=== PATIENT | female | born 1945 | race Caucasian/White ===

== ENCOUNTER 2018-05-11 10:11 | Emergency (ER) | payer OTHER, SELFPAY ==
[2018-05-11 10:14] VITALS: BP 130/70; PULSE 82; RESP 14; TEMP 36.7; O2SAT 97; BMI 38.0
--- NOTE | 2018-05-11 10:18 | DI.RAD.S_ITS ---
PROCEDURE: XR ANKLE LT MIN 3V INDICATIONS: fall, pain, unable to bear weight TECHNIQUE: 3 views of the ankle were acquired. COMPARISON: None. FINDINGS: Bones: There is a comminuted fracture of the distal tibia, predominantly within the medial malleolus, extending to the articular surface. It is minimally displaced. Tibiotalar joint space remains in alignment. Prominent calcaneal spur. Soft tissues: Prominent effusion is noted at the ankle. Achilles tendon appears normal. IMPRESSION: Minimally displaced comminuted, distal tibial fracture predominantly within the medial malleolus. Dictated by: Jyoti Ibarra M.D. on 05/11/2018 at 10:29 Approved by: Jyoti Ibarra M.D. on 05/11/2018 at 10:34
--- NOTE | 2018-05-11 10:34 | ED_ITS ---
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 She has pain with ambulation. She denies any injury to knee hip or elsewhere. She denies numbness, tingling or weakness. She denies any history of the same. MD complaint: ankle injury Onset (ago): hour(s) Injury: Left: ankle Type of Injury: inversion Place: street/outdoors Severity: moderate Relieving factors: immobilization Exacerbating factors: weight bearing Context: fall Associated symptoms: snap/pop sensation and swelling Other symptoms: none Related Data Previous Rx's Medication Instructions Recorded hydrocodone-acetaminophen 1 tab PO Q4-6H PRN #30 tab 05/11/18 Allergies Allergy/AdvReac Type Severity Reaction Status Date / Time amoxicillin [AMOXICILLIN] Allergy Intermediate HIVES Verified 05/11/18 10:17 erythromycin base Allergy Mild NAUSEA Verified 05/11/18 10:17 [ERYTHROMYCIN BASE] iodine [IODINE] Allergy Mild RASH Verified 05/11/18 10:17 Sulfa (Sulfonamide Allergy Mild BLISTERS Verified 05/11/18 10:17 Antibiotics) [SULFA (SULFONAMIDE ANTIBIOTICS)] Review of Systems Constitutional Denies chills, Denies fever(s), Denies lethargy and Denies weakness Eyes Denies change in vision, Denies eye discharge, Denies irritation and Denies loss of vision ENT Ears, Nose, Mouth, and Throat: Denies change in voice, Denies neck pain and Denies sore throat Cardiovascular Denies chest pain, Denies irregular heart rhythm, Denies lightheadedness, Denies palpitations, Denies dyspnea, Denies dyspnea on exertion and Denies orthopnea Respiratory Denies cough, Denies dyspnea, Denies dyspnea on exertion and Denies wheezing Gastrointestinal Gastrointestinal: Denies abdominal pain, Denies change in bowel habits, Denies diarrhea, Denies nausea and Denies vomiting Genitourinary Denies hematuria, Denies flank pain, Denies urinary incontinence and Denies urinary urgency Musculoskeletal Reports joint swelling, Reports limited range of motion and Denies neck pain Integumentary/Breasts Denies pruritus, Denies erythema, Denies rash and Denies wounds Neurologic Denies confusion, Denies loss of vision and Denies weakness Psychiatric Denies anxiety, Denies confusion, Denies depression, Denies homicidal ideation and Denies suicidal ideation Endocrine Denies palpitations Hematologic/Lymphatic Denies easy bruising Allergic/Immunologic Denies wheezing PFSH Surgical History Status post hysterectomy Status post tonsillectomy and adenoidectomy Family History Father High cholesterol Mother Age: 94 Diabetes mellitus Sister Age: 69 Diabetes mellitus Social History Smoking Status: Never smoker Family History Father High cholesterol Mother Age: 94 Diabetes mellitus Sister Age: 69 Diabetes mellitus Social History Smoking Status: Never smoker Exam Narrative Exam Narrative: GEN: AOx3 and in mild distress EYES: Pupils are equal, round, and reactive to light and accommodation. Extraoccular muscles are intact bilaterally. There is no subconjunctival hemorrhage or exudate. CHEST: Lungs are clear to auscultation bilaterally and free of wheezes, rales, or rhonchi. Heart rate is regular rhythm, there are no murmurs, clicks, rubs, or gallops. There is no chest wall tenderness. ABD: Abdomen is soft and nontender. There is no guarding or rebound. Bowel sounds are normal in all 4 quadrants. There is no mass or organomegaly. EXT: Pain and swelling with decreased range of motion of left ankle. Closed, isolated and neurovascularly intact SKIN: Warm, pink, and dry. No erythema or rash Initial Vital Signs Initial Vital Signs: Vital Signs Temperature 98.1 F 05/11/18 10:14 Pulse Rate 82 05/11/18 10:14 Respiratory Rate 14 05/11/18 10:14 Blood Pressure 130/70 05/11/18 10:14 Pulse Oximetry 97 05/11/18 10:14 Procedures Orthopedic Splinting/Casting Injury #1: Lower Extremity Injury Location: lower leg Lower Extremity Immobilizer: posterior splint and stirrup splint Other Orthopedic Equipment: crutches Course Orders Ordered: ED Orders 05/11/18 10:18 XR ankle LT min 3V Stat 05/11/18 11:02 CT LE LT wo con Stat Discontinued Medications Acetaminophen (Tylenol) 975 mg PO NOW ONE Stop: 05/11/18 10:23 Last Admin: 05/11/18 10:43 Dose: 975 mg Ibuprofen (Advil) 800 mg PO NOW ONE Stop: 05/11/18 10:23 Last Admin: 05/11/18 10:43 Dose: 800 mg Consultations Consultation #1: Call to Orthopedics whom request CT, posterior mold / stirrup, crutches and follow up Time: 10:44 Vital Signs - 8 hr 05/11/18 13:30 Pulse Rate 76 Respiratory Rate 18 Blood Pressure 117/70 Pulse Oximetry 100 MDM - Extremity Injury (Lower) Medical Records Attestation: I reviewed the patient's medical records. Lab Data Attestation: I reviewed the patient's lab results. Imaging Data Ankle Xray: Radiologist's impression: [address] [address] XRay Report Signed Patient: Beena Thomas LMR#: [id number] : 7Acct:[id number] Age/Sex: 72 / FDate of Service: 05/11/18 Loc: ED Accession Number: [id number] Procedure: XR ankle LT min 3V Ordering Provider: Zac Harmon D.O. PROCEDURE: XR ANKLE LT MIN 3V INDICATIONS: fall, pain, unable to bear weight TECHNIQUE: 3 views of the ankle were acquired. COMPARISON: None. FINDINGS: Bones: There is a comminuted fracture of the distal tibia, predominantly within the medial malleolus, extending to the articular surface. It is minimally displaced. Tibiotalar joint space remains in alignment. Prominent calcaneal spur. Soft tissues: Prominent effusion is noted at the ankle. Achilles tendon appears normal. IMPRESSION: Minimally displaced comminuted, distal tibial fracture predominantly within the medial malleolus. Dictated by: Jyoti Ibarra M.D. on 05/11/2018 at 10:29 Approved by: Jyoti Ibarra M.D. on 05/11/2018 at 10:34 CT Extremity: Radiologist's impression: [address] [address] [address] Scan Report Signed Patient: Beena Thomas LMR#: [id number] : 1946Acct:[id number] Age/Sex: 72 / FDate of Service: 05/11/18 Loc: ED Accession Number: [id number] Procedure: CT LE LT wo con Ordering Provider: Zac Harmon D.O. PROCEDURE: CT LE LT W CON INDICATIONS: comminuted distal tib fracture TECHNIQUE: Noncontrast 3-mm axial sections acquired from the distal tibial shaft to the talar dome, with coronal and sagittal reformats.. COMPARISON: [facility], CR, XR ANKLE LT MIN 3V, 05/11/2018, 10:18. FINDINGS: Image quality: Excellent. Bones: There is a comminuted fracture of the distal tibia involving the tibial plafond along the tibiotalar articulation and extension to the medial malleolus. There is mild impaction along the articular surface. Fracture also extends to the distal tibiofibular syndesmosis without associated syndesmotic widening. Remaining visualized osseous structures appear intact. There is moderate mid foot degeneration. Soft tissues: There is a small tibiotalar joint effusion with a few small fracture fragments in the joint space. Periarticular subcutaneous edema is demonstrated. The flexor, extensor, peroneal, and Achilles tendons appear grossly intact. IMPRESSION: 1. Comminuted distal tibial fracture involving the tibiotalar joint with mild articular surface impaction. The findings are compatible with a type III pilon fracture. 2. Small tibiotalar joint effusion with a few small fracture fragments noted. Dictated by: Bar Benavides M.D. on 05/11/2018 at 11:16 Approved by: Bar Benavides M.D. on 05/11/2018 at 11:33 Discharge Plan Departure Patient Disposition: Home Clinical Impression: Fracture of distal end of left tibia Discharge Date/Time: 05/11/18 13:30 Interventions: ED Discharge Assessment Last Done: 05/11/18 13:30 Instructions: DI for Shinbone Fracture Activity Restrictions/Additional Instructions: *You have been diagnosed with [ distal tibia fracture ] *What to do: *Take medications as directed. No weight-bearing *Follow up with [facility], call for an appointment. Let them know you were seen in the Emergency Department and that we ask that you be seen in follow up *Return to ER if you should have any new, worsening or concerning symptoms , such as [increasing pain, numbness, tingling, weakness or other bothersome symptoms ] Prescriptions: New hydrocodone-acetaminophen 5-325 mg tablet 1 tab PO Q4-6H PRN (Reason: pain) Qty: 30 RF: 0 Referrals: Avelino Jeffers MD [Primary Care Provider] - Adrien Matthews MD [Physician] -
[2018-05-11] MEDS: IBUPROFEN 400 MG TABLET 800 MG PO (10:43)
[2018-05-11] MEDS: ACETAMINOPHEN 325 MG TABLET 975 MG PO (10:43)
--- NOTE | 2018-05-11 11:02 | DI.CT.S_ITS ---
PROCEDURE: CT LE LT W CON INDICATIONS: comminuted distal tib fracture TECHNIQUE: Noncontrast 3-mm axial sections acquired from the distal tibial shaft to the talar dome, with coronal and sagittal reformats.. COMPARISON: [facility], CR, XR ANKLE LT MIN 3V, 05/11/2018, 10:18. FINDINGS: Image quality: Excellent. Bones: There is a comminuted fracture of the distal tibia involving the tibial plafond along the tibiotalar articulation and extension to the medial malleolus. There is mild impaction along the articular surface. Fracture also extends to the distal tibiofibular syndesmosis without associated syndesmotic widening. Remaining visualized osseous structures appear intact. There is moderate mid foot degeneration. Soft tissues: There is a small tibiotalar joint effusion with a few small fracture fragments in the joint space. Periarticular subcutaneous edema is demonstrated. The flexor, extensor, peroneal, and Achilles tendons appear grossly intact. IMPRESSION: 1. Comminuted distal tibial fracture involving the tibiotalar joint with mild articular surface impaction. The findings are compatible with a type III pilon fracture. 2. Small tibiotalar joint effusion with a few small fracture fragments noted. Dictated by: Bar Benavides M.D. on 05/11/2018 at 11:16 Approved by: Bar Benavides M.D. on 05/11/2018 at 11:33
[2018-05-11 13:30] VITALS: BP 117/70; PULSE 76; RESP 18; O2SAT 100
== END 2018-05-11 13:30 | disposition home or self-care (01) ==
PROVIDERS: Emergency Provider Emergency Medicine; Family Provider Family Medicine; PCP Family Medicine
DX: S82.302A Unspecified fracture of lower end of left tibia, initial encounter for closed fracture (principal); W18.43XA Slipping, tripping and stumbling without falling due to stepping from one level to another, initial encounter
CPT/HCPCS: 29505; 73610; 73700; 99283; 99284

== ENCOUNTER → 2018-05-13 10:47 | Outpatient (CLI) | payer OTHER, SELFPAY ==
[2018-05-13 11:39] LABS: Add Manual Diff / Slide Review NO; Basophils Absolute Auto 100 /uL (0-100); Basophils Percent Auto 0.7 % (0-2); Eosinophils Absolute Auto 100 /uL (0-450); Eosinophils Percent Auto 0.7 % (2-4); Hematocrit 41.6 % (36-46); Lymphocytes Absolute Auto 1300 /uL (1100-4500); Lymphocytes Percent Auto 13.3 % (25-40); Mean Corpuscular HGB Conc 33.6 % (30-36); Mean Corpuscular Hemoglobin 29.2 PG (26-34); Mean Corpuscular Volume 87.1 fL (80-100); Monocytes Absolute Auto 700 /uL (0-900); Monocytes Percent Auto 6.7 % (3-14); Neutrophils Absolute Auto 8000 /uL (1500-7000); Neutrophils Percent Auto 78.6 % (50-75); Platelet Count 288 X10^3/uL (150-400); Red Blood Cell Count 4.78 X10^6/uL (4.0-5.2); Red Cell Distribution Width 13.1 % (11.6-14.8); White Blood Cell Count 10.2 X10^3/uL (4.5-11.0)
[2018-05-13 11:40] LABS: BUN Creatinine Ratio 17.5 (6-22); Blood Urea Nitrogen 14 mg/dL (7-17); Calcium 9.2 mg/dL (8.4-10.2); Carbon Dioxide 27 mmol/L (22-32); Chloride 103 mmol/L (98-107); Estimated Glomerular Filt Rate > 60.0 mL/min (>60); Glucose 145 mg/dL (80-110); HEMOLYSIS < 15 (0-50); Potassium 4.5 mmol/L (3.4-5.1); Sodium 139 mmol/L (137-145)
== END ==
PROVIDERS: Family Provider Family Medicine; PCP Family Medicine; Visit Provider Orthopaedic Surgery Foot and Ankle Surgery
DX: Z01.818 Encounter for other preprocedural examination (principal); Z01.812 Encounter for preprocedural laboratory examination; M87.275 Osteonecrosis due to previous trauma, left foot; R73.9 Hyperglycemia, unspecified
CPT/HCPCS: 36415; 80048; 83036; 85025; 93005

== ENCOUNTER 2018-05-19 06:09 | Day surgery (SDC) | payer OTHER, SELFPAY ==
[2018-05-17 08:06] VITALS: BMI 38.0
[2018-05-19] VITALS (15 sets, daily range): BP systolic 103–137; BP diastolic 41–76; PULSE 68–95; RESP 10–16; TEMP 36–36.9; O2SAT 91–97; BMI 38.7; BMI 38.2
--- NOTE | 2018-05-19 | DI.RAD.S_ITS ---
PROCEDURE: XR ANKLE LT 2V INDICATIONS: LEFT ANKLE ORIF TECHNIQUE: 2 views of the ankle were acquired. COMPARISON: [facility], CR, XR ANKLE LT MIN 3V, 05/11/2018, 10:18. FINDINGS: Bones: No previously identified fractures or dislocations. Normal alignment is established after ORIF of a complex comminuted intra-articular moderately displaced left ankle fracture. Ankle mortise is normally aligned. No suspicious bony lesions. Soft tissues: No tibiotalar joint effusion. Achilles tendon appears normal. IMPRESSION: Virtual anatomic alignment established after ORIF of the previously identified complex left ankle fracture. Dictated by: Grady Duong M.D. on 05/19/2018 at 10:14 Approved by: Grady Duong M.D. on 05/19/2018 at 10:15
[2018-05-19] MEDS: LACTATED RINGERS 1,000 ML 42 ML IV (07:00)
--- NOTE | 2018-05-19 07:20 | PM.PREOP ---
Pre-operative Note Interval Note History & Physical reviewed/Exam performed by Physician: Yes Changes to H&P: No H&P completed within 30 days and has changed as indicated here:: pt endorse throat swelling allergy to amoxixillin in past therefore will use clinda instead of ancef for periop abx
[2018-05-19] MEDS: CLINDAMYCIN 900 MG/50 ML PIGGYBACK 50 MG IV (08:05)
--- NOTE | 2018-05-19 08:31 | SUR.OPER ---
Supine on padded OR bed, head on pillow, arms secured on padded arm boards at <90 degrees abduction, legs uncrossed, safety belt at thigh, tape over blanket over lower legs.
[2018-05-19] MEDS: BUPIVACAINE 0.25% (PF) VIAL 30 ML INJ (08:43)
--- NOTE | 2018-05-19 11:00 | SUR.PHASEI ---
Pt's HR NSR with PVCs. MD Desir aware of the PVCs. Will continue to monitor.
--- NOTE | 2018-05-19 11:05 | PM.OP.1 ---
Operative Date/Time/Diagnoses Date of procedure: 05/19/18 Time of procedure: 08:00 Pre-op diagnosis: 1. Closed displaced pilon fracture left tibia, initial encounter S82.872A Displaced intra-articular fracture left tibial plafond 2. Diabetes mellitus type 2 Post-op diagnosis: same Procedure & Clinicians Procedure: Number open reduction internal fixation of pilon fracture left tibia CPT code 94741 Same procedure as scheduled: Yes Indications: Patient has a left tibial plafond fracture with significant intra-articular comminution and displacement of anterior fragment. The patient has been indicated for surgery to align the fragments and obtain reduction. Patient understands that we would not be able to reconstruct the joint and tired he due to the high level of comminution. And the patient has a high likelihood of posttraumatic arthritis but the symptoms may be variable. Patient was also offered the option of primary arthrodesis but the sacrifice his joint motion. The patient is desired open reduction internal fixation. She does have a new onset diabetes with a hemoglobin A1c of 7. We will arrange for medical treatment of this. The patient was consented for open reduction internal fixation of the left tibial plafond fracture. Risks benefits and alternatives of procedure were discussed with the patient detail including but not limited to infection, nonunion, malunion, delayed wound healing, posttraumatic arthritis, persistent pain, DVT, PE, inability to return to previous level of activities., cardiopulmonary complications associated with general anesthesia up to and including . Informed consent was signed in the office. Patient understands that it is important to elevate above the heart level for at least 2 weeks after surgery and she will be nonweightbearing for approximately 10 weeks. She will take DVT prophylaxis with 325 mg of aspirin daily starting on postoperative day 1. Surgeon: Pippa Zhu Detacher: Misa Beltre Anesthesia Type: General, Peripheral nerve block and Local Operative Notes Findings: Displaced intra-articular left distal tibia fracture with primarily anterior medial and anterior lateral fragments and central comminution and joint depression. The chaput fragment was pinned in place and then secured with a 4.0 cannulated screw and washer. Medial malleolar fragments were secured with 2 4.0 cannula screws. And a Arthrex low-profile distal tibia anterior plate was applied the distal locking screws. Closure Type: primary Specimen(s): none sent Prosthetic devices, grafts, tissues, transplants, or devices: Arthrex low-profile anterior distal tibia plate and screws 4.0 mmcannulated screws x 3, 2x washer Applied: other (Splint) Estimated Blood Loss (mL): 5 Blood products transfused: none Tourniquet time (min): 89 Procedure in detail: The patient was seen in the preoperative area where informed consent was confirmed and site of surgery marked. Patient was then brought back to the operating room by the anesthesia team. The patient was administered a popliteal block for postoperative pain control by the anesthesia team. General anesthesia was then administered the patient was positioned supine on the operative table. All bony prominences were well-padded. Well-padded thigh tourniquet was placed on the operative extremity. An SCD was on the contralateral leg. Patient was prepped and draped in the standard sterile fashion including a 3 step prep. Formal time-out procedure was performed confirming the patient's side and site of surgery and administration of appropriate preoperative antibiotics. All were in agreement. Implants were available. S were bandage utilized for exsanguination the tourniquet was raised to 300 mm of mercury and stayed there for approximately 89 min. Approximately 10 cm anterior incision was centered just lateral to the tibial crest and in the midline of the bimalleolar axis. This was taken down through the skin subcutaneous tissue and fascia to level of extensor retinaculum. Extensor retinaculum was opened and tagged for later repair. Interval between the EHL and the tibialis anterior was taken down to bone with the EHL neurovascular bundle and other tendons retracted laterally and the tibialis anterior retracted medially. Tendons were kept inside their sheaths. This exposed the anterior fracture fragments of the distal tibia. And distal extension to the level of the joint was obtained. The fracture fragments were irrigated and cleaned of debris and hematoma. This exposed a primary medial and lateral anterior fragments. These were then reduced and pinned with K-wires. The anterior lateral fragment was reduced and pinned with a 4.0 cannulated screw in a lag fashion with a washer. At the end of this case this was found to be slightly long was changed out for a slightly score shorter screw. Next the medial fragments were pinned with 2 percutaneous wires 1 from medial to lateral and 1 in the standard medial malleolar fashion. Next the anterior medial fragment was pinned to the shaft. Radiographs were obtained confirming appropriate reduction of the joint surface. Therefore a low-profile distal tibia plate from the Arthrex set was selected and fit to the distal tibia. X-rays were taken to confirm positioning. The plate was secured with a BB Jos proximally and K-wires distally. Once this was appropriate cortical screw was placed in the oblong hole followed by standard cortical 2 7 screws distally to compress the plate to the bone. Next the distal locking 2 7 screws were placed filling the rest of the distal plate. And another cortical 3 5 screws placed in the shaft followed by a 3.5 locking screw in the distal metaphysis. Next the 4 0 cannulated screw was placed and medial to lateral over the guidewire and the final medial malleolus cannulated screw was placed over the guidewire percutaneously. Final fluoroscopic images were obtained in AP mortise lateral planes confirming appropriate screw length and reduction. I was very satisfied with the appearance of these. Tourniquet was released the wound was irrigated and hemostasis was achieved and the wound was closed in layers with 0 Vicryl in the extensor retinaculum which we obtained a good closure of. Two 0 in the subcutaneous tissues then of 4 0 Monocryl followed by 3 0 nylon in the skin. Patient was placed in a sterile dressing with Xeroform gauze Webril bulky Doll cotton and a posterior splint. All counts were correct. The patient was woken from anesthesia and taken to the PACU in good condition. There were no known immediate complications from this procedure. Complications: none Condition: stable Disposition: PACU Plan for aftercare: Patient will be nonweightbearing for approximately 10 weeks. she will elevate strictly above the heart level. She will have a internal medicine consult for diabetes control. She will start aspirin 325 mg on postop day 1 for DVT prophylaxis. She will have 2 doses of postoperative antibiotics.
--- NOTE | 2018-05-19 11:16 | P.OP_ITS ---
Operative Date/Time/Diagnoses Date of procedure: 05/19/18 Time of procedure: 08:00 Pre-op diagnosis: 1. Closed displaced pilon fracture left tibia, initial encounter S82.872A Displaced intra-articular fracture left tibial plafond 2. Diabetes mellitus type 2 Post-op diagnosis: same Procedure & Clinicians Procedure: Number open reduction internal fixation of pilon fracture left tibia CPT code 45294 Same procedure as scheduled: Yes Indications: Patient has a left tibial plafond fracture with significant intra- articular comminution and displacement of anterior fragment. The patient has been indicated for surgery to align the fragments and obtain reduction. Patient understands that we would not be able to reconstruct the joint and tired he due to the high level of comminution. And the patient has a high likelihood of posttraumatic arthritis but the symptoms may be variable. Patient was also offered the option of primary arthrodesis but the sacrifice his joint motion. The patient is desired open reduction internal fixation. She does have a new onset diabetes with a hemoglobin A1c of 7. We will arrange for medical treatmen t of this. The patient was consented for open reduction internal fixation of the left tibial plafond fracture. Risks benefits and alternatives of procedure were discussed with the patient detail including but not limited to infection, nonunion, malunion, delayed wound healing, posttraumatic arthritis, persistent pain, DVT, PE, inability to return to previous level of activities., cardiopulmonary complications associated with general anesthesia up to and including . Informed consent was signed in the office. Patient understands that it is important to elevate above the heart level for at least 2 weeks after surgery and she will be nonweightbearing for approximately 10 weeks. She will take DVT prophylaxis with 325 mg of aspirin daily starting on postoperative day 1. Surgeon: Pippa Zhu Master Black Belt: Misa Beltre Anesthesia Type: General, Peripheral nerve block and Local Operative Notes Findings: Displaced intra-articular left distal tibia fracture with primarily anterior medial and anterior lateral fragments and central comminution and joint depression. The chaput fragment was pinned in place and then secured with a 4.0 cannulated screw and washer. Medial malleolar fragments were secured with 2 4.0 cannula screws. And a Arthrex low-profile distal tibia anterior plate was applied the distal locking screws. Closure Type: primary Specimen(s): none sent Prosthetic devices, grafts, tissues, transplants, or devices: Arthrex low- profile anterior distal tibia plate and screws 4.0 mmcannulated screws x 3, 2x washer Applied: other (Splint) Estimated Blood Loss (mL): 5 Blood products transfused: none Tourniquet time (min): 89 Procedure in detail: The patient was seen in the preoperative area where informed consent was confirmed and site of surgery marked. Patient was then brought back to the operating room by the anesthesia team. The patient was administered a popliteal block for postoperative pain control by the anesthesia team. General anesthesia was then administered the patient was positioned supine on the operative table. All bony prominences were well-padded. Well- padded thigh tourniquet was placed on the operative extremity. An SCD was on the contralateral leg. Patient was prepped and draped in the standard sterile fashion including a 3 step prep. Formal time-out procedure was performed confirming the patient's side and site of surgery and administration of appropriate preoperative antibiotics. All were in agreement. Implants were available. S were bandage utilized for exsanguination the tourniquet was raised to 300 mm of mercury and stayed there for approximately 89 min. Approximately 10 cm anterior incision was centered just lateral to the tibial crest and in the midline of the bimalleolar axis. This was taken down through the skin subcutane ous tissue and fascia to level of extensor retinaculum. Extensor retinaculum was opened and tagged for later repair. Interval between the EHL and the tibialis anterior was taken down to bone with the EHL neurovascular bundle and other tendons retracted laterally and the tibialis anterior retracted medially. Tendons were kept inside their sheaths. This exposed the anterior fracture fragments of the distal tibia. And distal extension to the level of the joint was obtained. The fracture fragments were irrigated and cleaned of debris and hematoma. This exposed a primary medial and lateral anterior fragments. These were then reduced and pinned with K-wires. The anterior lateral fragment was reduced and pinned with a 4.0 cannulated screw in a lag fashion with a washer. At the end of this case this was found to be slightly long was changed out for a slightly score shorter screw. Next the medial fragments were pinned with 2 percutaneous wires 1 from medial to lateral and 1 in the standard medial malleolar fashion. Next the anterior medial fragment was pinned to the shaft. Radiographs were obtained confirming appropriate reduction of the joint surface. Therefore a low-profile distal tibia plate from the Arthrex set was selected and fit to the distal tibia. X-rays were taken to confirm positioning. The plate was secured with a BB Jos proximally and K-wires distally. Once this was appropriate cortical screw was placed in the oblong hole followed by standard cortical 2 7 screws distally to compress the plate to the bone. Next the distal locking 2 7 screws were placed filling the rest of the distal plate. And another cortical 3 5 screws placed in the shaft followed by a 3.5 locking screw in the distal metaphysis. Next the 4 0 cannulated screw was placed and medial to later al over the guidewire and the final medial malleolus cannulated screw was placed over the guidewire percutaneously. Final fluoroscopic images were obtained in AP mortise lateral planes confirming appropriate screw length and reduction. I was very satisfied with the appearance of these. Tourniquet was released the wound was irrigated and hemostasis was achieved and the wound was closed in layers with 0 Vicryl in the extensor retinaculum which we obtained a good closure of. Two 0 in the subcutaneous tissues then of 4 0 Monocryl followed by 3 0 nylon in the skin. Patient was placed in a sterile dressing with Xeroform gauze Webril bulky Doll cotton and a posterior splint. All counts were correct. The patient was woken from anesthesia and taken to the PACU in good condition. There were no known immediate complications from this procedure. Complications: none Condition: stable Disposition: PACU Plan for aftercare: Patient will be nonweightbearing for approximately 10 weeks. she will elevate strictly above the heart level. She will have a internal medicine consult for diabetes control. She will start aspirin 325 mg on postop day 1 for DVT prophylaxis. She will have 2 doses of postoperative antibiotics.
--- NOTE | 2018-05-19 11:44 | SUR.PHASEI ---
Pt transferred to room 206 via stretcher with all belongings. Pt's last vital signs table. Pt not c/o pain or nausea. Report given to IVETH Paris prior to transferring pt.
--- NOTE | 2018-05-19 12:55 | PC.NURSE ---
Day Shift- Report rec'd from IVETH Núñez in PACU at 1117. Pt arrived to unit at 1150 via stretcher, pt able to move herself to the bed with RN holding LLE. Now elevated on pillows. Denies pain, nausea. 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 VSS, afebrile upon arrival. oriented to call light, post op precautions, on high fall risk precautions. Enc DB&C exercises and ankle pump to right ankle. SCD on to RLE. PIV to left hand S/L'd. LLE gauze and desi wrap splint in place. Call light within reach.
--- NOTE | 2018-05-19 15:34 | P.PN_ITS ---
Subjective Date Patient Seen: 05/19/18 Time Patient Seen: 15:31 Interval history: Diabetes. Asked to see patient by Dr. Zhu. Patient was found to have an elevated hemoglobin A1c preoperatively. Patient underwent ORIF ankle injury. Patient has history of dfv-ornshnc-uqqbofnew diabetes for several years. When last seen in the office approximately 2 years ago her hemoglobin A1c was 6.4. 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 Since then has been no particular issues. 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 Has some knowledge of a dietary issues. And has not been terribly consistent in her activity. Family history is positive for diabetes. Patient is on no medications for diabetes. Additionally no history of coronary artery disease, no history of hyperlipidemia, and no history of hypertension. Patient is anticipating going home tomorrow with apparent home physical therapy.. Of significance patient has right nephrectomy approximately 20 years ago for renal cell carcinoma. As far she is aware she has had normal renal function since Exam Vital Signs (past 8 hours): - 05/19/18 10:29 05/19/18 10:34 05/19/18 10:39 Temperature 98.0 F Pulse Rate 95 H 90 85 Respiratory Rate 12 11 L 12 Blood Pressure 126/68 120/58 L 114/57 L Pulse Oximetry 93 93 93 05/19/18 10:44 05/19/18 10:59 05/19/18 11:14 Temperature Pulse Rate 80 79 77 Respiratory Rate 13 12 10 L Blood Pressure 120/53 L 113/49 L 118/41 L Pulse Oximetry 94 92 91 05/19/18 11:29 05/19/18 11:39 05/19/18 11:50 Temperature 98.2 F Pulse Rate 77 71 79 Respiratory Rate 12 11 L 16 Blood Pressure 130/46 L 115/53 L 103/71 Pulse Oximetry 94 96 97 05/19/18 12:20 05/19/18 12:50 05/19/18 13:50 Temperature 97.4 F L 97.4 F L 97.3 F L Pulse Rate 74 70 79 Respiratory Rate 16 16 16 Blood Pressure 120/71 117/53 L 118/63 Pulse Oximetry 95 92 96 Oxygen Delivery Method Room Air Narrative Exam Narrative: Gen.: Skin: Warm well perfused. No prominent lesions. Nonicteric. HEENT: PERRL., normal EOM, external ears canals TMs normal, nasal mucosa normal and midline septum, oropharynx without lesions. Neck: Trachea midline. Thyroid nontender and not enlarged. Carotids without bruits. No lymphadenopathy Back: No obvious deformity or tenderness. Chest: Clear to P&A. Symmetric. CV: RRR no murmur or gallop. No JVD. Abdomen: No masses bruits tenderness or visceromegaly. Neuro: Cranial nerves II through XII grossly intact. Sensory and motor exams intact. Gait normal. Mental status: Intact for screening Extremities: No cyanosis clubbing or edema Musculoskeletal: No gross deformities Lymphatics: Negative for lymphadenopathy, supraclavicular axillary or inguinal Objective Labs Labs: Labs drawn May 13 normal renal function. Hemoglobin A1c was 7.0 as stated Assessment & Plan Assessment & Plan narrative: The patient has adult onset diabetes that has increased A1c over time. Issues at hand primarily are her renal function. They currently are normal. Patient will be speaking with the dietitian. She has already done this but will get updated. Patient also be instructed on home physical therapy and exercise which is critical to management. I will see her back in 1 month with a repeat hemoglobin A1c at that time as well as BMP and. She will have urine micro done here this morning or tomorrow morning. Depending however he A1c is in a month may mm not decide to add glimepiride to the program. Metformin will not be use cause of potential for nephrotoxicity
[2018-05-19] MEDS: CLINDAMYCIN 600 MG/50 ML PIGGYBACK 50 MG IV (17:50)
--- NOTE | 2018-05-19 17:58 | PM.PNPO.1 ---
Subjective Date Patient Seen: 05/19/18 Time Patient Seen: 17:58 Interval history: Postop day 0 pilon ORIF Exam Vital Signs (past 8 hours): - 05/19/18 10:29 05/19/18 10:34 05/19/18 10:39 Temperature 98.0 F Pulse Rate 95 H 90 85 Respiratory Rate 12 11 L 12 Blood Pressure 126/68 120/58 L 114/57 L Pulse Oximetry 93 93 93 05/19/18 10:44 05/19/18 10:59 05/19/18 11:14 Temperature Pulse Rate 80 79 77 Respiratory Rate 13 12 10 L Blood Pressure 120/53 L 113/49 L 118/41 L Pulse Oximetry 94 92 91 05/19/18 11:29 05/19/18 11:39 05/19/18 11:50 Temperature 98.2 F Pulse Rate 77 71 79 Respiratory Rate 12 11 L 16 Blood Pressure 130/46 L 115/53 L 103/71 Pulse Oximetry 94 96 97 05/19/18 12:20 05/19/18 12:50 05/19/18 13:50 Temperature 97.4 F L 97.4 F L 97.3 F L Pulse Rate 74 70 79 Respiratory Rate 16 16 16 Blood Pressure 120/71 117/53 L 118/63 Pulse Oximetry 95 92 96 05/19/18 14:50 Temperature 98.4 F Pulse Rate 81 Respiratory Rate 16 Blood Pressure 112/70 Pulse Oximetry 97 Oxygen Delivery Method Room Air Assessment & Plan Post-op Postoperative Procedures Operation Date: 05/19/18 07:45 Actual Procedures Side Surgeon p ORIF pilon fx vs applicationof spanning external fixation of ankle Left Pippa Zhu MD 1. Nonweightbearing left lower extremity 2. Elevate strictly above heart level 1st 2 weeks after surgery 3. Start aspirin 325 mg daily for DVT prophylaxis 4. Follow-up scheduled 2 weeks 5. Has discharge prescriptions for pain medication, stool softener, aspirin, Zofran all on chart 6. Discharge home postop day 1 morning--no PT needed patient has been coping with nonweightbearing well at home Quality VTE Deep Vein Thrombosis/Pulmonary Embolism Present on Admission: No
[2018-05-19] MEDS: SODIUM CHLORIDE 0.9% FLUSH 10 ML IV (20:45)
[2018-05-19] MEDS: DOCUSATE 100 MG CAPSULE PO (20:45)
[2018-05-19] MEDS: ACETAMINOPHEN 325 MG TABLET 975 MG PO (20:45)
--- NOTE | 2018-05-19 22:32 | PC.NURSE ---
Addendum entered by Mckayla Aragon R.N. 05/20/18 00:45: 0015- note is on wrong pt. Original Note: Addendum entered by Mckayla Aragon R.N. 05/20/18 00:23: 0015- Asked student RN to admin pt's 2100 medications. Student replied with yes. Unknown if pt received 2100 medications from student and instructor. Medications were not scanned. Pt unable to to verbalize if received r/t dementia/confusion. Original Note: Pt denies pain to left LLL, Leg is splinted with gauze desi wrap, toes exposed and able to wiggle all toes, able to lift leg, calf SCD to right leg. L hand SL and received ABO @ 1700. Ate reg diet dinner, denies nausea, BT+. 9+7% RA, LS clear, denies SOB. 1PA FWW to BRP to void. Bed alarm on for safety, uses call appropriately.
[2018-05-20 00:25] VITALS: BP 122/51; PULSE 87; RESP 17; TEMP 37; O2SAT 95
[2018-05-20] MEDS: CLINDAMYCIN 600 MG/50 ML PIGGYBACK 50 MG IV (01:15)
[2018-05-20 01:39] LABS: Creatinine Urine Random 68.9 mg/dL
[2018-05-20 01:45] LABS: Microalbumi Creatinin Ratio Ur 8.7 ug/mg CR (<30); Microalbumin Urine Random < 0.6 mg/dL (0-1.6)
[2018-05-20 03:38] VITALS: BP 132/82; PULSE 83; RESP 16; TEMP 36.5; O2SAT 96
[2018-05-20 08:00] VITALS: BP 123/70; PULSE 76; RESP 16; TEMP 36.9; O2SAT 96
[2018-05-20] MEDS: ACETAMINOPHEN 325 MG TABLET 975 MG PO (08:53)
[2018-05-20] MEDS: DOCUSATE 100 MG CAPSULE PO (08:53)
[2018-05-20] MEDS: ASPIRIN EC 325 MG TABLET PO (08:53)
[2018-05-20] MEDS: SODIUM CHLORIDE 0.9% FLUSH 10 ML IV (08:54)
--- NOTE | 2018-05-20 10:05 | PM.DS.1 ---
History of Present Illness Date Patient Seen: 05/20/18 Time Patient Seen: 10:06 Chief complaint: Pilon Fracture of left Tibia Narrative: Hospital day 2, postop day 1 following left tibial pilon fracture ORIF by Dr. Zhu. Patient has remained stable postoperatively. Nonweightbearing to the left leg. Patient was seen by Dr. Jeffers regarding her diabetes and has cleared patient for discharge. Patient has had minimal pain. Dr. Zhu did not think patient needed physical therapy as she has been doing well at home on her own. She has prescriptions already written for Percocet, Zofran. Ready for discharge today. Discharge Providers Primary care physician: Avelino Jeffers MD Consults: 05/19/18 11:59 Consult to Dietitian, Adult Routine Comment: Reason For Exam: diabetes new Consult to Discharge Planning Routine Comment: plan home 05/20 Consult to Physician Routine Comment: Consulting Provider: Avelino Jeffers Reason for consultation: new diabetes hgb 1 ac 7--hx one kidney Has provider been notified: Yes Consult to Respiratory Therapy Evaluate & Treat Comment: Physician Instructions: Evaluate and treat 05/19/18 15:26 Consult to Dietitian, Adult Routine Comment: Reason For Exam: diabetic diet Discharge provider: Sarbjit Hanson PA-C Discharge Date: 05/20/18 Summary Discharge Diagnosis: Status post left tibial pilon fracture ORIF Hospital Course: Patient brought to hospital on 03/18/2019 for above-noted surgery. Remained stable postoperatively. Good pain control. Patient discharged home on postop day 1. Status at Discharge Cognitive/behavioral status at discharge: Alert oriented no acute distress. Overall status at discharge: other (Nonweightbearing to left leg times 10 weeks postop.) Time Spent with Patient Less than 30 minutes Exam Vital Signs (past 8 hours): - 05/20/18 03:38 05/20/18 08:00 Temperature 97.7 F 98.4 F Pulse Rate 83 76 Respiratory Rate 16 16 Blood Pressure 132/82 123/70 Pulse Oximetry 96 96 Oxygen Delivery Method Room Air Oxygen Flow Rate 0 Narrative Exam Narrative: Left leg. Bulky lower leg postop splint in stable position. Good blanching and sensation to all toes. Objective Labs Labs: Laboratory Results - last 24 hr 05/19/18 23:35 Ur Random Microalbumin < 0.6 Urine Creatinine 68.9 Microalb/Creat Ratio 8.7 Discharge Plan Discharge Plan Patient Disposition: Home Labs: A1c, bmp 1 mo Discharge comment: sherri Jeffers 1 mo Discharge Med Rec/Prescriptions Prescriptions: New aspirin 325 mg tablet,delayed release (DR/EC) 325 mg PO DAILY Qty: 42 RF: 0 docusate sodium [Colace] 100 mg capsule 100 mg PO BID Qty: 30 RF: 1 ondansetron 4 mg tablet,disintegrating 4 mg PO BID-TID PRN (Reason: nausea and vomiting) Qty: 7 RF: 0 oxycodone-acetaminophen 5-300 mg tablet 2 tab PO Q4-6H PRN (Reason: pain) Qty: 50 RF: 0 Discontinued hydrocodone-acetaminophen 5-325 mg tablet 1 tab PO Q4-6H PRN (Reason: pain) Qty: 30 RF: 0 Follow up/Referrals: Pippa Zhu MD [Physician] - As previously scheduled (06/03/18 9:40 AM check in for 9:50AM appointment [place] [facility] located at [address] [place] [address]) Avelino Jeffers MD [Primary Care Provider] - Discharge Orders: Discharge (Order); Ordered 05/20/18 Ordered By: Sarbjit Hanson Provider Discharge Instructions Diet: Diet as Tolerated Activity: NWB LLE Other treatments: At-Home Instructions - Dr. Zhu Surgery: ankle joint open reduction internal fixation: pilon fracture Cast/Splint/Dressing Care Instructions 1) Keep cast/dressing clean and dry. 2) May bathe - but cast/dressing must remain dry. 3) Should the cast become wet, you need to come into emergency department or call your physician's clinic immediately for cast removal and replacement. Moisture can cause skin breakdown and lead to infection if left untreated. 4) Do not stick any sharp object down the cast to itch, as this can cause scrapes/cuts/punctures which can lead to infection. 6) Observe for increasing pain in the extremity with the cast, finger/toe-tips turning blue/purple, or numbness and tingling in your toes/fingers. Should any of these symptoms arise, you need to be seen immediately for evaluation of swelling and increasing compartment pressures within your affected extremity. 7) Keep your affected extremity elevated - Toes Above your Nose? - This is aburto in the first two weeks after surgery to minimize swelling. 8) You may ice your extremity, being careful to prevent melting ice from saturating into the splint/cast. Activity No heavy lifting greater than 10 pounds. [address] while on narcotic pain medication. Do not get your dressing/cast/splint wet! You must remain non-weight bearing on your operative extremity. Use crutches or a walker for ambulation. No driving until you are otherwise instructed by your physician. This will be addressed at your first follow-up appointment. Discharge Pain Medications You will be given a prescription for pain medication. You should start taking this the same day after your surgery. Wean off as tolerated. Do not wait to take the pain medication until the pain is severe, as it will be difficult to catch up once this occurs. The pain medication usually reaches its full effect ~1 hour after ingesting. If you have been sent home on Colace, this medication should be taken until you are off all narcotic (i.e. Vicodin, Percocet, Oxycodone, etc) pain medications, to prevent constipation. You may also obtain this or another stool softener over the counter to prevent or alleviate constipation. Percocet or Vicodin have Tylenol in their ingredient lists. You must be careful not to exceed 3,000mg (3 grams) of Tylenol, from all sources, within a single 24-hr period. This means that you may not take more than 10 pills within a 24-hr period. Do NOT take Regular or Extra Strength Tylenol when taking your Percocet or Vicodin medications. -Some common side effects of the narcotic pain medications (Percocet, Oxycodone, Vicodin, etc.) include nausea and itching. Benadryl is a great over the counter medication that helps calm your stomach, decreases your anxiety levels, and minimizes the itching. You can easily purchase this at your local pharmacy as an cuwq-gum-[id number] medication. Please abide by the instructions as printed on the bottle. If your nausea persists, make sure to take small amounts of crackers or other automatic wheel line operator foods. Follow-Up/Emergency Contacts Please call for an appointment in either [place] or [place], if one has not been scheduled. Follow up 1 week after surgery. [phone] Contact the office if you have any of the following: ? Painful swelling or numbness ? Unrelenting pain ? Fever (over 101?- it is normal to have a low grade fever for the first day or two following surgery) or chills ? Redness around the incisions ? Color changes ? Continuous bleeding or drainage from the incision (a small amount is expected) ? Excessive nausea or vomiting ? Difficulty breathing If you have an emergency that requires immediate attention, proceed to the nearest emergency room. Blood Clot Prophylaxis You will need to complete a total 6-week (42 days) course of Aspirin (325 mg daily) after surgery, to minimize the risk of blood clots following surgery. You may alternatively purchase or use eojv-pzy-mttacma generic equivalent Aspirin. If you already have ?baby? Aspirin (81mg) at home, you can take 4 ?baby? Aspirin to total 324mg for the equivalent dose. Pain Medications: It is the policy of [facility] that narcotic medications will only be refilled during office hours. Additionally, due to the alarming rate of narcotic pain medication abuse/dependence, it has become necessary for physician practices to closely manage patient use of prescription narcotic pain relievers, such as Vicodin ([place]), Percocet, and Oxycodone products. Narcotic pain management in the postoperative period may not exceed 6 weeks. If narcotic pain management is required beyond 90 days, then a referral to a Chronic Pain Specialist will be made. If a request for a medication prescription has been made, the physician must review your chart prior to authorizing the request. Please be patient with office staff. If you call during patient hours, your call may not be returned until the end of the day. Dr. Pippa Zhu [address] [email or web address] Skin/Wound/Dressing Care Report to your healthcare provider any signs of infection, such as:: chills, fever, night sweats, increased pain, unusual drainage and unusual redness Dressing: keep splint c/d/i Visit Report/Discharge Packet Instructions: How to Prevent Falls, DI for Open Reduction Internal Fixation Surgery, DI for Postoperative Pain Stand Alone Forms: Surgery Discharge Visit Report Forms: Stroke Signs & Symptoms Discharge Data Primary Care Provider: Avelino Jeffers Attending Provider: Pippa Zhu VTE Deep Vein Thrombosis/Pulmonary Embolism Present on Admission: No
--- NOTE | 2018-05-20 10:12 | P.DS_ITS ---
History of Present Illness Date Patient Seen: 05/20/18 Time Patient Seen: 10:06 Chief complaint: Pilon Fracture of left Tibia Narrative: Hospital day 2, postop day 1 following left tibial pilon fracture ORIF by Dr. Zhu. Patient has remained stable postoperatively. Nonweightbearing to the left leg. Patient was seen by Dr. Jeffers regarding her diabetes and has cleared patient for discharge. Patient has had minimal pain. Dr. Zhu did not think patient needed physical therapy as she has been doing well at home on her own. She has prescriptions already written for Percocet, Zofran. Ready for discharge today. Discharge Providers Primary care physician: Avelino Jeffers MD Consults: 05/19/18 11:59 Consult to Dietitian, Adult Routine Comment: Reason For Exam: diabetes new Consult to Discharge Planning Routine Comment: plan home 05/20 Consult to Physician Routine Comment: Consulting Provider: Avelino Jeffers Reason for consultation: new diabetes hgb 1 ac 7--hx one kidney Has provider been notified: Yes Consult to Respiratory Therapy Evaluate & Treat Comment: Physician Instructions: Evaluate and treat 05/19/18 15:26 Consult to Dietitian, Adult Routine Comment: Reason For Exam: diabetic diet Discharge provider: Sarbjit Hanson PA-C Discharge Date: 05/20/18 Summary Discharge Diagnosis: Status post left tibial pilon fracture ORIF Hospital Course: Patient brought to hospital on 03/18/2019 for above-noted surgery. Remained stable postoperatively. Good pain control. Patient discharged home on postop day 1. Status at Discharge Cognitive/behavioral status at discharge: Alert oriented no acute distress. Overall status at discharge: other (Nonweightbearing to left leg times 10 weeks postop.) Time Spent with Patient Less than 30 minutes Exam Vital Signs (past 8 hours): - 05/20/18 03:38 05/20/18 08:00 Temperature 97.7 F 98.4 F Pulse Rate 83 76 Respiratory Rate 16 16 Blood Pressure 132/82 123/70 Pulse Oximetry 96 96 Oxygen Delivery Method Room Air Oxygen Flow Rate 0 Narrative Exam Narrative: Left leg. Bulky lower leg postop splint in stable position. Good blanching and sensation to all toes. Objective Labs Labs: Laboratory Results - last 24 hr 05/19/18 23:35 Ur Random Microalbumin < 0.6 Urine Creatinine 68.9 Microalb/Creat Ratio 8.7 Discharge Plan Discharge Plan Patient Disposition: Home Labs: A1c, bmp 1 mo Discharge comment: sherri Jeffers 1 mo Discharge Med Rec/Prescriptions Prescriptions: New aspirin 325 mg tablet,delayed release (DR/EC) 325 mg PO DAILY Qty: 42 RF: 0 docusate sodium [Colace] 100 mg capsule 100 mg PO BID Qty: 30 RF: 1 ondansetron 4 mg tablet,disintegrating 4 mg PO BID-TID PRN (Reason: nausea and vomiting) Qty: 7 RF: 0 oxycodone-acetaminophen 5-300 mg tablet 2 tab PO Q4-6H PRN (Reason: pain) Qty: 50 RF: 0 Discontinued hydrocodone-acetaminophen 5-325 mg tablet 1 tab PO Q4-6H PRN (Reason: pain) Qty: 30 RF: 0 Follow up/Referrals: Pippa Zhu MD [Physician] - As previously scheduled (06/03/18 9:40 AM check in for 9:50AM appointment [place] [facility] located at [address] [place] [address]) Avelino Jeffers MD [Primary Care Provider] - Discharge Orders: Discharge (Order); Ordered 05/20/18 Ordered By: Sarbjit Hanson Provider Discharge Instructions Diet: Diet as Tolerated Activity: NWB LLE Other treatments: At-Home Instructions - Dr. Zhu Surgery: ankle joint open reduction internal fixation: pilon fracture Cast/Splint/Dressing Care Instructions 1) Keep cast/dressing clean and dry. 2) May bathe - but cast/dressing must remain dry. 3) Should the cast become wet, you need to come into emergency department or call your physician's clinic immediately for cast removal and replacement. Moisture can cause skin breakdown and lead to infection if left untreated. 4) Do not stick any sharp object down the cast to itch, as this can cause scrapes/cuts/punctures which can lead to infection. 6) Observe for increasing pain in the extremity with the cast, finger/toe-tips turning blue/purple, or numbness and tingling in your toes/fingers. Should any of these symptoms arise, you need to be seen immediately for evaluation of swelling and increasing compartment pressures within your affected extremity. 7) Keep your affected extremity elevated - Toes Above your Nose? - This is aburto in the first two weeks after surgery to minimize swelling. 8) You may ice your extremity, being careful to prevent melting ice from saturating into the splint/cast. Activity No heavy lifting greater than 10 pounds. No driving while on narcotic pain medication. Do not get your dressing/cast/splint wet! You must remain non-weight bearing on your operative extremity. Use crutches or a walker for ambulation. No driving until you are otherwise instructed by your physician. This will be addressed at your first follow-up appointment. Discharge Pain Medications You will be given a prescription for pain medication. You should start taking this the same day after your surgery. Wean off as tolerated. Do not wait to take the pain medication until the pain is severe, as it will be difficult to catch up once this occurs. The pain medication usually reaches its full effect ~1 hour after ingesting. If you have been sent home on Colace, this medication should be taken until you are off all narcotic (i.e. Vicodin, Percocet, Oxycodone, etc) pain medications, to prevent constipation. You may also obtain this or another stool softener over the counter to prevent or alleviate constipation. Percocet or Vicodin have Tylenol in their ingredient lists. You must be careful not to exceed 3,000mg (3 grams) of Tylenol, from all sources, within a single 24-hr period. This means that you may not take more than 10 pills within a 24- hr period. Do NOT take Regular or Extra Strength Tylenol when taking your Percocet or Vicodin medications. -Some common side effects of the narcotic pain medications (Percocet, Oxycodone, Vicodin, etc.) include nausea and itching. Benadryl is a great over the counter medication that helps calm your stomach, decreases your anxiety levels, and minimizes the itching. You can easily purchase this at your local pharmacy as an [id number] medication. Please abide by the instructions as printed on the bottle. If your nausea persists, make sure to take small amounts of crackers or other railroad dining car stewardess foods. Follow-Up/Emergency Contacts Please call for an appointment in either [place] or [place], if one has not been scheduled. Follow up 1 week after surgery. [phone] Contact the office if you have any of the following: ? Painful swelling or numbness ? Unrelenting pain ? Fever (over 101?- it is normal to have a low grade fever for the first day or two following surgery) or chills ? Redness around the incisions ? Color changes ? Continuous bleeding or drainage from the incision (a small amount is expected) ? Excessive nausea or vomiting ? Difficulty breathing If you have an emergency that requires immediate attention, proceed to the nearest emergency room. Blood Clot Prophylaxis You will need to complete a total 6-week (42 days) course of Aspirin (325 mg daily) after surgery, to minimize the risk of blood clots following surgery. You may alternatively purchase or use [id number] generic equivalent Aspirin. If you already have ?baby? Aspirin (81mg) at home, you can take 4 ?baby? Aspirin to total 324mg for the equivalent dose. Pain Medications: It is the policy of [facility] that narcotic medications will only be refilled during office hours. Additionally, due to the alarming rate of narcotic pain medication abuse/dependence, it has become necessary for physician practices to closely manage patient use of prescription narcotic pain relievers, such as Vicodin ([place]), Percocet, and Oxycodone products. Narcotic pain management in the postoperative period may not exceed 6 weeks. If narcotic pain management is required beyond 90 days, then a referral to a Chronic Pain Specialist will be made. If a request for a medication prescription has been made, the physician must review your chart prior to authorizing the request. Please be patient with office staff. If you call during patient hours, your call may not be returned until the end of the day. Dr. Pippa Zhu [address] [email or web address] PR Groupnevada regional medical centerWavesat Skin/Wound/Dressing Care Report to your healthcare provider any signs of infection, such as:: chills, fever, night sweats, increased pain, unusual drainage and unusual redness Dressing: keep splint c/d/i Visit Report/Discharge Packet Instructions: How to Prevent Falls, DI for Open Reduction Internal Fixation Surgery, DI for Postoperative Pain Stand Alone Forms: Surgery Discharge Visit Report Forms: Stroke Signs & Symptoms Discharge Data Primary Care Provider: Avelino Jeffers Attending Provider: Pippa Zhu VTE Deep Vein Thrombosis/Pulmonary Embolism Present on Admission: No
--- NOTE | 2018-05-20 13:33 | PC.NURSE ---
Day Shift- Pt A&OX4, able to make needs known using kiara light. Left foot/leg gauze desi wrap splint CDI. CMS+, pt able to wiggle toes, Warm to touch, Cap refill <2 secs. Pt denies pain states is numb. Palpated popliteal pulse to left leg. Pain management plan discussed, ice pack intermittently and plan for prn Percocet's as needed. Pt has her neighbor coming to pick her up today around 1400 for discharge. [facility] per her request. Discharge summary packet reviewed with [facility] nursing surgical services director Ria, with Rn supervision. No voiced concerns. Pt left unit via wheelchair with [employer]LECT[employer]LEV[employer]INTENANCE at 1355 in no distress.
== END 2018-05-20 13:55 | disposition home or self-care (01) ==
LOC: OR 09:01 → AC 11:48
PROVIDERS: Family Provider Family Medicine; PCP Family Medicine; Visit Provider Orthopaedic Surgery Foot and Ankle Surgery
PROC: (CPT 27827; principal; 2018-05-19 07:45)
DX: S82.872A Displaced pilon fracture of left tibia, initial encounter for closed fracture (principal); V68.4XXA Person boarding or alighting a heavy transport vehicle injured in noncollision transport accident, initial encounter; E66.9 Obesity, unspecified; G62.9 Polyneuropathy, unspecified; E11.9 Type 2 diabetes mellitus without complications
CPT/HCPCS: 27827; 64450; 73600; 76000; 82043; 82570; 82962; J0360; J1170; J2250; J2405; J2704; J3010

== ENCOUNTER → 2018-07-02 09:38 | Outpatient (CLI) | payer OTHER, SELFPAY ==
[2018-05-19 12:04] VITALS: BMI 38.2
[2018-07-02 10:47] LABS: Hemoglobin A1C% w Est Avg Glu 6.5 % (4.0-6.0)
[2018-07-02 11:01] LABS: Alanine Aminotransferase 20 IU/L (9-52); Albumin 4.1 g/dL (3.5-5.0); Albumin Globulin Ratio 1.3 (1.0-2.8); Alkaline Phosphatase 98 U/L (38-126); Aspartate Aminotransferase 21 IU/L (14-36); BUN Creatinine Ratio 21.3 (6-22); Bilirubin Total 0.6 mg/dL (0.2-1.3); Blood Urea Nitrogen 17 mg/dL (7-17); Calcium 9.9 mg/dL (8.4-10.2); Carbon Dioxide 25 mmol/L (22-32); Chloride 104 mmol/L (98-107); Cholesterol 163 mg/dL (140-199); Estimated Glomerular Filt Rate > 60.0 mL/min (>60); Globulin 3.2 g/dL (1.7-4.1); Glucose 138 mg/dL (80-110); HDL Cholesterol 66 mg/dL (40-60); HEMOLYSIS < 15 (0-50); LDL Cholesterol Calculated 69 mg/dL (<100); Potassium 5.2 mmol/L (3.4-5.1); Sodium 139 mmol/L (137-145); Total Protein 7.3 g/dL (6.3-8.2); Triglycerides 138 mg/dL (35-150)
[2018-07-02 11:31] LABS: Thyroid Stimulating Hormone 3.52 uIU/mL (0.47-4.68)
== END ==
PROVIDERS: PCP Family Medicine; Visit Provider Family Medicine
DX: E11.9 Type 2 diabetes mellitus without complications (principal); Z13.220 Encounter for screening for lipoid disorders; Z13.29 Encounter for screening for other suspected endocrine disorder; Z85.528 Personal history of other malignant neoplasm of kidney
CPT/HCPCS: 36415; 80053; 80061; 83036; 84443

== ENCOUNTER → 2018-10-19 08:58 | Outpatient (CLI) | payer OTHER, SELFPAY ==
[2018-05-19 12:04] VITALS: BMI 38.2
[2018-10-19 10:43] LABS: Hemoglobin A1C% w Est Avg Glu 6.8 % (4.0-6.0)
[2018-10-19 10:47] LABS: BUN Creatinine Ratio 18.6 (6-22); Blood Urea Nitrogen 13 mg/dL (7-17); Calcium 9.3 mg/dL (8.4-10.2); Carbon Dioxide 28 mmol/L (22-32); Chloride 103 mmol/L (98-107); Estimated Glomerular Filt Rate > 60.0 mL/min (>60); Glucose 138 mg/dL (80-110); HEMOLYSIS < 15 (0-50); Potassium 4.3 mmol/L (3.4-5.1); Sodium 140 mmol/L (137-145)
== END ==
PROVIDERS: PCP Family Medicine; Visit Provider Family Medicine
DX: E11.9 Type 2 diabetes mellitus without complications (principal)
CPT/HCPCS: 36415; 80048; 83036

== ENCOUNTER → 2018-10-29 13:14 | Outpatient (CLI) | payer OTHER, SELFPAY ==
[2018-05-19 12:04] VITALS: BMI 38.2
== END ==
PROVIDERS: PCP Family Medicine; Visit Provider Family Medicine
DX: M85.852 Other specified disorders of bone density and structure, left thigh (principal); Z78.0 Asymptomatic menopausal state; Z91.89 Other specified personal risk factors, not elsewhere classified
CPT/HCPCS: 77080

== ENCOUNTER → 2019-01-11 07:55 | Outpatient (CLI) | payer OTHER, SELFPAY ==
[2018-05-19 12:04] VITALS: BMI 38.2
[2019-01-11 09:13] LABS: Hemoglobin A1C% w Est Avg Glu 6.8 % (4.0-6.0)
[2019-01-11 09:16] LABS: BUN Creatinine Ratio 27.1 (6-22); Blood Urea Nitrogen 19 mg/dL (7-17); Calcium 9.9 mg/dL (8.4-10.2); Carbon Dioxide 31 mmol/L (22-32); Chloride 101 mmol/L (98-107); Estimated Glomerular Filt Rate > 60.0 mL/min (>60); Glucose 129 mg/dL (80-110); HEMOLYSIS < 15 (0-50); Potassium 5.2 mmol/L (3.4-5.1); Sodium 140 mmol/L (137-145)
== END ==
PROVIDERS: PCP Family Medicine; Visit Provider Family Medicine
DX: E11.9 Type 2 diabetes mellitus without complications (principal)
CPT/HCPCS: 36415; 80048; 83036

== ENCOUNTER → 2019-04-14 07:45 | Outpatient (CLI) | payer OTHER, SELFPAY ==
[2018-05-19 12:04] VITALS: BMI 38.2
[2019-04-14 09:52] LABS: Hemoglobin A1C% w Est Avg Glu 6.8 % (4.0-6.0)
[2019-04-14 10:19] LABS: Blood Urea Nitrogen 16 mg/dL (7-17); Calcium 9.4 mg/dL (8.4-10.2); Carbon Dioxide 28 mmol/L (22-32); Chloride 101 mmol/L (98-107); Estimated Glomerular Filt Rate > 60.0 mL/min (>60); Glucose 121 mg/dL (80-110); HEMOLYSIS < 15 (0-50); Potassium 4.3 mmol/L (3.4-5.1); Sodium 138 mmol/L (137-145)
== END ==
PROVIDERS: PCP Family Medicine; Visit Provider Family Medicine
DX: E11.9 Type 2 diabetes mellitus without complications (principal)
CPT/HCPCS: 36415; 80048; 83036

== ENCOUNTER → 2019-05-30 17:20 | Outpatient (CLI) | payer OTHER, SELFPAY ==
[2018-05-19 12:04] VITALS: BMI 38.2
--- NOTE | 2019-05-30 17:22 | DI.RAD.S_ITS ---
PROCEDURE: XR LUMBAR SPINE 6V W BENDING INDICATIONS: low back pain, lateral shift in spine TECHNIQUE: 6 views of the lumbar spine acquired. COMPARISON: None. FINDINGS: Bones: 5 nonrib-bearing vertebrae are present. There is levoscoliotic bony alignment centered at L2. No vertebral body compression fractures but there is moderately severe degenerative disc disease from L2 inferiorly, with facet osteoarthrosis of moderately severe through the middle and lower thirds of the lumbosacral spine. No suspicious bony lesions. Soft tissues: Overlying bowel gas pattern is normal. No suspicious soft tissue calcifications. IMPRESSION: Moderately severe degenerative disc disease and facet osteoarthritis from L2 inferiorly, with superimposed convex leftward scoliosis centered at L2. No recent or chronic trauma is found. Multiple surgical clips are seen in the expected region of the right upper quadrant medially, possibly in the area of the upper right kidney or adrenal gland. Dictated by: Grady Duong M.D. on 05/31/2019 at 13:13 Approved by: Grady Duong M.D. on 05/31/2019 at 13:16
== END ==
PROVIDERS: PCP Family Medicine; Referring Provider Family Medicine; Visit Provider Family Medicine
DX: M54.5 Low back pain (principal); M51.36 Other intervertebral disc degeneration, lumbar region; M47.816 Spondylosis without myelopathy or radiculopathy, lumbar region; M41.86 Other forms of scoliosis, lumbar region
CPT/HCPCS: 72114

== ENCOUNTER → 2019-11-19 09:23 | Outpatient (CLI) | payer OTHER, SELFPAY ==
[2018-05-19 12:04] VITALS: BMI 38.2
[2019-11-19 10:01] LABS: Hemoglobin A1C% w Est Avg Glu 7.3 % (4.0-6.0)
[2019-11-19 10:03] LABS: Add Manual Diff / Slide Review NO; Basophils Absolute Auto 100 /uL (0-100); Basophils Percent Auto 1.1 % (0-2); Eosinophils Absolute Auto 200 /uL (0-450); Eosinophils Percent Auto 2.7 % (2-4); Hematocrit 42.9 % (36-46); Hemoglobin 14.4 g/dL (12.0-16.0); Lymphocytes Absolute Auto 1500 /uL (1100-4500); Lymphocytes Percent Auto 22.5 % (25-40); Mean Corpuscular HGB Conc 33.7 % (30-36); Mean Corpuscular Hemoglobin 28.6 PG (26-34); Mean Corpuscular Volume 84.8 fL (80-100); Monocytes Absolute Auto 500 /uL (0-900); Monocytes Percent Auto 6.8 % (3-14); Neutrophils Absolute Auto 4500 /uL (1500-7000); Neutrophils Percent Auto 66.9 % (50-75); Platelet Count 305 X10^3/uL (150-400); Red Blood Cell Count 5.05 X10^6/uL (4.0-5.2); Red Cell Distribution Width 13.5 % (11.6-14.8); White Blood Cell Count 6.7 X10^3/uL (4.5-11.0)
[2019-11-19 10:09] LABS: Alanine Aminotransferase 12 IU/L (<35); Albumin 4.2 g/dL (3.5-5.0); Albumin Globulin Ratio 1.2 (1.0-2.8); Alkaline Phosphatase 127 U/L (38-126); Aspartate Aminotransferase 23 IU/L (14-36); BUN Creatinine Ratio 25.4 (6-22); Bilirubin Total 0.6 mg/dL (0.2-1.3); Blood Urea Nitrogen 18 mg/dL (7-17); Calcium 9.3 mg/dL (8.4-10.2); Carbon Dioxide 24 mmol/L (22-32); Chloride 107 mmol/L (98-107); Cholesterol 162 mg/dL (140-199); Estimated Glomerular Filt Rate > 60.0 mL/min (>60); Globulin 3.4 g/dL (1.7-4.1); Glucose 142 mg/dL (80-110); HDL Cholesterol 65 mg/dL (40-60); HEMOLYSIS < 15 (0-50); LDL Cholesterol Calculated 64 mg/dL (<100); Potassium 4.4 mmol/L (3.4-5.1); Sodium 138 mmol/L (137-145); Total Protein 7.6 g/dL (6.3-8.2); Triglycerides 166 mg/dL (35-150)
[2019-11-19 10:34] LABS: Creatinine Urine Random 100.7 mg/dL
[2019-11-19 10:40] LABS: Microalbumi Creatinin Ratio Ur 5.9 ug/mg CR (<30); Microalbumin Urine Random < 0.6 mg/dL (0-1.6)
== END ==
PROVIDERS: PCP Family Medicine; Referring Provider Family Medicine; Visit Provider Family Medicine
DX: E11.9 Type 2 diabetes mellitus without complications (principal)
CPT/HCPCS: 36415; 80053; 80061; 82043; 82570; 83036; 85025

== ENCOUNTER → 2019-11-29 15:31 | Outpatient (CLI) | payer OTHER, SELFPAY ==
[2018-05-19 12:04] VITALS: BMI 38.2
--- NOTE | 2019-11-29 15:32 | DI.MRI.S_ITS ---
PROCEDURE: MR LUMBAR SPINE WO CON INDICATIONS: Right sided low back pain TECHNIQUE: Noncontrast sagittal T1 spin echo and T2 fast echo, coronal T2, sagittal STIR, axial T1 and T2 fast spin echo through the lumbar spine. COMPARISON: [facility], CR, XR LUMBAR SPINE 6V W BENDING, 05/30/2019, 17:20. FINDINGS: Image quality: Excellent. Alignment and Curvature: 5 lumbar type vertebral bodies are present by plain film. There is loss of normal lumbar lordosis. There is moderate leftward curvature of the upper lumbar spine. Bone Marrow: Marrow is of normal overall signal. No acute vertebral body compression fractures. Moderate reactive signal within the endplates adjacent to the L2-L3, L3-L4, and L4-L5 intervertebral discs. Mild reactive signal within the endplates adjacent to the L5-S1 intervertebral disc. Spinal Cord: Conus medullaris terminates at the L1-L2 disc space level. Visualized cord demonstrates normal signal and size. Paraspinous Soft Tissues: No paravertebral masses. Right kidney is not seen. L1-L2: Mild disc desiccation. Mild facet and ligamentum flavum hypertrophy. Mild epidural lipomatosis. Mild canal stenosis. Mild bilateral foraminal stenosis. L2-L3: Severe disc height loss and desiccation. Moderate diffuse disc bulge with superimposed broad-based right posterolateral protrusion. Moderate facet and ligamentum flavum hypertrophy. Mild epidural lipomatosis. Severe canal stenosis. Mild bilateral foraminal stenosis. L3-L4: Severe disc height loss and desiccation. Mild diffuse disc bulge/osteophyte. Moderate facet and ligamentum flavum hypertrophy. Mild epidural lipomatosis. Severe canal stenosis. Moderate bilateral foraminal stenosis. L4-L5: Severe disc height loss and desiccation. Mild diffuse disc bulge. Mild facet and ligamentum flavum hypertrophy. Mild canal stenosis. Mild bilateral foraminal stenosis. L5-S1: Moderate disc height loss and desiccation. Mild diffuse disc bulge with superimposed broad-based left posterolateral protrusion. Mild bilateral facet hypertrophy. Mild canal stenosis. Severe left and mild right foraminal stenosis. Left L5 nerve root compression. IMPRESSION: 1. Multilevel degenerative disc and facet disease, as well as ligamentum flavum hypertrophy and epidural lipomatosis. 2. Multilevel canal stenosis, worst at L2-L3 and L3-L4, where there are severe canal stenosis present. 3. Multilevel foraminal stenosis, worst on the left at L5-S1 where there is associated L5 nerve root compression. Recommend correlation with clinical symptoms to ascertain relevance of this finding. Dictated by: Margarita Parsons M.D. on 11/29/2019 at 17:04 Approved by: Margarita Parsons M.D. on 11/29/2019 at 17:08
== END ==
PROVIDERS: PCP Family Medicine; Referring Provider Family Medicine; Visit Provider Family Medicine
DX: M54.5 Low back pain (principal); M51.16 Intervertebral disc disorders with radiculopathy, lumbar region; M51.17 Intervertebral disc disorders with radiculopathy, lumbosacral region; M48.061 Spinal stenosis, lumbar region without neurogenic claudication; M48.07 Spinal stenosis, lumbosacral region; E88.2 Lipomatosis, not elsewhere classified
CPT/HCPCS: 72148

== ENCOUNTER → 2019-12-01 13:02 | Outpatient (CLI) | payer OTHER, SELFPAY ==
[2018-05-19 12:04] VITALS: BMI 38.2
--- NOTE | 2019-12-01 14:55 | DIET.PN ---
Diabetes Intake: Initial Assessment Assess: Ms. Thomas is a 74 YOF referred for type 2 diabetes. She was diagnoses approx. 5 yrs ago. She has been in good control until the last few months. 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 She follows healthy dietary patterns including high fruits and vegetables, home cooking and baking, and regular meal/snack times. She has not been very active due to back pain and ankle injury. She currently does not monitor her blood glucose and would like to wait until new labs to determine if this is necessary. Labs: Per pt report: A1c: 7.3 Micralb/cr: 5.9 Chol: 162 LDL: 64 HDL: 65 Tr Meds: n/a Diet: per 24 hr recall: B: ww toast w/ nut butter, 1 cup fruit; oatmeal w/ walnuts; ww pancake Sn: chz and crackers, fruit L: leftovers, raw veggies or fruit Sn: chz and crackers, fruit D: casserole w/ veggies (seldom meat) Note: Meat only a few times/wk. Bakes her own bread Wt: 237lb Ht: 68in BMI: 36 BP: 136/64 DX: Altered nutrition related laboratory values related to impaired glucose metabolism, lack of previous exposure to nutrition information as evidenced by pt report, diagnosis of diabetes, previous diet high in refined carbohydrates. Intervention: 1. Completed intake assessment. Discussed barriers to care. 2. Discussed pathophysiology of diabetes. Reviewed A1c and its correlation to blood glucose numbers. Discussed recommended BG ranges. 3. Discussed importance of self-monitoring, how often, and when to check. Reviewed hyper/hypoglycemia and treatment. 4. Reviewed safe disposal of equipment (strip/lancets/insulin needles). 5. Created SMART goals for pt self-care and success. 6. Discussed program curriculum outline and class needs based on individual goals. SMART Goals: 1. Pt would like to reduce A1c to 6.3 within the next 6 mo by closely monitoring portions and sustaining exercise. Monitor/Evaluate: Anticipate excellent compliance. Pt will attend full DSME program. Basic Nutrition class scheduled for dec 12.
== END ==
PROVIDERS: PCP Family Medicine; Referring Provider Family Medicine; Visit Provider Family Medicine
DX: E11.9 Type 2 diabetes mellitus without complications (principal)
CPT/HCPCS: G0108

== ENCOUNTER → 2019-12-13 14:42 | Outpatient (CLI) | payer OTHER, SELFPAY ==
[2018-05-19 12:04] VITALS: BMI 38.2
--- NOTE | 2019-12-13 16:09 | DIET.PN ---
Diabetes: Healthy Eating 1 Intervention: ? Discussed pathophysiology of diabetes and impact of nutrition/diet on blood sugar control.? Discussed fed versus non-fed state.?? ? Reviewed importance of Balance, Variety, and Moderation. ? Discussed the effect of carbohydrates/protein/fat on blood sugar control.? ? Stressed importance of consistent carbohydrate intake at each meal and provided instructions for recommended servings/portions of carbohydrates/protein per meal. Provided educational material. ? Reviewed carbohydrate counting and measuring carbohydrate content via serving sizes and reading nutrition labels.? Provided handouts.?? ? Discussed the difference between simple versus complex carbohydrates and the effect of fiber on blood sugar control.? Discussed various methods to increase fiber content in diet. ? Discussed the plate method for creating more carbohydrate conscious balanced meals. ? Stressed importance of meal timing and not going >4-5 hours between meals. Encouraged adding protein to evening snack to support glucose control overnight. ? Discussed importance of making dietary habits part of lifestyle change.
== END ==
PROVIDERS: PCP Family Medicine; Referring Provider Family Medicine; Visit Provider Family Medicine
DX: E11.9 Type 2 diabetes mellitus without complications (principal); Z71.3 Dietary counseling and surveillance
CPT/HCPCS: G0109

== ENCOUNTER → 2020-01-18 07:24 | Outpatient (CLI) | payer OTHER, SELFPAY ==
[2018-05-19 12:04] VITALS: BMI 38.2
[2020-01-18 08:40] LABS: Hemoglobin A1C% w Est Avg Glu 6.4 % (4.0-6.0)
== END ==
PROVIDERS: PCP Family Medicine; Referring Provider Family Medicine; Visit Provider Family Medicine
DX: E11.9 Type 2 diabetes mellitus without complications (principal)
CPT/HCPCS: 36415; 83036

== ENCOUNTER → 2020-01-25 14:30 | Outpatient (CLI) | payer OTHER, SELFPAY ==
[2018-05-19 12:04] VITALS: BMI 38.2
--- NOTE | 2020-01-25 15:08 | DIET.PN ---
Diabetes Follow Up Assess: Met for Ms. Thomas?s follow up visit. She has made huge improvement to her diabetes care including dietary changes and increased exercise. She has always been a huge hoffmann and has found several new recipes for increasing protein and fiber while decreasing sugar and starch. She has cut down on her portions and is trying to eat smaller, frequent meals throughout the day. She has increased her walking to 10,000 steps on most days. She has lost 13lbs since diagnosis. Labs: A1c: 6.4 (from 7.3) Meds: na Dietary changes: smaller, frequent meals; new baking recipes Ht: 68in Wt: 224lb BMI: 34 Nutrition DX: Altered nutrition related laboratory values related to impaired glucose metabolism, lack of previous exposure to nutrition information as evidenced by pt report, diagnosis of diabetes, previous diet high in refined carbohydrates. Intervention: 1. Completed follow up assessment. Reviewed barriers to care. 2. Reviewed new labs and importance of continued BG monitoring. 3. Reviewed SMART goals and made modifications where appropriate including wt management, activity, and A1c goals. 4. Discussed plan for ongoing support. Provided information for continued support and success. SMART goals: 1. Pt would like to lower A1c to 6.0 by continuing to closely monitor portions and sustaining new exercise routine. Monitor/Evaluate: Pt will follow up in 3 mo to discuss new labs and barriers to care.
== END ==
PROVIDERS: PCP Family Medicine; Referring Provider Family Medicine; Visit Provider Family Medicine
DX: E11.9 Type 2 diabetes mellitus without complications (principal); E66.9 Obesity, unspecified; Z68.34 Body mass index [BMI] 34.0-34.9, adult; Z71.3 Dietary counseling and surveillance
CPT/HCPCS: G0109

== ENCOUNTER → 2020-02-04 15:26 | Outpatient (CLI) | payer OTHER, SELFPAY ==
[2018-05-19 12:04] VITALS: BMI 38.2
[2020-02-06 02:26] LABS: COVID19 Sendout Not Detected (Not Detect)
== END ==
PROVIDERS: PCP Family Medicine; Visit Provider Nurse Practitioner
DX: Z11.59 Encounter for screening for other viral diseases (principal)
CPT/HCPCS: 87635

== ENCOUNTER 2020-02-07 12:38 | Outpatient (CLI) | payer OTHER, SELFPAY ==
[2018-05-19 12:04] VITALS: BMI 38.2
[2020-02-07] VITALS (8 sets, daily range): BP systolic 108–144; BP diastolic 51–76; PULSE 63–74; RESP 10–22; TEMP 36.2; O2SAT 94–99
--- NOTE | 2020-02-07 13:05 | DI.RAD.S_ITS ---
PROCEDURE: PAIN L/S FACET INJ/BLK 1ST JAMES COMPARISON: None. INDICATIONS: SPONDYLOSIS FINDINGS: 3 levels of facet injection were performed on the right, at the L2-3, L3-4, and L4-5 levels. IMPRESSION: Successful needle tip localization for right-sided facet joint injections with steroid, as noted above. Dictated by: Grady Duong M.D. on 02/07/2020 at 15:11 Approved by: Grady Duong M.D. on 02/07/2020 at 15:12
[2020-02-07] MEDS: fentaNYL 100 MCG/2 ML INJ 50 MCG IV (14:05)
[2020-02-07] MEDS: MIDAZOLAM 5 MG/5 ML VIAL IV (14:05)
[2020-02-07] MEDS: BUPIVACAINE 0.5% (PF) VIAL 5 ML INJ (14:10)
[2020-02-07] MEDS: DEXAMETHASONE 10 MG/ML VIAL 20 MG INJ (14:10)
[2020-02-07] MEDS: BETAMETHASONE 30 MG/5 ML MDV 12 MG INJ (14:12)
--- NOTE | 2020-02-07 14:18 | P.PCN_ITS ---
Date/Time/Diagnoses Date of procedure: 02/07/20 Time of procedure: 14:18 Pre-procedure diagnosis: 1. FACET ARTHROPATHY, 2. AXIAL LBP, 3. MULTILEVEL DDD Post-procedure diagnosis: same Procedure Notes Procedure: 1. FLUOROSCOPICALLY GUIDED CONTRAST CONTROLLED FACET JOINT INJECTIONS RIGHT L2/3, L3/4, L4/5 Indications: Beena is referred by Dr. Jeffers for treatment of Axial LBP Physician: Amado العراقي Total Fluoroscopy time (seconds): 9 Total sedation minutes: 10 Complications: none Procedure in detail & Post-procedure care: FINDINGS Multilevel Facet Arthropathy with Clinically significant axial LBP DESCRIPTION OF PROCEDURE Fluoroscopically guided, contrast-controlled right L2/3, L3/4, L4/5 facet joint injections. Following review of allergy and review of potential side effects and complications, including, but not necessarily limited to, infection, allergic reaction, local tissue breakdown, stroke, temporary or permanent nerve injury, paralysis, and possible , the patient indicated that the patient understood and agreed to proceed. An informed consent document was signed by the patient, witnessed by a nurse, and placed in the patient's chart. Additionally, other treatment options including medications, modalities, and physical therapy were reviewed with the patient. After review of previous anaesthesic history and IV conscious sedation the patie nt was deemed safe to proceed with today?s procedure with IV conscious sedation as ASA class II designation. Safety time-out was performed to confirm patient ID, procedure to be performed and site of procedure. IV sedation was accomplished with a combination of 2mg of Versed and 50mcg of Fentanyl administered by the RN after DO order, titrated to patient comfort during the course of the procedure while the patient remained responsive to all verbal commands. In the prone position, following sterile prep and drape of the lumbar region, the posterior aspect of the right L2/3, L3/4, L4/5 facet joints were identified fluoroscopically. The skin was anesthetized via a 25-gauge 1.5-inch needle with 1% lidocaine solution into the corresponding facet joints. At this point, a 22- gauge 3.5-inch spinal needle was atraumatically introduced and advanced under fluoroscopic guidance into the corresponding facet joints. Following negative aspiration, injections of approximately 0.2-cc of Isovue 200 confirmed interarticular placement without vascular uptake. Radiological data, including multiple fluoroscopic views of the lumbosacral spine, reveal a spinal needle at the right L2/3, L3/4, L4/5 facet joints. Subsequent views show flow of contrast material both superiorly and inferiorly within the joint space without vascular or intrathecal uptake. At this point, a total of 0.5cc including a mixture of 0.25 cc Marcaine and 0.25cc betamethasone was injected without complication into each of the corresponding facet joints. The patient tolerated the procedure well without signs or symptoms of complications prior to transfer to the recovery area for further monitoring. The patient was then transferred to the recovery area where they were observed for an appropriate period of time after the injection. The patient reported a VAS score of 7 prior to the procedure and a post-procedure VAS of 0. POST OP INSTRUCTIONS The patient was provided a Pain Log to continue to record their response to the target-specific procedure prior to follow-up visit with their referring physician. Additionally, specific post-injection care instructions and a contact number to our office were provided if concerns arise regarding possible complications associated with the procedure are suspected.
== END 2020-02-07 14:45 | disposition home or self-care (01) ==
LOC: RAD 12:41
PROVIDERS: PCP Family Medicine; Referring Provider Physical Medicine & Rehabilitation; Visit Provider Physical Medicine & Rehabilitation
DX: M47.816 Spondylosis without myelopathy or radiculopathy, lumbar region (principal); M54.5 Low back pain; M51.36 Other intervertebral disc degeneration, lumbar region
CPT/HCPCS: 64493; 64494; 64495; 99152; J0702; J1100; J2250; J3010

== ENCOUNTER → 2020-05-22 09:59 | Outpatient (CLI) | payer MEDICARE, SELFPAY ==
[2018-05-19 12:04] VITALS: BMI 38.2
--- NOTE | 2020-05-22 11:56 | DIET.PN ---
Diabetes: Healthy Eating 2 Intervention: Fats effects on glucose, weight, heart disease, cholesterol Sat Vs Unsat Protein- animal and plant based options Low, med, high fat meats Sugar substitutes Sodium Health claims Grocery shopping guidelines Eating away from home Alcohol Sick day guidelines Ketone Testing
== END ==
PROVIDERS: Referring Provider Family Medicine; Visit Provider Family Medicine
DX: E11.9 Type 2 diabetes mellitus without complications (principal); Z71.3 Dietary counseling and surveillance
CPT/HCPCS: G0109

== ENCOUNTER → 2020-05-29 10:00 | Outpatient (CLI) | payer MEDICARE, SELFPAY ==
[2018-05-19 12:04] VITALS: BMI 38.2
--- NOTE | 2020-05-29 15:39 | DIET.PN ---
Diabetes Physiology and Medications: Intervention 1. Diabetes physiology 2. Detecting and treatment of acute and chronic complications 3. Diagnosis of and difference in types of diabetes 4. Self-monitoring and pattern management a. Demonstrate glucometer and control testing b. Explain BG results and action to take when out of range. 5. Foot , eye, dental care 6. Medications a. Oral medication classification b. Injectable c. Insulin i. Injection protocol ii. Other delivery methods
== END ==
PROVIDERS: Referring Provider Family Medicine; Visit Provider Family Medicine
DX: E11.9 Type 2 diabetes mellitus without complications (principal); Z71.3 Dietary counseling and surveillance
CPT/HCPCS: G0109

== ENCOUNTER → 2020-06-05 09:56 | Outpatient (CLI) | payer MEDICARE, SELFPAY ==
[2018-05-19 12:04] VITALS: BMI 38.2
[2020-05-31 08:32] VITALS: BMI 38.2
--- NOTE | 2020-06-05 16:13 | DIET.PN ---
Diabetes Exercise/Lifestyle change: 1. Importance of exercise 2. FITT (frequency, intensity, time, type) 3. Strength training tips and guidelines 4. Glucose monitoring/ranges before and after a. Carbohydrate needs based on glucose ranges and duration/intensity of exercise b. Rule of 15 5. Proper foot attire 6. Developing strategies for behavior change 7. SMART Goal Setting 8. Home exercise routine demonstration (as a class)
== END ==
PROVIDERS: Referring Provider Family Medicine; Visit Provider Family Medicine
DX: E11.9 Type 2 diabetes mellitus without complications (principal); Z71.3 Dietary counseling and surveillance
CPT/HCPCS: G0109

== ENCOUNTER → 2020-06-05 14:52 | Outpatient (CLI) | payer MEDICARE, SELFPAY ==
[2020-05-31 08:32] VITALS: BMI 38.2
[2020-06-05 15:59] LABS: COVID19 -Nasal RAPID Negative (Negative)
== END ==
PROVIDERS: Visit Provider Physical Medicine & Rehabilitation
DX: Z20.822 Contact with and (suspected) exposure to COVID-19 (principal)
CPT/HCPCS: 87635; C9803

== ENCOUNTER 2020-06-07 10:16 | Outpatient (CLI) | payer MEDICARE, SELFPAY ==
[2020-05-31 08:32] VITALS: BMI 38.2
[2020-06-07] VITALS (9 sets, daily range): BP systolic 100–137; BP diastolic 58–74; PULSE 64–74; RESP 12–21; TEMP 36.4; O2SAT 96–99
--- NOTE | 2020-06-07 10:17 | DI.RAD.S_ITS ---
PROCEDURE: PAIN L INTERLAMINAR/CAUDAL INJ INDICATIONS: SPONDYLOSIS COMPARISON: None. FINDINGS: Fluoroscopic spot filming was performed to verify placement of spinal needles at the L2-L3 level, as labeled on the films. Appropriate location(s) of the needle tip(s) was confirmed by injection of iodinated contrast. IMPRESSION: L2-L3 interlaminar needle tip localization for epidural steroid injection. Dictated by: Grady Duong M.D. on 06/07/2020 at 12:19 Approved by: Grady Duong M.D. on 06/07/2020 at 12:20
[2020-06-07] MEDS: MIDAZOLAM 5 MG/5 ML VIAL IV (10:56)
[2020-06-07] MEDS: fentaNYL 100 MCG/2 ML INJ 50 MCG IV (10:56)
[2020-06-07] MEDS: BUPIVACAINE 0.25% (PF) VIAL 2 ML INJ (11:02)
[2020-06-07] MEDS: IOPAMIDOL 15 ML VIAL 3 ML INJ (11:02)
[2020-06-07] MEDS: BETAMETHASONE 30 MG/5 ML MDV 6 MG INJ (11:02)
[2020-06-07] MEDS: DEXAMETHASONE 10 MG/ML VIAL 20 MG INJ (11:03)
--- NOTE | 2020-06-07 11:09 | P.PCN_ITS ---
Date/Time/Diagnoses Date of procedure: 06/07/20 Time of procedure: 11:09 Pre-procedure diagnosis: 1. HNP WITH RADICULAR FEATURES, 2. MULTILEVEL CENTRAL STENOSIS, Post-procedure diagnosis: same Procedure Notes Procedure: 1. FLUOROSCOPICALLY GUIDED CONTRAST CONTROLLED INTERLAMINAR EPIDURAL STEROID INJECTION - L2/3 Indications: Beena is referred by Dr. Jeffers for treatment of Bilateral Foraminal Stenosis L>R LE symptoms. Physician: Amado العراقي Total Fluoroscopy time (seconds): 7 Total sedation minutes: 10 Complications: none Procedure in detail & Post-procedure care: FINDINGS Multilevel Central Spinal Stenosis with Nerve Root Compression DESCRIPTION OF PROCEDURE Fluoroscopically guided, contrast-controlled L2/3 translaminar epidural steroid injection. Following review of allergy and review of potential side effects and complications, including, but not necessarily limited to, infection, allergic reaction, local tissue breakdown, temporary as well as permanent nerve injury, paralysis, stroke and possible , the patient indicated that the patient understood and agreed to proceed. An informed consent document was signed by the patient, witnessed by a nurse, and placed in the patient's chart. Additionally, other treatment options including modalities, medications, and physical therapy were reviewed with the patient. After review of previous anaesthesic history and IV conscious sedation the patient was deemed safe to proceed with today?s procedure with IV conscious sedation as ASA class II designation. Safety time-out was performed to confirm patient ID, procedure to be performed and site of procedure. IV sedation was accomplished with a combination of 2mg Versed and 50mcg of Fentanyl administered by the RN after DO order, titrated to patient comfort during the course of the procedure while the patient remained responsive to all verbal commands. In the prone position, following sterile prep and drape of the lumbar region,the L2/3 translaminar space was identified fluoroscopically. The skin was anesthetized via a 25-gauge, 1.5-inch needle with 1% lidocaine solution. At this point, a 22-gauge short bevel spinal needle was atraumatically introduced and advanced under fluoroscopic guidance into the region of the L2/3 translaminar space. Depth was confirmed on lateral view. Radiological data, including multiple fluoroscopic views of the lumbar spine, reveal a spinal needle at the L2/3 translaminar space. Lateral views then show placement of the needle in the epidural space. Subsequent views show contrast material flowing superiorly and inferiorly in the epidural space. No vascular or intrathecal uptake is observed. At this point, using loss of resistance technique with saline and air, the epidural space was entered. This was confirmed following negative aspiration with injection of approximately 1.5 cc of Isovue 200, showing excellent epidural flow without vascular or intrathecal uptake. At this point, 1 cc of 1% lidocaine solution combined with 3cc or 20mg of dexamethasone and 6mg of betamethasone was injected without incident. The patient tolerated the procedure well without signs or symptoms of compl ications prior to transfer to the recovery area continued monitoring without incident. The patient was then transferred to the recovery area where they were observed for an appropriate period of time after the injection. The patient reported a VAS score of 6 prior to the procedure and a post-procedure VAS of 0. POST OP INSTRUCTIONS The patient was provided a Pain Log to continue to record their response to the target-specific procedure prior to follow-up visit with their referring physician. Additionally, specific post-injection care instructions and a contact number to our office were provided if concerns arise regarding possible complications associated with the procedure are suspected.
== END 2020-06-07 11:50 | disposition home or self-care (01) ==
LOC: RAD 10:17
PROVIDERS: PCP Family Medicine; Referring Provider Physical Medicine & Rehabilitation; Visit Provider Physical Medicine & Rehabilitation
DX: M51.16 Intervertebral disc disorders with radiculopathy, lumbar region (principal); M48.061 Spinal stenosis, lumbar region without neurogenic claudication
CPT/HCPCS: 62323; 99152; J0702; J1100; J2250; J3010

== ENCOUNTER → 2020-08-03 16:09 | Outpatient (CLI) | payer MEDICARE, SELFPAY ==
[2020-05-31 08:32] VITALS: BMI 38.2
--- NOTE | 2020-08-03 16:11 | DI.RAD.S_ITS ---
PROCEDURE: XR LUMBAR SPINE MIN 4V INDICATIONS: back pain TECHNIQUE: 5 views of the lumbar spine were acquired, including bilateral oblique views. COMPARISON: [facility], CR, XR LUMBAR SPINE 6V W BENDING, 05/30/2019, 17:20. FINDINGS: Bones: 5 nonrib-bearing vertebrae are present. There is normal bony alignment. No vertebral body compression fractures. No suspicious bony lesions. Note is made of convex leftward scoliosis centered at the thoracolumbar junction, mild to moderate in overall severity. The lateral view shows degenerative disc disease and facet osteoarthritis moderately severe at the middle 3rd of the lumbosacral spine and then severe over the lower 3rd especially at L4-5 and L5-S1 where significant spinal and foraminal stenosis would be expected. A compression fracture is not found. Soft tissues: Overlying bowel gas pattern is normal. No suspicious soft tissue calcifications. Oblique images: No pars defects. IMPRESSION: Overall there is moderately severe to severe degenerative disc disease becoming progressively more prominent from L2 inferiorly and most pronounced at L4-5 and especially L5-S1. No trauma found. Significant facet degenerative change is present in addition to disc disease over these areas. Dictated by: Grady Duong M.D. on 08/03/2020 at 17:11 Approved by: Gardy Duong M.D. on 08/03/2020 at 17:12
== END ==
PROVIDERS: PCP Family Medicine; Referring Provider Physical Medicine & Rehabilitation; Visit Provider Physical Medicine & Rehabilitation
DX: M54.10 Radiculopathy, site unspecified (principal); M54.9 Dorsalgia, unspecified; M51.36 Other intervertebral disc degeneration, lumbar region; M51.37 Other intervertebral disc degeneration, lumbosacral region; M47.816 Spondylosis without myelopathy or radiculopathy, lumbar region; M47.817 Spondylosis without myelopathy or radiculopathy, lumbosacral region
CPT/HCPCS: 72110

== ENCOUNTER → 2020-08-21 07:03 | Outpatient (CLI) | payer MEDICARE, SELFPAY ==
[2020-05-31 08:32] VITALS: BMI 38.2
[2020-08-21 12:43] LABS: COVID19 -Nasal RAPID Negative (Negative)
== END ==
PROVIDERS: PCP Family Medicine; Visit Provider Physical Medicine & Rehabilitation
DX: Z20.822 Contact with and (suspected) exposure to COVID-19 (principal)
CPT/HCPCS: 87635; C9803

== ENCOUNTER 2020-08-23 12:31 | Outpatient (CLI) | payer MEDICARE, SELFPAY ==
[2020-05-31 08:32] VITALS: BMI 38.2
[2020-08-23] VITALS (8 sets, daily range): BP systolic 105–146; BP diastolic 50–65; PULSE 61–72; RESP 10–19; TEMP 36.2–36.4; O2SAT 95–100
--- NOTE | 2020-08-23 12:34 | DI.RAD.S_ITS ---
PROCEDURE: PAIN L/S TRANSFORAMINAL INJECT INDICATIONS: SPONDYLOSIS COMPARISON: [facility], XA, PAIN L INTERLAMINAR/CAUDAL INJ, 06/07/2020, 11:00. [facility], CR, XR LUMBAR SPINE MIN 4V, 08/03/2020, 16:12. FINDINGS: Fluoroscopic spot filming was performed to verify placement of a spinal needle at the L2-L3 level, as labeled on the films. Appropriate location of the needle tip was confirmed by injection of iodinated contrast. IMPRESSION: Intraprocedural examination within normal limits. Dictated by: Jose Martin Bundy M.D. on 08/23/2020 at 14:23 Approved by: Jose Martin Bundy M.D. on 08/23/2020 at 14:24
[2020-08-23] MEDS: fentaNYL 100 MCG/2 ML INJ 50 MCG IV (13:38)
[2020-08-23] MEDS: MIDAZOLAM 5 MG/5 ML VIAL IV (13:43)
[2020-08-23] MEDS: DEXAMETHASONE 10 MG/ML VIAL 20 MG INJ (13:44)
[2020-08-23] MEDS: BETAMETHASONE 30 MG/5 ML MDV 6 MG INJ (13:45)
[2020-08-23] MEDS: IOPAMIDOL 15 ML VIAL 3 ML INJ (13:45)
--- NOTE | 2020-08-23 13:49 | P.PCN_ITS ---
Date/Time/Diagnoses Date of procedure: 08/23/20 Time of procedure: 13:49 Pre-procedure diagnosis: 1. FORAMINAL STENOSIS WITH LE SYMPTOMS Post-procedure diagnosis: same Procedure Notes Procedure: 1. FLUOROSCOPICALLY GUIDED CONTRAST CONTROLLED TRANSFORAMINAL EPIDURAL STEROID INJECTION - RIGHT L2/3 TFESI Indications: Beena is referred by Dr. Jeffers for treatment of Foraminal Stenosis with right LE Symptoms Physician: Amado العراقي Total Fluoroscopy time (seconds): 10 Total sedation minutes: 10 Complications: none Procedure in detail & Post-procedure care: FINDINGS Foraminal Nerve Root Compression secondary to disc disease and facet hypertrophy DESCRIPTION OF PROCEDURE Following review of allergy and review of potential side effects and complications, including, but not necessarily limited to, infection, allergic reaction, local tissue breakdown, stroke, temporary or permanent nerve injury, paralysis, and possible , the patient indicated that the patient understood and agreed to proceed. An informed consent document was signed by the patient, witnessed by a nurse, and placed in the patient's chart. Additionally, other treatment options including medications, modalities, and physical therapy were reviewed with the patient. After review of previous anaesthesic history and IV conscious sedation the patient was deemed safe to proceed with today?s procedure with IV conscious sedation as ASA class II designation. Safety time-out was performed to confirm patient ID, procedure to be performed and site of procedure. IV sedation was accomplished with a combination of 4mg of Versed and 50mcg of Fentanyl was administered by the RN after DO order, titrated to patient comfort during the course of the procedure while the patient remained responsive to all verbal commands In the prone position following sterile prep and drape of the lumbar region, the right L2/3 posterior neuroforamen was identified fluoroscopically. The skin was anesthetized via a 25-gauge 1.5-inch needle with 1% lidocaine solution. At this point, a 25-gauge 3.5-inch spinal needle was atraumatically introduced and advanced under fluoroscopic guidance through the posterior right L2/3 n euroforamen to approximately the anterior aspect of the canal. Depth was confirmed on lateral view. Following negative aspiration, injection of approximately 1.5 cc of Isovue 200 under live fluoroscopy in the AP view confirmed excellent flow along the nerve root, into the epidural space without vascular or intrathecal uptake observed Radiological data, including multiple fluoroscopic views of the lumbosacral spine, reveal a spinal needle at the right L2/3 posterior neuroforamen. Subsequent views show flow of contrast material flowing superiorly and inferiorly along the nerve root confirming epidural flow. Subsequently, a test dose of 1.5 cc of 1% lidocaine solution was administered and patient was observed for two minutes for signs or symptoms of complications, including abdominal pain, shortness of breath, bilateral upper or lower extremity weakness, nausea and vomiting, prior to steroid injection. At this point, a total of 3cc or 20mg of dexamethasone and 6mg of betamethasone was injected without incident. The patient tolerated the procedure well without signs or symptoms of complications prior to transfer to the recovery area continued monitoring without incident. The patient was then transferred to the recovery area where they were observed for an appropriate time after the injection. The patient reported a VAS score of 7 prior to the procedure and a post-procedure VAS of 0. POST OP INSTRUCTIONS The patient was provided a Pain Log to continue to record their response to the target-specific procedure prior to follow-up visit with their referring physician. Additionally, specific post-injection care instructions and a contact number to our office were provided if concerns arise regarding possible complications associated with the procedure are suspected.
== END 2020-08-23 14:25 | disposition home or self-care (01) ==
LOC: RAD 12:32
PROVIDERS: PCP Family Medicine; Referring Provider Physical Medicine & Rehabilitation; Visit Provider Physical Medicine & Rehabilitation
DX: M48.061 Spinal stenosis, lumbar region without neurogenic claudication (principal); M51.16 Intervertebral disc disorders with radiculopathy, lumbar region
CPT/HCPCS: 64483; 99152; J0702; J1100; J2250; J3010

== ENCOUNTER → 2020-11-07 18:53 | Outpatient (CLI) | payer MEDICARE, SELFPAY ==
[2020-05-31 08:32] VITALS: BMI 38.2
--- NOTE | 2020-11-07 18:56 | DI.RAD.S_ITS ---
PROCEDURE: XR ANKLE LT MIN 3V INDICATIONS: acute medial ankle pain, hx ORIF TECHNIQUE: 3 views of the ankle were acquired. COMPARISON: [facility], CR, XR ANKLE LT 2V, 05/19/2018, 8:55. FINDINGS: Bones: Extensive distal tibial surgical hardware, intact. No evidence of hardware failure or loosening. No acute fracture or dislocation. Tibiotalar degenerative change. Ankle mortise is normally aligned. No suspicious bony lesions. Soft tissues: No tibiotalar joint effusion. Achilles tendon appears normal. Soft tissue swelling. IMPRESSION: Intact orthopedic surgical hardware. No acute fracture or dislocation. Tibiotalar posttraumatic degenerative change. Dictated by: Ben Escobedo M.D. on 11/07/2020 at 19:37 Approved by: Jackson Escobedo M.D. on 11/07/2020 at 19:39
== END ==
PROVIDERS: PCP Family Medicine; Referring Provider Student in an Organized Health Care Education/Training Program; Visit Provider Student in an Organized Health Care Education/Training Program
DX: M25.572 Pain in left ankle and joints of left foot (principal)
CPT/HCPCS: 73610

== ENCOUNTER 2020-11-24 13:16 | Emergency (ER) | payer MEDICARE, SELFPAY ==
[2020-05-31 08:32] VITALS: BMI 38.2
[2020-11-24] VITALS (13 sets, daily range): BP systolic 136–183; BP diastolic 62–84; PULSE 79–92; RESP 15–24; TEMP 36.8; O2SAT 97–100; BMI 33.4
[2020-11-24] MEDS: EPINEPHrine 1 MG/ML 0.5 MG IM (13:24)
[2020-11-24] MEDS: diphenhydrAMINE 50 MG/ML VIAL IV (13:25)
[2020-11-24] MEDS: methylPREDNISolone 125 MG/2 ML VIAL IV (13:25)
--- NOTE | 2020-11-24 13:29 | ED.ALLEREA ---
HPI - Allergic Reaction General Chief complaint: Allergic Reaction Stated complaint: tongue swollen and cant swallow Time Seen by Provider: 11/24/20 13:21 Source: patient Mode of arrival: Ambulatory Limitations: no limitations History of Present Illness HPI narrative: This is a 75-year-old female comes to the emergency department with complaint of swollen tongue and difficulty with swallowing. Patient states she was eating lunch she only had a couple bites and she started a immediately snow swelling and feel like her tongue was getting bigger. She felt sort of itchy over she has had sensation of diarrhea. She had some tightness in her throat. Patient does not feel like she is short of breath chest. She denies pain. No vomiting. She states she has no known food allergies but has sensitivities. She does have allergies to antibiotics but has not had any recent medications. She does not take any daily medications. She denies other medical issues. She has never had anaphylactic type reaction. She has had prior surgeries but nothing recently. Related Data Home Medications Medication Instructions Recorded Confirmed diclofenac sodium 1 % topical gel TOP 01/25/20 11/07/20 Previous Rx's Medication Instructions Recorded gabapentin 300 mg capsule 300 mg PO .COMPLEX #90 cap 10/26/20 epinephrine 0.3 mg/0.3 mL 0.3 mg IM Q5-15M PRN #2 ea 11/24/20 injection, auto-injector (EpiPen 2-Prince) famotidine 40 mg tablet (Pepcid) 40 mg PO DAILY #5 tab 11/24/20 prednisone 20 mg tablet 40 mg PO DAILY 5 Days #10 tab 11/24/20 Allergies Allergy/AdvReac Type Severity Reaction Status Date / Time amoxicillin [AMOXICILLIN] Allergy Severe Throat Verified 11/24/20 13:37 swelling erythromycin base Allergy Mild NAUSEA Verified 11/24/20 13:37 [ERYTHROMYCIN BASE] iodine [IODINE] Allergy Mild BLISTERS Verified 11/24/20 13:37 Sulfa (Sulfonamide Allergy Mild BLISTERS Verified 11/24/20 13:37 Antibiotics) [SULFA (SULFONAMIDE ANTIBIOTICS)] Review of Systems Review of Systems ROS Unobtainable: All systems reviewed & are unremarkable except as noted in HPI and below Patient History Medical History Ankle fracture, left (05/11/18) Facet arthropathy, lumbar Gait instability H/O renal cell cancer (~1988) Heart murmur Herniated nucleus pulposus, L2-3 History of seizures as a child Migraines Peripheral neuropathy Pre-diabetes Scoliosis of cervical region due to degenerative disease of spine in adult Surgical History H/O right nephrectomy (~1988) History of tonsillectomy and adenoidectomy Hx of cholecystectomy (~1987) Hx of parathyroidectomy Status post hysterectomy (~2011) Status post tonsillectomy and adenoidectomy Family History Father High cholesterol Mother Age: 97 Diabetes mellitus Sister Age: 72 Diabetes mellitus Social History household members: none Smoking Status: Never smoker alcohol intake: current Type(s) of exercise: walking Smoking Status: Never smoker alcohol intake frequency: 0-2 drinks per day Substance Use Type: does not use Exam Narrative Exam Narrative: GEN: well nourished, well appearing female, alert and oriented x 3, patient appears to be in moderate distress. HEENT: Atraumatic, pupils are equal round reactive to light, extraocular movements are intact, nares are clear, TMs are clear with no fluid, there is no conjunctival pallor. Throat is clear without any exudates, erythema, tonsillar enlargement or uvular deviation, patient does have swelling of her tongue she has some slightly dysarthric speech secondary to swelling. Some mild swelling of lips, no other swelling of the face appreciated. HEART: Regular rate and rhythm without murmur, clicks, rubs. LUNGS:Lungs clear to auscultation, no wheezes, rales, crackles, chest moves symmetrically, no tachypnea. No accessory muscle use. Speaks in full sentences. ABD:bowel sounds normal, soft, non-tender, no guarding, rebound, rigidity, no masses noted, no hepatosplenomegaly MSCL: Non-tender, full range of motion, normal gait NEURO:CN 2-12 intact, sensation normal SKIN: No rash, erythema or skin changes appreciated. No rash or hives. Initial Vital Signs Initial Vital Signs: Vital Signs Temperature 98.3 F 11/24/20 13:17 Pulse Rate 79 11/24/20 13:17 Respiratory Rate 20 11/24/20 13:17 Blood Pressure 147/67 H 11/24/20 13:17 Pulse Oximetry 99 11/24/20 13:17 Course Orders Ordered: Discontinued Medications Diphenhydramine HCl (Diphenhydramine 50 Mg/Ml Vial) 50 mg IV NOW ONE Stop: 11/24/20 13:22 Last Admin: 11/24/20 13:25 Dose: 50 mg Documented by: JOSHUA Epinephrine HCl (Epinephrine 1 Mg/Ml) 0.5 mg IM NOW ONE Stop: 11/24/20 13:22 Last Admin: 11/24/20 13:24 Dose: 0.5 mg Documented by: JOSHUA Famotidine (Famotidine 20 Mg/2 Ml Vial) 20 mg IV NOW ONE Stop: 11/24/20 13:30 Last Admin: 11/24/20 13:30 Dose: 20 mg Documented by: MESFIN Methylprednisolone (Methylprednisolone 125 Mg/2 Ml Vial) 125 mg IV NOW ONE Stop: 11/24/20 13:22 Last Admin: 11/24/20 13:25 Dose: 125 mg Documented by: JOSHUA Reevaluation(s) Reevaluation #1: recheck patient almost back to normal. feeling much better. Lives [place] in [place]. Time: 14:23 Reevaluation #2: Patient states symptoms have resolved and feeling much better. She lives very closely. We discussed she needs to go [employer] her EpiPen on her way home today. Time: 15:25 Vital Signs Vital signs: Vital Signs - 8 hr 11/24/20 13:17 11/24/20 13:20 11/24/20 13:29 Temperature 98.3 F Pulse Rate 79 88 Respiratory Rate 20 Blood Pressure 147/67 H 183/84 H Pulse Oximetry 99 98 11/24/20 13:30 11/24/20 13:31 11/24/20 14:00 Temperature Pulse Rate 85 83 79 Respiratory Rate 24 21 Blood Pressure 147/67 H Pulse Oximetry 97 99 99 11/24/20 14:01 11/24/20 14:30 11/24/20 14:31 Temperature Pulse Rate 80 92 H 91 H Respiratory Rate 17 17 16 Blood Pressure 147/65 H 161/69 H Pulse Oximetry 99 100 100 11/24/20 15:00 11/24/20 15:01 11/24/20 15:30 Temperature Pulse Rate 89 90 90 Respiratory Rate 15 16 24 Blood Pressure 136/62 Pulse Oximetry 98 98 98 11/24/20 15:31 Temperature Pulse Rate 92 H Respiratory Rate 23 Blood Pressure 140/63 Pulse Oximetry 99 MDM - Allergic Reaction MDM Narrative Medical decision making narrative: 75-year-old female with anaphylactic reaction. Patient had IM epinephrine, Benadryl, Pepcid as well as Solu-Medrol. Shortly began feeling like she was having some improvement. After continued monitoring she continues to improve. Patient was sent home with prescription for steroids, Pepcid and epi pens. Suspect she had reaction to pine nuts which were in a pesto that she had ingested when her symptoms began immediately after that and she has not had them for many years but discussed that she needs to keep a close eye on other potential causes. Return precautions discussed. Patient is comfortable with this and feels much better at this time. Critical Care Time Critical Care Time Critical Care Time: Yes Total Critical Care Time: 25 Attestation: The high probability of a clinically significant, sudden or life threatening deterioration of the [cardiac, pulm] system(s) required my full and direct attention, intervention and personal management. The aggregate critical care time was [] minutes. This time is in addition to time spent performing reported procedures but includes the following: [x] Data Review and interpretation [x] Patient assessment and monitoring of vital signs [x] Documentation [x] Medication orders and management Discharge Plan Departure Patient Disposition: Home Clinical Impression: Anaphylaxis Instructions: DI for Anaphylaxis Activity Restrictions/Additional Instructions: Follow-up with your physician for recheck this week. Continue Pepcid daily. Continue with prednisone daily until gone. Fill your prescription for EpiPen and keep it with you. It is unclear the exact source of your reaction but darlene is often known to have types of nuts such as pine nuts and this is the most likely cause your symptoms. Make sure you keep an EpiPen with you at all times. If he develops symptoms administered her EpiPen. He then need to call 911 and come to the emergency department. Prescription sent to [facility]. Please return for any new or concerning symptoms, recurrent symptoms, new swelling of your lips, mouth, tongue, airway or throat, hives or rash, recurrent diarrhea, lightheadedness or passing out, chest pain or shortness of breath or wheezing or other new or concerning symptoms. Prescriptions: New prednisone 20 mg tablet 40 mg PO DAILY 5 Days Qty: 10 RF: 0 famotidine [Pepcid] 40 mg tablet 40 mg PO DAILY Qty: 5 RF: 0 epinephrine [EpiPen 2-Prince] 0.3 mg/0.3 mL auto-injector 0.3 mg IM Q5-15M PRN (Reason: anaphylaxis) Qty: 2 RF: 0 No Action diclofenac sodium 1 % gel TOP RF: 0 gabapentin 300 mg capsule 300 mg PO .COMPLEX Qty: 90 RF: 2 Referrals: Avelino Jeffers MD [Primary Care Provider] -
[2020-11-24] MEDS: FAMOTIDINE 20 MG/2 ML VIAL IV (13:30)
--- NOTE | 2020-11-24 13:41 | PC.NURSE ---
Swelling has improved since medication. Speech is clearer now
== END 2020-11-24 15:40 | disposition home or self-care (01) ==
PROVIDERS: Emergency Provider Emergency Medicine; PCP Family Medicine
DX: T78.2XXA Anaphylactic shock, unspecified, initial encounter (principal); R22.0 Localized swelling, mass and lump, head
CPT/HCPCS: 36415; 96372; 96374; 96375; 99284; J0171; J1200; J2930

== ENCOUNTER → 2020-12-07 08:44 | Outpatient (CLI) | payer MEDICARE, SELFPAY ==
[2020-05-31 08:32] VITALS: BMI 38.2
[2020-12-07 09:46] LABS: Add Manual Diff / Slide Review NO; Basophils Absolute Auto 0 /uL (0-100); Basophils Percent Auto 0.5 % (0-2); Eosinophils Absolute Auto 200 /uL (0-450); Eosinophils Percent Auto 2.3 % (2-4); Hematocrit 42.8 % (36-46); Hemoglobin 14.1 g/dL (12.0-16.0); Lymphocytes Absolute Auto 1400 /uL (1100-4500); Lymphocytes Percent Auto 19.1 % (25-40); Mean Corpuscular Hemoglobin 28.9 PG (26-34); Mean Corpuscular Volume 87.6 fL (80-100); Monocytes Absolute Auto 500 /uL (0-900); Monocytes Percent Auto 7.1 % (3-14); Neutrophils Absolute Auto 5400 /uL (1500-7000); Platelet Count 212 X10^3/uL (150-400); Red Blood Cell Count 4.89 X10^6/uL (4.0-5.2); Red Cell Distribution Width 13.6 % (11.6-14.8); White Blood Cell Count 7.6 X10^3/uL (4.5-11.0)
[2020-12-07 09:51] LABS: Hemoglobin A1C% w Est Avg Glu 6.1 % (4.0-6.0)
[2020-12-07 09:56] LABS: Alanine Aminotransferase 14 IU/L (<35); Albumin 4.1 g/dL (3.5-5.0); Albumin Globulin Ratio 1.4 (1.0-2.8); Alkaline Phosphatase 123 U/L (38-126); Aspartate Aminotransferase 25 IU/L (14-36); Bilirubin Total 0.5 mg/dL (0.2-1.3); Blood Urea Nitrogen 19 mg/dL (7-17); Calcium 9.1 mg/dL (8.4-10.2); Carbon Dioxide 27 mmol/L (22-32); Chloride 105 mmol/L (98-107); Cholesterol 178 mg/dL (140-199); Estimated Glomerular Filt Rate > 60.0 mL/min (>60); Glucose 118 mg/dL (80-110); HDL Cholesterol 70 mg/dL (40-60); HEMOLYSIS < 15 (0-50); LDL Cholesterol Calculated 82 mg/dL (<100); Potassium 4.3 mmol/L (3.4-5.1); Sodium 137 mmol/L (137-145); Total Protein 7.1 g/dL (6.3-8.2); Triglycerides 129 mg/dL (35-150)
[2020-12-07 10:33] LABS: Appearance Urine UA CLEAR; Bilirubin Urine UA NEGATIVE (NEGATIVE); Color Urine UA YELLOW; Glucose Urine UA NEGATIVE (Negative); Ketones Urine UA NEGATIVE (NEGATIVE); Leukocyte Esterase Urine UA NEGATIVE (NEGATIVE); Nitrite Urine UA NEGATIVE (Negative); Occult Blood Urine UA NEGATIVE (Negative); Protein Urine UA NEGATIVE (Negative); Specific Gravity Urine UA 1.015 (1.000-1.035); Urobilinogen Urine UA 0.2 E.U./dL (0.2)
[2020-12-07 10:34] LABS: pH Urine UA 5.5 (4.5-8.0)
[2020-12-07 10:39] LABS: Creatinine Urine Random 61.8 mg/dL
[2020-12-07 10:41] LABS: Microalbumin Urine Random < 0.6 mg/dL (0-1.6)
== END ==
PROVIDERS: PCP Registered Nurse; Referring Provider Registered Nurse; Visit Provider Registered Nurse
DX: Z85.528 Personal history of other malignant neoplasm of kidney (principal); E11.9 Type 2 diabetes mellitus without complications; E78.1 Pure hyperglyceridemia
CPT/HCPCS: 36415; 80053; 80061; 81003; 82043; 82570; 83036; 85025

== ENCOUNTER → 2020-12-14 11:20 | Outpatient (CLI) | payer MEDICARE, SELFPAY ==
[2020-05-31 08:32] VITALS: BMI 38.2
--- NOTE | 2020-12-14 11:21 | DI.RAD.S_ITS ---
PROCEDURE: XR DEXA AXIAL SKELETON INDICATIONS: post menopausal COMPARISON: [facility], CR, XR DEXA AXIAL SKELETON, 10/29/2018, 13:41. FINDINGS: This blank DEXA report has been sent in error by the PACS system. The correct and complete report will be forthcoming in 1-2 days. Thank you for your patience and understanding. Dictated by: Margarita Parsons M.D. on 12/14/2020 at 16:38 Approved by: Margarita Parsons M.D. on 12/24/2020 at 10:37
== END ==
PROVIDERS: PCP Registered Nurse; Referring Provider Registered Nurse; Visit Provider Registered Nurse
DX: M85.852 Other specified disorders of bone density and structure, left thigh (principal); Z78.0 Asymptomatic menopausal state; E11.9 Type 2 diabetes mellitus without complications; Z90.722 Acquired absence of ovaries, bilateral
CPT/HCPCS: 77080; 77081

== ENCOUNTER → 2020-12-26 09:26 | Outpatient (CLI) | payer MEDICARE, SELFPAY ==
[2020-05-31 08:32] VITALS: BMI 38.2
--- NOTE | 2020-12-26 09:27 | DI.ECHO.S_ITS ---
[place] [facility]---------+ [facility] +---------+ : : [address] : : : : [place] : : : : [id number] : : : : Phone: [phone]---------+ Echocardiogram Report + + :Name: STORM REZA Study Date: 12/26/2020 Height: 68 in : :[facility] ReadingLocation: Weight: 218 lb : : Gender: Female BSA: 2.1 m2 : :: 1945 Age: 75 yrs BP: 139/77 mmHg: :Reason For Study: MURMUR : :Ordering Physician: FLAVIA CERON, : :PURNIMA Performed By: Anila Holder : :Referring: PURNIMA PONCE : + + Interpretation Summary 1) Normal left ventricular thickness, size, wall motion, and systolic function (EF 65-70%). 2) Normal right ventricular size and function. 3) Moderate aortic stenosis present (valve area 1.4cm2, mean gradient 37mmHg, severity ratio 0.36). 4) There is mild aortic regurgitation. 5) Compared to the Echo done 01/12/2012, moderate aortic stenosis is present. Recommend repeat Echo in one year (or earlier if clinically indicated). Procedure: A two-dimensional transthoracic echocardiogram with color flow and Doppler was performed. The study quality was technically adequate. Comparison is made with the echocardiogram of 01/12/2012. The patient was in sinus rhythm with heart rates between 65-75 bpm during the exam. Left Ventricle: The left ventricle is normal in size. Left ventricular wall thickness is borderline increased. The ejection fraction is estimated to be 65-70%. Right Ventricle: The right ventricle is normal in size and function. Atria: The left atrium is mildly dilated. Right atrial size is normal. There is no Doppler evidence for an interatrial shunt. Mitral Valve: There is mild mitral annular calcification. The mitral valve leaflets are slightly calcified. Aortic Valve: The aortic valve is severely calcified. There is moderately reduced leaflet mobility. The peak aortic velocity on the previous exam was 3.9 m/sec. The aortic valve mean gradient is 37 mmHg. There is moderate aortic stenosis. There is mild aortic regurgitation. Tricuspid Valve: The tricuspid valve is normal in structure and function. There is trace tricuspid regurgitation. Pulmonary artery pressures cannot be estimated because of the lack of a measurable TR jet velocity but the IVC suggests a CVP of around 3 mmHg. Pulmonic Valve: The pulmonic valve is not well seen, but is grossly normal. There is no pulmonic valvular regurgitation. Great Vessels: The aortic root is normal size. The ascending aorta is mildly enlarged. The IVC is of normal diameter and collapses greater than 50% with a sniff. This suggests a low right atrial pressure of 3 mm Hg. Pericardium/ Pleura There is no pericardial effusion. There is no pleural effusion. MMode/2D Measurements & Calculations LVIDd: 4.7 cm LVOT diam: 2.2 cm LVIDs: 2.9 cm Ao root diam: 2.9 cm FS: 37.0 % asc Aorta Diam: 3.7 cm IVSd: 1.0 cm Ao Arch Diam (Prox Trans): 3.3 cm LVPWd: 1.1 cm LV franklin. diameter/BSA (cm/m^2): 2.2 LV sys. diameter/BSA (cm/m^2): 1.4 LA A2 area: 23.7 cm2 RA long axis: 5.8 cm LA A4 area: 22.1 cm2 RA area: 19.0 cm2 LA length (vol): 5.9 cm RA vol: 52.3 ml LA vol: 75.3 ml RA : 24.7 ml/m2 LA vol index: 35.5 ml/m2 IVC diam: 2.0 cm RVD1 (basal): 3.3 cm TAPSE: 2.6 cm Doppler Measurements & Calculations Ao V2 max: 394.5 cm/sec LVOT Max Gonzalez: 135.2 cm/sec Ao V2 mean: 265.2 cm/sec LV V1 max P.3 mmHg Ao max P.3 mmHg LV V1 VTI: 32.0 cm Ao mean P.2 mmHg JASEN(I,D): 1.4 cm2 Ao V2 VTI: 90.2 cm JASEN(V,D): 1.4 cm2 sev ratio: 0.36 JASEN indexed to BSA (cm^2/m^2): 0.66 MV E max gonzalez: 91.3 cm/sec PA V2 max: 108.6 cm/sec MV A max gonzalez: 101.1 cm/sec PA V2 mean: 69.6 cm/sec MV E/A: 0.90 PA mean P.3 mmHg Med Peak E' Gonzalez: 6.4 cm/sec PA pr(Accel): 10.5 mmHg E/E' med: 14.3 Lat Peak E' Gonzalez: 4.9 cm/sec E/E' lat: 18.7 E/e' average: 16.5 MV dec time: 0.23 sec SV(LVOT): 127.1 ml Reading Physician:12:16 PM
== END ==
PROVIDERS: PCP Registered Nurse; Referring Provider Registered Nurse; Visit Provider Registered Nurse
DX: R01.1 Cardiac murmur, unspecified (principal); I35.0 Nonrheumatic aortic (valve) stenosis; I35.1 Nonrheumatic aortic (valve) insufficiency
CPT/HCPCS: 93306

== ENCOUNTER → 2021-01-28 14:41 | Outpatient (CLI) | payer MEDICARE, SELFPAY ==
[2020-05-31 08:32] VITALS: BMI 38.2
--- NOTE | 2021-01-28 14:43 | DI.RAD.S_ITS ---
PROCEDURE: XR LUMBAR SPINE MIN 4V INDICATIONS: Chronic progressive low back pain TECHNIQUE: 5 views of the lumbar spine were acquired, including bilateral oblique views. COMPARISON: [facility], , XR LUMBAR SPINE MIN 4V, 08/03/2020, 16:12. FINDINGS: Bones: No acute fracture identified although advanced discogenic changes limits study sensitivity. There is levoscoliosis. Multilevel degenerative endplate sclerosis and spurring. Diffuse facet arthropathy. Severe narrowing of the lumbar spaces diffusely from L2-S1. Soft tissues: Overlying bowel gas pattern is normal. No suspicious soft tissue calcifications. Oblique images: No pars defects. IMPRESSION: Levoscoliosis and diffuse spondylosis and facet arthropathy, with no interval change since 08/03/20. Dictated by: Rajeev Romo M.D. on 01/28/2021 at 15:52 Approved by: Rajeev Romo M.D. on 01/28/2021 at 15:54
== END ==
PROVIDERS: PCP Registered Nurse; Referring Provider Physical Medicine & Rehabilitation; Visit Provider Physical Medicine & Rehabilitation
DX: M47.816 Spondylosis without myelopathy or radiculopathy, lumbar region (principal); M51.26 Other intervertebral disc displacement, lumbar region
CPT/HCPCS: 72110

== ENCOUNTER → 2021-02-08 16:50 | Outpatient (CLI) | payer MEDICARE, SELFPAY ==
[2021-01-30 09:40] VITALS: BMI 38.2
--- NOTE | 2021-02-08 16:51 | DI.MG.S_ITS ---
BILATERAL DIGITAL SCREENING MAMMOGRAM 3D/2D WITH CAD: 02/08/2021 CLINICAL: Routine screening. Family history of breast cancer. Comparison is made to exams dated: 05/19/2016 mammogram, 05/14/2015 mammogram, and 02/13/2014 mammogram - [facility]. The tissue of both breasts is heterogeneously dense. This may lower the sensitivity of mammography. Current study was also evaluated with a Computer Aided Detection (CAD) system. There are benign calcifications in the left breast. No significant masses, calcifications, or other findings are seen in either breast. There has been no significant interval change. IMPRESSION: BENIGN There is no mammographic evidence of malignancy. A 1 year screening mammogram is recommended. This exam was interpreted at Station ID: [id number]. NOTE: For mammograms, a report in lay terms will be sent to the patient. Approximately 15% of breast malignancies will not be visualized mammographically. In the management of a palpable breast mass, a negative mammogram must not discourage biopsy of a clinically suspicious lesion. Electronically Signed By: Bar hanna/abi:02/11/2021 08:03:00 letter sent: Normal Exam ACR BI-RADS Category 2: Benign Finding(s) 3342F
== END ==
PROVIDERS: PCP Registered Nurse; Referring Provider Registered Nurse; Visit Provider Registered Nurse
DX: Z12.31 Encounter for screening mammogram for malignant neoplasm of breast (principal); Z80.3 Family history of malignant neoplasm of breast
CPT/HCPCS: 77063; 77067

== ENCOUNTER → 2021-05-20 10:33 | Outpatient (CLI) | payer MEDICARE, SELFPAY ==
[2021-01-30 09:40] VITALS: BMI 38.2
[2021-05-20 13:49] LABS: COVID19 -Nasal RAPID Negative (Negative)
== END ==
PROVIDERS: PCP Registered Nurse; Visit Provider Physical Medicine & Rehabilitation
DX: Z20.822 Contact with and (suspected) exposure to COVID-19 (principal)
CPT/HCPCS: 87635; C9803

== ENCOUNTER 2021-05-21 09:50 | Outpatient (CLI) | payer MEDICARE, SELFPAY ==
[2021-01-30 09:40] VITALS: BMI 38.2
[2021-05-21] VITALS (10 sets, daily range): BP systolic 112–155; BP diastolic 59–83; PULSE 74–87; RESP 10–22; TEMP 36.1; O2SAT 95–99
--- NOTE | 2021-05-21 09:52 | DI.RAD.S_ITS ---
PROCEDURE: PAIN L/SI FACET INJ/BLK 1STL INDICATIONS: SPONDYLOSIS COMPARISON: [facility], , PAIN L/S TRANSFORAMINAL INJECT, 08/23/2020, 13:41. FINDINGS: Fluoroscopic spot filming was performed to verify placement of spinal needles on the right at the L2, L3, L4, and L5 levels, as labeled on the films. Appropriate location of the needle tips was confirmed by injection of iodinated contrast. IMPRESSION: Intraprocedural examination within normal limits. Dictated by: Jose Martin Bundy M.D. on 05/21/2021 at 11:48 Approved by: Jose Martin Bundy M.D. on 05/21/2021 at 11:49
[2021-05-21] MEDS: MIDAZOLAM 5 MG/5 ML VIAL IV (10:26)
[2021-05-21] MEDS: fentaNYL 100 MCG/2 ML INJ 50 MCG IV (10:26)
[2021-05-21] MEDS: BUPIVACAINE 0.5% (PF) VIAL 5 ML INJ (10:28)
[2021-05-21] MEDS: IOPAMIDOL 15 ML VIAL 3 ML INJ (10:29)
[2021-05-21] MEDS: LIDOCAINE 1% 20 ML (10:29)
--- NOTE | 2021-05-21 10:41 | P.PCN_ITS ---
Date/Time/Diagnoses Date of procedure: 05/21/21 Time of procedure: 10:41 Pre-procedure diagnosis: 1. FACET ARTHROPATHY This procedure is found to meet the Governor's proclamation 20-24.2 regarding non urgent procedures. This patient meets multiple criteria for the procedure including continuing or worsening of significant or severe pain, combined with further deterioration of the patient's condition or overall health as well as delay in treatment would be expected to result in less positive ultimate medical outcome. Therefore the decision to perform the procedure in an outpatient hospital setting is found to be in accordance with guidelines of the proclamation. Post-procedure diagnosis: same Procedure Notes Procedure: 1. Right L2, L3, L4, L5 MB BLOCKS Indications: Beena is referred by MALCOM Gilmore for treatment of Right Axial LBP. Physician: Amado العراقي Total Fluoroscopy time (seconds): 7 Total sedation minutes: 9 Complications: none Procedure in detail & Post-procedure care: DESCRIPTION OF PROCEDURE Fluoroscopically guided, contrast-controlled right L2, L3, L4 and L5 medial branch blocks with 0.5cc of 0.5% Marcaine. Following review of allergy and review of potential side effects and complications, including, but not necessarily limited to, infection, allergic reaction, local tissue breakdown, nerve injury, paralysis, stroke and possible , the patient indicated that the patient understood and agreed to proceed. An informed consent document was signed by the patient, witnessed by a nurse, and placed in the patient's chart. After review of previous anaesthesic history and IV conscious sedation the patient was deemed safe to proceed with today?s procedure with IV conscious sedation as ASA class II designation. Safety time-out was performed to confirm patient ID, procedure to be performed and site of procedure. IV sedation was accomplished with a combination of 2mg of Versed and 50mcg of Fentanyl was administered by the RN after DO order, titrated to patient comfort during the course of the procedure while the patient remained responsive to all verbal commands In the prone position, following sterile prep and drape of the lumbar region, the right L2, L3, L4, L5 anatomical location of the medial branch of the dorsal ramus was identified fluoroscopically. Subsequently an anesthetic skin wheal using 1% lidocaine solution was initiated at each of the anatomical spots. Subsequently then a 22-gauge 3.5-inch spinal needle was atraumatically introduced and advanced under fluoroscopic guidance at each of the corresponding sites at the right L2, L3 and L4 MB. After negative aspiration, 0.2 cc of Isovue 200 was injected, confirming placement without vascular or intrathecal uptake. Subsequently then 0.5cc of 0.5% Marcaine solution was injected at each of the corresponding sites at the right L2, L3, L4, L5 medial branch locations. The patient tolerated the procedure well without signs or symptoms of complications. The procedure tolerated the procedure well without signs or symptoms of complications prior to transfer to the recovery area continued monitoring without incident. Post-procedure, the patient was monitored initiating provocative activities to measure the amount of relief from block of the facetogenic pain. The patient reported a VAS of 7 prior to the procedure and a post-procedure VAS of 1. It has been a pleasure to assist in the diagnostic and therapeutic care of your patient. POST OP INSTRUCTIONS The patient was provided with a Pain Log to complete over the next several hours and subsequent days prior to the patient's follow up with the ordering physician. If the patient has flight communications officer relief to the solution applied, then they may be a candidate for medial branch rhizotomy. The patient is aware, was provided, once again, with a Pain Log and will follow up with the referring physician for review and clinical correlation.
== END 2021-05-21 11:09 | disposition home or self-care (01) ==
LOC: RAD 09:51
PROVIDERS: PCP Registered Nurse; Referring Provider Physical Medicine & Rehabilitation; Visit Provider Physical Medicine & Rehabilitation
DX: M47.816 Spondylosis without myelopathy or radiculopathy, lumbar region (principal)
CPT/HCPCS: 64493; 64494; 64495; J2250; J3010

== ENCOUNTER → 2022-03-03 12:26 | Outpatient (CLI) | payer MEDICARE, SELFPAY ==
[2021-01-30 09:40] VITALS: BMI 38.2
--- NOTE | 2022-03-03 | DI.MG.S_ITS ---
BILATERAL DIGITAL SCREENING MAMMOGRAM 3D/2D WITH CAD: 03/03/2022 CLINICAL: Routine screening. Family history of breast cancer. Comparison is made to exams dated: 02/08/2021 mammogram, 05/19/2016 mammogram, and 05/14/2015 mammogram - [facility]. Both breasts are heterogeneously dense, which may obscure small masses (category c / 51-75% glandular tissue). Current study was also evaluated with a Computer Aided Detection (CAD) system. There are benign calcifications in the left breast. There also are benign vascular calcifications in both breasts. No significant masses, calcifications, or other findings are seen in either breast. There has been no significant interval change. IMPRESSION: BENIGN There is no mammographic evidence of malignancy. A 1 year screening mammogram is recommended. Based on the Tyrer Cuzick model (a risk assessment model) the patient's lifetime risk is 12.3% and her 10 year risk is 12.3%. According to the ACR, ACS, and NCCN guidelines, an annual breast MRI exam along with mammogram is recommended if the patient's lifetime risk is 20% or greater. This exam was interpreted at Station ID: [id number]. NOTE: For mammograms, a report in lay terms will be sent to the patient. Approximately 15% of breast malignancies will not be visualized mammographically. In the management of a palpable breast mass, a negative mammogram must not discourage biopsy of a clinically suspicious lesion. Electronically Signed By: Connie quezada/abi:03/03/2022 14:14:11 letter sent: Normal Exam ACR BI-RADS Category 2: Benign Finding(s) 3342F
--- NOTE | 2022-03-03 | DI.ECHO.S_ITS ---
[place] [facility]---------+ [facility] +---------+ : : [address] : [place] [address] : : : : [id number] : : : : Phone: [phone] : [phone] +---------+ Echocardiogram Report + + :Name: STORM REZA Study Date: 03/03/2022 Height: 68 in : :[facility] ReadingLocation: Weight: 225 lb : : Gender: Female BSA: 2.1 m2 : :: 1945 Age: 76 yrs BP: 128/78 mmHg: :Reason For Study: AORTIC STENOSIS : :Ordering Physician: BIJU, : :DAISHA Burden Performed By: Anila Holder : :Referring: OMER VALDEZ : + + Interpretation Summary 1) Normal left ventricular thickness, size, wall motion, and systolic function (EF 60-65%). 2) Normal right ventricular size and function. 3) Moderate-severe aortic stenosis present (valve area 1.1cm2, mean gradient 45mmHg, severity ratio 0.30). 4) Compared to the Echo done 12/26/2020, aortic stenosis has progressed from moderate to moderate-severe on this study. Procedure: A two-dimensional transthoracic echocardiogram with color flow and Doppler was performed. The study quality was technically adequate. Comparison is made with the echocardiogram of 12/26/2020. The patient was in sinus rhythm with heart rates between 62-83 bpm during the exam. Left Ventricle: The left ventricle is normal in size and wall thickness. The ejection fraction is estimated to be 60-65%. Left ventricular systolic function appears normal without focal wall motion abnormalities. Diastolic function could not be accurately assessed due to contradictory data. Right Ventricle: The right ventricle is normal in size and function. Atria: The left atrium is mildly dilated. Right atrial size is normal. There is no Doppler evidence for an interatrial shunt. Mitral Valve: There is mild to moderate mitral annular calcification. The mitral valve leaflets appear mildly thickened, but open well. There is trace mitral regurgitation. Aortic Valve: The aortic valve is severely calcified. There is moderate to severe aortic stenosis. The peak aortic velocity is 4.2 m/sec. The aortic valve mean gradient is 45 mmHg. The calculated aortic valve area is 1.1 cm2. There is trace aortic regurgitation. Tricuspid Valve: The tricuspid valve is normal in structure and function. The right ventricular systolic pressure is estimated to be at least 30 mmHg based on an estimated right atrial pressure of 3 mm Hg. There is mild tricuspid regurgitation. Pulmonic Valve: The pulmonic valve is not well visualized. There is no pulmonic valvular regurgitation. Great Vessels: The aortic root is normal size. The ascending aorta is mildly enlarged. The IVC is of normal diameter and collapses greater than 50% with a sniff. This suggests a low right atrial pressure of 3 mm Hg. Pericardium/ Pleura There is no pericardial effusion. There is no pleural effusion. MMode/2D Measurements & Calculations LVIDd: 5.6 cm LVOT diam: 2.2 cm LVIDs: 3.7 cm Ao root diam: 3.1 cm FS: 33.1 % asc Aorta Diam: 3.8 cm IVSd: 0.95 cm Ao Arch Diam (Prox Trans): 3.4 cm LVPWd: 1.1 cm LV franklin. diameter/BSA (cm/m^2): 2.6 LV sys. diameter/BSA (cm/m^2): 1.7 LA A2 area: 23.7 cm2 RA long axis: 5.5 cm LA A4 area: 21.3 cm2 RA area: 18.6 cm2 LA length (vol): 6.4 cm RA vol: 54.1 ml LA vol: 67.1 ml RA : 25.2 ml/m2 LA vol index: 31.2 ml/m2 IVC diam: 1.6 cm RVD1 (basal): 3.6 cm RVD2 (mid): 3.1 cm TAPSE: 2.5 cm Doppler Measurements & Calculations Ao V2 max: 424.6 cm/sec LVOT Max Gonzalez: 123.8 cm/sec Ao V2 mean: 289.4 cm/sec LV V1 max P.1 mmHg Ao max P.3 mmHg LV V1 VTI: 26.9 cm Ao mean P.3 mmHg JASEN(I,D): 1.1 cm2 Ao V2 VTI: 89.4 cm JASEN(V,D): 1.1 cm2 sev ratio: 0.30 JASEN indexed to BSA (cm^2/m^2): 0.51 MV E max gonzalez: 106.5 cm/sec TR max gonzalez: 259.1 cm/sec MV A max gonzalez: 90.9 cm/sec TR max P.8 mmHg MV E/A: 1.2 PA pr(Accel): 25.9 mmHg Med Peak E' Gonzalez: 5.4 cm/sec E/E' med: 19.6 Lat Peak E' Gonzalez: 5.2 cm/sec E/E' lat: 20.4 E/e' average: 20.0 MV dec time: 0.24 sec SV(LVOT): 98.0 ml Reading Physician:05:01 PM
== END ==
PROVIDERS: PCP Nurse Practitioner; Referring Provider Nurse Practitioner; Visit Provider Nurse Practitioner
DX: Z12.31 Encounter for screening mammogram for malignant neoplasm of breast (principal); Z80.3 Family history of malignant neoplasm of breast; I08.3 Combined rheumatic disorders of mitral, aortic and tricuspid valves; I77.89 Other specified disorders of arteries and arterioles
CPT/HCPCS: 77063; 77067; 93306

== ENCOUNTER → 2022-05-12 08:31 | Outpatient (CLI) | payer MEDICARE, SELFPAY ==
[2021-01-30 09:40] VITALS: BMI 38.2
[2022-05-12 10:38] LABS: Creatinine Urine Random 31.4 mg/dL
[2022-05-12 10:40] LABS: Microalbumin Urine Random < 0.6 mg/dL (0-1.6)
[2022-05-12 11:12] LABS: Hemoglobin A1C% w Est Avg Glu 6.6 % (4.0-6.0)
[2022-05-12 11:35] LABS: Alanine Aminotransferase 13 IU/L (<35); Albumin 3.9 g/dL (3.5-5.0); Albumin Globulin Ratio 1.3 (1.0-2.8); Alkaline Phosphatase 129 U/L (38-126); Aspartate Aminotransferase 22 IU/L (14-36); BUN Creatinine Ratio 21.1 (6-22); Bilirubin Total 0.5 mg/dL (0.2-1.3); Blood Urea Nitrogen 15 mg/dL (7-17); Calcium 8.8 mg/dL (8.4-10.2); Carbon Dioxide 25 mmol/L (22-32); Chloride 102 mmol/L (98-107); Cholesterol 140 mg/dL (140-199); Estimated Glomerular Filt Rate > 60 mL/min (>60); Globulin 2.9 g/dL (1.7-4.1); Glucose 115 mg/dL (80-110); HDL Cholesterol 67 mg/dL (40-60); HEMOLYSIS < 15 (0-50); LDL Cholesterol Calculated 53 mg/dL (<100); Potassium 4.3 mmol/L (3.4-5.1); Sodium 137 mmol/L (137-145); Total Protein 6.8 g/dL (6.3-8.2); Triglycerides 102 mg/dL (35-150)
[2022-05-12 11:51] LABS: Free T4, Direct Thyroxine 1.32 ng/dL (0.78-2.19)
[2022-05-12 11:53] LABS: Free T3, Triiodothyronine Free 3.93 pg/mL (2.77-5.27)
[2022-05-12 12:44] LABS: Hep C Virus Ab w/Reflex Quant NEGATIVE s/c (NEGATIVE)
== END ==
PROVIDERS: PCP Nurse Practitioner; Referring Provider Nurse Practitioner; Visit Provider Nurse Practitioner
DX: E11.65 Type 2 diabetes mellitus with hyperglycemia (principal); E11.69 Type 2 diabetes mellitus with other specified complication; E78.5 Hyperlipidemia, unspecified; R73.9 Hyperglycemia, unspecified; Z11.59 Encounter for screening for other viral diseases
CPT/HCPCS: 36415; 80053; 80061; 82043; 82570; 83036; 84439; 84443; 84481; 86803

== ENCOUNTER → 2022-06-03 09:19 | Outpatient (CLI) | payer MEDICARE, SELFPAY ==
[2021-01-30 09:40] VITALS: BMI 38.2
--- NOTE | 2022-06-03 09:21 | DI.US.S_ITS ---
PROCEDURE: US CAROTID DOPPLER BI INDICATIONS: Bilateral Carotid Bruits TECHNIQUE: Color and pulse Doppler interrogation was performed of both carotid systems, with image documentation and velocity measurements. COMPARISON: None. FINDINGS: Stenosis calculations are based on SRU (Society of Radiologists in Ultrasound) criteria. The flow velocities and the arterial waveforms are normal within both carotid arterial systems. Minimal atherosclerotic plaque is seen on both sides. The estimated degree of internal carotid artery stenosis is less than 50%. Antegrade flow is confirmed within both vertebral arteries. IMPRESSION: No hemodynamically significant stenosis is seen. Dictated by: Jose Martin Bundy M.D. on 06/03/2022 at 11:35 Approved by: Jose Martin Bundy M.D. on 06/03/2022 at 11:35
== END ==
PROVIDERS: PCP Nurse Practitioner; Referring Provider Nurse Practitioner; Visit Provider Nurse Practitioner
DX: R09.89 Other specified symptoms and signs involving the circulatory and respiratory systems (principal)
CPT/HCPCS: 93880

== ENCOUNTER → 2023-03-04 16:40 | Outpatient (CLI) | payer MEDICARE, SELFPAY ==
[2021-01-30 09:40] VITALS: BMI 38.2
--- NOTE | 2023-03-04 | DI.MG.S_ITS ---
BILATERAL DIGITAL SCREENING MAMMOGRAM 3D/2D WITH CAD: 03/04/2023 CLINICAL: Routine screening. Family history of breast cancer. Comparison is made to exams dated: 03/03/2022 mammogram, 02/08/2021 mammogram, and 05/19/2016 mammogram - [facility]. Both breasts are heterogeneously dense, which may obscure small masses (category c / 51-75% glandular tissue). Current study was also evaluated with a Computer Aided Detection (CAD) system. There are benign calcifications in the left breast. There also are benign vascular calcifications in both breasts. No significant masses, calcifications, or other findings are seen in either breast. There has been no significant interval change. IMPRESSION: BENIGN There is no mammographic evidence of malignancy. A 1 year screening mammogram is recommended. Based on the Tyrer Cuzick model (a risk assessment model) the patient's lifetime risk is 11.3% and her 10 year risk is 0.0%. According to the ACR, ACS, and NCCN guidelines, an annual breast MRI exam along with mammogram is recommended if the patient's lifetime risk is 20% or greater. This exam was interpreted at Station ID: [id number]. NOTE: For mammograms, a report in lay terms will be sent to the patient. Approximately 15% of breast malignancies will not be visualized mammographically. In the management of a palpable breast mass, a negative mammogram must not discourage biopsy of a clinically suspicious lesion. Electronically Signed By: Akshat mckeon/abi:03/05/2023 12:07:34 letter sent: Normal Exam ACR BI-RADS Category 2: Benign Finding(s) 3342F
== END ==
PROVIDERS: PCP Nurse Practitioner; Referring Provider Nurse Practitioner; Visit Provider Nurse Practitioner
DX: Z12.31 Encounter for screening mammogram for malignant neoplasm of breast (principal); Z80.3 Family history of malignant neoplasm of breast
CPT/HCPCS: 77063; 77067

== ENCOUNTER → 2023-04-28 11:55 | Outpatient (CLI) | payer MEDICARE, SELFPAY ==
[2021-01-30 09:40] VITALS: BMI 38.2
[2023-04-28 14:25] LABS: Hemoglobin A1C% w Est Avg Glu 6.4 % (4.0-6.0)
[2023-04-28 14:39] LABS: Alanine Aminotransferase 15 IU/L (<35); Albumin 4.1 g/dL (3.5-5.0); Albumin Globulin Ratio 1.2 (1.0-2.8); Alkaline Phosphatase 110 U/L (38-126); Aspartate Aminotransferase 26 IU/L (14-36); BUN Creatinine Ratio 26.7 (6-22); Bilirubin Total 0.7 mg/dL (0.2-1.3); Blood Urea Nitrogen 20 mg/dL (7-17); Calcium 9.4 mg/dL (8.4-10.2); Carbon Dioxide 27 mmol/L (22-32); Chloride 102 mmol/L (98-107); Cholesterol 135 mg/dL (140-199); Estimated Glomerular Filt Rate > 60 mL/min (>60); Globulin 3.5 g/dL (1.7-4.1); Glucose 105 mg/dL (80-110); HDL Cholesterol 54 mg/dL (40-60); HEMOLYSIS < 15 (0-50); LDL Cholesterol Calculated 51 mg/dL (<100); Potassium 4.9 mmol/L (3.4-5.1); Sodium 138 mmol/L (137-145); Total Protein 7.6 g/dL (6.3-8.2); Triglycerides 152 mg/dL (35-150)
[2023-04-28 15:00] LABS: Free T3, Triiodothyronine Free 3.52 pg/mL (2.77-5.27)
[2023-04-28 15:13] LABS: Thyroid Stimulating Hormone 1.82 uIU/mL (0.47-4.68)
[2023-04-28 15:48] LABS: Creatinine Urine Random 128.4 mg/dL
[2023-04-28 15:54] LABS: Microalbumi Creatinin Ratio Ur 7.7 ug/mg CR (<30)
[2023-04-28 17:25] LABS: Urine Volume 10mL (spun)
[2023-04-28 17:55] LABS: Appearance Urine UA CLEAR; Bilirubin Urine UA NEGATIVE (NEGATIVE); Color Urine UA YELLOW; Glucose Urine UA NEGATIVE (Negative); Ketones Urine UA NEGATIVE (NEGATIVE); Leukocyte Esterase Urine UA TRACE (NEGATIVE); Nitrite Urine UA NEGATIVE (Negative); Occult Blood Urine UA NEGATIVE (Negative); Protein Urine UA NEGATIVE (Negative); Specific Gravity Urine UA <=1.005 (1.000-1.035); Urobilinogen Urine UA 0.2 E.U./dL (0.2)
[2023-04-28 18:27] LABS: Bacteria Urine Occasional (0-1); RBC Urine None Seen (0-5/HPF); Squamous Epithelial Cell Urine 0-1 /HPF (0-5/HPF); WBC Urine 0-1/HPF (0-5/HPF)
[2023-04-28 18:28] LABS: Culture Indicated Urine Specimen Cultured
== END ==
PROVIDERS: PCP Nurse Practitioner; Referring Provider Nurse Practitioner; Visit Provider Nurse Practitioner
DX: E11.65 Type 2 diabetes mellitus with hyperglycemia (principal); E11.9 Type 2 diabetes mellitus without complications; E11.69 Type 2 diabetes mellitus with other specified complication; E78.5 Hyperlipidemia, unspecified; Z79.899 Other long term (current) drug therapy; R39.15 Urgency of urination
CPT/HCPCS: 36415; 80053; 80061; 81001; 82043; 82570; 83036; 84439; 84443; 84481; 87086

== ENCOUNTER → 2023-05-15 15:01 | Outpatient (CLI) | payer MEDICARE, SELFPAY ==
[2021-01-30 09:40] VITALS: BMI 38.2
--- NOTE | 2023-05-15 | DI.ECHO.S_ITS ---
[place] [facility]---------+ Hospital +---------+ : : [address] : [address] : : : : [id number] : : : : Phone: [phone] +---------+ Echocardiogram Report + + :Name: STORM REZA Study Date: 05/15/2023 Height: 68 in : :[facility] ReadingLocation: Weight: 225 lb : : Gender: Female BSA: 2.1 m2 : :: 1945 Age: 77 yrs BP: 164/90 mmHg: :Reason For Study: NONRHEUMATIC AORTIC VALVE STENOSIS : :Ordering Physician: BIJU, : :DAISHA Performed By: Ronaldo Disla : :Referring: DAISHA GONZALEZ : + + Interpretation Summary 1) Upper normal left ventricular size, with normal thickness, normal wall motion, and normal systolic function (EF 60-65%). 2) Normal right ventricular size and function. 3) There is moderate to severe aortic stenosis (valve area 1.0cm2, mean gradient 43mmHg, severity ratio 0.33). 4) Compared to the Echo done 03/03/2022, no significant change. Procedure: A two-dimensional transthoracic echocardiogram with color flow and Doppler was performed. The study quality was technically adequate. Comparison is made with the echocardiogram of 03/03/22. The patient was in normal sinus rhythm during the exam. The heart rate ranged between 60-73 bpm during the study. Left Ventricle: Left ventricular wall thickness is normal. Left ventricular size is at the upper limits of normal. The ejection fraction is estimated to be 60-65%. Left ventricular systolic function appears normal without focal wall motion abnormalities. Right Ventricle: The right ventricle is normal in size and function. Atria: The left atrial size is normal. The right atrium is normal in size. Mitral Valve: The mitral valve is normal in structure and function. MAC. There is no mitral valve stenosis. There is trace mitral regurgitation. Aortic Valve: The aortic valve is trileaflet. The aortic valve is moderately calcified. There is moderate to severe aortic stenosis. PEAK 4.14 m/s, MEAN 39.29 mmHg. There is trace aortic regurgitation. Tricuspid Valve: The tricuspid valve is normal in structure and function. There is no tricuspid stenosis. There is a trace or physiologic amount of tricuspid regurgitation. The right ventricular systolic pressure is estimated to be at least 29 mmHg based on an estimated right atrial pressure of 3 mm Hg. Pulmonic Valve: The pulmonic valve is not well visualized. There is no pulmonic valvular stenosis. There is no pulmonic valvular regurgitation. Great Vessels: The aortic root is normal size. The ascending aorta is mildly enlarged. The IVC is of normal diameter and collapses greater than 50% with a sniff. This suggests a low right atrial pressure of 3 mm Hg. Pericardium/ Pleura There is no pericardial effusion. There is no pleural effusion. MMode/2D Measurements & Calculations LVIDd: 5.4 cm LVOT diam: 2.0 cm LVIDs: 4.0 cm Ao root diam: 3.2 cm FS: 26.3 % asc Aorta Diam: 3.8 cm IVSd: 1.1 cm Ao Arch Diam (Prox Trans): 3.1 cm LVPWd: 1.1 cm LV franklin. diameter/BSA (cm/m^2): 2.5 LV sys. diameter/BSA (cm/m^2): 1.9 LA A2 area: 22.0 cm2 RA long axis: 4.8 cm LA A4 area: 25.7 cm2 RA area: 16.1 cm2 LA length (vol): 5.7 cm RA vol: 45.4 ml LA vol: 83.6 ml RA : 21.1 ml/m2 LA vol index: 38.9 ml/m2 IVC diam: 2.1 cm RVD1 (basal): 3.7 cm RVD2 (mid): 3.1 cm TAPSE: 2.5 cm Doppler Measurements & Calculations Ao V2 max: 413.9 cm/sec LVOT Max Gonzalez: 124.8 cm/sec Ao V2 mean: 322.1 cm/sec LV V1 max P.8 mmHg Ao max P.5 mmHg LV V1 VTI: 33.6 cm Ao mean P.2 mmHg JASEN(I,D): 1.0 cm2 Ao V2 VTI: 103.0 cm JASEN(V,D): 0.93 cm2 sev ratio: 0.33 JASEN indexed to BSA (cm^2/m^2): 0.47 MV E max gonzalez: 82.0 cm/sec TR max gonzalez: 258.9 cm/sec MV A max gonzalez: 109.3 cm/sec TR max P.8 mmHg MV E/A: 0.75 PA V2 max: 102.8 cm/sec Med Peak E' Gonzalez: 6.6 cm/sec PA V2 mean: 78.0 cm/sec E/E' med: 12.5 PA mean P.6 mmHg Lat Peak E' Gonzalez: 5.2 cm/sec PA pr(Accel): 37.9 mmHg E/E' lat: 15.9 E/e' average: 14.2 MV dec time: 0.20 sec SV(LVOT): 103.7 ml Reading Physician:01:41 PM
== END ==
PROVIDERS: Family Provider Nurse Practitioner; PCP Nurse Practitioner; Referring Provider Internal Medicine Cardiovascular Disease; Visit Provider Internal Medicine Cardiovascular Disease
DX: I35.0 Nonrheumatic aortic (valve) stenosis (principal); I77.89 Other specified disorders of arteries and arterioles
CPT/HCPCS: 93306

== ENCOUNTER → 2023-05-21 09:47 | Outpatient (CLI) | payer MEDICARE, SELFPAY ==
[2021-01-30 09:40] VITALS: BMI 38.2
--- NOTE | 2023-05-21 09:48 | DI.RAD.S_ITS ---
Bone Density Report Name: STORM REZA Age: 78 Sex: Female Ethnicity: White Date of : 1945 Indication: osteopenia; Referring Provider: OMER VALDEZ Study: Bone densitometry was performed. Exam Date: May 21, 2023 Accession number: [id number] Bone Density: Region BMD T-score Z-score Classification AP Spine(L2, L3, L4) 1.222 1.3 3.9 Normal Femoral Neck (Left) 0.657 -1.7 0.4 Osteopenia Total Hip (Left) 0.815 -1.0 0.9 Normal Femoral Neck (Right) 0.652 -1.8 0.4 Osteopenia Total Hip (Right) 0.846 -0.8 1.1 Normal Total Hip Mean 0.831 -0.9 1.0 Normal World Health Organization criteria for BMD impression classify patients as: Normal (T-score at or above -1.0), Osteopenia (T-score between -1.0 and -2.5), or Osteoporosis (T-score at or below -2.5). 10-year Fracture Risk(1): Major Osteoporotic Fracture 12% Hip Fracture 2.8% Reported Risk Factors: [place] (), Neck BMD=0.657, BMI=34.2 (1) FRAX(R) Version 3.08. Fracture probability calculated for an untreated patient. Fracture probability may be lower if the patient has received treatment. Previous Exams: -- Region Exam Age BMD T-score BMD Change BMD Change Date g/cm2 vs Baseline vs Previous -- AP Spine (L2-L4) 05/21/2023 78 1.222 1.3 -0.070 (-5.4%)# -0.070 (-5.4%)# 10/29/2018 73 1.292 1.9 Total Hip(Left) 05/21/2023 78 0.815 -1.0 -0.001 (-0.2%)# 0.002 (0.2%)# 12/14/2020 75 0.813 -1.1 -0.003 (-0.4%) -0.003 (-0.4%) 10/29/2018 73 0.817 -1.0 Total Hip(Right) 05/21/2023 78 0.846 -0.8 -0.003 (-0.4%)# 0.048 (6.1%)# 12/14/2020 75 0.797 -1.2 -0.052 (-6.1%)* -0.052 (-6.1%)* 10/29/2018 73 0.849 -0.8 -- *Denotes significance at 95% confidence level, LSC for AP Spine = 0.022 g/cm2, LSC for Total Hip = 0.027 g/cm2 # Denotes dissimilar scan types or analysis methods Impression: The patient has low bone mass, based on the Right Femoral Neck T-score. The patient has an estimated ten-year risk of hip fracture of 2.8% and an estimated ten-year risk of major fracture of 12%, based on the WHO FRAX algorithm. No significant bone loss was observed. Discussion: BONE DENSITY IS LOW AT ONE OR MORE SKELETAL SITES. This patient's lowest T-score is low at one or more skeletal sites. It meets the World Health Organization's (WHO) criteria for low bone mass (T-score between -1.0 and -2.5). The patient's 10-year risk of fracture as calculated by FRAX is less than the threshold where pharmacological therapy is recommended by the National Osteoporosis Foundation (NOF). However, all treatment decisions require clinical judgment and consideration of individual patient factors, including patient preferences, comorbidities, previous drug use, risk factors not captured in the FRAX model (e.g., frailty, falls, vitamin D deficiency, increased bone turnover, interval significant decline in bone density) and possible under or overestimation of fracture risk by FRAX. The patient should follow a healthful lifestyle (good nutrition with adequate calcium and vitamin D, and appropriate weight-bearing exercise). Follow-Up: Consider repeating this study in 2 to 3 years to reassess this patient's status, or sooner if there is some new clinical indication. Reported by: JAYY KRUSE M.D. on 05/21/2023 10:27:00 AM.
== END ==
PROVIDERS: Family Provider Nurse Practitioner; PCP Nurse Practitioner; Referring Provider Nurse Practitioner; Visit Provider Nurse Practitioner
DX: M81.0 Age-related osteoporosis without current pathological fracture (principal)
CPT/HCPCS: 77080

== ENCOUNTER 2023-09-08 10:06 | Day surgery (SDC) | payer MEDICARE, SELFPAY ==
[2021-01-30 09:40] VITALS: BMI 38.2
--- NOTE | 2023-09-08 | PATH_ITS ---
[facility] Accession Number: [id number] No. of containers..01 Tissue . 01 Material submitted: . rectum - RECTUM POLYP . 01 Diagnosis: RECTUM POLYP: Tubular adenoma. STO 09/14/2023 1340 Local . 01 Electronically signed: . Bar Ascencio MD, Pathologist NPI- [id number] . 01 Gross description: . RECTUM POLYP: Received in formalin is 1 fragment(s) of ramsay, soft tissue measuring 0.4 x 0.3 x 0.3 cm submitted entirely in 1 cassette(s) /BHARAT 09/14/2023 1340 Local . 01 Pathologist provided ICD-10: D12.8 . 01 CPT . 875204 Specimen Comment: A courtesy copy of this report has been sent to [phone] Performed at: [address] [id number] MD Bar Ascencio MD Phone: [phone]
[2023-09-08] MEDS: LACTATED RINGERS 1,000 ML 42 ML IV (10:50)
[2023-09-08 10:58] VITALS: BP 132/78; PULSE 77; RESP 16; TEMP 36.1; O2SAT 96
--- NOTE | 2023-09-08 12:02 | PM.HP.1 ---
History of Present Illness History of Present Illness Date Patient Seen: 09/08/23 Time Patient Seen: 12:02 Chief complaint: Colonoscopy Narrative: 78-year-old woman here for screening colonoscopy. Last colonoscopy 9 years ago. No abdominal concerns today. [facility] Medical History Osteopenia determined by x-ray Hyperlipidemia associated with type 2 diabetes mellitus Scoliosis Post-menopausal Screening for malignant neoplasm of colon Allergy to multiple antibiotics Drug allergy, antibiotic Facet arthropathy, lumbar Gait instability Herniated nucleus pulposus, L2-3 Scoliosis of cervical region due to degenerative disease of spine in adult Ankle fracture, left (05/11/18) Migraines History of seizures as a child Peripheral neuropathy Heart murmur Pre-diabetes H/O renal cell cancer (~1988) Surgical History Hx of parathyroidectomy Hx of cholecystectomy (~1987) History of tonsillectomy and adenoidectomy H/O right nephrectomy (~1988) Status post hysterectomy (~2011) Status post tonsillectomy and adenoidectomy Family History Father High cholesterol Mother Age: 99 Diabetes mellitus Sister Age: 74 Diabetes mellitus Social History household members: none Smoking Status: Never smoker alcohol intake: never Type(s) of exercise: walking Meds Home Medications and Allergies Home Medications Medication Instructions Recorded Confirmed Type meloxicam 7.5 mg tablet 7.5 mg PO DAILY PRN pain #90 tabs 05/19/22 09/08/23 Rx sodium,potassium,mag sulfates 17.5 See Rx Instructions PO .COMPLEX 08/13/23 09/08/23 Rx gram-3.13 gram-1.6 gram oral soln #354 mL (Suprep Bowel Prep Kit) Allergies Allergy/AdvReac Type Severity Reaction Status Date / Time amoxicillin [AMOXICILLIN] Allergy Severe Throat Verified 09/08/23 10:53 swelling erythromycin base Allergy Mild NAUSEA Verified 09/08/23 10:53 [ERYTHROMYCIN BASE] iodine [IODINE] Allergy Mild BLISTERS Verified 09/08/23 10:53 Sulfa (Sulfonamide Allergy Mild BLISTERS Verified 09/08/23 10:53 Antibiotics) [SULFA (SULFONAMIDE ANTIBIOTICS)] pine nuts Allergy Severe Anaphylaxis, Uncoded 09/08/23 10:53 tongue swelling and discomfort Exam Vital Signs (past 8 hours): - 09/08/23 10:58 Temperature 97.0 F L Pulse Rate 77 Respiratory Rate 16 Blood Pressure 132/78 Pulse Oximetry 96 Oxygen Delivery Method Room Air Oxygen Delivery Method Room Air Narrative Exam Narrative: General adult woman alert oriented no acute distress Abdomen soft nontender nondistended Assessment & Plan Assessment & Plan narrative: The patient requires colorectal screening and colonoscopy is recommended. Technical details were discussed. Risks, benefits, alternatives explained. Risks including but not limited to myocardial infarction, aspiration, bleeding, pain, missed lesion, incomplete examination, need for further radiographic studies, intestinal injury, and need for major abdominal surgery were discussed. All questions were answered to their satisfaction, and they are in agreement with this plan.
[2023-09-08 12:34] VITALS: BP 145/79; PULSE 71; RESP 15; TEMP 36.3; O2SAT 99
--- NOTE | 2023-09-08 12:34 | P.OP.COLON_ITS ---
Operative Date/Time/Diagnoses Date of procedure: 09/08/23 Time of procedure: 12:34 Pre-op diagnosis: Colorectal screening Procedure & Clinicians Study performed: Screening colonoscopy Same procedure as scheduled: Yes Indications: Colorectal screening Surgeon: Eligio Villanueva Procedure Notes Procedure in detail: The history and physical was performed/updated and the patient is ASA class is 2. The procedure was discussed in detail with the patient. Potential risks co mplications including infection, bleeding, missed diagnosis, perforation, need for surgery, and were explained. Their questions were answered and informed consent was obtained. Patient was brought to the procedure room and placed standard monitoring equipment. The patient's vital signs were monitored continuously throughout the entire procedure. Prior to starting time-out was performed. The patient was placed in the left lateral recumbent position. Examination began with a thorough inspection of the perianal area there was no evidence of fissures, fistulae, external hemorrhoids or cutaneous malignancy. The colonoscopy scope was then placed into the anal canal and was advanced to the cecum, which was identified by the ileocecal valve, the appendiceal orifice and the confluence of the taenia. The scope was then slowly withdrawn examining colon thoroughly in all directions, irrigating it of any residual stool. The scope was retroflexed within the rectum The patient tolerated the procedure well. They will be discharged once criteria are met. The prep was of good/excellent quality. The withdrawl time was 7 minutes. FINDINGS * Distal rectum-5 mm polyp removed with Jumbo forceps. * Descending colon mild diverticulosis Specimen(s): other (Rectal polyp) Impression: Colonic polyp x1 Post-procedure Recommendations: High fiber diet Plan for aftercare: No further colonoscopy necessary unless symptomatic Disposition: same day surgery
== END 2023-09-08 12:41 | disposition home or self-care (01) ==
PROVIDERS: Family Provider Nurse Practitioner; PCP Nurse Practitioner; Referring Provider Surgery; Visit Provider Surgery
PROC: 0DJD8ZZ Inspection of Lower Intestinal Tract, Via Natural or Artificial Opening Endoscopic (ICD-10-PCS; CPT 45378; principal; 2023-09-08 11:15)
DX: Z12.11 Encounter for screening for malignant neoplasm of colon (principal); K57.30 Diverticulosis of large intestine without perforation or abscess without bleeding; D12.8 Benign neoplasm of rectum
CPT/HCPCS: 45380; J2704

== ENCOUNTER 2023-10-05 09:00 | Outpatient (RCR) | payer MEDICARE, SELFPAY ==
[2021-01-30 09:40] VITALS: BMI 38.2
--- NOTE | 2023-06-15 17:25 | PT.OIE ---
Current Diagnoses Urgency of urination (06/15/23) Past Medical History (Last Updated 05/27/23 @ 14:58 by MALCOM Cedeno) Allergy to multiple antibiotics Ankle fracture, left (05/11/18) Drug allergy, antibiotic Facet arthropathy, lumbar Gait instability H/O renal cell cancer (~1988) Heart murmur Herniated nucleus pulposus, L2-3 History of seizures as a child Hyperlipidemia associated with type 2 diabetes mellitus Migraines Osteopenia determined by x-ray Peripheral neuropathy Post-menopausal Pre-diabetes Scoliosis Scoliosis of cervical region due to degenerative disease of spine in adult Screening for malignant neoplasm of colon Past Surgical History (Last Reviewed 05/27/23 @ 14:57 by MALCOM Cedeno) H/O right nephrectomy (~1988) History of tonsillectomy and adenoidectomy Hx of cholecystectomy (~1987) Hx of parathyroidectomy Status post hysterectomy (~2011) Status post tonsillectomy and adenoidectomy Visit Care Team Role Provider Type MALCOM Cedeno Attending Provider Advanced 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 Family Provider Primary Care Provider Referring Provider Specialty: [facility] Practice Address: [address] [place] [address] Email: [email or web address] Physical Therapy Initial Evaluation PT-OP-A Visit Information Start: 06/05/23 18:39 Freq: Status: Active Protocol: Document 06/15/23 09:05 LRN (Rec: 06/15/23 09:50 LRN [id number]) Out-Patient Physical Therapy Visit Information Visit Information Visit Type Initial Evaluation Visit Start Time 09:05 Visit Stop Time 09:47 Visit Number 1 Evaluation Information Evaluation Date 06/15/23 Precautions Precautions Kidney CA ~1987 (R kidney and gall bladder removed), Scoliosis and arthritis with back pain. Neuropathy of feet and lower leg, L ankle surgery due to fracture above the ankle jt. PT-OP-B Current Condition Start: 06/05/23 18:39 Freq: Status: Active Protocol: Document 06/15/23 09:05 LRN (Rec: 06/15/23 09:50 LRN [id number]) Current Condition History of Current Condition Onset Date 2 yrs ago. Current Complaints Urinary Urgency. History of Current Condition Has mentioned urinary urgency for a couple of years that is sporadic in nature. Not as bad right now. Sometimes urinary leakage is daily or every other day, or when better every 2 days. She notices when she has more joint pain in the L ankle and back she has more leakage. She denies having triggers. She states her kidney function is good. Developmental History Developmental History G3, P2. No complication, but had tearing with first child only. Treatment Goals Patient/Caregiver Goals Pt goals: Make it to bathroom w/o leaking. HEP. Personal Factors Other Personal Factors That May Effect Scoliosis and arthritis with Therapy/Recovery back pain. L ankle surgery due to fracture above the ankle jt. PT-OP-C Subjective Start: 06/05/23 18:39 Freq: Status: Active Protocol: Document 06/15/23 09:05 LRN (Rec: 06/15/23 09:50 LRN [id number]) Patient Questionnaires Pelvic Pain and Urgency/Frequency Patient Symptom Scale Pelvic Pain Score 3 OP-PT Pain Assessment Pain Assessment Grid Paper Pain Assessment Grid Completed Yes Location L ankle Pain Location Details L ankle mostly medial but also lateral Intensity 6 Scale Used Numeric (0 - 10) Frequency Variable pain Low back Pain Location Details R low back Intensity 5 Scale Used Numeric (0 - 10) Frequency Variable pain PT-OP-I Pelvic Floor Start: 06/05/23 18:39 Freq: Status: Active Protocol: Document 06/15/23 09:05 LRN (Rec: 06/15/23 09:50 LRN [id number]) Pelvic Floor Assessment Urine Urinary Symptoms Urge Sensation Leakage Size Small Leakage Cause Cough,Urge Other Leakage Causes Occasional leakage with a bad cough and strong urge on the way to the bathroom. Leaks Per Day 1-3 Voiding Frequency 8x/day, 2x/night Nocturia 0 Pads Used In 24 Hours 1-2 Urine Pad Type Panty Liner Bowel Other Bowel Symptoms Pt denies bowel symptoms, reporting normal BMs. Bowel Movement Frequency 2 Prolapse Cystocele Grade 2 Urethrocele Grade 2 Perineal Descent Resting Absent Bearing Absent Contraction Ability Voluntary Contraction Moderate Voluntary Relaxation Moderate Manual Muscle Testing Left 3 Manual Muscle Testing Right 3 Manual Muscle Testing Anterior 3 Manual Muscle Testing Posterior 3 Muscle Endurance (Seconds) 4 Number of Quick Contractions In 10 10 Seconds Comments Pelvic Floor Comments Stool felt in rectum. PT-OP-J Posture/Palpation/Skin Start: 06/05/23 18:40 Freq: Status: Active Protocol: Document 06/15/23 09:05 LRN (Rec: 06/15/23 09:50 LRN [id number]) Posture Evaluation Position Standing Head/C-Spine Posture Forward Head Pelvis Posture (L) Iliac Crest Superior Hip Posture (R) Externally Rotated Knee Posture (R) Excess Flexion Comments Posture Comments L shouler low, L Iliac Crest elevated, C-curve of spine with apex on Right. PT-OP-K Range of Motion Start: 06/05/23 18:39 Freq: Status: Active Protocol: Document 06/15/23 09:05 LRN (Rec: 06/15/23 09:50 LRN [id number]) Lumbar Spine Range of Motion Lumbar Spine Active Degrees Testing Position Standing Flexion 60 Extension 5 Rotation Left 10 Rotation Right 0 Lateral Flexion Left 5 Lateral Flexion Right 5 Hip Goniometric Range of Motion Hip Right Passive Testing Position Supine Straight Leg Raise 100 Abduction 25 External Rotation 80 Left Passive Testing Position Supine Straight Leg Raise 95 Internal Rotation 40 External Rotation 60 PT-OP-M Strength Start: 06/05/23 18:39 Freq: Status: Active Protocol: Document 06/15/23 09:05 LRN (Rec: 06/15/23 09:50 LRN [id number]) Trunk Strength Trunk Manual Muscle Testing Core Stabilization Pt lacks core stability. Hip Strength Hip Manual Muscle Testing Right Flexion (L2) 4 Good Extension (S1) 4 Good Abduction 3+ Fair+ Adduction 1 Trace External Rotation 3+ Fair+ Comments Strength is 5/5 except as indicated above. Left Extension (S1) 3 Fair Adduction 1 Trace External Rotation 4 Good Comments Strength is 5/5 except as indicated above. PT-OP-Q Treatments Start: 06/05/23 18:39 Freq: Status: Active Protocol: Document 06/15/23 09:05 LRN (Rec: 06/15/23 09:50 LRN [id number]) Self-Care/Home Management Treatment Education Patient Education Home Exercise Program Other Education Discussed results of evaluation, attendance compliance, goals, and plan of care (POC). Pt agreeable to attendance compliance, goals and POC. Pt educated in use of Bladder Diary and I/S in tracking for 1 week. Activities Self-Care/Home Management Activities Issued HEP: Kegels for long holds. PT-OP-T Assessment and Plan Start: 06/05/23 18:39 Freq: Status: Active Protocol: Document 06/15/23 09:05 LRN (Rec: 06/15/23 09:50 LRN [id number]) Physical Therapy Assessment Rehab Potential Rehabilitation Potential Excellent Evaluation Complexity Number of Personal Factors/Comorbidities 1-2 Number of Body Systems Impaired 4 or More Clinical Presentation at Evaluation Evolving Impairments Impairments Activity Tolerance,Posture,ROM ,Strength Goals Two Impairment Urinary leakage with a strong urge walking to bathroom. Short Term Goal (STG) Pt will be educated in aggrevator contractions and best practice for core pressure management to avoid urinary leakage with a strong cough. Jewel Hole Gauger Goal (LTG) Improve PF strength and with use of urge deference technique will be able to walk to the bathroom without urinary leakage. LTG Duration 8 wks-08/10/23 One Impairment Lacks appropriate self care HEP Short Term Goal (STG) Pt will be educated in Urge deference technique and Bladder retraining if needed. Jewel Hole Gauger Goal (LTG) Pt will be educated in HEP of PF strengthening, hip/core strengthening, hip/core ROM ex 's. LTG Duration 8 wks-08/10/23 Assessment Summary Assessment Pt is a 78 yo female who presents with urge incontinence with visible cystocele and palpable rectocele, but probably has urge incontinence due to behavioral responses to her urinary urges, and decreased PF stability resulting from her scoliosis and weakness of hip/core muscles. Scoliosis and arthritis with back pain and her history of L ankle surgery due to fracture above the ankle jt may affect her recovery time as her posture and gait are affected. She has good PF strength; therefore is expected to do well with skilled physical therapy for education in behavior modification after review of her bladder diary, education in diet to avoid constipation, Trunk/hip ROM and strengthening exercises. Physical Therapy Plan Frequency and Duration Frequency of Treatment 1x/Week Duration of treatment (weeks) 8 Plan of Care Start Date 06/15/23 Plan of Care End Date 08/10/23 Therapeutic Interventions Therapeutic Interventions Home Exercise Program,Manual Therapy,Neuromuscular Re- education,Self-Care/Home Management,Soft Tissue Mobilization,Therapeutic Activities,Therapeutic Exercises Modalities Cold Pack/Ice Massage,Electric Stimulation,Hot Packs Next Visit Focus/Plan Next Note Type Treatment Note Next Visit Plan Next: Assess bladder diary and bowel involvement with recommendations as appropriate . PF strengthening (anterior & posterior) in isolation of substitute muscles POC: Urge Incontinence Rehab, Scoliosis core/hip strengthening and ROM ex's.
--- NOTE | 2023-06-15 17:28 | PT.OIE ---
Current Diagnoses Urgency of urination (06/15/23) Past Medical History (Last Updated 05/27/23 @ 14:58 by MALCOM Cedeno) Allergy to multiple antibiotics Ankle fracture, left (05/11/18) Drug allergy, antibiotic Facet arthropathy, lumbar Gait instability H/O renal cell cancer (~1988) Heart murmur Herniated nucleus pulposus, L2-3 History of seizures as a child Hyperlipidemia associated with type 2 diabetes mellitus Migraines Osteopenia determined by x-ray Peripheral neuropathy Post-menopausal Pre-diabetes Scoliosis Scoliosis of cervical region due to degenerative disease of spine in adult Screening for malignant neoplasm of colon Past Surgical History (Last Reviewed 05/27/23 @ 14:57 by MALCOM Cedeno) H/O right nephrectomy (~1988) History of tonsillectomy and adenoidectomy Hx of cholecystectomy (~1987) Hx of parathyroidectomy Status post hysterectomy (~2011) Status post tonsillectomy and adenoidectomy Visit Care Team Role Provider Type MALCOM Cedeno Attending Provider Advanced [employer]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 Family Provider Primary Care Provider Referring Provider Specialty: [facility] Practice Address: [address] [place] [address] Email: [email or web address] Physical Therapy Initial Evaluation PT-OP-A Visit Information Start: 06/05/23 18:39 Freq: Status: Active Protocol: Document 06/15/23 09:05 LRN (Rec: 06/15/23 09:50 LRN [id number]) Out-Patient Physical Therapy Visit Information Visit Information Visit Type Initial Evaluation Visit Start Time 09:05 Visit Stop Time 09:47 Visit Number 1 Evaluation Information Evaluation Date 06/15/23 Precautions Precautions Kidney CA ~1987 (R kidney and gall bladder removed), Scoliosis and arthritis with back pain. Neuropathy of feet and lower leg, L ankle surgery due to fracture above the ankle jt. PT-OP-B Current Condition Start: 06/05/23 18:39 Freq: Status: Active Protocol: Document 06/15/23 09:05 LRN (Rec: 06/15/23 09:50 LRN [id number]) Current Condition History of Current Condition Onset Date 2 yrs ago. Current Complaints Urinary Urgency. History of Current Condition Has mentioned urinary urgency for a couple of years that is sporadic in nature. Not as bad right now. Sometimes urinary leakage is daily or every other day, or when better every 2 days. She notices when she has more joint pain in the L ankle and back she has more leakage. She denies having triggers. She states her kidney function is good. Developmental History Developmental History G3, P2. No complication, but had tearing with first child only. Treatment Goals Patient/Caregiver Goals Pt goals: Make it to bathroom w/o leaking. HEP. Personal Factors Other Personal Factors That May Effect Scoliosis and arthritis with Therapy/Recovery back pain. L ankle surgery due to fracture above the ankle jt. PT-OP-C Subjective Start: 06/05/23 18:39 Freq: Status: Active Protocol: Document 06/15/23 09:05 LRN (Rec: 06/15/23 09:50 LRN [id number]) Patient Questionnaires Pelvic Pain and Urgency/Frequency Patient Symptom Scale Pelvic Pain Score 3 OP-PT Pain Assessment Pain Assessment Grid Paper Pain Assessment Grid Completed Yes Location L ankle Pain Location Details L ankle mostly medial but also lateral Intensity 6 Scale Used Numeric (0 - 10) Frequency Variable pain Low back Pain Location Details R low back Intensity 5 Scale Used Numeric (0 - 10) Frequency Variable pain PT-OP-I Pelvic Floor Start: 06/05/23 18:39 Freq: Status: Active Protocol: Document 06/15/23 09:05 LRN (Rec: 06/15/23 09:50 LRN [id number]) Pelvic Floor Assessment Urine Urinary Symptoms Urge Sensation Leakage Size Small Leakage Cause Cough,Urge Other Leakage Causes Occasional leakage with a bad cough and strong urge on the way to the bathroom. Leaks Per Day 1-3 Voiding Frequency 8x/day, 2x/night Nocturia 0 Pads Used In 24 Hours 1-2 Urine Pad Type Panty Liner Bowel Other Bowel Symptoms Pt denies bowel symptoms, reporting normal BMs. Bowel Movement Frequency 2 Prolapse Cystocele Grade 2 Urethrocele Grade 2 Perineal Descent Resting Absent Bearing Absent Contraction Ability Voluntary Contraction Moderate Voluntary Relaxation Moderate Manual Muscle Testing Left 3 Manual Muscle Testing Right 3 Manual Muscle Testing Anterior 3 Manual Muscle Testing Posterior 3 Muscle Endurance (Seconds) 4 Number of Quick Contractions In 10 10 Seconds Comments Pelvic Floor Comments Stool felt in rectum. PT-OP-J Posture/Palpation/Skin Start: 06/05/23 18:40 Freq: Status: Active Protocol: Document 06/15/23 09:05 LRN (Rec: 06/15/23 09:50 LRN [id number]) Posture Evaluation Position Standing Head/C-Spine Posture Forward Head Pelvis Posture (L) Iliac Crest Superior Hip Posture (R) Externally Rotated Knee Posture (R) Excess Flexion Comments Posture Comments L shouler low, L Iliac Crest elevated, C-curve of spine with apex on Right. PT-OP-K Range of Motion Start: 06/05/23 18:39 Freq: Status: Active Protocol: Document 06/15/23 09:05 LRN (Rec: 06/15/23 09:50 LRN [id number]) Lumbar Spine Range of Motion Lumbar Spine Active Degrees Testing Position Standing Flexion 60 Extension 5 Rotation Left 10 Rotation Right 0 Lateral Flexion Left 5 Lateral Flexion Right 5 Hip Goniometric Range of Motion Hip Right Passive Testing Position Supine Straight Leg Raise 100 Abduction 25 External Rotation 80 Left Passive Testing Position Supine Straight Leg Raise 95 Internal Rotation 40 External Rotation 60 PT-OP-M Strength Start: 06/05/23 18:39 Freq: Status: Active Protocol: Document 06/15/23 09:05 LRN (Rec: 06/15/23 09:50 LRN [id number]) Trunk Strength Trunk Manual Muscle Testing Core Stabilization Pt lacks core stability. Hip Strength Hip Manual Muscle Testing Right Flexion (L2) 4 Good Extension (S1) 4 Good Abduction 3+ Fair+ Adduction 1 Trace External Rotation 3+ Fair+ Comments Strength is 5/5 except as indicated above. Left Extension (S1) 3 Fair Adduction 1 Trace External Rotation 4 Good Comments Strength is 5/5 except as indicated above. PT-OP-Q Treatments Start: 06/05/23 18:39 Freq: Status: Active Protocol: Document 06/15/23 09:05 LRN (Rec: 06/15/23 09:50 LRN [id number]) Self-Care/Home Management Treatment Education Patient Education Home Exercise Program Other Education Discussed results of evaluation, attendance compliance, goals, and plan of care (POC). Pt agreeable to attendance compliance, goals and POC. Pt educated in use of Bladder Diary and I/S in tracking for 1 week. Activities Self-Care/Home Management Activities Issued HEP: Kegels for long holds. PT-OP-T Assessment and Plan Start: 06/05/23 18:39 Freq: Status: Active Protocol: Document 06/15/23 09:05 LRN (Rec: 06/15/23 09:50 LRN [id number]) Physical Therapy Assessment Rehab Potential Rehabilitation Potential Excellent Evaluation Complexity Number of Personal Factors/Comorbidities 1-2 Number of Body Systems Impaired 4 or More Clinical Presentation at Evaluation Evolving Impairments Impairments Activity Tolerance,Posture,ROM ,Strength Goals Two Impairment Urinary leakage with a strong urge walking to bathroom. Short Term Goal (STG) Pt will be educated in aggrevator contractions and best practice for core pressure management to avoid urinary leakage with a strong cough. STG Duration 4 wks-07/13/23 Grounds Maintenance Worker Goal (LTG) Improve PF strength and with use of urge deference technique will be able to walk to the bathroom without urinary leakage. LTG Duration 8 wks-08/14/23 One Impairment Lacks appropriate self care HEP Short Term Goal (STG) Pt will be educated in Urge deference technique and Bladder retraining if needed. STG Duration 2wks-06/26/23 Usp Goal (LTG) Pt will be educated in HEP of PF strengthening, hip/core strengthening, hip/core ROM ex 's. LTG Duration 8 wks-08/14/23 Assessment Summary Assessment Pt is a 78 yo female who presents with urge incontinence with visible cystocele and palpable rectocele, but probably has urge incontinence due to behavioral responses to her urinary urges, and decreased PF stability resulting from her scoliosis and weakness of hip/core muscles. Scoliosis and arthritis with back pain and her history of L ankle surgery due to fracture above the ankle jt may affect her recovery time as her posture and gait are affected. She has good PF strength; therefore is expected to do well with skilled physical therapy for education in behavior modification after review of her bladder diary, education in diet to avoid constipation, Trunk/hip ROM and strengthening exercises. Physical Therapy Plan Frequency and Duration Frequency of Treatment 1x/Week Duration of treatment (weeks) 8 Plan of Care Start Date 06/15/23 Plan of Care End Date 08/14/23 Therapeutic Interventions Therapeutic Interventions Home Exercise Program,Manual Therapy,Neuromuscular Re- education,Self-Care/Home Management,Soft Tissue Mobilization,Therapeutic Activities,Therapeutic Exercises Modalities Cold Pack/Ice Massage,Electric Stimulation,Hot Packs Next Visit Focus/Plan Next Note Type Treatment Note Next Visit Plan Next: Assess bladder diary and bowel involvement with recommendations as appropriate . PF strengthening (anterior & posterior) in isolation of substitute muscles POC: Urge Incontinence Rehab, Scoliosis core/hip strengthening and ROM ex's.
--- NOTE | 2023-06-15 17:28 | PT.OPPOC ---
Physical, Occupational & Speech Therapy At [facility] Current Diagnoses Urgency of urination (06/15/23) Visit Care Team Role Provider Type MALCOM Cedeno Attending Provider Advanced Seafood Fisherman Family Provider Primary Care Provider Referring Provider Specialty: Family Practice Address: [address] [place] [address], [id number] Email: [email or web address] Plan Of Care PT-OP-T Assessment and Plan Start: 06/05/23 18:39 Freq: Status: Active Protocol: Document 06/15/23 09:05 LRN (Rec: 06/15/23 09:50 LRN [id number]) Physical Therapy Assessment Rehab Potential Rehabilitation Potential Excellent Evaluation Complexity Number of Personal Factors/Comorbidities 1-2 Number of Body Systems Impaired 4 or More Clinical Presentation at Evaluation Evolving Impairments Impairments Activity Tolerance,Posture,ROM ,Strength Goals Two Impairment Urinary leakage with a strong urge walking to bathroom. Short Term Goal (STG) Pt will be educated in aggrevator contractions and best practice for core pressure management to avoid urinary leakage with a strong cough. STG Duration 4 wks-07/13/23 Usp Goal (LTG) Improve PF strength and with use of urge deference technique will be able to walk to the bathroom without urinary leakage. LTG Duration 8 wks-08/14/23 One Impairment Lacks appropriate self care HEP Short Term Goal (STG) Pt will be educated in Urge deference technique and Bladder retraining if needed. STG Duration 2wks-06/26/23 County Auditor Goal (LTG) Pt will be educated in HEP of PF strengthening, hip/core strengthening, hip/core ROM ex 's. LTG Duration 8 wks-08/14/23 Assessment Summary Assessment Pt is a 78 yo female who presents with urge incontinence with visible cystocele and palpable rectocele, but probably has urge incontinence due to behavioral responses to her urinary urges, and decreased PF stability resulting from her scoliosis and weakness of hip/core muscles. Scoliosis and arthritis with back pain and her history of L ankle surgery due to fracture above the ankle jt may affect her recovery time as her posture and gait are affected. She has good PF strength; therefore is expected to do well with skilled physical therapy for education in behavior modification after review of her bladder diary, education in diet to avoid constipation, Trunk/hip ROM and strengthening exercises. Physical Therapy Plan Frequency and Duration Frequency of Treatment 1x/Week Duration of treatment (weeks) 8 Plan of Care Start Date 06/15/23 Plan of Care End Date 08/14/23 Therapeutic Interventions Therapeutic Interventions Home Exercise Program,Manual Therapy,Neuromuscular Re- education,Self-Care/Home Management,Soft Tissue Mobilization,Therapeutic Activities,Therapeutic Exercises Modalities Cold Pack/Ice Massage,Electric Stimulation,Hot Packs Next Visit Focus/Plan Next Note Type Treatment Note Next Visit Plan Next: Assess bladder diary and bowel involvement with recommendations as appropriate . PF strengthening (anterior & posterior) in isolation of substitute muscles POC: Urge Incontinence Rehab, Scoliosis core/hip strengthening and ROM ex's. Plan of Care Dates Plan of Care Start Date 06/15/23 Plan of Care End Date 08/14/23 Electronically Signed by: Connie Diaz, PT 06/15/23 9742 If you are in agreement with this Plan of Care, please return a signed and dated copy. I have reviewed this Plan of Care and certify that the skilled therapy services above are required to meet the patient?s needs. Physician Signature Date Printed Name and Credentials Clinical Instructor Signature Printed Name and Credentials
--- NOTE | 2023-06-22 14:17 | PT.OTN ---
Current Diagnoses Urgency of urination (06/22/23) Physical Therapy Treatment Note PT-OP-A Visit Information Start: 06/05/23 18:39 Freq: Status: Active Protocol: Document 06/22/23 09:03 LRN (Rec: 06/22/23 09:47 LRN [id number]) Out-Patient Physical Therapy Visit Information Visit Information Visit Type Treatment Note Visit Start Time 09:03 Visit Stop Time 09:46 Visit Number Evaluation Information Evaluation Date 06/15/23 Precautions Precautions Kidney CA ~1987 (R kidney and gall bladder removed), Scoliosis and arthritis with back pain. Neuropathy of feet and lower leg, L ankle surgery due to fracture above the ankle jt. PT-OP-B Current Condition Start: 06/05/23 18:39 Freq: Status: Active Protocol: Document 06/15/23 09:05 LRN (Rec: 06/15/23 09:50 LRN [id number]) Current Condition History of Current Condition Onset Date 2 yrs ago. Current Complaints Urinary Urgency. History of Current Condition Has mentioned urinary urgency for a couple of years that is sporadic in nature. Not as bad right now. Sometimes urinary leakage is daily or every other day, or when better every 2 days. She notices when she has more joint pain in the L ankle and back she has more leakage. She denies having triggers. She states her kidney function is good. Developmental History Developmental History G3, P2. No complication, but had tearing with first child only. Treatment Goals Patient/Caregiver Goals Pt goals: Make it to bathroom w/o leaking. HEP. Personal Factors Other Personal Factors That May Effect Scoliosis and arthritis with Therapy/Recovery back pain. L ankle surgery due to fracture above the ankle jt. PT-OP-C Subjective Start: 06/05/23 18:39 Freq: Status: Active Protocol: Document 06/22/23 09:03 LRN (Rec: 06/22/23 09:47 LRN [id number]) OP-PT Subjective Patient Comments Patient Comments Pt reports doing bladder diary . OP-PT Pain Assessment Location L ankle Pain Location Details L ankle mostly medial but also lateral Intensity 6 Scale Used Numeric (0 - 10) Frequency Variable pain Low back Pain Location Details R low back Intensity 5 Scale Used Numeric (0 - 10) Frequency Variable pain PT-OP-I Pelvic Floor Start: 06/05/23 18:39 Freq: Status: Active Protocol: Document 06/15/23 09:05 LRN (Rec: 06/15/23 09:50 LRN [id number]) Pelvic Floor Assessment Urine Urinary Symptoms Urge Sensation Leakage Size Small Leakage Cause Cough,Urge Other Leakage Causes Occasional leakage with a bad cough and strong urge on the way to the bathroom. Leaks Per Day 1-3 Voiding Frequency 8x/day, 2x/night Nocturia 0 Pads Used In 24 Hours 1-2 Urine Pad Type Panty Liner Bowel Other Bowel Symptoms Pt denies bowel symptoms, reporting normal BMs. Bowel Movement Frequency 2 Prolapse Cystocele Grade 2 Urethrocele Grade 2 Perineal Descent Resting Absent Bearing Absent Contraction Ability Voluntary Contraction Moderate Voluntary Relaxation Moderate Manual Muscle Testing Left 3 Manual Muscle Testing Right 3 Manual Muscle Testing Anterior 3 Manual Muscle Testing Posterior 3 Muscle Endurance (Seconds) 4 Number of Quick Contractions In 10 10 Seconds Comments Pelvic Floor Comments Stool felt in rectum. PT-OP-J Posture/Palpation/Skin Start: 06/05/23 18:40 Freq: Status: Active Protocol: Document 06/15/23 09:05 LRN (Rec: 06/15/23 09:50 LRN [id number]) Posture Evaluation Position Standing Head/C-Spine Posture Forward Head Pelvis Posture (L) Iliac Crest Superior Hip Posture (R) Externally Rotated Knee Posture (R) Excess Flexion Comments Posture Comments L shouler low, L Iliac Crest elevated, C-curve of spine with apex on Right. PT-OP-K Range of Motion Start: 06/05/23 18:39 Freq: Status: Active Protocol: Document 06/15/23 09:05 LRN (Rec: 06/15/23 09:50 LRN [id number]) Lumbar Spine Range of Motion Lumbar Spine Active Degrees Testing Position Standing Flexion 60 Extension 5 Rotation Left 10 Rotation Right 0 Lateral Flexion Left 5 Lateral Flexion Right 5 Hip Goniometric Range of Motion Hip Right Passive Testing Position Supine Straight Leg Raise 100 Abduction 25 External Rotation 80 Left Passive Testing Position Supine Straight Leg Raise 95 Internal Rotation 40 External Rotation 60 PT-OP-M Strength Start: 06/05/23 18:39 Freq: Status: Active Protocol: Document 06/15/23 09:05 LRN (Rec: 06/15/23 09:50 LRN [id number]) Trunk Strength Trunk Manual Muscle Testing Core Stabilization Pt lacks core stability. Hip Strength Hip Manual Muscle Testing Right Flexion (L2) 4 Good Extension (S1) 4 Good Abduction 3+ Fair+ Adduction 1 Trace External Rotation 3+ Fair+ Comments Strength is 5/5 except as indicated above. Left Extension (S1) 3 Fair Adduction 1 Trace External Rotation 4 Good Comments Strength is 5/5 except as indicated above. PT-OP-Q Treatments Start: 06/05/23 18:39 Freq: Status: Active Protocol: Document 06/22/23 09:03 LRN (Rec: 06/22/23 09:47 LRN [id number]) Therapeutic Exercises Supine Exercises BKFO Supine Exercise Name BKFO for hip ER strengthening Side bilateral Equipment Used L2 TB Reps/Minutes 10x 3 Comments Cuing to move legs in symmetrical motion. Sitting Exercises Urinary urge training Sitting Exercise Name Urinary urge training Reps/Minutes 12' PF relaxation w/breath Sitting Exercise Name Awareness training of PF relaxation after Kegel with normal breath Reps/Minutes 5' Self-Care/Home Management Treatment Education Patient Education Home Exercise Program Other Education Reviewed bladder diary and discussed fluid amounts (could benefit from a little more fluid, although intake not bad ), voiding times and norms, and pt to be aware of bladder irritants and not wait until urges are a level 3. Discussed and reviewed Foods & Beverages bladder irritants and discussed briefly bowel care of drinking 1/2 body weight in oz's (~122 oz). Pt educated in urge deference technique. Activities Self-Care/Home Management Activities Issued & reviewed handout for Urge deference techique PT-OP-T Assessment and Plan Start: 06/05/23 18:39 Freq: Status: Active Protocol: Document 06/22/23 09:03 LRN (Rec: 06/22/23 13:59 LRN [id number]) Physical Therapy Assessment Goals Two Impairment Urinary leakage with a strong urge walking to bathroom. Short Term Goal (STG) Pt will be educated in aggrevator contractions and best practice for core pressure management to avoid urinary leakage with a strong cough. STG Duration 4 wks-07/13/23 Retrofit Installer Goal (LTG) Improve PF strength and with use of urge deference technique will be able to walk to the bathroom without urinary leakage. LTG Duration 8 wks-08/14/23 One Impairment Lacks appropriate self care HEP Short Term Goal (STG) Pt will be educated in Urge deference technique and Bladder retraining if needed. 06/22/23: Pt educated in Urinary Urge Deference technique. STG Duration 2wks-06/26/23 progressed Assisted Goal (LTG) Pt will be educated in HEP of PF strengthening, hip/core strengthening, hip/core ROM ex 's. LTG Duration 8 wks-08/14/23 Assessment Summary Assessment Pt is a 78 yo female with urge urinary incontinence with cystocel and palpable rectocele. Bladder reviewe indicates she could benefit from a mild increase in fluids , and to be more aware of her PF urges because she leaks with urges of 3/3. Pt times between voids are every generally 2-3 hrs and longer time between voids around noon time. Pt is very receptive to education/urge deference training. R hip ER weakness compared to L hip. Physical Therapy Plan Frequency and Duration Frequency of Treatment 1x/Week Duration of treatment (weeks) 8 Plan of Care Start Date 06/15/23 Plan of Care End Date 08/14/23 Next Visit Focus/Plan Next Note Type Treatment Note Next Visit Plan Next: PF strengthening ( anterior & posterior) in isolation of substitute muscles POC: Urge Incontinence Rehab, Scoliosis core/hip strengthening and ROM ex's.
--- NOTE | 2023-06-29 16:57 | PT.OTN ---
Current Diagnoses Urgency of urination (06/29/23) Physical Therapy Treatment Note PT-OP-A Visit Information Start: 06/05/23 18:39 Freq: Status: Active Protocol: Document 06/29/23 09:04 LRN (Rec: 06/29/23 09:48 LRN [id number]) Out-Patient Physical Therapy Visit Information Visit Information Visit Type Treatment Note Visit Start Time 09:04 Visit Stop Time 09:46 Visit Number Evaluation Information Evaluation Date 06/15/23 Precautions Precautions Kidney CA ~1987 (R kidney and gall bladder removed), Scoliosis and arthritis with back pain. Neuropathy of feet and lower leg, L ankle surgery due to fracture above the ankle jt. PT-OP-B Current Condition Start: 06/05/23 18:39 Freq: Status: Active Protocol: Document 06/15/23 09:05 LRN (Rec: 06/15/23 09:50 LRN [id number]) Current Condition History of Current Condition Onset Date 2 yrs ago. Current Complaints Urinary Urgency. History of Current Condition Has mentioned urinary urgency for a couple of years that is sporadic in nature. Not as bad right now. Sometimes urinary leakage is daily or every other day, or when better every 2 days. She notices when she has more joint pain in the L ankle and back she has more leakage. She denies having triggers. She states her kidney function is good. Developmental History Developmental History G3, P2. No complication, but had tearing with first child only. Treatment Goals Patient/Caregiver Goals Pt goals: Make it to bathroom w/o leaking. HEP. Personal Factors Other Personal Factors That May Effect Scoliosis and arthritis with Therapy/Recovery back pain. L ankle surgery due to fracture above the ankle jt. PT-OP-C Subjective Start: 06/05/23 18:39 Freq: Status: Active Protocol: Document 06/29/23 09:04 LRN (Rec: 06/29/23 09:48 LRN [id number]) OP-PT Subjective Patient Comments Patient Comments Less leaks, but yesterday had 3 leaks, relaxing stratedgy didn' help. PT-OP-I Pelvic Floor Start: 06/05/23 18:39 Freq: Status: Active Protocol: Document 06/15/23 09:05 LRN (Rec: 06/15/23 09:50 LRN [id number]) Pelvic Floor Assessment Urine Urinary Symptoms Urge Sensation Leakage Size Small Leakage Cause Cough,Urge Other Leakage Causes Occasional leakage with a bad cough and strong urge on the way to the bathroom. Leaks Per Day 1-3 Voiding Frequency 8x/day, 2x/night Nocturia 0 Pads Used In 24 Hours 1-2 Urine Pad Type Panty Liner Bowel Other Bowel Symptoms Pt denies bowel symptoms, reporting normal BMs. Bowel Movement Frequency 2 Prolapse Cystocele Grade 2 Urethrocele Grade 2 Perineal Descent Resting Absent Bearing Absent Contraction Ability Voluntary Contraction Moderate Voluntary Relaxation Moderate Manual Muscle Testing Left 3 Manual Muscle Testing Right 3 Manual Muscle Testing Anterior 3 Manual Muscle Testing Posterior 3 Muscle Endurance (Seconds) 4 Number of Quick Contractions In 10 10 Seconds Comments Pelvic Floor Comments Stool felt in rectum. PT-OP-J Posture/Palpation/Skin Start: 06/05/23 18:40 Freq: Status: Active Protocol: Document 06/15/23 09:05 LRN (Rec: 06/15/23 09:50 LRN [id number]) Posture Evaluation Position Standing Head/C-Spine Posture Forward Head Pelvis Posture (L) Iliac Crest Superior Hip Posture (R) Externally Rotated Knee Posture (R) Excess Flexion Comments Posture Comments L shouler low, L Iliac Crest elevated, C-curve of spine with apex on Right. PT-OP-K Range of Motion Start: 06/05/23 18:39 Freq: Status: Active Protocol: Document 06/15/23 09:05 LRN (Rec: 06/15/23 09:50 LRN [id number]) Lumbar Spine Range of Motion Lumbar Spine Active Degrees Testing Position Standing Flexion 60 Extension 5 Rotation Left 10 Rotation Right 0 Lateral Flexion Left 5 Lateral Flexion Right 5 Hip Goniometric Range of Motion Hip Right Passive Testing Position Supine Straight Leg Raise 100 Abduction 25 External Rotation 80 Left Passive Testing Position Supine Straight Leg Raise 95 Internal Rotation 40 External Rotation 60 PT-OP-M Strength Start: 06/05/23 18:39 Freq: Status: Active Protocol: Document 06/15/23 09:05 LRN (Rec: 06/15/23 09:50 LRN [id number]) Trunk Strength Trunk Manual Muscle Testing Core Stabilization Pt lacks core stability. Hip Strength Hip Manual Muscle Testing Right Flexion (L2) 4 Good Extension (S1) 4 Good Abduction 3+ Fair+ Adduction 1 Trace External Rotation 3+ Fair+ Comments Strength is 5/5 except as indicated above. Left Extension (S1) 3 Fair Adduction 1 Trace External Rotation 4 Good Comments Strength is 5/5 except as indicated above. PT-OP-Q Treatments Start: 06/05/23 18:39 Freq: Status: Active Protocol: Document 06/29/23 09:04 LRN (Rec: 06/29/23 09:48 LRN [id number]) Therapeutic Exercises Supine Exercises R hip AD Supine Exercise Name SL on plinth stretch Side right Reps/Minutes 1' L hip IR stretch Supine Exercise Name Piriformis & Lat Hip stretch Side left Reps/Minutes 2' L Hip ER stretch Supine Exercise Name Fig 4 stretch Side left Reps/Minutes 1' Kegel long hold Supine Exercise Name Kegel hold 6 secs Reps/Minutes 6 SH x 2 f/b rest with PF stretch breathing Comments Cued to not push hard outwardly on PF but getting a stretch BKFO Supine Exercise Name BKFO for hip ER strengthening Side bilateral Equipment Used L1 TB Reps/Minutes 15x 2 Comments Cued occasionally to move legs in symmetrically. Sitting Exercises Urinary urge training Sitting Exercise Name Urinary urge training Reps/Minutes 12' Comments Cuing for sequence of the urge deference process. Neuro Re-Education Treatment Coordination Activities Transfer w/breath Details Transfer w/breath (sup<>sit<> stand). Reps/Duration 6' PF relax w/breath training Details PF Relax w/breathing training. Reps/Duration 12' Self-Care/Home Management Treatment Education Other Education Reviewed urinary urge technique and recommended pt cont doing the bladder diary. States her UI happens when she is having joint pain. Educated pt in body mechanics for gardening with coordination of breaths. Activities Self-Care/Home Management Activities I/S pt to practice Kegel f/b PF relaxation 2x AM/PM. Issued HEP: R hip AD stretch and L side: FIg 4, Lat Hip and Piriformis stretch. PT-OP-T Assessment and Plan Start: 06/05/23 18:39 Freq: Status: Active Protocol: Document 06/29/23 09:04 LRN (Rec: 06/29/23 09:48 LRN [id number]) Physical Therapy Assessment Goals Two Impairment Urinary leakage with a strong urge walking to bathroom. Short Term Goal (STG) Pt will be educated in aggrevator contractions and best practice for core pressure management to avoid urinary leakage with a strong cough. 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 06/29/23: Practiced management of urinary urge. LTG Duration 8 wks-08/14/23 progressed One Impairment Lacks appropriate self care HEP Short Term Goal (STG) Pt will be educated in Urge deference technique and Bladder retraining if needed. 06/22/23: Pt educated in Urinary Urge Deference technique. STG Duration 2wks-06/26/23 progressed (need bladder retrain if needed) Snf Goal (LTG) Pt will be educated in HEP of PF strengthening, hip/core strengthening, hip/core ROM ex 's. 06/29/23: HEP issued: R hip - AD stretch; L hip - Fig 4, Lat Hip and Piriformis stretch . LTG Duration 8 wks-08/14/23 progressed Assessment Summary Assessment 78 yo female with urge urinary incontinence with cystocel and palpable rectocele. Improved symmetry of movement w/BKFO ex, but during ex L leg tends to move a little faster and farther than R leg. Pt shows good understanding of breathwork with transfers and gardening. Might need review of today's HEP. Physical Therapy Plan Frequency and Duration Frequency of Treatment 1x/Week Duration of treatment (weeks) 8 Plan of Care Start Date 06/15/23 Plan of Care End Date 08/14/23 Next Visit Focus/Plan Next Note Type Treatment Note Next Visit Plan Next: PF strengthening ( anterior & posterior) in isolation of substitute muscles. POC: Urge Incontinence Rehab for cystocele & possible rectocele, Scoliosis, core/hip strengthening and ROM ex's.
--- NOTE | 2023-07-06 14:30 | PT.OTN ---
Current Diagnoses Urgency of urination (07/06/23) Physical Therapy Treatment Note PT-OP-A Visit Information Start: 06/05/23 18:39 Freq: Status: Active Protocol: Document 07/06/23 09:02 LRN (Rec: 07/06/23 09:44 LRN [id number]) Out-Patient Physical Therapy Visit Information Visit Information Visit Type Treatment Note Visit Start Time 09:02 Visit Stop Time 09:42 Visit Number Evaluation Information Evaluation Date 06/15/23 Precautions Precautions Kidney CA ~1987 (R kidney and gall bladder removed), Scoliosis and arthritis with back pain. Neuropathy of feet and lower leg, L ankle surgery due to fracture above the ankle jt. PT-OP-B Current Condition Start: 06/05/23 18:39 Freq: Status: Active Protocol: Document 06/15/23 09:05 LRN (Rec: 06/15/23 09:50 LRN [id number]) Current Condition History of Current Condition Onset Date 2 yrs ago. Current Complaints Urinary Urgency. History of Current Condition Has mentioned urinary urgency for a couple of years that is sporadic in nature. Not as bad right now. Sometimes urinary leakage is daily or every other day, or when better every 2 days. She notices when she has more joint pain in the L ankle and back she has more leakage. She denies having triggers. She states her kidney function is good. Developmental History Developmental History G3, P2. No complication, but had tearing with first child only. Treatment Goals Patient/Caregiver Goals Pt goals: Make it to bathroom w/o leaking. HEP. Personal Factors Other Personal Factors That May Effect Scoliosis and arthritis with Therapy/Recovery back pain. L ankle surgery due to fracture above the ankle jt. PT-OP-C Subjective Start: 06/05/23 18:39 Freq: Status: Active Protocol: Document 07/06/23 09:02 LRN (Rec: 07/06/23 09:44 LRN [id number]) OP-PT Subjective Patient Comments Patient Comments Improved, with leakage it was only a small amount. PT-OP-I Pelvic Floor Start: 06/05/23 18:39 Freq: Status: Active Protocol: Document 06/15/23 09:05 LRN (Rec: 06/15/23 09:50 LRN [id number]) Pelvic Floor Assessment Urine Urinary Symptoms Urge Sensation Leakage Size Small Leakage Cause Cough,Urge Other Leakage Causes Occasional leakage with a bad cough and strong urge on the way to the bathroom. Leaks Per Day 1-3 Voiding Frequency 8x/day, 2x/night Nocturia 0 Pads Used In 24 Hours 1-2 Urine Pad Type Panty Liner Bowel Other Bowel Symptoms Pt denies bowel symptoms, reporting normal BMs. Bowel Movement Frequency 2 Prolapse Cystocele Grade 2 Urethrocele Grade 2 Perineal Descent Resting Absent Bearing Absent Contraction Ability Voluntary Contraction Moderate Voluntary Relaxation Moderate Manual Muscle Testing Left 3 Manual Muscle Testing Right 3 Manual Muscle Testing Anterior 3 Manual Muscle Testing Posterior 3 Muscle Endurance (Seconds) 4 Number of Quick Contractions In 10 10 Seconds Comments Pelvic Floor Comments Stool felt in rectum. PT-OP-J Posture/Palpation/Skin Start: 06/05/23 18:40 Freq: Status: Active Protocol: Document 06/15/23 09:05 LRN (Rec: 06/15/23 09:50 LRN [id number]) Posture Evaluation Position Standing Head/C-Spine Posture Forward Head Pelvis Posture (L) Iliac Crest Superior Hip Posture (R) Externally Rotated Knee Posture (R) Excess Flexion Comments Posture Comments L shouler low, L Iliac Crest elevated, C-curve of spine with apex on Right. PT-OP-K Range of Motion Start: 06/05/23 18:39 Freq: Status: Active Protocol: Document 06/15/23 09:05 LRN (Rec: 06/15/23 09:50 LRN [id number]) Lumbar Spine Range of Motion Lumbar Spine Active Degrees Testing Position Standing Flexion 60 Extension 5 Rotation Left 10 Rotation Right 0 Lateral Flexion Left 5 Lateral Flexion Right 5 Hip Goniometric Range of Motion Hip Right Passive Testing Position Supine Straight Leg Raise 100 Abduction 25 External Rotation 80 Left Passive Testing Position Supine Straight Leg Raise 95 Internal Rotation 40 External Rotation 60 PT-OP-M Strength Start: 06/05/23 18:39 Freq: Status: Active Protocol: Document 06/15/23 09:05 LRN (Rec: 06/15/23 09:50 LRN [id number]) Trunk Strength Trunk Manual Muscle Testing Core Stabilization Pt lacks core stability. Hip Strength Hip Manual Muscle Testing Right Flexion (L2) 4 Good Extension (S1) 4 Good Abduction 3+ Fair+ Adduction 1 Trace External Rotation 3+ Fair+ Comments Strength is 5/5 except as indicated above. Left Extension (S1) 3 Fair Adduction 1 Trace External Rotation 4 Good Comments Strength is 5/5 except as indicated above. PT-OP-Q Treatments Start: 06/05/23 18:39 Freq: Status: Active Protocol: Document 07/06/23 09:02 LRN (Rec: 07/06/23 09:44 LRN [id number]) Therapeutic Exercises Supine Exercises Wedge/LE roll in/out w/Kegel/PF relax Supine Exercise Name LE roll in/out w/Kegel/ breathwork: PF relax-inhale, PF tighten-exhale Equipment Used Wedge Reps/Minutes 3' Comments Cuing of inbreath w/roll out, exhale with roll in/Kegel LE roll in/out w/Kegel/PF relax Supine Exercise Name LE roll in/out w/Kegel/ breathwork: PF relax-inhale, PF tighten-exhale Side bilateral Equipment Used Ball, Lev 1 TB Reps/Minutes 15' Comments Extra time for trainng coordinating mvmt. L hip IR stretch Supine Exercise Name Piriformis (knee to opp shdr) & Lat Hip stretch Side left Reps/Minutes 2' L Hip ER stretch Supine Exercise Name Fig 4 stretch Side left Reps/Minutes 1' Kegel long hold Supine Exercise Name Kegel hold 10 secs in isolation of substitutre ms. Equipment Used Good isolation of PF Reps/Minutes 10 SH f/b rest with PF stretch breathing x 10 Comments Cued to not push hard outwardly on PF with breath, but to get a stretch. BKFO Supine Exercise Name BKFO for hip ER strengthening (no PF contractions) Side bilateral Equipment Used L1 TB Reps/Minutes 15x 3 Comments Cued occasionally to move legs in symmetrically and no Kegel . Sitting Exercises L hip Piriformis Sitting Exercise Name Piriformis stretch (taking opp shdr to L knee) Side left Reps/Minutes 1' L hip ER stretch Sitting Exercise Name Ankle over knee Side left Reps/Minutes 1' Comments Extra time to detemine max janell position R hip AD Sitting Exercise Name SL on plinth stretch Side right Reps/Minutes 1' Self-Care/Home Management Treatment Education Patient Education Home Exercise Program Activities Self-Care/Home Management Activities Issued HEP: LE roll in/out w/ Kegel/breathwork: PF relax- inhale, PF tighten-exhale PT-OP-T Assessment and Plan Start: 06/05/23 18:39 Freq: Status: Active Protocol: Document 07/06/23 09:02 LRN (Rec: 07/06/23 09:44 LRN [id number]) Physical Therapy Assessment Goals Two Impairment Urinary leakage with a strong urge walking to bathroom. Short Term Goal (STG) Pt will be educated in aggrevator contractions and best practice for core pressure management to avoid urinary leakage with a strong cough. 07/06/23: Pt educated in core pressure management with cough, sneeze, bowel movements to relax abs and tighten PF before the aggrevators. STG Duration 4 wks-07/13/23 (07/07/23: MET GOAL, but not automatic) Assisted Goal (LTG) Improve PF strength and with use of urge deference technique will be able to walk to the bathroom without urinary leakage. 06/29/23: Practiced management of urinary urge. LTG Duration 8 wks-08/14/23 progressed One Impairment Lacks appropriate self care HEP Short Term Goal (STG) Pt will be educated in Urge deference technique and Bladder retraining if needed. 06/22/23: Pt educated in Urinary Urge Deference technique. STG Duration 2wks-06/26/23 progressed (bladder retrain if needed) Assisted Goal (LTG) Pt will be educated in HEP of PF strengthening, hip/core strengthening, hip/core ROM ex 's. 06/29/23: HEP issued: R hip - AD stretch; L hip - Fig 4, Lat Hip and Piriformis stretch . 07/06/23: HEP issued: LE roll in/out w/Kegel/breathwork : PF relax-inhale, PF tighten- exhale LTG Duration 8 wks-08/14/23 progressed Assessment Summary Assessment 78 yo female with urge urinary incontinence with cystocel and palpable rectocele. Pt leakage is reportedly less. Not automatic with managing inner core pressure with TRANSFERS and cough/sneeze. Good isolation of PF with Kegel, and good PF relax/ contract with breathing (LE roll in/outs). Pt has very tight hamstrings. Physical Therapy Plan Frequency and Duration Frequency of Treatment 1x/Week Duration of treatment (weeks) 8 Plan of Care Start Date 06/15/23 Plan of Care End Date 08/14/23 Next Visit Focus/Plan Next Note Type Treatment Note Next Visit Plan Next: Review 07/06/23 bladder diary submitted for reveiw. Review LE roll in/out for PF strengthening with relaxation stretch with each breath. Check hip AB mobility, add stretches: hamstring, LE neural & R trunk rot. Strengthening hip ER R>L, Ext L>R, R AB, franck AD. Core strengthening. POC: Urge Incontinence Rehab for cystocele & possible rectocele, normal tightness of PF, Scoliosis, core/hip strengthening and ROM ex's.
--- NOTE | 2023-07-13 17:27 | PT.OTN ---
Current Diagnoses Urgency of urination (07/13/23) Physical Therapy Treatment Note PT-OP-A Visit Information Start: 06/05/23 18:39 Freq: Status: Active Protocol: Document 07/13/23 09:06 LRN (Rec: 07/13/23 09:50 LRN [id number]) Out-Patient Physical Therapy Visit Information Visit Information Visit Type Treatment Note Visit Start Time 09:06 Visit Stop Time 09:48 Visit Number Evaluation Information Evaluation Date 06/15/23 Precautions Precautions Kidney CA ~1987 (R kidney and gall bladder removed), Scoliosis and arthritis with back pain. Neuropathy of feet and lower leg, L ankle surgery due to fracture above the ankle jt. PT-OP-B Current Condition Start: 06/05/23 18:39 Freq: Status: Active Protocol: Document 06/15/23 09:05 LRN (Rec: 06/15/23 09:50 LRN [id number]) Current Condition History of Current Condition Onset Date 2 yrs ago. Current Complaints Urinary Urgency. History of Current Condition Has mentioned urinary urgency for a couple of years that is sporadic in nature. Not as bad right now. Sometimes urinary leakage is daily or every other day, or when better every 2 days. She notices when she has more joint pain in the L ankle and back she has more leakage. She denies having triggers. She states her kidney function is good. Developmental History Developmental History G3, P2. No complication, but had tearing with first child only. Treatment Goals Patient/Caregiver Goals Pt goals: Make it to bathroom w/o leaking. HEP. Personal Factors Other Personal Factors That May Effect Scoliosis and arthritis with Therapy/Recovery back pain. L ankle surgery due to fracture above the ankle jt. PT-OP-C Subjective Start: 06/05/23 18:39 Freq: Status: Active Protocol: Document 07/13/23 09:06 LRN (Rec: 07/13/23 09:50 LRN [id number]) OP-PT Subjective Patient Comments Patient Comments Very few leaks and leakage is very teeny. PT-OP-I Pelvic Floor Start: 06/05/23 18:39 Freq: Status: Active Protocol: Document 06/15/23 09:05 LRN (Rec: 06/15/23 09:50 LRN [id number]) Pelvic Floor Assessment Urine Urinary Symptoms Urge Sensation Leakage Size Small Leakage Cause Cough,Urge Other Leakage Causes Occasional leakage with a bad cough and strong urge on the way to the bathroom. Leaks Per Day 1-3 Voiding Frequency 8x/day, 2x/night Nocturia 0 Pads Used In 24 Hours 1-2 Urine Pad Type Panty Liner Bowel Other Bowel Symptoms Pt denies bowel symptoms, reporting normal BMs. Bowel Movement Frequency 2 Prolapse Cystocele Grade 2 Urethrocele Grade 2 Perineal Descent Resting Absent Bearing Absent Contraction Ability Voluntary Contraction Moderate Voluntary Relaxation Moderate Manual Muscle Testing Left 3 Manual Muscle Testing Right 3 Manual Muscle Testing Anterior 3 Manual Muscle Testing Posterior 3 Muscle Endurance (Seconds) 4 Number of Quick Contractions In 10 10 Seconds Comments Pelvic Floor Comments Stool felt in rectum. PT-OP-J Posture/Palpation/Skin Start: 06/05/23 18:40 Freq: Status: Active Protocol: Document 06/15/23 09:05 LRN (Rec: 06/15/23 09:50 LRN [id number]) Posture Evaluation Position Standing Head/C-Spine Posture Forward Head Pelvis Posture (L) Iliac Crest Superior Hip Posture (R) Externally Rotated Knee Posture (R) Excess Flexion Comments Posture Comments L shouler low, L Iliac Crest elevated, C-curve of spine with apex on Right. PT-OP-K Range of Motion Start: 06/05/23 18:39 Freq: Status: Active Protocol: Document 06/15/23 09:05 LRN (Rec: 06/15/23 09:50 LRN [id number]) Lumbar Spine Range of Motion Lumbar Spine Active Degrees Testing Position Standing Flexion 60 Extension 5 Rotation Left 10 Rotation Right 0 Lateral Flexion Left 5 Lateral Flexion Right 5 Hip Goniometric Range of Motion Hip Right Passive Testing Position Supine Straight Leg Raise 100 Abduction 25 External Rotation 80 Left Passive Testing Position Supine Straight Leg Raise 95 Internal Rotation 40 External Rotation 60 PT-OP-M Strength Start: 06/05/23 18:39 Freq: Status: Active Protocol: Document 06/15/23 09:05 LRN (Rec: 06/15/23 09:50 LRN [id number]) Trunk Strength Trunk Manual Muscle Testing Core Stabilization Pt lacks core stability. Hip Strength Hip Manual Muscle Testing Right Flexion (L2) 4 Good Extension (S1) 4 Good Abduction 3+ Fair+ Adduction 1 Trace External Rotation 3+ Fair+ Comments Strength is 5/5 except as indicated above. Left Extension (S1) 3 Fair Adduction 1 Trace External Rotation 4 Good Comments Strength is 5/5 except as indicated above. PT-OP-Q Treatments Start: 06/05/23 18:39 Freq: Status: Active Protocol: Document 07/13/23 09:06 LRN (Rec: 07/13/23 09:50 LRN [id number]) Therapeutic Exercises Supine Exercises Wedge/LE roll in/out w/Kegel/PF relax Supine Exercise Name LE roll in/out w/Kegel/ breathwork: PF relax-inhale, PF tighten-exhale Equipment Used Wedge. Balloon educ to help pt visualize belly/PF mvmt direction Reps/Minutes 14' Comments Cuing to coordinate mvmts, & to slow breath from 3 secs to 5 secs. L hip IR stretch Supine Exercise Name Piriformis (knee to opp shdr) & Lat Hip stretch Side left Reps/Minutes 5' L Hip ER stretch Supine Exercise Name Fig 4 stretch Side left Reps/Minutes 2' Sitting Exercises Hamstring/LE neural glide Side bilateral Reps/Minutes 2' Neuro Re-Education Treatment Coordination Activities Transfer w/breath Details Transfer w/breath (sup<>sit<> stand). Reps/Duration 4' PF relax w/breath training Details PF Relax w/breathing training. Reps/Duration 6' Self-Care/Home Management Treatment Education Patient Education Home Exercise Program Other Education Reviewed 07/06/23 bladder diary, discussed times between voids , not waiting too long, not overdrinking fluids, timing of fluids (before 8p), looseness of clothing. Pt to work on aggrevator ( coughing fit) PF strengthening . Activities Self-Care/Home Management Activities Issued & reviewed HEP: Hamstring/LE neural stretch. PT-OP-T Assessment and Plan Start: 06/05/23 18:39 Freq: Status: Active Protocol: Document 07/13/23 09:06 LRN (Rec: 07/13/23 09:50 LRN [id number]) Physical Therapy Assessment Goals Two Impairment Urinary leakage with a strong urge walking to bathroom. Short Term Goal (STG) Pt will be educated in aggrevator contractions and best practice for core pressure management to avoid urinary leakage with a strong cough. 07/06/23: Pt educated in core pressure management with cough, sneeze, bowel movements to relax abs and tighten PF before the aggrevators. STG Duration 4 wks-07/13/23 (07/07/23: MET GOAL, but not automatic) Catalyst Concentration Operator Goal (LTG) Improve PF strength and with use of urge deference technique will be able to walk to the bathroom without urinary leakage. 06/29/23: Practiced management of urinary urge. 07/13/23: Thinks she can make it to bathroom with strong urge. LTG Duration 8 wks-08/14/23 progressed One Impairment Lacks appropriate self care HEP Short Term Goal (STG) Pt will be educated in Urge deference technique and Bladder retraining if needed. 06/22/23: Pt educated in Urinary Urge Deference technique. 07/13/23: Strong urge 1-2x in past week and was able to get to bathroom w/o leakage. STG Duration 2wks-06/26/23 progressed 11/27 (bladder retrain if needed) Catalyst Concentration Operator Goal (LTG) Pt will be educated in HEP of PF strengthening, hip/core strengthening, hip/core ROM ex 's. 06/29/23: HEP issued: R hip - AD stretch; L hip - Fig 4, Lat Hip and Piriformis stretch . 07/06/23: HEP issued: LE roll in/out w/Kegel/breathwork : PF relax-inhale, PF tighten- exhale 07/13/23: HEP: Hamstring/LE neural stretch. LTG Duration 8 wks-08/14/23 progressed Assessment Summary Assessment 78 yo female with urge urinary incontinence with cystocel and palpable rectocele. Her level of continence has improved with no notable urinary leaking that she can recall. Pt had difficulty with coordinating LE roll in/ out for PF strengthening & relaxation with breath, requiring much training. Physical Therapy Plan Frequency and Duration Frequency of Treatment 1x/Week Duration of treatment (weeks) 8 Plan of Care Start Date 06/15/23 Plan of Care End Date 08/14/23 Next Visit Focus/Plan Next Note Type Treatment Note Next Visit Plan Next: Review again for coordination of LE roll in/out for PF strengthening with relaxation stretch with each breath. Check hip AB mobility, add stretches: hamstring, LE neural & R trunk rot. Strengthening hip ER R> L, Ext L>R, R AB, franck AD. Core strengthening. POC: Urge Incontinence Rehab for cystocele & possible rectocele, normal tightness of PF, Scoliosis, core/hip strengthening and ROM ex's.
--- NOTE | 2023-07-24 15:05 | PT.OTN ---
Current Diagnoses Urgency of urination (07/24/23) Physical Therapy Treatment Note PT-OP-A Visit Information Start: 06/05/23 18:39 Freq: Status: Active Protocol: Document 07/24/23 09:01 LRN (Rec: 07/24/23 09:44 LRN [id number]) Out-Patient Physical Therapy Visit Information Visit Information Visit Type Treatment Note Visit Start Time 09:01 Visit Stop Time 09:43 Visit Number Evaluation Information Evaluation Date 06/15/23 Precautions Precautions Kidney CA ~1987 (R kidney and gall bladder removed), Scoliosis and arthritis with back pain. Neuropathy of feet and lower leg, L ankle surgery due to fracture above the ankle jt. PT-OP-B Current Condition Start: 06/05/23 18:39 Freq: Status: Active Protocol: Document 06/15/23 09:05 LRN (Rec: 06/15/23 09:50 LRN [id number]) Current Condition History of Current Condition Onset Date 2 yrs ago. Current Complaints Urinary Urgency. History of Current Condition Has mentioned urinary urgency for a couple of years that is sporadic in nature. Not as bad right now. Sometimes urinary leakage is daily or every other day, or when better every 2 days. She notices when she has more joint pain in the L ankle and back she has more leakage. She denies having triggers. She states her kidney function is good. Developmental History Developmental History G3, P2. No complication, but had tearing with first child only. Treatment Goals Patient/Caregiver Goals Pt goals: Make it to bathroom w/o leaking. HEP. Personal Factors Other Personal Factors That May Effect Scoliosis and arthritis with Therapy/Recovery back pain. L ankle surgery due to fracture above the ankle jt. PT-OP-C Subjective Start: 06/05/23 18:39 Freq: Status: Active Protocol: Document 07/24/23 09:01 LRN (Rec: 07/24/23 09:44 LRN [id number]) OP-PT Subjective Patient Comments Patient Comments One day of moderate leakage, the had to go frequently. Has had more joint pain. Leaks walking to the bathroom. PT-OP-I Pelvic Floor Start: 06/05/23 18:39 Freq: Status: Active Protocol: Document 06/15/23 09:05 LRN (Rec: 06/15/23 09:50 LRN [id number]) Pelvic Floor Assessment Urine Urinary Symptoms Urge Sensation Leakage Size Small Leakage Cause Cough,Urge Other Leakage Causes Occasional leakage with a bad cough and strong urge on the way to the bathroom. Leaks Per Day 1-3 Voiding Frequency 8x/day, 2x/night Nocturia 0 Pads Used In 24 Hours 1-2 Urine Pad Type Panty Liner Bowel Other Bowel Symptoms Pt denies bowel symptoms, reporting normal BMs. Bowel Movement Frequency 2 Prolapse Cystocele Grade 2 Urethrocele Grade 2 Perineal Descent Resting Absent Bearing Absent Contraction Ability Voluntary Contraction Moderate Voluntary Relaxation Moderate Manual Muscle Testing Left 3 Manual Muscle Testing Right 3 Manual Muscle Testing Anterior 3 Manual Muscle Testing Posterior 3 Muscle Endurance (Seconds) 4 Number of Quick Contractions In 10 10 Seconds Comments Pelvic Floor Comments Stool felt in rectum. PT-OP-J Posture/Palpation/Skin Start: 06/05/23 18:40 Freq: Status: Active Protocol: Document 06/15/23 09:05 LRN (Rec: 06/15/23 09:50 LRN [id number]) Posture Evaluation Position Standing Head/C-Spine Posture Forward Head Pelvis Posture (L) Iliac Crest Superior Hip Posture (R) Externally Rotated Knee Posture (R) Excess Flexion Comments Posture Comments L shouler low, L Iliac Crest elevated, C-curve of spine with apex on Right. PT-OP-K Range of Motion Start: 06/05/23 18:39 Freq: Status: Active Protocol: Document 06/15/23 09:05 LRN (Rec: 06/15/23 09:50 LRN [id number]) Lumbar Spine Range of Motion Lumbar Spine Active Degrees Testing Position Standing Flexion 60 Extension 5 Rotation Left 10 Rotation Right 0 Lateral Flexion Left 5 Lateral Flexion Right 5 Hip Goniometric Range of Motion Hip Right Passive Testing Position Supine Straight Leg Raise 100 Abduction 25 External Rotation 80 Left Passive Testing Position Supine Straight Leg Raise 95 Internal Rotation 40 External Rotation 60 PT-OP-M Strength Start: 06/05/23 18:39 Freq: Status: Active Protocol: Document 06/15/23 09:05 LRN (Rec: 06/15/23 09:50 LRN [id number]) Trunk Strength Trunk Manual Muscle Testing Core Stabilization Pt lacks core stability. Hip Strength Hip Manual Muscle Testing Right Flexion (L2) 4 Good Extension (S1) 4 Good Abduction 3+ Fair+ Adduction 1 Trace External Rotation 3+ Fair+ Comments Strength is 5/5 except as indicated above. Left Extension (S1) 3 Fair Adduction 1 Trace External Rotation 4 Good Comments Strength is 5/5 except as indicated above. PT-OP-Q Treatments Start: 06/05/23 18:39 Freq: Status: Active Protocol: Document 07/24/23 09:01 LRN (Rec: 07/24/23 09:44 LRN [id number]) Therapeutic Exercises Supine Exercises Hamstring/LE neural glide Supine Exercise Name Hamstring stretch 10 secs f/b ankle pumps - 3sets. Side bilateral Reps/Minutes 1x each Comments R tigher than L. Wedge/LE roll in/out w/Kegel/PF relax Supine Exercise Name LE roll in/out w/Kegel/ breathwork: PF relax-inhale, PF tighten-exhale Equipment Used Wedge. Balloon educ to help pt visualize belly/PF mvmt direction Reps/Minutes 8x Comments Cuing to coordinate mvmts, & to slow breath from 3 secs to 5 secs. L hip IR stretch Supine Exercise Name Piriformis (knee to opp shdr) & Lat Hip stretch Side left Reps/Minutes 5' L Hip ER stretch Supine Exercise Name Fig 4 stretch Side left Reps/Minutes 2' BKFO Supine Exercise Name Wedge/TB around knees-3 breath Kegel hold Resistance e breath holds w/Kegel retighten after every breath on exhale breath Reps/Minutes 10x: breath hold, 6 breath relax(Min reverse Kegel w/ relax inhale breaths) PT-OP-T Assessment and Plan Start: 06/05/23 18:39 Freq: Status: Active Protocol: Document 07/24/23 09:01 LRN (Rec: 07/24/23 09:44 N [id number]) Physical Therapy Assessment Goals Two Impairment Urinary leakage with a strong urge walking to bathroom. Short Term Goal (STG) Pt will be educated in aggrevator contractions and best practice for core pressure management to avoid urinary leakage with a strong cough. 07/06/23: Pt educated in core pressure management with cough, sneeze, bowel movements to relax abs and tighten PF before the aggrevators. STG Duration 4 wks-07/13/23 (07/07/23: MET GOAL, but not automatic) Case Management Specialist Goal (LTG) Improve PF strength and with use of urge deference technique will be able to walk to the bathroom without urinary leakage. 06/29/23: Practiced management of urinary urge. 07/13/23: Thinks she can make it to bathroom with strong urge. LTG Duration 8 wks-08/14/23 progressed One Impairment Lacks appropriate self care HEP Short Term Goal (STG) Pt will be educated in Urge deference technique and Bladder retraining if needed. 06/22/23: Pt educated in Urinary Urge Deference technique. 07/13/23: Strong urge 1-2x in past week and was able to get to bathroom w/o leakage. STG Duration 2wks-06/26/23 progressed 11/27 (bladder retrain if needed) Longterm Goal (LTG) Pt will be educated in HEP of PF strengthening, hip/core strengthening, hip/core ROM ex 's. 06/29/23: HEP issued: R hip - AD stretch; L hip - Fig 4, Lat Hip and Piriformis stretch . 07/06/23: HEP issued: LE roll in/out w/Kegel/breathwork : PF relax-inhale, PF tighten- exhale 07/13/23: HEP: Hamstring/LE neural stretch. 07/24/23: HEP: Supine Hamstring/LE neural stretch LTG Duration 8 wks-08/14/23 progressed Assessment Summary Assessment 78 yo female with urge urinary incontinence with cystocele and palpable rectocele, PF strength was 3/5; decreased PF stability resulting from her scoliosis and weakness of hip/ core muscles. Today the pt had one episode of mod urinary incontinence after prolonged sitting, possibly due to LB posturing and involvement due to her scoliosis. She had pairly good recall of LE roll in/out es and good ability to perform modified LE roll in/ outs and bridge on wedge for 10 sec holds and 20 sec PF relax w/reverse Kegel as needed. Physical Therapy Plan Frequency and Duration Frequency of Treatment 1x/Week Duration of treatment (weeks) 8 Plan of Care Start Date 06/15/23 Plan of Care End Date 08/14/23 Next Visit Focus/Plan Next Note Type Treatment Note Next Visit Plan Next: Review HS stretch. Check for need to review coordination of LE roll in/out for PF strengthening with relaxation stretch with each breath over 10 sec hold. Check hip AB mobility, add stretches: R trunk rot & PF strengthening walking. Strengthening hip ER R>L, Ext L>R, R AB, franck AD. Core strengthening. POC: Urge Incontinence Rehab for cystocele & possible rectocele, normal tightness of PF, Scoliosis, core/hip strengthening and ROM ex's.
--- NOTE | 2023-08-07 16:37 | PT.OTN ---
Current Diagnoses Urgency of urination (08/07/23) Physical Therapy Treatment Note PT-OP-A Visit Information Start: 06/05/23 18:39 Freq: Status: Active Protocol: Document 08/07/23 09:05 LRN (Rec: 08/07/23 09:51 LRN [id number]) Out-Patient Physical Therapy Visit Information Visit Information Visit Type Progress Note Visit Start Time 09:05 Visit Stop Time 09:44 Visit Number Evaluation Information Evaluation Date 06/15/23 Precautions Precautions Kidney CA ~1987 (R kidney and gall bladder removed), Scoliosis and arthritis with back pain. Neuropathy of feet and lower leg, L ankle surgery due to fracture above the ankle jt. PT-OP-B Current Condition Start: 06/05/23 18:39 Freq: Status: Active Protocol: Document 06/15/23 09:05 LRN (Rec: 06/15/23 09:50 LRN [id number]) Current Condition History of Current Condition Onset Date 2 yrs ago. Current Complaints Urinary Urgency. History of Current Condition Has mentioned urinary urgency for a couple of years that is sporadic in nature. Not as bad right now. Sometimes urinary leakage is daily or every other day, or when better every 2 days. She notices when she has more joint pain in the L ankle and back she has more leakage. She denies having triggers. She states her kidney function is good. Developmental History Developmental History G3, P2. No complication, but had tearing with first child only. Treatment Goals Patient/Caregiver Goals Pt goals: Make it to bathroom w/o leaking. HEP. Personal Factors Other Personal Factors That May Effect Scoliosis and arthritis with Therapy/Recovery back pain. L ankle surgery due to fracture above the ankle jt. PT-OP-C Subjective Start: 06/05/23 18:39 Freq: Status: Active Protocol: Document 08/07/23 09:05 LRN (Rec: 08/07/23 09:51 LRN [id number]) OP-PT Subjective Patient Comments Patient Comments No leakage for over 2 wks. Balance downhill is not very good and gardening. Patient Questionnaires Pelvic Pain and Urgency/Frequency Patient Symptom Scale Pelvic Pain Score 3 PT-OP-D Balance Start: 08/07/23 16:34 Freq: Status: Active Protocol: Document 08/07/23 09:05 LRN (Rec: 08/07/23 16:37 LRN [id number]) Balance Tests Single Limb Standing Single Limb- Right 1 sec Single Limb- Left 0.5 sec Semi-Tandem Standing Semi-Tandem Standing Balance L foot behind-10 secs, R foot behind 2 secs. Other Other Balance Tests Performed Feet together: EC 30+ secs, EO 10+ secs PT-OP-I Pelvic Floor Start: 06/05/23 18:39 Freq: Status: Active Protocol: Document 06/15/23 09:05 LRN (Rec: 06/15/23 09:50 LRN [id number]) Pelvic Floor Assessment Urine Urinary Symptoms Urge Sensation Leakage Size Small Leakage Cause Cough,Urge Other Leakage Causes Occasional leakage with a bad cough and strong urge on the way to the bathroom. Leaks Per Day 1-3 Voiding Frequency 8x/day, 2x/night Nocturia 0 Pads Used In 24 Hours 1-2 Urine Pad Type Panty Liner Bowel Other Bowel Symptoms Pt denies bowel symptoms, reporting normal BMs. Bowel Movement Frequency 2 Prolapse Cystocele Grade 2 Urethrocele Grade 2 Perineal Descent Resting Absent Bearing Absent Contraction Ability Voluntary Contraction Moderate Voluntary Relaxation Moderate Manual Muscle Testing Left 3 Manual Muscle Testing Right 3 Manual Muscle Testing Anterior 3 Manual Muscle Testing Posterior 3 Muscle Endurance (Seconds) 4 Number of Quick Contractions In 10 10 Seconds Comments Pelvic Floor Comments Stool felt in rectum. PT-OP-J Posture/Palpation/Skin Start: 06/05/23 18:40 Freq: Status: Active Protocol: Document 06/15/23 09:05 LRN (Rec: 06/15/23 09:50 LRN [id number]) Posture Evaluation Position Standing Head/C-Spine Posture Forward Head Pelvis Posture (L) Iliac Crest Superior Hip Posture (R) Externally Rotated Knee Posture (R) Excess Flexion Comments Posture Comments L shouler low, L Iliac Crest elevated, C-curve of spine with apex on Right. PT-OP-K Range of Motion Start: 06/05/23 18:39 Freq: Status: Active Protocol: Document 06/15/23 09:05 LRN (Rec: 06/15/23 09:50 LRN [id number]) Lumbar Spine Range of Motion Lumbar Spine Active Degrees Testing Position Standing Flexion 60 Extension 5 Rotation Left 10 Rotation Right 0 Lateral Flexion Left 5 Lateral Flexion Right 5 Hip Goniometric Range of Motion Hip Right Passive Testing Position Supine Straight Leg Raise 100 Abduction 25 External Rotation 80 Left Passive Testing Position Supine Straight Leg Raise 95 Internal Rotation 40 External Rotation 60 PT-OP-M Strength Start: 06/05/23 18:39 Freq: Status: Active Protocol: Document 06/15/23 09:05 LRN (Rec: 06/15/23 09:50 LRN [id number]) Trunk Strength Trunk Manual Muscle Testing Core Stabilization Pt lacks core stability. Hip Strength Hip Manual Muscle Testing Right Flexion (L2) 4 Good Extension (S1) 4 Good Abduction 3+ Fair+ Adduction 1 Trace External Rotation 3+ Fair+ Comments Strength is 5/5 except as indicated above. Left Extension (S1) 3 Fair Adduction 1 Trace External Rotation 4 Good Comments Strength is 5/5 except as indicated above. PT-OP-Q Treatments Start: 06/05/23 18:39 Freq: Status: Active Protocol: Document 08/07/23 09:05 LRN (Rec: 08/07/23 09:51 LRN [id number]) Therapeutic Exercises Supine Exercises Wedge/LE roll in/out w/Kegel/PF relax Supine Exercise Name LE roll in/out w/Kegel/ breathwork: PF relax-inhale, PF tighten-exhale Equipment Used Wedge. Balloon educ to help pt visualize belly/PF mvmt direction Reps/Minutes 5x Comments Cuing to coordinate mvmts, & to slow breath from 3 secs to 5 secs. L hip IR stretch Supine Exercise Name Piriformis (knee to opp shdr) & Lat Hip stretch Side bilateral Reps/Minutes 5' L Hip ER stretch Supine Exercise Name Fig 4 stretch Side left Reps/Minutes 2' BKFO Supine Exercise Name Wedge/TB around knees-3 breath Kegel hold Resistance e breath holds w/Kegel retighten with exhale breath Reps/Minutes 5x: breath relax(Min reverse Kegel w/relax inhale breaths) Sitting Exercises Hamstring/LE neural glide Side bilateral Reps/Minutes 3' L hip Piriformis Sitting Exercise Name Piriformis stretch (taking opp shdr to L knee) Side left Reps/Minutes 1' L hip ER stretch Sitting Exercise Name Ankle over knee Side left Reps/Minutes 1' Comments Extra time to detemine max janell position Self-Care/Home Management Treatment Activities Self-Care/Home Management Activities Reviewed her HEP and I/S pt in modifications to do ex's during week at least 2x/wk and once on weekend to maintain and 3x/wk (once w/e) to improve strength. Issued & reviewed HEP: Trunk R rot and franck trunk SB stretch . PT-OP-T Assessment and Plan Start: 06/05/23 18:39 Freq: Status: Active Protocol: Document 08/07/23 09:05 LRN (Rec: 08/07/23 09:51 LRN [id number]) Physical Therapy Assessment Rehab Potential Rehabilitation Potential Excellent Evaluation Complexity Number of Personal Factors/Comorbidities 1-2 Number of Body Systems Impaired 4 or More Clinical Presentation at Evaluation Evolving Impairments Impairments Activity Tolerance,Posture,ROM ,Strength Goals Three Impairment Decreased balance Impairment SLS 0.5 sec left, 1 sec right. Modified Tandem: L foot behind - 10 secs, R foot behind 2 secs. Feet together: EO-10+ secs, EC-30 sec+ Short Term Goal (STG) Improved core/pelvic stability and strength for SLS to 10 sec or more biliaterally STG Duration 4 wks-09/04/23 Frame Cleaner Goal (LTG) Improve core/pelvic stability for pt to be able to walk downhill on uneven ground ( [place] or gardening on steep part of her property with greater perceived stability and no perceived LOB while gardening or on walking on steep part of property. LTG Duration 8 wks-10/02/23 Two Impairment Urinary leakage with a strong urge walking to bathroom. Short Term Goal (STG) Pt will be educated in aggrevator contractions and best practice for core pressure management to avoid urinary leakage with a strong cough. 07/06/23: Pt educated in core pressure management with cough, sneeze, bowel movements to relax abs and tighten PF before the aggrevators. STG Duration 4 wks-07/13/23 (07/07/23: MET GOAL, but not automatic) Frame Cleaner Goal (LTG) Improve PF strength and with use of urge deference technique will be able to walk to the bathroom without urinary leakage. 06/29/23: Practiced management of urinary urge. 07/13/23: Thinks she can make it to bathroom with strong urge. 08/07/23: No leakage for the past 2 wks. LTG Duration 8 wks-08/14/23 (08/07/23: MET GOAL) One Impairment Lacks appropriate self care HEP Short Term Goal (STG) Pt will be educated in Urge deference technique and Bladder retraining if needed. 06/22/23: Pt educated in Urinary Urge Deference technique. 07/13/23: Strong urge 1-2x in past week and was able to get to bathroom w/o leakage. STG Duration 2wks-08/21/23 progressed 11/27 (bladder retrain if needed) Correction Goal (LTG) Pt will be educated in HEP of PF strengthening, hip/core strengthening, hip/core ROM ex 's. 06/29/23: HEP issued: R hip - AD stretch; L hip - Fig 4, Lat Hip and Piriformis stretch . 07/06/23: HEP issued: LE roll in/out w/Kegel/breathwork : PF relax-inhale, PF tighten- exhale 07/13/23: HEP: Hamstring/LE neural stretch. 07/24/23: HEP: Supine Hamstring/LE neural stretch 08/07/23: HEP: Sitting (not able to balance for standing ex) trunk rot & SB stretch. LTG Duration 8 wks-10/02/23 progressed Assessment Summary Assessment Pt is a 78 yo female initially seen for urge urinary incontinence with cystocele and palpable rectocele, PF strength was 3/5; decreased PF stability resulting from her scoliosis and weakness of hip/ core muscles. She had urinary incontinence after prolonged sitting, probably due to LB posturing and involvement due to her scoliosis. She has improved in her level of continence with behavior modification, but because of asymmetry of her hip mobility, LBP, and weakness of her core affecting her PF strength, further skilled physical therapy is recommended to work on improving areas previously mentioned and dynamic core/ pevlic stabilization with walking/standing activities. The pt may need a physical therapy refrerral for balance rehab if I am not able to improve LBP, core/pelvic stability due to poor balance. Physical Therapy Plan Frequency and Duration Frequency of Treatment 1x/Week Duration of treatment (weeks) 8 Plan of Care Start Date 08/07/23 Plan of Care End Date 10/02/23 Therapeutic Interventions Therapeutic Interventions Home Exercise Program,Manual Therapy,Neuromuscular Re- education,Self-Care/Home Management,Soft Tissue Mobilization,Therapeutic Activities,Therapeutic Exercises Modalities Cold Pack/Ice Massage,Electric Stimulation,Hot Packs Next Visit Focus/Plan Next Note Type Treatment Note Next Visit Plan Next: Review HS stretch. Initiate core strengthening. Check for need to review coordination of LE roll in/out for PF strengthening with relaxation stretch with each breath over 10 sec hold. Check hip AB mobility, add stretches: R trunk rot & PF strengthening walking. Strengthening hip ER R>L, Ext L>R, R AB, franck AD. POC: Core/pelvic strengthenig , (urge Incontinence) Rehab for cystocele & possible rectocele, Scoliosis, core/ hip strengthening and ROM ex's .
--- NOTE | 2023-08-14 16:00 | PT.OTN ---
Current Diagnoses Urgency of urination (08/14/23) Physical Therapy Treatment Note PT-OP-A Visit Information Start: 06/05/23 18:39 Freq: Status: Active Protocol: Document 08/14/23 09:06 LRN (Rec: 08/14/23 09:50 LRN [id number]) Out-Patient Physical Therapy Visit Information Visit Information Visit Type Treatment Note Visit Note 1 after PN Visit Start Time 09:06 Visit Stop Time 09:47 Visit Number Evaluation Information Evaluation Date 06/15/23 Precautions Precautions Kidney CA ~1987 (R kidney and gall bladder removed), Scoliosis and arthritis with back pain. Neuropathy of feet and lower leg, L ankle surgery due to fracture above the ankle jt. PT-OP-B Current Condition Start: 06/05/23 18:39 Freq: Status: Active Protocol: Document 06/15/23 09:05 LRN (Rec: 06/15/23 09:50 LRN [id number]) Current Condition History of Current Condition Onset Date 2 yrs ago. Current Complaints Urinary Urgency. History of Current Condition Has mentioned urinary urgency for a couple of years that is sporadic in nature. Not as bad right now. Sometimes urinary leakage is daily or every other day, or when better every 2 days. She notices when she has more joint pain in the L ankle and back she has more leakage. She denies having triggers. She states her kidney function is good. Developmental History Developmental History G3, P2. No complication, but had tearing with first child only. Treatment Goals Patient/Caregiver Goals Pt goals: Make it to bathroom w/o leaking. HEP. Personal Factors Other Personal Factors That May Effect Scoliosis and arthritis with Therapy/Recovery back pain. L ankle surgery due to fracture above the ankle jt. PT-OP-C Subjective Start: 06/05/23 18:39 Freq: Status: Active Protocol: Document 08/14/23 09:06 LRN (Rec: 08/14/23 09:50 LRN [id number]) OP-PT Subjective Patient Comments Patient Comments No change. PT-OP-D Balance Start: 08/07/23 16:34 Freq: Status: Active Protocol: Document 08/07/23 09:05 LRN (Rec: 08/07/23 16:37 LRN [id number]) Balance Tests Single Limb Standing Single Limb- Right 1 sec Single Limb- Left 0.5 sec Semi-Tandem Standing Semi-Tandem Standing Balance L foot behind-10 secs, R foot behind 2 secs. Other Other Balance Tests Performed Feet together: EC 30+ secs, EO 10+ secs PT-OP-I Pelvic Floor Start: 06/05/23 18:39 Freq: Status: Active Protocol: Document 06/15/23 09:05 LRN (Rec: 06/15/23 09:50 LRN [id number]) Pelvic Floor Assessment Urine Urinary Symptoms Urge Sensation Leakage Size Small Leakage Cause Cough,Urge Other Leakage Causes Occasional leakage with a bad cough and strong urge on the way to the bathroom. Leaks Per Day 1-3 Voiding Frequency 8x/day, 2x/night Nocturia 0 Pads Used In 24 Hours 1-2 Urine Pad Type Panty Liner Bowel Other Bowel Symptoms Pt denies bowel symptoms, reporting normal BMs. Bowel Movement Frequency 2 Prolapse Cystocele Grade 2 Urethrocele Grade 2 Perineal Descent Resting Absent Bearing Absent Contraction Ability Voluntary Contraction Moderate Voluntary Relaxation Moderate Manual Muscle Testing Left 3 Manual Muscle Testing Right 3 Manual Muscle Testing Anterior 3 Manual Muscle Testing Posterior 3 Muscle Endurance (Seconds) 4 Number of Quick Contractions In 10 10 Seconds Comments Pelvic Floor Comments Stool felt in rectum. PT-OP-J Posture/Palpation/Skin Start: 06/05/23 18:40 Freq: Status: Active Protocol: Document 06/15/23 09:05 LRN (Rec: 06/15/23 09:50 LRN [id number]) Posture Evaluation Position Standing Head/C-Spine Posture Forward Head Pelvis Posture (L) Iliac Crest Superior Hip Posture (R) Externally Rotated Knee Posture (R) Excess Flexion Comments Posture Comments L shouler low, L Iliac Crest elevated, C-curve of spine with apex on Right. PT-OP-K Range of Motion Start: 06/05/23 18:39 Freq: Status: Active Protocol: Document 06/15/23 09:05 LRN (Rec: 06/15/23 09:50 LRN [id number]) Lumbar Spine Range of Motion Lumbar Spine Active Degrees Testing Position Standing Flexion 60 Extension 5 Rotation Left 10 Rotation Right 0 Lateral Flexion Left 5 Lateral Flexion Right 5 Hip Goniometric Range of Motion Hip Right Passive Testing Position Supine Straight Leg Raise 100 Abduction 25 External Rotation 80 Left Passive Testing Position Supine Straight Leg Raise 95 Internal Rotation 40 External Rotation 60 PT-OP-M Strength Start: 06/05/23 18:39 Freq: Status: Active Protocol: Document 06/15/23 09:05 LRN (Rec: 06/15/23 09:50 LRN [id number]) Trunk Strength Trunk Manual Muscle Testing Core Stabilization Pt lacks core stability. Hip Strength Hip Manual Muscle Testing Right Flexion (L2) 4 Good Extension (S1) 4 Good Abduction 3+ Fair+ Adduction 1 Trace External Rotation 3+ Fair+ Comments Strength is 5/5 except as indicated above. Left Extension (S1) 3 Fair Adduction 1 Trace External Rotation 4 Good Comments Strength is 5/5 except as indicated above. PT-OP-Q Treatments Start: 06/05/23 18:39 Freq: Status: Active Protocol: Document 08/14/23 09:06 LRN (Rec: 08/14/23 09:50 LRN [id number]) Therapeutic Exercises Supine Exercises Ball Squeeze Supine Exercise Name Wedge/Ball Squeeze Reps/Minutes Kegel held thru 2 ball squeezes, f/b PF rest thru 2 squeezes x 10 cycles ea Comments Pt cued to breath Hamstring/LE neural glide Supine Exercise Name Hamstring stretch 10 secs f/b ankle pumps - 3sets. Side bilateral Reps/Minutes 4' Comments R tighter than L. Pt cued to do 2x on R, 1x on L. Wedge/LE roll in/out w/Kegel/PF relax Supine Exercise Name LE roll in/out w/Kegel/ breathwork: PF relax-inhale, PF tighten-exhale Equipment Used Wedge. Balloon educ to help pt visualize belly/PF mvmt direction Reps/Minutes 5x Comments Cuing to coordinate mvmts, & to slow breath from 3 secs to 5 secs. BKFO Supine Exercise Name Wedge/BKFO/TB around knees Reps/Minutes Kegel held through 2 BKFO cycles, f/b PF rest thru 2 cycles. x 10 cycles ea Comments Pt cued to breath Sitting Exercises 4-way ankle ex's w/Kegel Sitting Exercise Name Ankle DF/IV/EV/PF Side bilateral Equipment Used Lev 2 TB Reps/Minutes Kegel hold 5 reps, relax 5 reps, hold 5 reps each Comments Pt not able to move L ankle much due to pinning 2020. Self-Care/Home Management Treatment Activities Self-Care/Home Management Activities Issued HEP: TBand Kegel/ankle strengthening (DF/IV/EV/PF) PT-OP-T Assessment and Plan Start: 06/05/23 18:39 Freq: Status: Active Protocol: Document 08/14/23 09:06 LRN (Rec: 08/14/23 09:50 LRN [id number]) Physical Therapy Assessment Goals Three Impairment Decreased balance Impairment SLS 0.5 sec left, 1 sec right. Modified Tandem: L foot behind - 10 secs, R foot behind 2 secs. Feet together: EO-10+ secs, EC-30 sec+ Short Term Goal (STG) Improved core/pelvic stability and strength for SLS to 10 sec or more biliaterally STG Duration 4 wks-09/04/23 [employer] Goal (LTG) Improve core/pelvic stability for pt to be able to walk downhill on uneven ground ( [place] or gardening on steep part of her property with greater perceived stability and no perceived LOB while gardening or on walking on steep part of property. LTG Duration 8 wks-10/02/23 Two Impairment Urinary leakage with a strong urge walking to bathroom. Short Term Goal (STG) Pt will be educated in aggrevator contractions and best practice for core pressure management to avoid urinary leakage with a strong cough. 07/06/23: Pt educated in core pressure management with cough, sneeze, bowel movements to relax abs and tighten PF before the aggrevators. STG Duration 4 wks-07/13/23 (07/07/23: MET GOAL, but not automatic) [facility] Goal (LTG) Improve PF strength and with use of urge deference technique will be able to walk to the bathroom without urinary leakage. 06/29/23: Practiced management of urinary urge. 07/13/23: Thinks she can make it to bathroom with strong urge. 08/07/23: No leakage for the past 2 wks. LTG Duration 8 wks-08/14/23 (08/07/23: MET GOAL) One Impairment Lacks appropriate self care HEP Short Term Goal (STG) Pt will be educated in Urge deference technique and Bladder retraining if needed. 06/22/23: Pt educated in Urinary Urge Deference technique. 07/13/23: Strong urge 1-2x in past week and was able to get to bathroom w/o leakage. STG Duration 2wks-08/21/23 progressed 11/27 (bladder retrain if needed) [facility] Goal (LTG) Pt will be educated in HEP of PF strengthening, hip/core strengthening, hip/core ROM ex 's. 06/29/23: HEP issued: R hip - AD stretch; L hip - Fig 4, Lat Hip and Piriformis stretch . 07/06/23: HEP issued: LE roll in/out w/Kegel/breathwork : PF relax-inhale, PF tighten- exhale 07/13/23: HEP: Hamstring/LE neural stretch. 07/24/23: HEP: Supine Hamstring/LE neural stretch 08/07/23: HEP: Sitting (not able to balance for standing ex) trunk rot & SB stretch. 08/14/23: HEP: T-Band/Kegel HEP: DF/EV/IV/PF LTG Duration 8 wks-10/02/23 progressed Assessment Summary Assessment 78 yo female with urge urinary incontinence with cystocele and palpable rectocele, PF strength was 3/5; decreased PF stability resulting from her scoliosis and weakness of hip/ core muscles. Today, pt shows good recall of HS stretch. Pt needs to cont PF strengthening and needed much training & cuing for new PF ex . Pt did well with Kegels during ankle ex's. Physical Therapy Plan Frequency and Duration Frequency of Treatment 1x/Week Duration of treatment (weeks) 8 Plan of Care Start Date 08/07/23 Plan of Care End Date 10/02/23 Next Visit Focus/Plan Next Note Type Treatment Note Next Visit Plan Next: Initiate core strengthening. Cont review of coordination of LE roll in/ out for PF strengthening now w /o relaxation stretch with each breath over 10 sec hold. Check hip AB mobility, add stretches: R trunk rot & PF strengthening walking. Strengthening hip ER R>L, Ext L>R, R AB, franck AD. POC: Core/pelvic strengthenig , (urge Incontinence) Rehab for cystocele & possible rectocele, Scoliosis, core/ hip strengthening and ROM ex's .
--- NOTE | 2023-08-28 16:46 | PT.OTN ---
Current Diagnoses Urgency of urination (08/28/23) Physical Therapy Treatment Note PT-OP-A Visit Information Start: 06/05/23 18:39 Freq: Status: Active Protocol: Document 08/28/23 09:06 LRN (Rec: 08/28/23 09:48 LRN [id number]) Out-Patient Physical Therapy Visit Information Visit Information Visit Type Treatment Note Visit Start Time 09:07 Visit Stop Time 09:48 Visit Number Evaluation Information Evaluation Date 06/15/23 Precautions Precautions Kidney CA ~1987 (R kidney and gall bladder removed), Scoliosis and arthritis with back pain. Neuropathy of feet and lower leg, L ankle surgery due to fracture above the ankle jt. PT-OP-B Current Condition Start: 06/05/23 18:39 Freq: Status: Active Protocol: Document 06/15/23 09:05 LRN (Rec: 06/15/23 09:50 LRN [id number]) Current Condition History of Current Condition Onset Date 2 yrs ago. Current Complaints Urinary Urgency. History of Current Condition Has mentioned urinary urgency for a couple of years that is sporadic in nature. Not as bad right now. Sometimes urinary leakage is daily or every other day, or when better every 2 days. She notices when she has more joint pain in the L ankle and back she has more leakage. She denies having triggers. She states her kidney function is good. Developmental History Developmental History G3, P2. No complication, but had tearing with first child only. Treatment Goals Patient/Caregiver Goals Pt goals: Make it to bathroom w/o leaking. HEP. Personal Factors Other Personal Factors That May Effect Scoliosis and arthritis with Therapy/Recovery back pain. L ankle surgery due to fracture above the ankle jt. PT-OP-C Subjective Start: 06/05/23 18:39 Freq: Status: Active Protocol: Document 08/28/23 09:06 LRN (Rec: 08/28/23 09:48 LRN [id number]) OP-PT Subjective Patient Comments Patient Comments After ex's caused pain for a few days after last session, so when started back she is up 10 reps of each ankle ex. Incontinence problem is doing fine. PT-OP-D Balance Start: 08/07/23 16:34 Freq: Status: Active Protocol: Document 08/07/23 09:05 LRN (Rec: 08/07/23 16:37 LRN [id number]) Balance Tests Single Limb Standing Single Limb- Right 1 sec Single Limb- Left 0.5 sec Semi-Tandem Standing Semi-Tandem Standing Balance L foot behind-10 secs, R foot behind 2 secs. Other Other Balance Tests Performed Feet together: EC 30+ secs, EO 10+ secs PT-OP-I Pelvic Floor Start: 06/05/23 18:39 Freq: Status: Active Protocol: Document 06/15/23 09:05 LRN (Rec: 06/15/23 09:50 LRN [id number]) Pelvic Floor Assessment Urine Urinary Symptoms Urge Sensation Leakage Size Small Leakage Cause Cough,Urge Other Leakage Causes Occasional leakage with a bad cough and strong urge on the way to the bathroom. Leaks Per Day 1-3 Voiding Frequency 8x/day, 2x/night Nocturia 0 Pads Used In 24 Hours 1-2 Urine Pad Type Panty Liner Bowel Other Bowel Symptoms Pt denies bowel symptoms, reporting normal BMs. Bowel Movement Frequency 2 Prolapse Cystocele Grade 2 Urethrocele Grade 2 Perineal Descent Resting Absent Bearing Absent Contraction Ability Voluntary Contraction Moderate Voluntary Relaxation Moderate Manual Muscle Testing Left 3 Manual Muscle Testing Right 3 Manual Muscle Testing Anterior 3 Manual Muscle Testing Posterior 3 Muscle Endurance (Seconds) 4 Number of Quick Contractions In 10 10 Seconds Comments Pelvic Floor Comments Stool felt in rectum. PT-OP-J Posture/Palpation/Skin Start: 06/05/23 18:40 Freq: Status: Active Protocol: Document 06/15/23 09:05 LRN (Rec: 06/15/23 09:50 LRN [id number]) Posture Evaluation Position Standing Head/C-Spine Posture Forward Head Pelvis Posture (L) Iliac Crest Superior Hip Posture (R) Externally Rotated Knee Posture (R) Excess Flexion Comments Posture Comments L shouler low, L Iliac Crest elevated, C-curve of spine with apex on Right. PT-OP-K Range of Motion Start: 06/05/23 18:39 Freq: Status: Active Protocol: Document 08/28/23 09:06 LRN (Rec: 08/28/23 09:48 LRN [id number]) Hip Goniometric Range of Motion Hip Right Passive Testing Position Supine Abduction 25 Left Passive Testing Position Supine Abduction 25 PT-OP-M Strength Start: 06/05/23 18:39 Freq: Status: Active Protocol: Document 06/15/23 09:05 LRN (Rec: 06/15/23 09:50 LRN [id number]) Trunk Strength Trunk Manual Muscle Testing Core Stabilization Pt lacks core stability. Hip Strength Hip Manual Muscle Testing Right Flexion (L2) 4 Good Extension (S1) 4 Good Abduction 3+ Fair+ Adduction 1 Trace External Rotation 3+ Fair+ Comments Strength is 5/5 except as indicated above. Left Extension (S1) 3 Fair Adduction 1 Trace External Rotation 4 Good Comments Strength is 5/5 except as indicated above. PT-OP-Q Treatments Start: 06/05/23 18:39 Freq: Status: Active Protocol: Document 08/28/23 09:06 LRN (Rec: 08/28/23 09:48 LRN [id number]) Therapeutic Exercises Supine Exercises Hamstring/LE neural glide Supine Exercise Name Hamstring stretch 10 secs f/b ankle pumps - 3sets. Side bilateral Reps/Minutes 4' Comments R tighter than L. Pt cued to do 2x on R, 1x on L. Wedge/LE roll in/out w/Kegel/PF relax Supine Exercise Name LE roll in/out w/Kegel/ breathwork: PF relax-inhale, PF tighten-exhale Equipment Used Wedge. Reps/Minutes 10x Comments Review of doing with legs straight and knees bent Kegel long hold Supine Exercise Name Review of Kegel long holds w/ relaxation PF on exhale Reps/Minutes 10 SH f/b rest with PF stretch breathing x 10 Comments Cued to relax PF with breath, to get a stretch of hip IR &PF contract/relax Sitting Exercises Trunk Stretches Sitting Exercise Name R rot & SB Side right Reps/Minutes 5' R hip AD Sitting Exercise Name SL stretch Side right Reps/Minutes 2' Comments Pt had good recall of stretch Standing Exercises Trunk Rot strengthening Standing Exercise Name Pelvis stable/Feet planted and rotating trunk Side bilateral Equipment Used Lev 2 TB Reps/Minutes 5' Comments Cued to exhale on rotation and draw ribs in. Other Exercises TA tighening with gait Other Exercise Name Gait 250' holding TA tight during gait. Reps/Minutes 2' Self-Care/Home Management Treatment Activities Self-Care/Home Management Activities Quick review of some of the ex 's as she performed for continuation at home (see in ex's). PT-OP-T Assessment and Plan Start: 06/05/23 18:39 Freq: Status: Active Protocol: Document 08/28/23 09:06 LRN (Rec: 08/28/23 09:48 LRN [id number]) Physical Therapy Assessment Goals Three Impairment Decreased balance Impairment SLS 0.5 sec left, 1 sec right. Modified Tandem: L foot behind - 10 secs, R foot behind 2 secs. Feet together: EO-10+ secs, EC-30 sec+ Short Term Goal (STG) Improved core/pelvic stability and strength for SLS to 10 sec or more biliaterally STG Duration 4 wks-09/04/23 [facility] Goal (LTG) Improve core/pelvic stability for pt to be able to walk downhill on uneven ground ( [place] or gardening on steep part of her property with greater perceived stability and no perceived LOB while gardening or on walking on steep part of property. 08/28/23: I/S pt in PF strengthening/core stab w/ walking. LTG Duration 8 wks-10/02/23 progressed Two Impairment Urinary leakage with a strong urge walking to bathroom. Short Term Goal (STG) Pt will be educated in aggrevator contractions and best practice for core pressure management to avoid urinary leakage with a strong cough. 07/06/23: Pt educated in core pressure management with cough, sneeze, bowel movements to relax abs and tighten PF before the aggrevators. STG Duration 4 wks-07/13/23 (07/07/23: MET GOAL, but not automatic) [facility] Goal (LTG) Improve PF strength and with use of urge deference technique will be able to walk to the bathroom without urinary leakage. 06/29/23: Practiced management of urinary urge. 07/13/23: Thinks she can make it to bathroom with strong urge. 08/07/23: No leakage for the past 2 wks. LTG Duration 8 wks-08/14/23 (08/07/23: MET GOAL) One Impairment Lacks appropriate self care HEP Short Term Goal (STG) Pt will be educated in Urge deference technique and Bladder retraining if needed. 06/22/23: Pt educated in Urinary Urge Deference technique. 07/13/23: Strong urge 1-2x in past week and was able to get to bathroom w/o leakage. STG Duration 2wks-08/21/23 progressed 11/27 (bladder retrain if needed) [facility] Goal (LTG) Pt will be educated in HEP of PF strengthening, hip/core strengthening, hip/core ROM ex 's. 06/29/23: HEP issued: R hip - AD stretch; L hip - Fig 4, Lat Hip and Piriformis stretch . 07/06/23: HEP issued: LE roll in/out w/Kegel/breathwork : PF relax-inhale, PF tighten- exhale 07/13/23: HEP: Hamstring/LE neural stretch. 07/24/23: HEP: Supine Hamstring/LE neural stretch 08/07/23: HEP: Sitting (not able to balance for standing ex) trunk rot & SB stretch. 08/14/23: HEP: T-Band/Kegel HEP: DF/EV/IV/PF 08/28/23: I/S pt in PF strengthening/core stab w/ walking. LTG Duration 8 wks-10/02/23 progressed Assessment Summary Assessment 78 yo female with urge urinary incontinence with cystocele and palpable rectocele, PF strength was 3/5; decreased PF stability resulting from her scoliosis and weakness of hip/ core muscles. Today pt shows good recall of LE roll in/out ex's, PF strengthening, hip stretches/ankle strengthening, and trunk rot/SB stretches. Hip AB mobility is 25 deg's bilaterally. Physical Therapy Plan Frequency and Duration Frequency of Treatment 1x/Week Duration of treatment (weeks) 8 Plan of Care Start Date 08/07/23 Plan of Care End Date 10/02/23 Next Visit Focus/Plan Next Note Type Treatment Note Next Visit Plan Next: Review & progress core strengthening. Review standing trunk rot & PF/TA walking. Cont review of coordination of LE roll in/out for PF strengthening now w/o relaxation stretch with each breath over 10 sec hold. Check for improvement (ROM) of R trunk rot/SB ROM. Strengthening hip ER R>L, Ext L>R, R AB, franck AD. POC: Core/pelvic strengthening, (urge Incontinence) Rehab for cystocele & possible rectocele , Scoliosis, core/hip strengthening and ROM ex's.
--- NOTE | 2023-09-11 17:55 | PT.OTN ---
Current Diagnoses Urgency of urination (09/11/23) Physical Therapy Treatment Note PT-OP-A Visit Information Start: 06/05/23 18:39 Freq: Status: Active Protocol: Document 09/11/23 09:49 LRN (Rec: 09/11/23 10:36 LRN [id number]) Out-Patient Physical Therapy Visit Information Visit Information Visit Type Treatment Note Visit Start Time 09:49 Visit Stop Time 10:36 Visit Number Evaluation Information Evaluation Date 06/15/23 Precautions Precautions Kidney CA ~1987 (R kidney and gall bladder removed), Scoliosis and arthritis with back pain. Neuropathy of feet and lower leg, L ankle surgery due to fracture above the ankle jt. PT-OP-B Current Condition Start: 06/05/23 18:39 Freq: Status: Active Protocol: Document 06/15/23 09:05 LRN (Rec: 06/15/23 09:50 LRN [id number]) Current Condition History of Current Condition Onset Date 2 yrs ago. Current Complaints Urinary Urgency. History of Current Condition Has mentioned urinary urgency for a couple of years that is sporadic in nature. Not as bad right now. Sometimes urinary leakage is daily or every other day, or when better every 2 days. She notices when she has more joint pain in the L ankle and back she has more leakage. She denies having triggers. She states her kidney function is good. Developmental History Developmental History G3, P2. No complication, but had tearing with first child only. Treatment Goals Patient/Caregiver Goals Pt goals: Make it to bathroom w/o leaking. HEP. Personal Factors Other Personal Factors That May Effect Scoliosis and arthritis with Therapy/Recovery back pain. L ankle surgery due to fracture above the ankle jt. PT-OP-C Subjective Start: 06/05/23 18:39 Freq: Status: Active Protocol: Document 09/11/23 09:49 LRN (Rec: 09/11/23 10:36 LRN [id number]) OP-PT Subjective Patient Comments Patient Comments States ankle ex's she is trying to find a balance to not create pain after ex's. PT-OP-D Balance Start: 08/07/23 16:34 Freq: Status: Active Protocol: Document 08/07/23 09:05 LRN (Rec: 08/07/23 16:37 LRN [id number]) Balance Tests Single Limb Standing Single Limb- Right 1 sec Single Limb- Left 0.5 sec Semi-Tandem Standing Semi-Tandem Standing Balance L foot behind-10 secs, R foot behind 2 secs. Other Other Balance Tests Performed Feet together: EC 30+ secs, EO 10+ secs PT-OP-I Pelvic Floor Start: 06/05/23 18:39 Freq: Status: Active Protocol: Document 06/15/23 09:05 LRN (Rec: 06/15/23 09:50 LRN [id number]) Pelvic Floor Assessment Urine Urinary Symptoms Urge Sensation Leakage Size Small Leakage Cause Cough,Urge Other Leakage Causes Occasional leakage with a bad cough and strong urge on the way to the bathroom. Leaks Per Day 1-3 Voiding Frequency 8x/day, 2x/night Nocturia 0 Pads Used In 24 Hours 1-2 Urine Pad Type Panty Liner Bowel Other Bowel Symptoms Pt denies bowel symptoms, reporting normal BMs. Bowel Movement Frequency 2 Prolapse Cystocele Grade 2 Urethrocele Grade 2 Perineal Descent Resting Absent Bearing Absent Contraction Ability Voluntary Contraction Moderate Voluntary Relaxation Moderate Manual Muscle Testing Left 3 Manual Muscle Testing Right 3 Manual Muscle Testing Anterior 3 Manual Muscle Testing Posterior 3 Muscle Endurance (Seconds) 4 Number of Quick Contractions In 10 10 Seconds Comments Pelvic Floor Comments Stool felt in rectum. PT-OP-J Posture/Palpation/Skin Start: 06/05/23 18:40 Freq: Status: Active Protocol: Document 06/15/23 09:05 LRN (Rec: 06/15/23 09:50 LRN [id number]) Posture Evaluation Position Standing Head/C-Spine Posture Forward Head Pelvis Posture (L) Iliac Crest Superior Hip Posture (R) Externally Rotated Knee Posture (R) Excess Flexion Comments Posture Comments L shouler low, L Iliac Crest elevated, C-curve of spine with apex on Right. PT-OP-K Range of Motion Start: 06/05/23 18:39 Freq: Status: Active Protocol: Document 09/11/23 09:49 LRN (Rec: 09/11/23 10:36 LRN [id number]) Lumbar Spine Range of Motion Lumbar Spine Active Degrees Rotation Left 50 Rotation Right 40 Lateral Flexion Left 15 Lateral Flexion Right 10 Comments Rot in sitting SB in standing Hip Goniometric Range of Motion Hip Right Passive Testing Position Supine Abduction 30 Internal Rotation 45 External Rotation 80 Left Passive Testing Position Supine Abduction 25 Internal Rotation 35 External Rotation 60 PT-OP-M Strength Start: 06/05/23 18:39 Freq: Status: Active Protocol: Document 06/15/23 09:05 LRN (Rec: 06/15/23 09:50 LRN [id number]) Trunk Strength Trunk Manual Muscle Testing Core Stabilization Pt lacks core stability. Hip Strength Hip Manual Muscle Testing Right Flexion (L2) 4 Good Extension (S1) 4 Good Abduction 3+ Fair+ Adduction 1 Trace External Rotation 3+ Fair+ Comments Strength is 5/5 except as indicated above. Left Extension (S1) 3 Fair Adduction 1 Trace External Rotation 4 Good Comments Strength is 5/5 except as indicated above. PT-OP-Q Treatments Start: 06/05/23 18:39 Freq: Status: Active Protocol: Document 09/11/23 09:49 LRN (Rec: 09/11/23 10:36 LRN [id number]) Therapeutic Exercises Supine Exercises Wedge/LE roll in/out w/Kegel/PF relax Supine Exercise Name Reviewed & DC'd as HEP, except for breathing pattern with Kegels. Reps/Minutes 2' R hip AD Supine Exercise Name Review of hip stretch and for stretch to L side Side bilateral Reps/Minutes 4' Comments ROM taken L hip IR stretch Supine Exercise Name L>R Side bilateral Reps/Minutes 3' Comments ROM taken L Hip ER stretch Supine Exercise Name L>R Side bilateral Reps/Minutes 3' Comments ROM taken Sitting Exercises L ankle ABC's Sitting Exercise Name Reviewed Side left Reps/Minutes 3' Trunk Stretches Sitting Exercise Name R rot & SB Side right Reps/Minutes 6' Comments Review of ex and pt's HEP. 4-way ankle ex's w/Kegel Sitting Exercise Name Extensive review of Ankle DF/ EV/PF (Put hold on arlene IV) Side left Equipment Used Lev 2 TB Reps/Minutes Arlene ankle EV, Active resisted ankle DF/PF x 26' Comments Extra time taken for extensive mod to ankle ex's after review of HEP Standing Exercises Trunk SB stretch Side bilateral Reps/Minutes 2x R, 1x L PT-OP-T Assessment and Plan Start: 06/05/23 18:39 Freq: Status: Active Protocol: Document 09/11/23 09:49 LRN (Rec: 09/11/23 10:36 LRN [id number]) Physical Therapy Assessment Goals Three Impairment Decreased balance Impairment SLS 0.5 sec left, 1 sec right. Modified Tandem: L foot behind - 10 secs, R foot behind 2 secs. Feet together: EO-10+ secs, EC-30 sec+ Short Term Goal (STG) Improved core/pelvic stability and strength for SLS to 10 sec or more biliaterally STG Duration 4 wks-09/04/23 Alf Goal (LTG) Improve core/pelvic stability for pt to be able to walk downhill on uneven ground ( [place] or gardening on steep part of her property with greater perceived stability and no perceived LOB while gardening or on walking on steep part of property. 08/28/23: I/S pt in PF strengthening/core stab w/ walking. LTG Duration 8 wks-10/02/23 progressed One Impairment Lacks appropriate self care HEP Short Term Goal (STG) Pt will be educated in Urge deference technique and Bladder retraining if needed. 06/22/23: Pt educated in Urinary Urge Deference technique. 07/13/23: Strong urge 1-2x in past week and was able to get to bathroom w/o leakage. STG Duration 2wks-08/21/23 progressed 11/27 (bladder retrain if needed) Alf Goal (LTG) Pt will be educated in HEP of PF strengthening, hip/core strengthening, hip/core ROM ex 's. 06/29/23: HEP issued: R hip - AD stretch; L hip - Fig 4, Lat Hip and Piriformis stretch . 07/06/23: HEP issued: LE roll in/out w/Kegel/breathwork : PF relax-inhale, PF tighten- exhale 07/13/23: HEP: Hamstring/LE neural stretch. 07/24/23: HEP: Supine Hamstring/LE neural stretch 08/07/23: HEP: Sitting (not able to balance for standing ex) trunk rot & SB stretch. 08/14/23: HEP: T-Band/Kegel HEP: DF/EV/IV/PF 08/28/23: I/S pt in PF strengthening/core stab w/ walking. LTG Duration 8 wks-10/02/23 progressed Assessment Summary Assessment 78 yo female with urge urinary incontinence with cystocele and palpable rectocele, PF strength was 3/5; decreased PF stability resulting from her scoliosis and weakness of hip/ core muscles. Today pt is wanting review of her HEP and especially with her ankle ex's to determine how to prevent pain with the exercise. Trunk SB and rot is still limited to the R, probably due to scoliosis and hip mobility is limited on the left. The pt has no problems with coordinating her LE roll in/ outs with breath and PF/TA walking, but is keeping the ex as HEP as reminder for coordinated breathing pattern. Physical Therapy Plan Frequency and Duration Frequency of Treatment 1x/Week Duration of treatment (weeks) 8 Plan of Care Start Date 08/07/23 Plan of Care End Date 10/02/23 Next Visit Focus/Plan Next Note Type Progress Note Next Visit Plan Next: Reassess for PN. Review & progress core strengthening. Ankle EV strengthening and add IV if pt has good recall. Strengthening hip ER R>L, Ext L>R, R AB, franck AD. Monitor for improvement (ROM) of R trunk rot/SB ROM. POC: Core/pelvic strengthening, (urge Incontinence) Rehab for cystocele & possible rectocele , Scoliosis, core/hip strengthening and ROM ex's.
--- NOTE | 2023-09-17 16:37 | PT.OTN ---
Current Diagnoses Urgency of urination (09/17/23) Physical Therapy Treatment Note PT-OP-A Visit Information Start: 06/05/23 18:39 Freq: Status: Active Protocol: Document 09/17/23 09:58 LRN (Rec: 09/17/23 10:45 LRN [id number]) Out-Patient Physical Therapy Visit Information Visit Information Visit Type Progress Note Visit Start Time 09:58 Visit Stop Time 10:31 Visit Number Evaluation Information Evaluation Date 06/15/23 Precautions Precautions Kidney CA ~1987 (R kidney and gall bladder removed), Scoliosis and arthritis with back pain. Neuropathy of feet and lower leg, L ankle surgery due to fracture above the ankle jt. PT-OP-B Current Condition Start: 06/05/23 18:39 Freq: Status: Active Protocol: Document 06/15/23 09:05 LRN (Rec: 06/15/23 09:50 LRN [id number]) Current Condition History of Current Condition Onset Date 2 yrs ago. Current Complaints Urinary Urgency. History of Current Condition Has mentioned urinary urgency for a couple of years that is sporadic in nature. Not as bad right now. Sometimes urinary leakage is daily or every other day, or when better every 2 days. She notices when she has more joint pain in the L ankle and back she has more leakage. She denies having triggers. She states her kidney function is good. Developmental History Developmental History G3, P2. No complication, but had tearing with first child only. Treatment Goals Patient/Caregiver Goals Pt goals: Make it to bathroom w/o leaking. HEP. Personal Factors Other Personal Factors That May Effect Scoliosis and arthritis with Therapy/Recovery back pain. L ankle surgery due to fracture above the ankle jt. PT-OP-C Subjective Start: 06/05/23 18:39 Freq: Status: Active Protocol: Document 09/17/23 09:58 LRN (Rec: 09/17/23 10:45 LRN [id number]) OP-PT Subjective Patient Comments Patient Comments Pt states she knew the right appt time, but had a wrong time in her head to attend. States she leaked once this past week because waited too long to void. PT-OP-D Balance Start: 08/07/23 16:34 Freq: Status: Active Protocol: Document 08/07/23 09:05 LRN (Rec: 08/07/23 16:37 LRN [id number]) Balance Tests Single Limb Standing Single Limb- Right 1 sec Single Limb- Left 0.5 sec Semi-Tandem Standing Semi-Tandem Standing Balance L foot behind-10 secs, R foot behind 2 secs. Other Other Balance Tests Performed Feet together: EC 30+ secs, EO 10+ secs PT-OP-I Pelvic Floor Start: 06/05/23 18:39 Freq: Status: Active Protocol: Document 06/15/23 09:05 LRN (Rec: 06/15/23 09:50 LRN [id number]) Pelvic Floor Assessment Urine Urinary Symptoms Urge Sensation Leakage Size Small Leakage Cause Cough,Urge Other Leakage Causes Occasional leakage with a bad cough and strong urge on the way to the bathroom. Leaks Per Day 1-3 Voiding Frequency 8x/day, 2x/night Nocturia 0 Pads Used In 24 Hours 1-2 Urine Pad Type Panty Liner Bowel Other Bowel Symptoms Pt denies bowel symptoms, reporting normal BMs. Bowel Movement Frequency 2 Prolapse Cystocele Grade 2 Urethrocele Grade 2 Perineal Descent Resting Absent Bearing Absent Contraction Ability Voluntary Contraction Moderate Voluntary Relaxation Moderate Manual Muscle Testing Left 3 Manual Muscle Testing Right 3 Manual Muscle Testing Anterior 3 Manual Muscle Testing Posterior 3 Muscle Endurance (Seconds) 4 Number of Quick Contractions In 10 10 Seconds Comments Pelvic Floor Comments Stool felt in rectum. PT-OP-J Posture/Palpation/Skin Start: 06/05/23 18:40 Freq: Status: Active Protocol: Document 06/15/23 09:05 LRN (Rec: 06/15/23 09:50 LRN [id number]) Posture Evaluation Position Standing Head/C-Spine Posture Forward Head Pelvis Posture (L) Iliac Crest Superior Hip Posture (R) Externally Rotated Knee Posture (R) Excess Flexion Comments Posture Comments L shouler low, L Iliac Crest elevated, C-curve of spine with apex on Right. PT-OP-K Range of Motion Start: 06/05/23 18:39 Freq: Status: Active Protocol: Document 09/11/23 09:49 LRN (Rec: 09/11/23 10:36 LRN [id number]) Lumbar Spine Range of Motion Lumbar Spine Active Degrees Rotation Left 50 Rotation Right 40 Lateral Flexion Left 15 Lateral Flexion Right 10 Comments Rot in sitting SB in standing Hip Goniometric Range of Motion Hip Right Passive Testing Position Supine Abduction 30 Internal Rotation 45 External Rotation 80 Left Passive Testing Position Supine Abduction 25 Internal Rotation 35 External Rotation 60 PT-OP-M Strength Start: 06/05/23 18:39 Freq: Status: Active Protocol: Document 06/15/23 09:05 LRN (Rec: 06/15/23 09:50 LRN [id number]) Trunk Strength Trunk Manual Muscle Testing Core Stabilization Pt lacks core stability. Hip Strength Hip Manual Muscle Testing Right Flexion (L2) 4 Good Extension (S1) 4 Good Abduction 3+ Fair+ Adduction 1 Trace External Rotation 3+ Fair+ Comments Strength is 5/5 except as indicated above. Left Extension (S1) 3 Fair Adduction 1 Trace External Rotation 4 Good Comments Strength is 5/5 except as indicated above. PT-OP-Q Treatments Start: 06/05/23 18:39 Freq: Status: Active Protocol: Document 09/17/23 09:58 LRN (Rec: 09/17/23 10:45 LRN [id number]) Therapeutic Exercises Standing Exercises Trunk Rot strengthening Standing Exercise Name Pelvis stable/Feet planted and rotating trunk Side bilateral Equipment Used Lev 2 TB Reps/Minutes 10' Comments Extra time for trng, cued to exhale on rotation and draw ribs in. Neuro Re-Education Treatment Balance Activities Tandem stance Details Toe/heel on line & in corner for home practice positioning Equipment Gait belt Reps/Duration 12' SLS Details SLS: CGA to start Equipment Lev 2 TB, gait belt Reps/Duration 6' Comments Cued to tighten TA and breathe Self-Care/Home Management Treatment Activities Self-Care/Home Management Activities Issued & reviewed HEP: SLR for quad strengthening. I/S pt in HEP: Corner Tandem stance ex. PT-OP-T Assessment and Plan Start: 06/05/23 18:39 Freq: Status: Active Protocol: Document 09/17/23 09:58 LRN (Rec: 09/17/23 10:45 LRN [id number]) Physical Therapy Assessment Rehab Potential Rehabilitation Potential Excellent Evaluation Complexity Number of Personal Factors/Comorbidities 1-2 Number of Body Systems Impaired 4 or More Clinical Presentation at Evaluation Evolving Impairments Impairments Activity Tolerance,Posture,ROM ,Strength Goals Three Impairment Decreased balance Impairment SLS 0.5 sec left, 1 sec right. Modified Tandem: L foot behind - 10 secs, R foot behind 2 secs. Feet together: EO-10+ secs, EC-30 sec+ Short Term Goal (STG) Improved core/pelvic stability and strength for SLS to 10 sec or more biliaterally 09/17/23: SLS: 1-2 sec L, 1 sec R. Tandem stance (pt assist w/start position): L behind 6 secs, R behind (4 sec , 60 sec x 2-heel not to toe) STG Duration 2wks-10/01/23 Snf Goal (LTG) Improve core/pelvic stability for pt to be able to walk downhill on uneven ground ( [place]) or gardening on steep part of her property with greater perceived stability and no perceived LOB while gardening or on walking on steep part of property. 08/28/23: I/S pt in PF strengthening/core stab w/ walking. LTG Duration 4 wks-10/15/23 progressed Two Impairment Urinary leakage with a strong urge walking to bathroom. Short Term Goal (STG) Pt will be educated in aggrevator contractions and best practice for core pressure management to avoid urinary leakage with a strong cough. 07/06/23: Pt educated in core pressure management with cough, sneeze, bowel movements to relax abs and tighten PF before the aggrevators. STG Duration 4 wks-07/13/23 (07/07/23: MET GOAL, but not automatic) Snf Goal (LTG) Improve PF strength and with use of urge deference technique will be able to walk to the bathroom without urinary leakage. 06/29/23: Practiced management of urinary urge. 07/13/23: Thinks she can make it to bathroom with strong urge. 08/07/23: No leakage for the past 2 wks. LTG Duration 8 wks-08/14/23 (08/07/23: MET GOAL) One Impairment Lacks appropriate self care HEP Short Term Goal (STG) Pt will be educated in Urge deference technique and Bladder retraining if needed. 06/22/23: Pt educated in Urinary Urge Deference technique. 07/13/23: Strong urge 1-2x in past week and was able to get to bathroom w/o leakage. STG Duration 2wks-10/01/23 progressed 11/27 (bladder retrain if needed) Snf Goal (LTG) Pt will be educated in HEP of PF strengthening, hip/core strengthening, hip/core ROM ex 's. 06/29/23: HEP issued: R hip - AD stretch; L hip - Fig 4, Lat Hip and Piriformis stretch . 07/06/23: HEP issued: LE roll in/out w/Kegel/breathwork : PF relax-inhale, PF tighten- exhale 07/13/23: HEP: Hamstring/LE neural stretch. 07/24/23: HEP: Supine Hamstring/LE neural stretch 08/07/23: HEP: Sitting (not able to balance for standing ex) trunk rot & SB stretch. 08/14/23: HEP: T-Band/Kegel HEP: DF/EV/IV/PF 08/28/23: I/S pt in PF strengthening/core stab w/ walking. LTG Duration 4 wks-10/15/23 progressed Assessment Summary Assessment Pt is a 78 yo female being seen initially for urge urinary incontinence with cystocele and palpable rectocele, PF strength was 5/5 (3/5 around the PF clock); decreased PF stability resulting from her scoliosis and weakness of hip/core muscles. She is reporting occasional small urinary leakage when she ignores the urge to urinate, but doesn't feel she has a voiding problem or leakage problem. I am however, concerned that because of asymmetry of her hip mobility, LBP, and weakness of her core, these factors may lead to return of urinary leakage. She has only been able to attend 50% of her planned rehab since the last progress note; therefore I recommend continuation of skilled physical therapy to complete the program of improving dynamic core/PF stability, ankle strength & dynamic core/pevlic stabilization with walking/ standing activities. Physical Therapy Plan Frequency and Duration Frequency of Treatment 1x/Week Duration of treatment (weeks) 4 Plan of Care Start Date 09/17/23 Plan of Care End Date 10/15/23 Therapeutic Interventions Therapeutic Interventions Home Exercise Program,Manual Therapy,Neuromuscular Re- education,Self-Care/Home Management,Soft Tissue Mobilization,Therapeutic Activities,Therapeutic Exercises Next Visit Focus/Plan Next Note Type Treatment Note Next Visit Plan Next: PUF, LEFS. Progress core/PF dynamic strengthening. Ankle EV strengthening and add IV if pt has good recall. Strengthening hip ER R>L, Ext L>R, R AB, franck AD. Monitor for improvement (ROM) of R trunk rot/SB ROM. POC: Core/pelvic strengthening, Scoliosis, core/hip strengthening and ROM ex's.
--- NOTE | 2023-09-28 15:38 | PT.OTN ---
Current Diagnoses Urgency of urination (09/28/23) Physical Therapy Treatment Note PT-OP-A Visit Information Start: 06/05/23 18:39 Freq: Status: Active Protocol: Document 09/28/23 10:02 LRN (Rec: 09/28/23 10:45 LRN [id number]) Out-Patient Physical Therapy Visit Information Visit Information Visit Type Treatment Note Visit Start Time 10:02 Visit Stop Time 10:42 Visit Number Evaluation Information Evaluation Date 06/15/23 Precautions Precautions Kidney CA ~1987 (R kidney and gall bladder removed), Scoliosis and arthritis with back pain. Neuropathy of feet and lower leg, L ankle surgery due to fracture above the ankle jt. PT-OP-B Current Condition Start: 06/05/23 18:39 Freq: Status: Active Protocol: Document 06/15/23 09:05 LRN (Rec: 06/15/23 09:50 LRN [id number]) Current Condition History of Current Condition Onset Date 2 yrs ago. Current Complaints Urinary Urgency. History of Current Condition Has mentioned urinary urgency for a couple of years that is sporadic in nature. Not as bad right now. Sometimes urinary leakage is daily or every other day, or when better every 2 days. She notices when she has more joint pain in the L ankle and back she has more leakage. She denies having triggers. She states her kidney function is good. Developmental History Developmental History G3, P2. No complication, but had tearing with first child only. Treatment Goals Patient/Caregiver Goals Pt goals: Make it to bathroom w/o leaking. HEP. Personal Factors Other Personal Factors That May Effect Scoliosis and arthritis with Therapy/Recovery back pain. L ankle surgery due to fracture above the ankle jt. PT-OP-C Subjective Start: 06/05/23 18:39 Freq: Status: Active Protocol: Document 09/28/23 10:02 LRN (Rec: 09/28/23 10:45 LRN [id number]) OP-PT Subjective Patient Comments Patient Comments Able to increase the number of ankle ex's. One small leak of urine. Patient Questionnaires Lower Extremity Functional Scale LEFS Score 55 LEFS Impairment 20 to 39% Impaired (Score 48- 62) Pelvic Pain and Urgency/Frequency Patient Symptom Scale Pelvic Pain Score 5 OP-PT Pain Assessment Pain Assessment Grid Paper Pain Assessment Grid Completed Yes Location L ankle Pain Location Details L medial/lateral ankle. Scale Used Numeric (0 - 10) Description- Other Pain ranges 0-3/10 Frequency Intermittent Low back Pain Location Details L LB Scale Used Numeric (0 - 10) Description- Other Pain ranges 0-5 PT-OP-D Balance Start: 08/07/23 16:34 Freq: Status: Active Protocol: Document 08/07/23 09:05 LRN (Rec: 08/07/23 16:37 LRN [id number]) Balance Tests Single Limb Standing Single Limb- Right 1 sec Single Limb- Left 0.5 sec Semi-Tandem Standing Semi-Tandem Standing Balance L foot behind-10 secs, R foot behind 2 secs. Other Other Balance Tests Performed Feet together: EC 30+ secs, EO 10+ secs PT-OP-I Pelvic Floor Start: 06/05/23 18:39 Freq: Status: Active Protocol: Document 06/15/23 09:05 LRN (Rec: 06/15/23 09:50 LRN [id number]) Pelvic Floor Assessment Urine Urinary Symptoms Urge Sensation Leakage Size Small Leakage Cause Cough,Urge Other Leakage Causes Occasional leakage with a bad cough and strong urge on the way to the bathroom. Leaks Per Day 1-3 Voiding Frequency 8x/day, 2x/night Nocturia 0 Pads Used In 24 Hours 1-2 Urine Pad Type Panty Liner Bowel Other Bowel Symptoms Pt denies bowel symptoms, reporting normal BMs. Bowel Movement Frequency 2 Prolapse Cystocele Grade 2 Urethrocele Grade 2 Perineal Descent Resting Absent Bearing Absent Contraction Ability Voluntary Contraction Moderate Voluntary Relaxation Moderate Manual Muscle Testing Left 3 Manual Muscle Testing Right 3 Manual Muscle Testing Anterior 3 Manual Muscle Testing Posterior 3 Muscle Endurance (Seconds) 4 Number of Quick Contractions In 10 10 Seconds Comments Pelvic Floor Comments Stool felt in rectum. PT-OP-J Posture/Palpation/Skin Start: 06/05/23 18:40 Freq: Status: Active Protocol: Document 06/15/23 09:05 LRN (Rec: 06/15/23 09:50 LRN [id number]) Posture Evaluation Position Standing Head/C-Spine Posture Forward Head Pelvis Posture (L) Iliac Crest Superior Hip Posture (R) Externally Rotated Knee Posture (R) Excess Flexion Comments Posture Comments L shouler low, L Iliac Crest elevated, C-curve of spine with apex on Right. PT-OP-K Range of Motion Start: 06/05/23 18:39 Freq: Status: Active Protocol: Document 09/11/23 09:49 LRN (Rec: 09/11/23 10:36 LRN [id number]) Lumbar Spine Range of Motion Lumbar Spine Active Degrees Rotation Left 50 Rotation Right 40 Lateral Flexion Left 15 Lateral Flexion Right 10 Comments Rot in sitting SB in standing Hip Goniometric Range of Motion Hip Right Passive Testing Position Supine Abduction 30 Internal Rotation 45 External Rotation 80 Left Passive Testing Position Supine Abduction 25 Internal Rotation 35 External Rotation 60 PT-OP-M Strength Start: 06/05/23 18:39 Freq: Status: Active Protocol: Document 06/15/23 09:05 LRN (Rec: 06/15/23 09:50 LRN [id number]) Trunk Strength Trunk Manual Muscle Testing Core Stabilization Pt lacks core stability. Hip Strength Hip Manual Muscle Testing Right Flexion (L2) 4 Good Extension (S1) 4 Good Abduction 3+ Fair+ Adduction 1 Trace External Rotation 3+ Fair+ Comments Strength is 5/5 except as indicated above. Left Extension (S1) 3 Fair Adduction 1 Trace External Rotation 4 Good Comments Strength is 5/5 except as indicated above. PT-OP-Q Treatments Start: 06/05/23 18:39 Freq: Status: Active Protocol: Document 09/28/23 10:02 LRN (Rec: 09/28/23 10:45 LRN [id number]) Therapeutic Exercises Standing Exercises Lateral Trunk strengthening Standing Exercise Name Lateral step outs Side bilateral Equipment Used Lev 2 TB Reps/Minutes 5x each Neuro Re-Education Treatment Balance Activities EO/Rocker board Details Rocker board for PF/DF only Equipment Rocker board, // bars, hands hovering Reps/Duration 6' EO/feet together Surface Black Foam Equipment 11 bars Reps/Duration 8' including sit rest Tandem stance Details Toe/heel on line & in corner for home practice positioning Surface black foam Equipment // bars Reps/Duration 12' SLS Surface Black Foam Equipment // bars Reps/Duration 8' including sit rest Comments L SLS limited due to ankle sharp pain; RSLS limited by back pain. Self-Care/Home Management Treatment Education Other Education Educated pt to stop fluids 1-2 hrs before bed time and to do LE ex of ankle pumps, heel slides, then urinate before bedtime. PT-OP-T Assessment and Plan Start: 06/05/23 18:39 Freq: Status: Active Protocol: Document 09/28/23 10:02 LRN (Rec: 09/28/23 10:45 LRN [id number]) Physical Therapy Assessment Goals Three Impairment Decreased balance Impairment SLS 0.5 sec left, 1 sec right. Modified Tandem: L foot behind - 10 secs, R foot behind 2 secs. Feet together: EO-10+ secs, EC-30 sec+ Short Term Goal (STG) Improved core/pelvic stability and strength for SLS to 10 sec or more biliaterally 09/17/23: SLS: 1-2 sec L, 1 sec R. Tandem stance (pt assist w/start position): L behind 6 secs, R behind (4 sec , 60 sec x 2-heel not to toe) STG Duration 2wks-10/01/23 Atm Servicer Goal (LTG) Improve core/pelvic stability for pt to be able to walk downhill on uneven ground ( [place]) or gardening on steep part of her property with greater perceived stability and no perceived LOB while gardening or on walking on steep part of property. 08/28/23: I/S pt in PF strengthening/core stab w/ walking. LTG Duration 4 wks-10/15/23 progressed One Impairment Lacks appropriate self care HEP Short Term Goal (STG) Pt will be educated in Urge deference technique and Bladder retraining if needed. 06/22/23: Pt educated in Urinary Urge Deference technique. 07/13/23: Strong urge 1-2x in past week and was able to get to bathroom w/o leakage. STG Duration 2wks-10/01/23 progressed 11/27 (bladder retrain if needed) Atm Servicer Goal (LTG) Pt will be educated in HEP of PF strengthening, hip/core strengthening, hip/core ROM ex 's. 06/29/23: HEP issued: R hip - AD stretch; L hip - Fig 4, Lat Hip and Piriformis stretch . 07/06/23: HEP issued: LE roll in/out w/Kegel/breathwork : PF relax-inhale, PF tighten- exhale 07/13/23: HEP: Hamstring/LE neural stretch. 07/24/23: HEP: Supine Hamstring/LE neural stretch 08/07/23: HEP: Sitting (not able to balance for standing ex) trunk rot & SB stretch. 08/14/23: HEP: T-Band/Kegel HEP: DF/EV/IV/PF 08/28/23: I/S pt in PF strengthening/core stab w/ walking. LTG Duration 4 wks-10/15/23 progressed Assessment Summary Assessment Pt is a 78 yo female being seen initially for urge urinary incontinence with cystocele and palpable rectocele, PF strength was 5/5 (3/5 around the PF clock); decreased PF stability resulting from her scoliosis and weakness of hip/core muscles. Today pt's PUF score appears worse (one point), but notes it is because she is drinking more fluids now that it is summer and urinates more at night. She was able to do SLS balance ex on foam with tolerable L ankle discomfort. Pt might be ready for ankle IV strengthening along with EV if needed. Physical Therapy Plan Frequency and Duration Frequency of Treatment 1x/Week Duration of treatment (weeks) 4 Plan of Care Start Date 09/17/23 Plan of Care End Date 10/15/23 Next Visit Focus/Plan Next Note Type Treatment Note Next Visit Plan Next: Monitor for improvement (ROM) of R trunk rot/SB ROM. Assess ankle strength for IV strengthening. Corner balance ex for HEP. Ankle EV strengthening, add IV if pt has good recall. Progress core/PF dynamic strengthening. Strengthening hip ER R>L, Ext L>R, R AB, franck AD. POC: Core/pelvic strengthening, Scoliosis, core/hip strengthening and ROM ex's.
--- NOTE | 2023-10-05 13:26 | PT.OTN ---
Current Diagnoses Urgency of urination (10/05/23) Physical Therapy Treatment Note PT-OP-A Visit Information Start: 06/05/23 18:39 Freq: Status: Active Protocol: Document 10/05/23 09:06 LRN (Rec: 10/05/23 09:50 LRN [id number]) Out-Patient Physical Therapy Visit Information Visit Information Visit Type Treatment Note Visit Note 2 after PN Visit Start Time 09:06 Visit Stop Time 09:44 Visit Number Evaluation Information Evaluation Date 06/15/23 Precautions Precautions Kidney CA ~1987 (R kidney and gall bladder removed), Scoliosis and arthritis with back pain. Neuropathy of feet and lower leg, L ankle surgery due to fracture above the ankle jt. PT-OP-B Current Condition Start: 06/05/23 18:39 Freq: Status: Active Protocol: Document 06/15/23 09:05 LRN (Rec: 06/15/23 09:50 LRN [id number]) Current Condition History of Current Condition Onset Date 2 yrs ago. Current Complaints Urinary Urgency. History of Current Condition Has mentioned urinary urgency for a couple of years that is sporadic in nature. Not as bad right now. Sometimes urinary leakage is daily or every other day, or when better every 2 days. She notices when she has more joint pain in the L ankle and back she has more leakage. She denies having triggers. She states her kidney function is good. Developmental History Developmental History G3, P2. No complication, but had tearing with first child only. Treatment Goals Patient/Caregiver Goals Pt goals: Make it to bathroom w/o leaking. HEP. Personal Factors Other Personal Factors That May Effect Scoliosis and arthritis with Therapy/Recovery back pain. L ankle surgery due to fracture above the ankle jt. PT-OP-C Subjective Start: 06/05/23 18:39 Freq: Status: Active Protocol: Document 10/05/23 09:06 LRN (Rec: 10/05/23 09:50 LRN [id number]) OP-PT Subjective Patient Comments Patient Comments When doing leg ex's gets a clunk in the R hip. States pain in L ankle varies in location and doesn't hurt until later in the day after exercise. PT-OP-D Balance Start: 08/07/23 16:34 Freq: Status: Active Protocol: Document 08/07/23 09:05 LRN (Rec: 08/07/23 16:37 LRN [id number]) Balance Tests Single Limb Standing Single Limb- Right 1 sec Single Limb- Left 0.5 sec Semi-Tandem Standing Semi-Tandem Standing Balance L foot behind-10 secs, R foot behind 2 secs. Other Other Balance Tests Performed Feet together: EC 30+ secs, EO 10+ secs PT-OP-I Pelvic Floor Start: 06/05/23 18:39 Freq: Status: Active Protocol: Document 06/15/23 09:05 LRN (Rec: 06/15/23 09:50 LRN [id number]) Pelvic Floor Assessment Urine Urinary Symptoms Urge Sensation Leakage Size Small Leakage Cause Cough,Urge Other Leakage Causes Occasional leakage with a bad cough and strong urge on the way to the bathroom. Leaks Per Day 1-3 Voiding Frequency 8x/day, 2x/night Nocturia 0 Pads Used In 24 Hours 1-2 Urine Pad Type Panty Liner Bowel Other Bowel Symptoms Pt denies bowel symptoms, reporting normal BMs. Bowel Movement Frequency 2 Prolapse Cystocele Grade 2 Urethrocele Grade 2 Perineal Descent Resting Absent Bearing Absent Contraction Ability Voluntary Contraction Moderate Voluntary Relaxation Moderate Manual Muscle Testing Left 3 Manual Muscle Testing Right 3 Manual Muscle Testing Anterior 3 Manual Muscle Testing Posterior 3 Muscle Endurance (Seconds) 4 Number of Quick Contractions In 10 10 Seconds Comments Pelvic Floor Comments Stool felt in rectum. PT-OP-J Posture/Palpation/Skin Start: 06/05/23 18:40 Freq: Status: Active Protocol: Document 06/15/23 09:05 LRN (Rec: 06/15/23 09:50 LRN [id number]) Posture Evaluation Position Standing Head/C-Spine Posture Forward Head Pelvis Posture (L) Iliac Crest Superior Hip Posture (R) Externally Rotated Knee Posture (R) Excess Flexion Comments Posture Comments L shouler low, L Iliac Crest elevated, C-curve of spine with apex on Right. PT-OP-K Range of Motion Start: 06/05/23 18:39 Freq: Status: Active Protocol: Document 09/11/23 09:49 LRN (Rec: 09/11/23 10:36 LRN [id number]) Lumbar Spine Range of Motion Lumbar Spine Active Degrees Rotation Left 50 Rotation Right 40 Lateral Flexion Left 15 Lateral Flexion Right 10 Comments Rot in sitting SB in standing Hip Goniometric Range of Motion Hip Right Passive Testing Position Supine Abduction 30 Internal Rotation 45 External Rotation 80 Left Passive Testing Position Supine Abduction 25 Internal Rotation 35 External Rotation 60 PT-OP-M Strength Start: 06/05/23 18:39 Freq: Status: Active Protocol: Document 06/15/23 09:05 LRN (Rec: 06/15/23 09:50 LRN [id number]) Trunk Strength Trunk Manual Muscle Testing Core Stabilization Pt lacks core stability. Hip Strength Hip Manual Muscle Testing Right Flexion (L2) 4 Good Extension (S1) 4 Good Abduction 3+ Fair+ Adduction 1 Trace External Rotation 3+ Fair+ Comments Strength is 5/5 except as indicated above. Left Extension (S1) 3 Fair Adduction 1 Trace External Rotation 4 Good Comments Strength is 5/5 except as indicated above. PT-OP-Q Treatments Start: 06/05/23 18:39 Freq: Status: Active Protocol: Document 10/05/23 09:06 LRN (Rec: 10/05/23 09:50 LRN [id number]) Therapeutic Exercises Supine Exercises SLR Supine Exercise Name TA/SLR Side bilateral Reps/Minutes 10x each Comments Cued to keep core in netural & breathwork w/ex Sitting Exercises L ankle IV Sitting Exercise Name Manual resist & with TB in different positions Side left Reps/Minutes 2-8x each Comments Discomfort in lateral and posterior ankle. 4-way ankle ex's w/Kegel Sitting Exercise Name 3-way ankle ex w/Kegel (PF, DF , EV) Side bilateral Reps/Minutes 10x each Standing Exercises TA/[place]eca sway Standing Exercise Name TA/[place] sway -TA/breathwork Side bilateral Reps/Minutes 5x each direction x 1 Lateral Trunk strengthening Standing Exercise Name 4 feet Lateral step outs/TA Side bilateral Equipment Used Lev 2 TB Reps/Minutes 8x each Trunk Rot strengthening Standing Exercise Name Pelvis stable/Feet planted and rotating trunk/Breathwork Side bilateral Equipment Used Lev 2 TB Reps/Minutes 11' Comments Extra time for trng, cued to exhale on rotation and cuing to draw ribs in. Self-Care/Home Management Treatment Activities Self-Care/Home Management Activities Issued HEP: TA/[place] sway PT-OP-T Assessment and Plan Start: 06/05/23 18:39 Freq: Status: Active Protocol: Document 10/05/23 09:06 LRN (Rec: 10/05/23 09:50 LRN [id number]) Physical Therapy Assessment Goals Three Impairment Decreased balance Impairment SLS 0.5 sec left, 1 sec right. Modified Tandem: L foot behind - 10 secs, R foot behind 2 secs. Feet together: EO-10+ secs, EC-30 sec+ Short Term Goal (STG) Improved core/pelvic stability and strength for SLS to 10 sec or more biliaterally 09/17/23: SLS: 1-2 sec L, 1 sec R. Tandem stance (pt assist w/start position): L behind 6 secs, R behind (4 sec , 60 sec x 2-heel not to toe) STG Duration 2wks-10/01/23 Pin Sorter And Bagger Goal (LTG) Improve core/pelvic stability for pt to be able to walk downhill on uneven ground ( [place]) or gardening on steep part of her property with greater perceived stability and no perceived LOB while gardening or on walking on steep part of property. 08/28/23: I/S pt in PF strengthening/core stab w/ walking. LTG Duration 4 wks-10/15/23 progressed One Impairment Lacks appropriate self care HEP Short Term Goal (STG) Pt will be educated in Urge deference technique and Bladder retraining if needed. 06/22/23: Pt educated in Urinary Urge Deference technique. 07/13/23: Strong urge 1-2x in past week and was able to get to bathroom w/o leakage. STG Duration 2wks-10/01/23 progressed 11/27 (bladder retrain if needed) Penitentiary Goal (LTG) Pt will be educated in HEP of PF strengthening, hip/core strengthening, hip/core ROM ex 's. 06/29/23: HEP issued: R hip - AD stretch; L hip - Fig 4, Lat Hip and Piriformis stretch . 07/06/23: HEP issued: LE roll in/out w/Kegel/breathwork : PF relax-inhale, PF tighten- exhale 07/13/23: HEP: Hamstring/LE neural stretch. 07/24/23: HEP: Supine Hamstring/LE neural stretch 08/07/23: HEP: Sitting (not able to balance for standing ex) trunk rot & SB stretch. 08/14/23: HEP: T-Band/Kegel HEP: DF/EV/IV/PF 08/28/23: I/S pt in PF strengthening/core stab w/ walking. 10/05/23: HEP: Seneca sway for core stability/balance LTG Duration 4 wks-10/15/23 progressed Assessment Summary Assessment Pt is a 78 yo female being seen initially for urge urinary incontinence with cystocele and palpable rectocele, PF strength was 5/5 (3/5 around the PF clock); decreased PF stability resulting from her scoliosis and weakness of hip/core muscles. Today, her core stability appears to be improving with ability to maintain core posture with standing ex's and reportedly no urinary leakage this past week. She has discomfort with MMT of L ankle IV; discomfort in lateral and posterior ankle after TB ex. She was able to perform [place] sway with good core stability and w /o L ankle pain; initial cuing was needed to not hold her breath. Physical Therapy Plan Frequency and Duration Frequency of Treatment 1x/Week Duration of treatment (weeks) 4 Plan of Care Start Date 09/17/23 Plan of Care End Date 10/15/23 Next Visit Focus/Plan Next Note Type Discharge Summary Next Visit Plan Next: DC to HEP. Assess Goal 3. Check for improvement ( ROM) of R trunk rot/SB ROM. Add corner balance ex, progressive core/PF strengthening & ?Hip strengthening: ER (R>L), Ext (L>R), R AB, franck AD for HEP. POC: Core/pelvic strengthening, Scoliosis, core/hip strengthening.
--- NOTE | 2024-08-04 15:39 | PT.OPDS ---
Current Diagnoses Urgency of urination (10/05/23) Visit Care Team Role Provider Type MALCOM Cedeno Attending Provider Non-Staff Family Provider Primary Care Provider Referring Provider Specialty: Family Practice Address: [address] [place] [address], [facility] Email: Visit Number Visit Number Discharge Summary PT-OP-B Current Condition Start: 06/05/23 18:39 Freq: Status: Active Protocol: Document 06/15/23 09:05 LRN (Rec: 06/15/23 09:50 LRN [id number]) Current Condition History of Current Condition Onset Date 2 yrs ago. Current Complaints Urinary Urgency. History of Current Condition Has mentioned urinary urgency for a couple of years that is sporadic in nature. Not as bad right now. Sometimes urinary leakage is daily or every other day, or when better every 2 days. She notices when she has more joint pain in the L ankle and back she has more leakage. She denies having triggers. She states her kidney function is good. Developmental History Developmental History G3, P2. No complication, but had tearing with first child only. Treatment Goals Patient/Caregiver Goals Pt goals: Make it to bathroom w/o leaking. HEP. Personal Factors Other Personal Factors That May Effect Scoliosis and arthritis with Therapy/Recovery back pain. L ankle surgery due to fracture above the ankle jt. PT-OP-C Subjective Start: 06/05/23 18:39 Freq: Status: Active Protocol: Document 10/05/23 09:06 LRN (Rec: 10/05/23 09:50 LRN [id number]) OP-PT Subjective Patient Comments Patient Comments When doing leg ex's gets a clunk in the R hip. States pain in L ankle varies in location and doesn't hurt until later in the day after exercise. PT-OP-D Balance Start: 08/07/23 16:34 Freq: Status: Active Protocol: Document 08/07/23 09:05 LRN (Rec: 08/07/23 16:37 LRN [id number]) Balance Tests Single Limb Standing Single Limb- Right 1 sec Single Limb- Left 0.5 sec Semi-Tandem Standing Semi-Tandem Standing Balance L foot behind-10 secs, R foot behind 2 secs. Other Other Balance Tests Performed Feet together: EC 30+ secs, EO 10+ secs PT-OP-I Pelvic Floor Start: 06/05/23 18:39 Freq: Status: Active Protocol: Document 06/15/23 09:05 LRN (Rec: 06/15/23 09:50 LRN [id number]) Pelvic Floor Assessment Urine Urinary Symptoms Urge Sensation Leakage Size Small Leakage Cause Cough,Urge Other Leakage Causes Occasional leakage with a bad cough and strong urge on the way to the bathroom. Leaks Per Day 1-3 Voiding Frequency 8x/day, 2x/night Nocturia 0 Pads Used In 24 Hours 1-2 Urine Pad Type Panty Liner Bowel Other Bowel Symptoms Pt denies bowel symptoms, reporting normal BMs. Bowel Movement Frequency 2 Prolapse Cystocele Grade 2 Urethrocele Grade 2 Perineal Descent Resting Absent Bearing Absent Contraction Ability Voluntary Contraction Moderate Voluntary Relaxation Moderate Manual Muscle Testing Left 3 Manual Muscle Testing Right 3 Manual Muscle Testing Anterior 3 Manual Muscle Testing Posterior 3 Muscle Endurance (Seconds) 4 Number of Quick Contractions In 10 10 Seconds Comments Pelvic Floor Comments Stool felt in rectum. PT-OP-J Posture/Palpation/Skin Start: 06/05/23 18:40 Freq: Status: Active Protocol: Document 06/15/23 09:05 LRN (Rec: 06/15/23 09:50 LRN [id number]) Posture Evaluation Position Standing Head/C-Spine Posture Forward Head Pelvis Posture (L) Iliac Crest Superior Hip Posture (R) Externally Rotated Knee Posture (R) Excess Flexion Comments Posture Comments L shouler low, L Iliac Crest elevated, C-curve of spine with apex on Right. PT-OP-K Range of Motion Start: 06/05/23 18:39 Freq: Status: Active Protocol: Document 09/11/23 09:49 LRN (Rec: 09/11/23 10:36 LRN [id number]) Lumbar Spine Range of Motion Lumbar Spine Active Degrees Rotation Left 50 Rotation Right 40 Lateral Flexion Left 15 Lateral Flexion Right 10 Comments Rot in sitting SB in standing Hip Goniometric Range of Motion Hip Right Passive Testing Position Supine Abduction 30 Internal Rotation 45 External Rotation 80 Left Passive Testing Position Supine Abduction 25 Internal Rotation 35 External Rotation 60 PT-OP-M Strength Start: 06/05/23 18:39 Freq: Status: Active Protocol: Document 06/15/23 09:05 LRN (Rec: 06/15/23 09:50 LRN [id number]) Trunk Strength Trunk Manual Muscle Testing Core Stabilization Pt lacks core stability. Hip Strength Hip Manual Muscle Testing Right Flexion (L2) 4 Good Extension (S1) 4 Good Abduction 3+ Fair+ Adduction 1 Trace External Rotation 3+ Fair+ Comments Strength is 5/5 except as indicated above. Left Extension (S1) 3 Fair Adduction 1 Trace External Rotation 4 Good Comments Strength is 5/5 except as indicated above. PT-OP-T Assessment and Plan Start: 06/05/23 18:39 Freq: Status: Active Protocol: Document 08/04/24 15:29 LRN (Rec: 08/04/24 15:39 LRN Laptop) Physical Therapy Assessment Goals Three Impairment Decreased balance Impairment SLS 0.5 sec left, 1 sec right. Modified Tandem: L foot behind - 10 secs, R foot behind 2 secs. Feet together: EO-10+ secs, EC-30 sec+ Short Term Goal (STG) Improved core/pelvic stability and strength for SLS to 10 sec or more biliaterally 09/17/23: SLS: 1-2 sec L, 1 sec R. Tandem stance (pt assist w/start position): L behind 6 secs, R behind (4 sec , 60 sec x 2-heel not to toe) STG Duration 2wks-10/01/23 Shelter Goal (LTG) Improve core/pelvic stability for pt to be able to walk downhill on uneven ground ( [place]) or gardening on steep part of her property with greater perceived stability and no perceived LOB while gardening or on walking on steep part of property. 08/28/23: I/S pt in PF strengthening/core stab w/ walking. LTG Duration 4 wks-10/15/23 progressed Two Impairment Urinary leakage with a strong urge walking to bathroom. Short Term Goal (STG) Pt will be educated in aggrevator contractions and best practice for core pressure management to avoid urinary leakage with a strong cough. 07/06/23: Pt educated in core pressure management with cough, sneeze, bowel movements to relax abs and tighten PF before the aggrevators. STG Duration 4 wks-07/13/23 (07/07/23: MET GOAL, but not automatic) Shelter Goal (LTG) Improve PF strength and with use of urge deference technique will be able to walk to the bathroom without urinary leakage. 06/29/23: Practiced management of urinary urge. 07/13/23: Thinks she can make it to bathroom with strong urge. 08/07/23: No leakage for the past 2 wks. LTG Duration 8 wks-08/14/23 (08/07/23: MET GOAL) One Impairment Lacks appropriate self care HEP Short Term Goal (STG) Pt will be educated in Urge deference technique and Bladder retraining if needed. 06/22/23: Pt educated in Urinary Urge Deference technique. 07/13/23: Strong urge 1-2x in past week and was able to get to bathroom w/o leakage. STG Duration 2wks-10/01/23 progressed 11/27 (bladder retrain if needed) Shelter Goal (LTG) Pt will be educated in HEP of PF strengthening, hip/core strengthening, hip/core ROM ex 's. 06/29/23: HEP issued: R hip - AD stretch; L hip - Fig 4, Lat Hip and Piriformis stretch . 07/06/23: HEP issued: LE roll in/out w/Kegel/breathwork : PF relax-inhale, PF tighten- exhale 07/13/23: HEP: Hamstring/LE neural stretch. 07/24/23: HEP: Supine Hamstring/LE neural stretch 08/07/23: HEP: Sitting (not able to balance for standing ex) trunk rot & SB stretch. 08/14/23: HEP: T-Band/Kegel HEP: DF/EV/IV/PF 08/28/23: I/S pt in PF strengthening/core stab w/ walking. 10/05/23: HEP: Augustine sway for core stability/balance LTG Duration 4 wks-10/15/23 progressed Assessment Summary Assessment 78 yo female being seen initially for urge urinary incontinence with cystocele and palpable rectocele, PF strength was 3/5 around the PF clock; decreased PF stability resulting from her scoliosis and weakness of hip/core muscles. Her core stability improved and when last seen on 10/05/23, and she noted no urinary leakage the prior week . Therapy focus was being transitioned to improving dynamic core/PF stability to improve her urinary continence , with ankle strength & dynamic core/pelvic stabilization with walking/ standing activities. The pt did not return for further therapy visits and she is now beyond her plan of care. If further therapy is needed, she will need a new referral to return. The pt is being discharged from physical therapy, not all goals were met. he has discomfort with MMT of L ankle IV; discomfort in lateral and posterior ankle after TB ex. She was able to perform houlton sway with good core stability and w/o L ankle pain; initial cuing was needed to not hold her breath. Physical Therapy Plan Discharge Physical Therapy Discharge Reasons No Longer Attending PT Discharge Comments Thank you for your referral.
== END 2024-08-09 15:05 | disposition home or self-care (01) ==
LOC: PHYS 09:00
PROVIDERS: Family Provider Nurse Practitioner; PCP Nurse Practitioner; Referring Provider Nurse Practitioner; Visit Provider Nurse Practitioner
DX: R39.15 Urgency of urination (principal)
CPT/HCPCS: 97110; 97112; 97162; 97535

== ENCOUNTER 2024-02-08 11:07 | Inpatient (IN) | payer MEDICARE, SELFPAY ==
[2021-01-30 09:40] VITALS: BMI 38.2
[2024-02-08] VITALS (19 sets, daily range): BP systolic 118–153; BP diastolic 55–68; PULSE 70–109; RESP 12–19; TEMP 35.8–36.6; O2SAT 94–100; BMI 18.5
--- NOTE | 2024-02-08 12:05 | EKG_ITS ---
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
[2024-02-08 12:06] LABS: Add Manual Diff / Slide Review NO; Basophils Absolute Auto 0 /uL (0-100); Basophils Percent Auto 0.5 % (0-2); Eosinophils Absolute Auto 0 /uL (0-450); Eosinophils Percent Auto 0.4 % (2-4); Hematocrit 26.9 % (36-46); Hemoglobin 9.1 g/dL (12.0-16.0); Lymphocytes Absolute Auto 800 /uL (1100-4500); Lymphocytes Percent Auto 8.6 % (25-40); Mean Corpuscular HGB Conc 33.9 % (30-36); Mean Corpuscular Hemoglobin 29.3 PG (26-34); Mean Corpuscular Volume 86.4 fL (80-100); Monocytes Absolute Auto 400 /uL (0-900); Monocytes Percent Auto 4.1 % (3-14); Neutrophils Absolute Auto 8300 /uL (1500-7000); Neutrophils Percent Auto 86.4 % (50-75); Platelet Count 268 X10^3/uL (150-400); Red Blood Cell Count 3.12 X10^6/uL (4.0-5.2); Red Cell Distribution Width 13.9 % (11.6-14.8); White Blood Cell Count 9.6 X10^3/uL (4.5-11.0)
--- NOTE | 2024-02-08 12:07 | EKG_ITS ---
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
[2024-02-08 12:14] LABS: INR 1.1 (0.9-1.3); Prothrombin Time 12.2 SECONDS (9.4-12.5)
[2024-02-08 12:17] LABS: PTT Partial Thromboplastin Tim 31 SECONDS (25.1-36.5)
[2024-02-08 12:18] LABS: Alanine Aminotransferase 12 IU/L (<35); Albumin 3.6 g/dL (3.5-5.0); Albumin Globulin Ratio 1.3 (1.0-2.8); Alkaline Phosphatase 79 U/L (38-126); Aspartate Aminotransferase 19 IU/L (14-36); BUN Creatinine Ratio 33.8 (6-22); Bilirubin Total 0.4 mg/dL (0.2-1.3); Blood Urea Nitrogen 27 mg/dL (7-17); Calcium 8.8 mg/dL (8.4-10.2); Carbon Dioxide 23 mmol/L (22-32); Chloride 105 mmol/L (98-107); Estimated Glomerular Filt Rate > 60 mL/min (>60); Globulin 2.7 g/dL (1.7-4.1); Glucose 164 mg/dL (80-110); HEMOLYSIS < 15 (0-50); Potassium 4.2 mmol/L (3.4-5.1); Sodium 135 mmol/L (137-145); Total Protein 6.3 g/dL (6.3-8.2)
--- NOTE | 2024-02-08 12:43 | PC.NURSE ---
Orthostatics done. Patient tolerated sit to stand very well. Stated no dizziness, lightheadedness or weakness.
[2024-02-08] MEDS: ONDANSETRON 4 MG/2 ML INJ IV (13:05)
[2024-02-08] MEDS: PANTOPRAZOLE 40 MG VIAL 80 MG IV (13:05)
--- NOTE | 2024-02-08 13:49 | PC.NURSE ---
frankly deep maroon, almost black stool with consistency of jelly/jam, Guiac POC + Guiac Card Lot#[id number] EXP 08/2024 Guiac developer Lot# [id number] EXP 05/2025; stool sample sent to lab if needed for further testing; strong odor to stool sample noted. notified [employer] results.
--- NOTE | 2024-02-08 14:34 | ED_ITS ---
HPI - GI Bleed General Chief complaint: GI Bleed Stated complaint: Dizzy, Doesn't feel quite right,Blackish stool Time Seen by Provider: 02/08/24 14:04 Source: patient, RN notes reviewed and old records reviewed Mode of arrival: Family Vehicle Limitations: no limitations History of Present Illness HPI Narrative: 78-year-old female history of dyslipidemia and diabete, nephrectomy for renal cancer presents with complaint of feeling lightheaded and dizzy since Thursday. Patient states she has had increasing dizziness little bit increased shortness of breath particularly with exertion. Patient states she normally walks daily and has felt more so recently. She has also noticed black almost perfectly black stools for the last several days. Patient states no fevers or chills, no cold cough or congestion. No chest pain or pressure, no orthopnea. No new swelling of extremities. No nausea or vomiting. No abdominal back or flank pain. No rectal pain. States yesterday had 3 black discolored stools that were mostly formed, today has been thinner and more liquidy with several stools. Patient states no daily prescription medications. Has had prior surgeries including tonsils and adenoids, cholecystectomy nephrectomy for cancer proximally 20 years ago, hysterectomy, partial thyroidectomy but no prior cardiac or pulmonary surgery. Did have a colonoscopy in May with removal of a benign polyp. She states it was irregular screening colonoscopy. No tobacco, no regular alcohol or recreational drugs. Kylie bernardo was her primary care physician. Related Data Allergies Allergy/AdvReac Type Severity Reaction Status Date / Time amoxicillin [AMOXICILLIN] Allergy Severe Throat Verified 02/08/24 11:25 swelling erythromycin base Allergy Mild NAUSEA Verified 02/08/24 11:25 [ERYTHROMYCIN BASE] iodine [IODINE] Allergy Mild BLISTERS Verified 02/08/24 11:25 Sulfa (Sulfonamide Allergy Mild BLISTERS Verified 02/08/24 11:25 Antibiotics) [SULFA (SULFONAMIDE ANTIBIOTICS)] pine nuts Allergy Severe Anaphylaxis, Uncoded 02/08/24 11:25 tongue swelling and discomfort Review of Systems Review of Systems ROS Unobtainable: All systems reviewed & are unremarkable except as noted in HPI and below Patient History Medical History Osteopenia determined by x-ray Hyperlipidemia associated with type 2 diabetes mellitus Scoliosis Post-menopausal Screening for malignant neoplasm of colon Allergy to multiple antibiotics Drug allergy, antibiotic Facet arthropathy, lumbar Gait instability Herniated nucleus pulposus, L2-3 Scoliosis of cervical region due to degenerative disease of spine in adult Ankle fracture, left (05/11/18) Migraines History of seizures as a child Peripheral neuropathy Heart murmur Pre-diabetes H/O renal cell cancer (~1988) Surgical History Hx of parathyroidectomy Hx of cholecystectomy (~1987) History of tonsillectomy and adenoidectomy H/O right nephrectomy (~1988) Status post hysterectomy (~2011) Status post tonsillectomy and adenoidectomy Family History Father High cholesterol Mother Age: 100 Diabetes mellitus Sister Age: 75 Diabetes mellitus Social History household members: none Smoking Status: Never smoker alcohol intake: never Type(s) of exercise: walking Smoking Status: Never smoker alcohol intake frequency: 0-2 drinks per day Substance Use Type: does not use Exam Narrative Exam Narrative: GENERAL: Alert and oriented x three, female in mild distress HEENT: Head normocephalic, atraumatic, EOMI, pupils reactive, face symmetric, moist mucous membranes NECK: Supple, full range of motion CARDIOVASCULAR: Regular rate and rhythm without murmurs, rubs or gallops. RESPIRATORY: Breath sounds equal bilaterally, no wheezes rales or rhonchi. ABDOMEN: Soft, nontender. Normoactive bowel sounds all 4 quadrants. No guarding or rebound, rigidity, no mass, positive stool occult. : No CVA tenderness EXTREMITIES: Normal range of motion, no clubbing or edema. Neurovascularly intact NEUROLOGICAL: Cranial nerves II through XII grossly intact. Moving all extremities SKIN: Warm, dry, no petechiae, no rashes or lesions. Initial Vital Signs Initial Vital Signs: Vital Signs Temperature 98 F 02/08/24 11:22 Pulse Rate 109 H 02/08/24 11:22 Respiratory Rate 18 02/08/24 11:22 Blood Pressure 153/68 H 02/08/24 11:22 Pulse Oximetry 94 02/08/24 11:22 Oxygen Delivery Method Room Air 02/08/24 11:22 Course Orders Ordered: ED Orders 02/08/24 11:20 EKG-12 Lead Stat 02/08/24 11:40 Complete Blood Count AUTO DIFF Stat Comprehensive Metabolic Panel Stat PTT Partial Thromboplastin Sage Stat Prothrombin Time INR Stat Type and Screen Stat 02/08/24 13:35 Urinalysis and Microscopic Stat Urine Culture Stat Ondansetron HCl (Ondansetron 4 Mg/2 Ml Inj) 4 mg IV NOW PRN PRN Reason: Nausea And Vomiting Last Admin: 02/08/24 13:05 Dose: 4 mg Documented By: ROGELIO Ondansetron HCl (Ondansetron 4 Mg Odt) 4 mg SL NOW PRN PRN Reason: Nausea And Vomiting Discontinued Medications Pantoprazole Sodium (Pantoprazole 40 Mg Vial) 80 mg IV NOW ONE Stop: 02/08/24 11:21 Last Admin: 02/08/24 13:05 Dose: 80 mg Documented By: ROGELIO Vital Signs Vital signs: Vital Signs - 8 hr 02/08/24 11:22 02/08/24 11:30 02/08/24 12:00 Temperature 98 F Pulse Rate 109 H 73 77 Pulse Rate [Orthostatic Lying] Pulse Rate [Orthostatic Sitting] Pulse Rate [Orthostatic Standing] Respiratory Rate 18 Blood Pressure 153/68 H 139/63 130/63 Blood Pressure [Orthostatic Lying] Blood Pressure [Orthostatic Sitting] Blood Pressure [Orthostatic Standing] Pulse Oximetry 94 98 100 Oxygen Delivery Method Room Air Room Air Room Air 02/08/24 12:12 02/08/24 12:14 02/08/24 12:14 Temperature Pulse Rate 70 72 Pulse Rate [Orthostatic Lying] Pulse Rate [Orthostatic Sitting] Pulse Rate [Orthostatic Standing] Respiratory Rate Blood Pressure 126/59 L Blood Pressure [Orthostatic Lying] Blood Pressure [Orthostatic Sitting] Blood Pressure [Orthostatic Standing] Pulse Oximetry 100 99 Oxygen Delivery Method 02/08/24 12:15 02/08/24 12:15 02/08/24 12:16 Temperature Pulse Rate 77 Pulse Rate [Orthostatic Lying] Pulse Rate [Orthostatic Sitting] Pulse Rate [Orthostatic Standing] Respiratory Rate Blood Pressure 132/60 133/61 Blood Pressure [Orthostatic Lying] Blood Pressure [Orthostatic Sitting] Blood Pressure [Orthostatic Standing] Pulse Oximetry 100 Oxygen Delivery Method 02/08/24 12:16 02/08/24 12:19 02/08/24 12:30 Temperature Pulse Rate 96 H 73 Pulse Rate [Orthostatic Lying] 71 Pulse Rate [Orthostatic Sitting] 76 Pulse Rate [Orthostatic Standing] 98 H Respiratory Rate Blood Pressure Blood Pressure [Orthostatic Lying] 126/59 L Blood Pressure [Orthostatic Sitting] 132/60 Blood Pressure [Orthostatic Standing] 136/63 Pulse Oximetry 100 96 Oxygen Delivery Method 02/08/24 13:00 02/08/24 13:26 02/08/24 13:26 Temperature Pulse Rate 73 74 Pulse Rate [Orthostatic Lying] Pulse Rate [Orthostatic Sitting] Pulse Rate [Orthostatic Standing] Respiratory Rate 18 Blood Pressure 134/59 L Blood Pressure [Orthostatic Lying] Blood Pressure [Orthostatic Sitting] Blood Pressure [Orthostatic Standing] Pulse Oximetry 98 98 Oxygen Delivery Method Room Air 02/08/24 13:30 02/08/24 13:30 02/08/24 14:16 Temperature Pulse Rate 71 84 Pulse Rate [Orthostatic Lying] Pulse Rate [Orthostatic Sitting] Pulse Rate [Orthostatic Standing] Respiratory Rate Blood Pressure 131/63 Blood Pressure [Orthostatic Lying] Blood Pressure [Orthostatic Sitting] Blood Pressure [Orthostatic Standing] Pulse Oximetry 98 97 Oxygen Delivery Method 02/08/24 14:30 02/08/24 14:55 02/08/24 14:55 Temperature Pulse Rate 84 80 Pulse Rate [Orthostatic Lying] Pulse Rate [Orthostatic Sitting] Pulse Rate [Orthostatic Standing] Respiratory Rate 17 12 Blood Pressure 118/55 L Blood Pressure [Orthostatic Lying] Blood Pressure [Orthostatic Sitting] Blood Pressure [Orthostatic Standing] Pulse Oximetry 96 98 Oxygen Delivery Method Room Air Room Air 02/08/24 15:00 02/08/24 15:00 Temperature Pulse Rate 78 Pulse Rate [Orthostatic Lying] Pulse Rate [Orthostatic Sitting] Pulse Rate [Orthostatic Standing] Respiratory Rate 14 Blood Pressure 122/60 Blood Pressure [Orthostatic Lying] Blood Pressure [Orthostatic Sitting] Blood Pressure [Orthostatic Standing] Pulse Oximetry 96 Oxygen Delivery Method Room Air MDM - GI Bleed Lab Data 02/08/24 11:40 02/08/24 11:40 Labs: Lab Results 02/08/24 02/08/24 Range/Units 11:40 13:35 WBC 9.6 (4.5-11.0) X10^3/uL RBC 3.12 L (4.0-5.2) X10^6/uL Hgb 9.1 L (12.0-16.0) g/dL Hct 26.9 L (36-46) % MCV 86.4 (80-100) fL MCH 29.3 (26-34) PG MCHC 33.9 (30-36) % RDW 13.9 (11.6-14.8) % Plt Count 268 (150-400) X10^3/uL Neut % (Auto) 86.4 H (50-75) % Lymph % (Auto) 8.6 L (25-40) % [place] % (Auto) 4.1 (3-14) % Eos % (Auto) 0.4 L (2-4) % Baso % (Auto) 0.5 (0-2) % Neut # (Auto) 8300 H (9037-8818) /uL Lymph # (Auto) 800 L (6339-4307) /uL [place] # (Auto) 400 (0-900) /uL Eos # (Auto) 0 (0-450) /uL Baso # (Auto) 0 (0-100) /uL PT 12.2 (9.4-12.5) SECONDS INR 1.1 (0.9-1.3) APTT 31 (25.1-36.5) SECONDS Sodium 135 L (137-145) mmol/L Potassium 4.2 (3.4-5.1) mmol/L Chloride 105 (98-107) mmol/L Carbon Dioxide 23 (22-32) mmol/L BUN 27 H (7-17) mg/dL Creatinine 0.80 (0.52-1.04) mg/dL Estimated GFR > 60 (>60) mL/min BUN/Creatinine Ratio 33.8 H (6-22) Glucose 164 H (80-110) mg/dL Calcium 8.8 (8.4-10.2) mg/dL Total Bilirubin 0.4 (0.2-1.3) mg/dL AST 19 (14-36) IU/L ALT 12 (<35) IU/L Alkaline Phosphatase 79 (38-126) U/L Total Protein 6.3 (6.3-8.2) g/dL Albumin 3.6 (3.5-5.0) g/dL Globulin 2.7 (1.7-4.1) g/dL Albumin/Globulin Ratio 1.3 (1.0-2.8) Urine Color Yellow Urine Appearance Clear Urine pH 5.5 (4.5-8.0) Ur Specific [place] 1.015 (1.000-1.035) Urine Protein Negative (Negative) Urine Glucose (UA) Negative (Negative) g/dL Urine Ketones Negative (NEGATIVE) Urine Occult Blood Negative (Negative) Urine Nitrate Negative (Negative) Urine Bilirubin Negative (NEGATIVE) Urine Urobilinogen 0.2 (0.2) E.U./dL Ur Leukocyte Esterase 2+ H (NEGATIVE) Urine RBC None seen (0-5/HPF) Urine WBC 5-10/hpf H (0-5/HPF) Ur Squamous Epith Cells 1-5 /hpf (0-5/HPF) Urine Bacteria None seen (None) Vol Urine Centrifuged 10ml (spun) Blood Type O Positive Antibody Screen Negative Point of Care Testing Stool Occult Blood Positive Urine Dip Bedside Urine Glucose Negative Bedside Urine Bilirubin - Negative Bedside Urine Ketone - Negative Urine Specific [place] 1.010 Bedside Urine Occult Blood - Negative Bedside Urine pH 6.0 Bedside Urine Protein - Negative Bedside Urine Urobilinogen - Negative Bedside Urine Nitrite - Negative Bedside Urine Leukocytes +++ 500 Esterase ECG Data Attestation: I personally reviewed and interpreted this ECG as follows: Interpretation: Sinus rhythm rate of 70 [place] 128 QRS 88 QTC 434, no acute ST elevation or depression noted. MDM Narrative Medical decision making narrative: 78-year-old female positive orthostatics with tachycardia with standing. Complaint of dizziness with dark black/purple stools. Did have colonoscopy in May/June had a benign polyp removed at that time. Patient is not on any anticoagulants. Labs show white count of 9.6 hemoglobin is 9.1 prior was 14 in December of 2020 we will platelets of 268. Coags are negative, sodium is 135 electrolytes are otherwise appropriate BUN 27 creatinine 0.84 glucose is 164 with LFTs negative. Urine positive for leuks, 5-10 white cells. 1-5 squamous. Stool occult positive. EKG shows sinus rhythm. Patient received Zofran and 80 mg pantoprazole. Spoke with Dr. Damon, general surgery; plan for scope may just be upper EGD, likely tomorrow. Does asks for medicine to admit. Dr. Quinonez, hospitalist;who accepts. Discharge Plan Departure Patient Disposition: Admitted as Observation Clinical Impression: GI bleed, Symptomatic anemia Admit Date/Time: 02/08/24 15:15 Admit Provider: Sarbjit Quinonez
[2024-02-08 14:38] LABS: Appearance Urine UA CLEAR; Bilirubin Urine UA NEGATIVE (NEGATIVE); Color Urine UA YELLOW; Glucose Urine UA NEGATIVE (Negative); Ketones Urine UA NEGATIVE (NEGATIVE); Leukocyte Esterase Urine UA 2+ (NEGATIVE); Nitrite Urine UA NEGATIVE (Negative); Occult Blood Urine UA NEGATIVE (Negative); Protein Urine UA NEGATIVE (Negative); RBC Urine None Seen (0-5/HPF); Specific Gravity Urine UA 1.015 (1.000-1.035); Urine Volume 10mL (spun); Urobilinogen Urine UA 0.2 E.U./dL (0.2); WBC Urine 5-10/HPF (0-5/HPF); pH Urine UA 5.5 (4.5-8.0)
[2024-02-08 14:39] LABS: Bacteria Urine None Seen; Squamous Epithelial Cell Urine 1-5 /HPF (0-5/HPF)
--- NOTE | 2024-02-08 17:50 | P.HP_ITS ---
History of Present Illness History of Present Illness Date Patient Seen: 02/08/24 Time Patient Seen: 18:23 Chief complaint: Dizzy, Doesn't feel quite right,Blackish stool Narrative: This is a 78 M with PMH of DM2 (not on medications), severe Aortic stenosis who presented with lightheaded, dizziness since Thursday particularly with exertion. For the last two days she has noted black stools which started shortly after she noticed lack of energy and that she was more short of breath than usual. She recently had colonoscopy earlier this year with removal of a benign polyp and diverticulosis was noted. She denies fever, chills, LE edema, orthopnea, chest pain. She denies stomach/abdominal pain, nausea, vomiting, diarrhea. In the ER, Hg was 9.1, last in 2020 was 14 no recent labs since that I can find in our EMR and CareEverywhere. Surgery plans on EGD tomorrow. She was admitted for further management of possible upper GI bleed and acute blood loss anemia. [facility] Medical History Osteopenia determined by x-ray Hyperlipidemia associated with type 2 diabetes mellitus Scoliosis Post-menopausal Screening for malignant neoplasm of colon Allergy to multiple antibiotics Drug allergy, antibiotic Facet arthropathy, lumbar Gait instability Herniated nucleus pulposus, L2-3 Scoliosis of cervical region due to degenerative disease of spine in adult Ankle fracture, left (05/11/18) Migraines History of seizures as a child Peripheral neuropathy Heart murmur Pre-diabetes H/O renal cell cancer (~1988) Surgical History Hx of parathyroidectomy Hx of cholecystectomy (~1987) History of tonsillectomy and adenoidectomy H/O right nephrectomy (~1988) Status post hysterectomy (~2011) Status post tonsillectomy and adenoidectomy Family History Father High cholesterol Mother Age: 100 Diabetes mellitus Sister Age: 75 Diabetes mellitus Social History household members: none Smoking Status: Never smoker alcohol intake: never Type(s) of exercise: walking Meds Home Medications and Allergies Home Medications Medication Instructions Recorded Confirmed Type No Known Home Medications 02/08/24 02/08/24 History Allergies Allergy/AdvReac Type Severity Reaction Status Date / Time amoxicillin [AMOXICILLIN] Allergy Severe Throat Verified 02/08/24 11:25 swelling erythromycin base Allergy Mild NAUSEA Verified 02/08/24 11:25 [ERYTHROMYCIN BASE] iodine [IODINE] Allergy Mild BLISTERS Verified 02/08/24 11:25 Sulfa (Sulfonamide Allergy Mild BLISTERS Verified 02/08/24 11:25 Antibiotics) [SULFA (SULFONAMIDE ANTIBIOTICS)] pine nuts Allergy Severe Anaphylaxis, Uncoded 02/08/24 11:25 tongue swelling and discomfort Review of Systems Review of Systems Narrative: All other systems reviewed with the patient and are negative unless otherwise stated. Exam Vital Signs (past 8 hours): - 02/08/24 11:22 02/08/24 11:30 02/08/24 12:00 Temperature 98 F Pulse Rate 109 H 73 77 Pulse Rate [Orthostatic Lying] Pulse Rate [Orthostatic Sitting] Pulse Rate [Orthostatic Standing] Respiratory Rate 18 Blood Pressure 153/68 H 139/63 130/63 Blood Pressure [Orthostatic Lying] Blood Pressure [Orthostatic Sitting] Blood Pressure [Orthostatic Standing] Pulse Oximetry 94 98 100 Oxygen Delivery Method Room Air Room Air Room Air Oxygen Flow Rate 02/08/24 12:12 02/08/24 12:14 02/08/24 12:14 Temperature Pulse Rate 70 72 Pulse Rate [Orthostatic Lying] Pulse Rate [Orthostatic Sitting] Pulse Rate [Orthostatic Standing] Respiratory Rate Blood Pressure 126/59 L Blood Pressure [Orthostatic Lying] Blood Pressure [Orthostatic Sitting] Blood Pressure [Orthostatic Standing] Pulse Oximetry 100 99 Oxygen Delivery Method Oxygen Flow Rate 02/08/24 12:15 02/08/24 12:15 02/08/24 12:16 Temperature Pulse Rate 77 Pulse Rate [Orthostatic Lying] Pulse Rate [Orthostatic Sitting] Pulse Rate [Orthostatic Standing] Respiratory Rate Blood Pressure 132/60 133/61 Blood Pressure [Orthostatic Lying] Blood Pressure [Orthostatic Sitting] Blood Pressure [Orthostatic Standing] Pulse Oximetry 100 Oxygen Delivery Method Oxygen Flow Rate 02/08/24 12:16 02/08/24 12:19 02/08/24 12:30 Temperature Pulse Rate 96 H 73 Pulse Rate [Orthostatic Lying] 71 Pulse Rate [Orthostatic Sitting] 76 Pulse Rate [Orthostatic Standing] 98 H Respiratory Rate Blood Pressure Blood Pressure [Orthostatic Lying] 126/59 L Blood Pressure [Orthostatic Sitting] 132/60 Blood Pressure [Orthostatic Standing] 136/63 Pulse Oximetry 100 96 Oxygen Delivery Method Oxygen Flow Rate 02/08/24 13:00 02/08/24 13:26 02/08/24 13:26 Temperature Pulse Rate 73 74 Pulse Rate [Orthostatic Lying] Pulse Rate [Orthostatic Sitting] Pulse Rate [Orthostatic Standing] Respiratory Rate 18 Blood Pressure 134/59 L Blood Pressure [Orthostatic Lying] Blood Pressure [Orthostatic Sitting] Blood Pressure [Orthostatic Standing] Pulse Oximetry 98 98 Oxygen Delivery Method Room Air Oxygen Flow Rate 02/08/24 13:30 02/08/24 13:30 02/08/24 14:16 Temperature Pulse Rate 71 84 Pulse Rate [Orthostatic Lying] Pulse Rate [Orthostatic Sitting] Pulse Rate [Orthostatic Standing] Respiratory Rate Blood Pressure 131/63 Blood Pressure [Orthostatic Lying] Blood Pressure [Orthostatic Sitting] Blood Pressure [Orthostatic Standing] Pulse Oximetry 98 97 Oxygen Delivery Method Oxygen Flow Rate 02/08/24 14:30 02/08/24 14:55 02/08/24 14:55 Temperature Pulse Rate 84 80 Pulse Rate [Orthostatic Lying] Pulse Rate [Orthostatic Sitting] Pulse Rate [Orthostatic Standing] Respiratory Rate 17 12 Blood Pressure 118/55 L Blood Pressure [Orthostatic Lying] Blood Pressure [Orthostatic Sitting] Blood Pressure [Orthostatic Standing] Pulse Oximetry 96 98 Oxygen Delivery Method Room Air Room Air Oxygen Flow Rate 02/08/24 15:00 02/08/24 15:00 02/08/24 16:45 Temperature Pulse Rate 78 Pulse Rate [Orthostatic Lying] Pulse Rate [Orthostatic Sitting] Pulse Rate [Orthostatic Standing] Respiratory Rate 14 Blood Pressure 122/60 Blood Pressure [Orthostatic Lying] Blood Pressure [Orthostatic Sitting] Blood Pressure [Orthostatic Standing] Pulse Oximetry 96 Oxygen Delivery Method Room Air Room Air Oxygen Flow Rate 02/08/24 16:45 Temperature 97.0 F L Pulse Rate 81 Pulse Rate [Orthostatic Lying] Pulse Rate [Orthostatic Sitting] Pulse Rate [Orthostatic Standing] Respiratory Rate 19 Blood Pressure 144/55 H Blood Pressure [Orthostatic Lying] Blood Pressure [Orthostatic Sitting] Blood Pressure [Orthostatic Standing] Pulse Oximetry 97 Oxygen Delivery Method Oxygen Flow Rate 0 Oxygen Delivery Method Room Air Oxygen Flow Rate 0 Narrative Exam Narrative: General:? Patient is well developed and well nourished, in no distress at this time. Chest:? Normal AP diameter and contour without kyphoscoliosis, no tachypnea, equal chest rise bilaterally. Lungs:? CTA b/l no wheezing rhonchi or rales. Cardio:?RRR, 3-4/6 systolic crescendo decrescendo murmur Abdomen: S NT ND. Musculoskeletal:? Muscle strength and tone are equal within normal limits, no deformity. Extremities: No edema or joint effusions. No cyanosis or clubbing. Skin:? Pale,? Warm to touch,dry and intact without rashes, ulcerations or petechiae.? Neuro:? Alert and orientated x3,? sensation to touch intact in all extremities, no gross deficits noted of cranial nerves. Psych:? Patient has a well-kept appearance, appropriate affect, mental status attitude thought context and judgment are appropriate for age. Objective ECG Impression: NSR, no acute ischemic changes as interpreted by me. Labs 02/08/24 11:40 02/08/24 11:40 Labs: Laboratory Results - last 24 hr 02/08/24 02/08/24 11:40 13:35 WBC 9.6 RBC 3.12 L Hgb 9.1 L Hct 26.9 L MCV 86.4 MCH 29.3 MCHC 33.9 RDW 13.9 Plt Count 268 Neut % (Auto) 86.4 H Lymph % (Auto) 8.6 L [place] % (Auto) 4.1 Eos % (Auto) 0.4 L Baso % (Auto) 0.5 Neut # (Auto) 8300 H Lymph # (Auto) 800 L [place] # (Auto) 400 Eos # (Auto) 0 Baso # (Auto) 0 PT 12.2 INR 1.1 APTT 31 Sodium 135 L Potassium 4.2 Chloride 105 Carbon Dioxide 23 BUN 27 H Creatinine 0.80 Estimated GFR > 60 BUN/Creatinine Ratio 33.8 H Glucose 164 H Calcium 8.8 Total Bilirubin 0.4 AST 19 ALT 12 Alkaline Phosphatase 79 Total Protein 6.3 Albumin 3.6 Globulin 2.7 Albumin/Globulin Ratio 1.3 Urine Color Yellow Urine Appearance Clear Urine pH 5.5 Ur Specific [place] 1.015 Urine Protein Negative Urine Glucose (UA) Negative Urine Ketones Negative Urine Occult Blood Negative Urine Nitrate Negative Urine Bilirubin Negative Urine Urobilinogen 0.2 Ur Leukocyte Esterase 2+ H Urine RBC None seen Urine WBC 5-10/hpf H Ur Squamous Epith Cells 1-5 /hpf Urine Bacteria None seen Vol Urine Centrifuged 10ml (spun) Blood Type O Positive Antibody Screen Negative Assessment & Plan Assessment & Plan narrative: 1. Acute blood loss anemia due to presumed upper GI bleed - repeat h/h this evening and again tomorrow AM, previously known Hg of 14 many years ago. 9.1 today. Continue to watch. - continue IV PPI BID - Hold on extra IV fludis overnight given severe aortic stenosis - orthostatics negative on BP in the ER, positive tachycardia response. - discussed with surgeon, plan for EGD tomorrow. NPO at midnight. - presumed upper source given recent colonoscopy, though differential does include diverticular bleeding. 2. Severe Aortic stenosis - no need for tele currently, has no prior arrythmia history and EKG is unremarkable. 3. DM2 - not on medications currently, glucose 164 on admit - currently on clear liquid diet - no current need for insulin and finger sticks, will monitor with BMP for now. Code: Full, surrogate is patient's daughter DVT: SCDs I have utilized all available immediate resources to obtain, update, or review the patient's current medications. Dispo: patient admitted under observation status. Depending on trend in h/h, EGD findings, etc possible discharge home as soon as tomorrow, but course can vary. Additional history obtained via discussions with the ER provider and surgeon. These discussions contributed to the creation of the above assessment and plan. I have reviewed patient's presenting documentation, labs, and imaging personally. Time-Based Coding :: [TOTAL MINUTES] spent with patient and on the chart (including review of chart, obtaining history, exam, reviewing outside data, placing orders, documenting exam and treatment plan, and counseling patient) on [DATE].
[2024-02-08] MEDS: PANTOPRAZOLE 40 MG VIAL IV (20:56)
[2024-02-08 20:59] LABS: Hematocrit 26.1 % (36-46); Hemoglobin 8.7 g/dL (12.0-16.0)
[2024-02-09] VITALS (19 sets, daily range): BP systolic 107–144; BP diastolic 42–70; PULSE 69–88; RESP 13–96; TEMP 35.6–36.9; O2SAT 94–99
[2024-02-09 04:53] LABS: Add Manual Diff / Slide Review NO; Basophils Absolute Auto 100 /uL (0-100); Basophils Percent Auto 0.6 % (0-2); Eosinophils Absolute Auto 200 /uL (0-450); Eosinophils Percent Auto 2.4 % (2-4); Hematocrit 24.2 % (36-46); Hemoglobin 8.2 g/dL (12.0-16.0); Lymphocytes Absolute Auto 2000 /uL (1100-4500); Mean Corpuscular Hemoglobin 29.2 PG (26-34); Monocytes Absolute Auto 600 /uL (0-900); Monocytes Percent Auto 6.7 % (3-14); Neutrophils Absolute Auto 5900 /uL (1500-7000); Neutrophils Percent Auto 67.3 % (50-75); Platelet Count 243 X10^3/uL (150-400); Red Blood Cell Count 2.81 X10^6/uL (4.0-5.2); Red Cell Distribution Width 13.8 % (11.6-14.8); White Blood Cell Count 8.8 X10^3/uL (4.5-11.0)
[2024-02-09 05:17] LABS: BUN Creatinine Ratio 27.4 (6-22); Blood Urea Nitrogen 23 mg/dL (7-17); Calcium 8.6 mg/dL (8.4-10.2); Carbon Dioxide 25 mmol/L (22-32); Chloride 107 mmol/L (98-107); Estimated Glomerular Filt Rate > 60 mL/min (>60); Glucose 103 mg/dL (80-110); HEMOLYSIS < 15 (0-50); Potassium 3.8 mmol/L (3.4-5.1); Sodium 137 mmol/L (137-145)
[2024-02-09] MEDS: PANTOPRAZOLE 40 MG VIAL IV ×2 (09:01→20:35)
--- NOTE | 2024-02-09 09:13 | CM.DANOTE ---
Initial DCP Assessment Note Pt is a 78 yo female, resident of [place], presents with dizziness and blackish stool , admitted OBS for EGD, further work up and management of blood loss anemia. PCP: Previously Kylie Gonsalez (needs new provider, FMA) Payer: [facility] MCR Reviewed chart, met w/patient to introduce self and role. Patient lives alone, independently. Patient has no local family or friends, per her report, that can check on her upon discharge. Patient states her daughter Janeen can assist if needed. No barriers identified at this time to patient's safe discharge home w/family to assist; close outpatient f/u recommended. CM team will plan to follow clinical course closely in case any DC needs or concerns arise. JULY Woods Discharge Planning/Care Management CM Discharge Assessment Start: 02/09/24 09:04 Freq: Status: Active Protocol: Document 02/09/24 09:05 ALEISHA (Rec: 02/09/24 09:13 ALEISHA [id number]) Discharge Planning Assessment Assigned G[employer] Field Data Collector JULY Perez DPOA/Assigned Designee Name Janeen Villalpando Dtr ([place] ) Contact Information [phone] cell [phone] home Advance Directives? Yes Advance Directives on File No: not available History Provided By Patient,Medical Record Prior Living Arrangements House Household Members none Type of transporation used prior to Drives own vehicle admit Independent with ADL's Yes Is patient alert and oriented? Yes Barriers to Discharge No Comment No needs from this CM team anticipated Discharge Plan Home Transportation Arrangement Family to provide transport when medically stable. Referrals Initiated None needed
--- NOTE | 2024-02-09 10:23 | P.CONS_ITS ---
History of Present Illness Consult details Date Patient Seen: 02/09/24 Time Patient Seen: 10:23 Chief complaint: Dizzy, Doesn't feel quite right,Blackish stool Narrative: Beena is a 78-year-old woman who presented to the emergency department last night because of weakness, dizziness, shortness of breath and melena. Her hemoglobin was below her baseline at 9. She did have a colonoscopy in September with Dr. Villanueva. There was a small rectal polyp removed. She was noted to have some diverticulosis. Meds Home Medications and Allergies Home Medications Medication Instructions Recorded Confirmed Type No Known Home Medications 02/08/24 02/08/24 History Allergies Allergy/AdvReac Type Severity Reaction Status Date / Time amoxicillin [AMOXICILLIN] Allergy Severe Throat Verified 02/08/24 11:25 swelling erythromycin base Allergy Mild NAUSEA Verified 02/08/24 11:25 [ERYTHROMYCIN BASE] iodine [IODINE] Allergy Mild BLISTERS Verified 02/08/24 11:25 Sulfa (Sulfonamide Allergy Mild BLISTERS Verified 02/08/24 11:25 Antibiotics) [SULFA (SULFONAMIDE ANTIBIOTICS)] pine nuts Allergy Severe Anaphylaxis, Uncoded 02/08/24 11:25 tongue swelling and discomfort Exam Vital Signs (past 8 hours): - 02/09/24 04:00 02/09/24 04:00 02/09/24 09:13 Temperature 96.6 F L Pulse Rate 81 77 Respiratory Rate 16 15 Blood Pressure 118/53 L 133/55 L Pulse Oximetry 97 96 Oxygen Delivery Method Room Air Oxygen Flow Rate 0 0 02/09/24 09:42 Temperature 96.8 F L Pulse Rate Respiratory Rate Blood Pressure Pulse Oximetry Oxygen Delivery Method Oxygen Flow Rate Oxygen Delivery Method Room Air Oxygen Flow Rate 0 Const General: No acute distress Resp Effort & Inspection: normal respiratory effort Objective Labs 02/09/24 04:08 02/09/24 04:08 Labs: Laboratory Results - last 24 hr 02/08/24 02/08/24 02/08/24 11:40 13:35 20:52 WBC 9.6 RBC 3.12 L Hgb 9.1 L 8.7 L Hct 26.9 L 26.1 L MCV 86.4 MCH 29.3 MCHC 33.9 RDW 13.9 Plt Count 268 Neut % (Auto) 86.4 H Lymph % (Auto) 8.6 L [place] % (Auto) 4.1 Eos % (Auto) 0.4 L Baso % (Auto) 0.5 Neut # (Auto) 8300 H Lymph # (Auto) 800 L [place] # (Auto) 400 Eos # (Auto) 0 Baso # (Auto) 0 PT 12.2 INR 1.1 APTT 31 Sodium 135 L Potassium 4.2 Chloride 105 Carbon Dioxide 23 BUN 27 H Creatinine 0.80 Estimated GFR > 60 BUN/Creatinine Ratio 33.8 H Glucose 164 H Calcium 8.8 Total Bilirubin 0.4 AST 19 ALT 12 Alkaline Phosphatase 79 Total Protein 6.3 Albumin 3.6 Globulin 2.7 Albumin/Globulin Ratio 1.3 Urine Color Yellow Urine Appearance Clear Urine pH 5.5 Ur Specific [place] 1.015 Urine Protein Negative Urine Glucose (UA) Negative Urine Ketones Negative Urine Occult Blood Negative Urine Nitrate Negative Urine Bilirubin Negative Urine Urobilinogen 0.2 Ur Leukocyte Esterase 2+ H Urine RBC None seen Urine WBC 5-10/hpf H Ur Squamous Epith Cells 1-5 /hpf Urine Bacteria None seen Vol Urine Centrifuged 10ml (spun) Blood Type O Positive Antibody Screen Negative 02/09/24 04:08 WBC 8.8 RBC 2.81 L Hgb 8.2 L Hct 24.2 L MCV 86.0 MCH 29.2 MCHC 34.0 RDW 13.8 Plt Count 243 Neut % (Auto) 67.3 Lymph % (Auto) 23.0 L [place] % (Auto) 6.7 Eos % (Auto) 2.4 Baso % (Auto) 0.6 Neut # (Auto) 5900 Lymph # (Auto) 2000 [place] # (Auto) 600 Eos # (Auto) 200 Baso # (Auto) 100 PT INR APTT Sodium 137 Potassium 3.8 Chloride 107 Carbon Dioxide 25 BUN 23 H Creatinine 0.84 Estimated GFR > 60 BUN/Creatinine Ratio 27.4 H Glucose 103 Calcium 8.6 Total Bilirubin AST ALT Alkaline Phosphatase Total Protein Albumin Globulin Albumin/Globulin Ratio Urine Color Urine Appearance Urine pH Ur Specific [place] Urine Protein Urine Glucose (UA) Urine Ketones Urine Occult Blood Urine Nitrate Urine Bilirubin Urine Urobilinogen Ur Leukocyte Esterase Urine RBC Urine WBC Ur Squamous Epith Cells Urine Bacteria Vol Urine Centrifuged Blood Type Antibody Screen [facility] Medical History Osteopenia determined by x-ray Hyperlipidemia associated with type 2 diabetes mellitus Scoliosis Post-menopausal Screening for malignant neoplasm of colon Allergy to multiple antibiotics Drug allergy, antibiotic Facet arthropathy, lumbar Gait instability Herniated nucleus pulposus, L2-3 Scoliosis of cervical region due to degenerative disease of spine in adult Ankle fracture, left (05/11/18) Migraines History of seizures as a child Peripheral neuropathy Heart murmur Pre-diabetes H/O renal cell cancer (~1988) Surgical History Hx of parathyroidectomy Hx of cholecystectomy (~1987) History of tonsillectomy and adenoidectomy H/O right nephrectomy (~1988) Status post hysterectomy (~2011) Status post tonsillectomy and adenoidectomy Family History Father High cholesterol Mother Age: 100 Diabetes mellitus Sister Age: 75 Diabetes mellitus Social History household members: none Tobacco & Substance Use Smoking Status: Never smoker alcohol intake: never Diet and Exercise Type(s) of exercise: walking Assessment & Plan Assessment and plan (1) Melena: Status: Acute Plan EGD today to see if there is any evidence of upper GI bleeding. If no source of bleeding was found in the upper GI tract she can be scheduled for colonoscopy in the future. Time-Based Coding :: [TOTAL MINUTES] spent with patient and on the chart (including review of chart, obtaining history, exam, reviewing outside data, placing orders, documenting exam and treatment plan, and counseling patient) on [DATE].
--- NOTE | 2024-02-09 10:35 | PC.NURSE ---
Patient picked up for her procedure, her cell phone, ritika, and watch at bedside. Patient has been NPO since midnight. VSS, denies pain. 1 small formed dark BM this morning with blood streaked toilet noted.
--- NOTE | 2024-02-09 11:20 | PM.OP.EGD ---
Operative Date/Time/Diagnoses Date of procedure: 02/09/24 Time of procedure: 11:20 Pre-op diagnosis: Melena Post-op diagnosis: same Procedure & Clinicians Study performed: Esophagogastroduodenoscopy Surgeon: Power Damon Procedure Notes Procedure in detail: Surgeon: Power Damon MD Anesthesia: Rebecca Herrera timeout was performed. A bite blocked was placed. The patient was positioned in the left lateral decubitus position. Anesthesia was administered. The endoscope was inserted through the bite block and passed through the esophagus and stomach and into the duodenum. The duodenal mucosa appeared normal. The scope was withdrawn into the duodenal bulb and no abnormalities were seen. The scope was withdrawn into the stomach. No abnormalities were seen. The rest of the stomach was normal. The scope was retroflexed and no abnormalities were seen.. The scope was withdrawn into the esophagus and no abnormalities were seen. The scope was withdrawn. The patient was awakened and brought to recovery. Sedation time: 5 minutes Findings: Normal EGD Post-procedure Disposition: PACU
--- NOTE | 2024-02-09 12:40 | PC.NURSE ---
Patient back to room 222 post procedure approximately 1140am. Denies pain, sipping on water, states she is sleepy. VSS. Call light within reach. Continue to monitor post procedure.
--- NOTE | 2024-02-09 13:31 | P.PN_ITS ---
Subjective Subjective Interval history: 78 F admitted with melena, acute anemia. Hg has downtrended. EGD was unremarkable, surgery plans colonoscopy tomorrow for further evaluation. She reports no bowel movements this morning. Exam Vital Signs (past 8 hours): - 02/09/24 08:00 02/09/24 09:13 02/09/24 09:42 Temperature 96.8 F L Pulse Rate 77 Respiratory Rate 15 Blood Pressure 133/55 L Pulse Oximetry 96 Oxygen Delivery Method Room Air Oxygen Flow Rate 0 02/09/24 10:59 02/09/24 11:23 02/09/24 11:28 Temperature 98.5 F 97.0 F L Pulse Rate 79 82 86 Respiratory Rate 18 16 16 Blood Pressure 121/70 132/57 L 144/59 H Pulse Oximetry 97 94 94 Oxygen Delivery Method Room Air Room Air Room Air Oxygen Flow Rate 02/09/24 11:33 02/09/24 11:40 02/09/24 12:10 Temperature 97.0 F L 96.7 F L Pulse Rate 80 72 72 Respiratory Rate 13 14 14 Blood Pressure 111/57 L 120/44 L 123/55 L Pulse Oximetry 95 99 98 Oxygen Delivery Method Room Air Oxygen Flow Rate 0 0 02/09/24 12:40 Temperature Pulse Rate 79 Respiratory Rate 13 Blood Pressure 107/42 L Pulse Oximetry 97 Oxygen Delivery Method Oxygen Flow Rate 0 Oxygen Delivery Method Room Air Oxygen Flow Rate 0 Narrative Exam Narrative: General:? Patient is well developed and well nourished, in no distress at this time. Chest:? Normal AP diameter and contour without kyphoscoliosis, no tachypnea, equal chest rise bilaterally. Lungs:? CTA b/l no wheezing rhonchi or rales. Cardio:?RRR, 3-4/6 systolic crescendo decrescendo murmur Abdomen: S NT ND. Musculoskeletal:? Muscle strength and tone are equal within normal limits, no deformity. Extremities: No edema or joint effusions. No cyanosis or clubbing. Skin:? Pale,? Warm to touch,dry and intact without rashes, ulcerations or petechiae.? Neuro:? Alert and orientated x3,? sensation to touch intact in all extremities, no gross deficits noted of cranial nerves. Psych:? Patient has a well-kept appearance, appropriate affect, mental status attitude thought context and judgment are appropriate for age. Objective Labs 02/09/24 04:08 02/09/24 04:08 Labs: Laboratory Results - last 24 hr 02/08/24 02/08/24 02/09/24 13:35 20:52 04:08 WBC 8.8 RBC 2.81 L Hgb 8.7 L 8.2 L Hct 26.1 L 24.2 L MCV 86.0 MCH 29.2 MCHC 34.0 RDW 13.8 Plt Count 243 Neut % (Auto) 67.3 Lymph % (Auto) 23.0 L [place] % (Auto) 6.7 Eos % (Auto) 2.4 Baso % (Auto) 0.6 Neut # (Auto) 5900 Lymph # (Auto) 2000 [place] # (Auto) 600 Eos # (Auto) 200 Baso # (Auto) 100 Sodium 137 Potassium 3.8 Chloride 107 Carbon Dioxide 25 BUN 23 H Creatinine 0.84 Estimated GFR > 60 BUN/Creatinine Ratio 27.4 H Glucose 103 Calcium 8.6 Urine Color Yellow Urine Appearance Clear Urine pH 5.5 Ur Specific [place] 1.015 Urine Protein Negative Urine Glucose (UA) Negative Urine Ketones Negative Urine Occult Blood Negative Urine Nitrate Negative Urine Bilirubin Negative Urine Urobilinogen 0.2 Ur Leukocyte Esterase 2+ H Urine RBC None seen Urine WBC 5-10/hpf H Ur Squamous Epith Cells 1-5 /hpf Urine Bacteria None seen Vol Urine Centrifuged 10ml (spun) [facility] Medical History Osteopenia determined by x-ray Hyperlipidemia associated with type 2 diabetes mellitus Scoliosis Post-menopausal Screening for malignant neoplasm of colon Allergy to multiple antibiotics Drug allergy, antibiotic Facet arthropathy, lumbar Gait instability Herniated nucleus pulposus, L2-3 Scoliosis of cervical region due to degenerative disease of spine in adult Ankle fracture, left (05/11/18) Migraines History of seizures as a child Peripheral neuropathy Heart murmur Pre-diabetes H/O renal cell cancer (~1988) Surgical History Hx of parathyroidectomy Hx of cholecystectomy (~1987) History of tonsillectomy and adenoidectomy H/O right nephrectomy (~1988) Status post hysterectomy (~2011) Status post tonsillectomy and adenoidectomy Family History Father High cholesterol Mother Age: 100 Diabetes mellitus Sister Age: 75 Diabetes mellitus Social History household members: none Smoking Status: Never smoker alcohol intake: never Type(s) of exercise: walking Assessment & Plan Assessment & Plan narrative: 1. Acute blood loss anemia, due to GI bleeding. - Continue to trend h/h, previously known Hg of 14 many years ago. 9.1 on admit, down to 8.2 today. Continue to watch q12hr today. - continue IV PPI BID - Hold on IV fludis given severe aortic stenosis - orthostatics negative on BP in the ER, positive tachycardia response. - discussed with surgeon, plan for colonoscopy tomorrow after nothing notable found on EGD today. - differential does include diverticular bleeding. 2. Severe Aortic stenosis - no need for tele currently, has no prior arrythmia history and EKG is unremarkable. 3. DM2 - not on medications currently, glucose 164 on admit - currently on clear liquid diet - no current need for insulin and finger sticks, will monitor with BMP for now. Code: Full, surrogate is patient's daughter DVT: SCDs I have utilized all available immediate resources to obtain, update, or review the patient's current medications. Dispo: patient admitted under observation status. Depending on trend in h/h, colonscopy findings, etc possible discharge home as soon as tomorrow, but course can vary. Additional history obtained via discussions with the ER provider and surgeon. These discussions contributed to the creation of the above assessment and plan. I have reviewed patient's presenting documentation, labs, and imaging personally. Time-Based Coding :: [TOTAL MINUTES] spent with patient and on the chart (including review of chart, obtaining history, exam, reviewing outside data, placing orders, documenting exam and treatment plan, and counseling patient) on [DATE].
--- NOTE | 2024-02-09 14:14 | PM.CALLCOV.1 ---
Call Coverage Note Note Date of Patient Contact: 02/09/24 Time of Patient Contact: 14:14 Narrative of Care Provided: Patient syncopized in the bathroom. Small dark / maroon colored stool noted. She felt dizzy, vision narrowed then syncopized. Regained consciousness about 30 sec - 1 min later. She feels okay. BP normal 110s/70s on monitor. Hg 8 so will transfuse 1U for syncope. Given her aortic stenosis will also monitor with tele now.
[2024-02-09 14:36] LABS: Hematocrit 24.1 % (36-46)
[2024-02-09 16:20] LABS: Hematocrit 22.2 % (36-46); Hemoglobin 7.5 g/dL (12.0-16.0)
--- NOTE | 2024-02-09 16:21 | PC.NURSE ---
Per Dr. Quinonez delay start of bowel prep until after blood transfusion has completed.
--- NOTE | 2024-02-09 19:43 | PC.NURSE ---
Initial set of Vital Signs on TAR respiratory rate documented incorrectly, RR was 16 upon starting transfusion. Unable to edit.
--- NOTE | 2024-02-09 19:50 | PC.NURSE ---
Late entry: Approximately 1410, patient was up to the bathroom with SB assist of this RN. Patient voiding on toilet and had BM, reported feeling dizzy suddenly and loss consciousness. Diaphoretic, passed out for approximately 1 minute, did not fall as this nurse was right with patient and able to hold her up. Assistance called and additional help and Dr. Quinonez came to bedside. Patient assisted back to bed via use of WC, patient was conversant and able to report feeling dizzy and then I just blacked out. Vitals signs 116/35 with HR of 79, 96% on RA then 5 minutes later VS 113/71 with HR 78 o2 saturation 96% on RA. Patient instructed to stay in bed at this time. Labs drawn to recheck H/H. Order for 1 unit PRBC transfusion, received and infusing as this time. Per Dr. Quinonez delay giving colonoscopy prep until after patient receives transfusion. Bed alarm active. Patient resting comfortably in bed at this time, denies pain or other complaint at this time.
[2024-02-09] MEDS: PEG3350/SOD SULF,BICARB,CL/KCL 4,000 ML SOLUTION 4000 ML PO (20:36)
[2024-02-10] VITALS (19 sets, daily range): BP systolic 101–136; BP diastolic 40–63; PULSE 71–102; RESP 10–20; TEMP 35.7–36.9; O2SAT 95–99
[2024-02-10 04:35] LABS: Add Manual Diff / Slide Review NO; Basophils Absolute Auto 0 /uL (0-100); Basophils Percent Auto 0.5 % (0-2); Eosinophils Absolute Auto 200 /uL (0-450); Eosinophils Percent Auto 1.9 % (2-4); Hematocrit 23.4 % (36-46); Lymphocytes Absolute Auto 1900 /uL (1100-4500); Lymphocytes Percent Auto 20.7 % (25-40); Mean Corpuscular HGB Conc 34.3 % (30-36); Mean Corpuscular Hemoglobin 29.7 PG (26-34); Mean Corpuscular Volume 86.5 fL (80-100); Monocytes Absolute Auto 700 /uL (0-900); Monocytes Percent Auto 7.9 % (3-14); Neutrophils Absolute Auto 6200 /uL (1500-7000); Platelet Count 219 X10^3/uL (150-400); Red Blood Cell Count 2.71 X10^6/uL (4.0-5.2); Red Cell Distribution Width 13.7 % (11.6-14.8); White Blood Cell Count 9.1 X10^3/uL (4.5-11.0)
[2024-02-10 04:58] LABS: Blood Urea Nitrogen 18 mg/dL (7-17); Calcium 8.3 mg/dL (8.4-10.2); Carbon Dioxide 27 mmol/L (22-32); Chloride 106 mmol/L (98-107); Estimated Glomerular Filt Rate > 60 mL/min (>60); Glucose 99 mg/dL (80-110); HEMOLYSIS < 15 (0-50); Potassium 3.4 mmol/L (3.4-5.1); Sodium 137 mmol/L (137-145)
[2024-02-10] MEDS: PANTOPRAZOLE 40 MG VIAL IV ×2 (08:55→20:37)
[2024-02-10] MEDS: SODIUM CHLORIDE 0.9% FLUSH 10 ML IV ×2 (08:55→20:38)
[2024-02-10] MEDS: POTASSIUM CHLORIDE IN WATER 10 MEQ/100 ML PIGGYBACK 100 MEQ IV (10:10)
--- NOTE | 2024-02-10 10:41 | CM.DPNOTE ---
DCP note [employer]IOR [employer]CIAL [employer]ANT reviewed EMR. Per chart review, pt had a syncopal episode yesterday with nursing staff, see RN note for more. had a drop in H&H, got a unit of blood. Per UR RN, changing pt to inpt status. per hospitalist in morning rounds, plan to remain here for at least another day due to syncopal episode. No barriers identified at this time to patient's safe discharge home w/family to assist; close outpatient f/u recommended. CM team will plan to follow clinical course closely in case any DC needs or concerns arise. JULY Daniels
--- NOTE | 2024-02-10 12:51 | P.PN_ITS ---
Subjective Subjective Date Patient Seen: 02/10/24 Time Patient Seen: 12:51 Interval history: transfusion yesterday No abdominal pain Negative EGD yesterday Exam Vital Signs (past 8 hours): - 02/10/24 05:00 02/10/24 08:00 02/10/24 09:00 Temperature 96.4 F L Pulse Rate 73 Respiratory Rate 15 Blood Pressure 107/51 L Pulse Oximetry 98 96 96 Oxygen Delivery Method Room Air Room Air Oxygen Flow Rate 0 0 02/10/24 09:13 02/10/24 11:46 Temperature 96.6 F L 98.5 F Pulse Rate 74 82 Respiratory Rate 15 18 Blood Pressure 127/56 L 119/59 L Pulse Oximetry 96 96 Oxygen Delivery Method Room Air Oxygen Flow Rate 0 Oxygen Delivery Method Room Air Oxygen Flow Rate 0 Narrative Exam Narrative: Gen-Adult woman alert and oriented Abdomen Soft non tender Objective Labs 02/10/24 04:05 02/10/24 04:05 Labs: Laboratory Results - last 24 hr 02/08/24 02/09/24 02/09/24 11:40 14:20 16:07 WBC RBC Hgb 8.0 L 7.5 L Hct 24.1 L 22.2 L MCV MCH MCHC RDW Plt Count Neut % (Auto) Lymph % (Auto) [place] % (Auto) Eos % (Auto) Baso % (Auto) Neut # (Auto) Lymph # (Auto) [place] # (Auto) Eos # (Auto) Baso # (Auto) Sodium Potassium Chloride Carbon Dioxide BUN Creatinine Estimated GFR BUN/Creatinine Ratio Glucose Calcium Blood Type O Positive Antibody Screen Negative Crossmatch See Detail 02/10/24 04:05 WBC 9.1 RBC 2.71 L Hgb 8.0 L Hct 23.4 L MCV 86.5 MCH 29.7 MCHC 34.3 RDW 13.7 Plt Count 219 Neut % (Auto) 69.0 Lymph % (Auto) 20.7 L [place] % (Auto) 7.9 Eos % (Auto) 1.9 L Baso % (Auto) 0.5 Neut # (Auto) 6200 Lymph # (Auto) 1900 [place] # (Auto) 700 Eos # (Auto) 200 Baso # (Auto) 0 Sodium 137 Potassium 3.4 Chloride 106 Carbon Dioxide 27 BUN 18 H Creatinine 0.82 Estimated GFR > 60 BUN/Creatinine Ratio 22.0 Glucose 99 Calcium 8.3 L Blood Type Antibody Screen Crossmatch [facility] Medical History Osteopenia determined by x-ray Hyperlipidemia associated with type 2 diabetes mellitus Scoliosis Post-menopausal Screening for malignant neoplasm of colon Allergy to multiple antibiotics Drug allergy, antibiotic Facet arthropathy, lumbar Gait instability Herniated nucleus pulposus, L2-3 Scoliosis of cervical region due to degenerative disease of spine in adult Ankle fracture, left (05/11/18) Migraines History of seizures as a child Peripheral neuropathy Heart murmur Pre-diabetes H/O renal cell cancer (~1988) Surgical History Hx of parathyroidectomy Hx of cholecystectomy (~1987) History of tonsillectomy and adenoidectomy H/O right nephrectomy (~1988) Status post hysterectomy (~2011) Status post tonsillectomy and adenoidectomy Family History Father High cholesterol Mother Age: 100 Diabetes mellitus Sister Age: 75 Diabetes mellitus Social History household members: none Smoking Status: Never smoker alcohol intake: never Type(s) of exercise: walking Assessment & Plan Assessment and plan (1) GI bleed: Qualifiers: GI bleed type/associated pathology: unspecified gastrointestinal hemorrhage type Qualified Code(s): K92.2 - Gastrointestinal hemorrhage, unspecified Status: Acute Assessment & Plan narrative: 78F with GIB hemodynamically stable with negative EGD. Colonoscopy can be considered for further evaluation however she had a negative colonoscopy earlier this year and I suspect yield is fairly low. Following discussion of procedural risks and benefits provides informed consent to proceed with colonoscopy. Time-Based Coding :: [TOTAL MINUTES] spent with patient and on the chart (including review of chart, obtaining history, exam, reviewing outside data, placing orders, documenting exam and treatment plan, and counseling patient) on [DATE].
--- NOTE | 2024-02-10 14:14 | P.OP.EGD_ITS ---
Operative Date/Time/Diagnoses Date of procedure: 02/10/24 Time of procedure: 14:14 Pre-op diagnosis: GIB Post-op diagnosis: same Procedure & Clinicians Study performed: Colonoscopy Same procedure as scheduled: Yes Indications: GIB with negative EGD Surgeon: Eligio Villanueva Procedure Notes Procedure in detail: The history and physical was performed/updated and the patient is ASA class is 3. The procedure was discussed in detail with the patient. Potential risks complications including infection, bleeding, missed diagnosis, perforation, need for surgery, and were explained. Their questions were answered and informed consent was obtained. Patient was brought to the procedure room and placed standard monitoring equipment. The patient's vital signs were monitored continuously throughout the entire procedure. Prior to starting time-out was performed. The patient was placed in the left lateral recumbent position. Procedural sedation was administered by anesthesia. Examination began with a thorough inspection of the perianal area there was no evidence of fissures, fistulae, external hemorrhoids or cutaneous malignancy. The colonoscopy scope was then placed into the anal canal and was advanced to the cecum, which was identified by the ileocecal valve, the appendiceal orifice and the confluence of the taenia. The scope was then slowly withdrawn examining colon thoroughly in all directions, irrigating it of any residual stool. The scope was retroflexed within the rectum The patient tolerated the procedure well. They will be discharged once criteria are met. The prep was of poor quality. The withdrawl time was 7 minutes. FINDINGS * No active hemorrhage within the colon. Extensive clot burden throughout the entirety of the colon starting at the level of the cecum Specimen(s): none sent Post-procedure Disposition: same day surgery
--- NOTE | 2024-02-10 15:53 | P.PN_ITS ---
Subjective Subjective Interval history: 78 F admitted with melena, acute anemia. Hg has downtrended. EGD was unremarkable, colonoscopy today showed extensive clot burden starting at the cecum but no active bleed. Will continue to watch h/h, Hg 7.5 > 8.0 after transfusion. Exam Vital Signs (past 8 hours): - 02/10/24 08:00 02/10/24 09:00 02/10/24 09:13 Temperature 96.4 F L 96.6 F L Pulse Rate 73 74 Respiratory Rate 15 15 Blood Pressure 107/51 L 127/56 L Pulse Oximetry 96 96 96 Oxygen Delivery Method Room Air Oxygen Flow Rate 0 0 02/10/24 11:46 02/10/24 13:50 02/10/24 13:54 Temperature 98.5 F 98 F Pulse Rate 82 78 76 Respiratory Rate 18 20 18 Blood Pressure 119/59 L 102/60 107/63 Pulse Oximetry 96 98 97 Oxygen Delivery Method Room Air Room Air Room Air Oxygen Flow Rate 02/10/24 13:59 02/10/24 14:05 02/10/24 14:25 Temperature 98.3 F 96.7 F L Pulse Rate 76 71 80 Respiratory Rate 10 L 13 15 Blood Pressure 106/60 104/56 L 122/57 L Pulse Oximetry 99 98 98 Oxygen Delivery Method Room Air Room Air Oxygen Flow Rate 0 02/10/24 15:25 Temperature 96.6 F L Pulse Rate 85 Respiratory Rate 15 Blood Pressure 125/45 L Pulse Oximetry 96 Oxygen Delivery Method Oxygen Flow Rate 0 Oxygen Delivery Method Room Air Oxygen Flow Rate 0 Narrative Exam Narrative: General:? Patient is well developed and well nourished, in no distress at this time. Chest:? Normal AP diameter and contour without kyphoscoliosis, no tachypnea, equal chest rise bilaterally. Lungs:? CTA b/l no wheezing rhonchi or rales. Cardio:?RRR, 3-4/6 systolic crescendo decrescendo murmur Abdomen: S NT ND. Musculoskeletal:? Muscle strength and tone are equal within normal limits, no deformity. Extremities: No edema or joint effusions. No cyanosis or clubbing. Skin:? Pale,? Warm to touch,dry and intact without rashes, ulcerations or petechiae.? Neuro:? Alert and orientated x3,? sensation to touch intact in all extremities, no gross deficits noted of cranial nerves. Psych:? Patient has a well-kept appearance, appropriate affect, mental status attitude thought context and judgment are appropriate for age. Objective Labs 02/10/24 04:05 02/10/24 04:05 Labs: Laboratory Results - last 24 hr 02/08/24 02/09/24 02/10/24 11:40 16:07 04:05 WBC 9.1 RBC 2.71 L Hgb 7.5 L 8.0 L Hct 22.2 L 23.4 L MCV 86.5 MCH 29.7 MCHC 34.3 RDW 13.7 Plt Count 219 Neut % (Auto) 69.0 Lymph % (Auto) 20.7 L [place] % (Auto) 7.9 Eos % (Auto) 1.9 L Baso % (Auto) 0.5 Neut # (Auto) 6200 Lymph # (Auto) 1900 [place] # (Auto) 700 Eos # (Auto) 200 Baso # (Auto) 0 Sodium 137 Potassium 3.4 Chloride 106 Carbon Dioxide 27 BUN 18 H Creatinine 0.82 Estimated GFR > 60 BUN/Creatinine Ratio 22.0 Glucose 99 Calcium 8.3 L Blood Type O Positive Antibody Screen Negative Crossmatch See Detail [facility] Medical History Osteopenia determined by x-ray Hyperlipidemia associated with type 2 diabetes mellitus Scoliosis Post-menopausal Screening for malignant neoplasm of colon Allergy to multiple antibiotics Drug allergy, antibiotic Facet arthropathy, lumbar Gait instability Herniated nucleus pulposus, L2-3 Scoliosis of cervical region due to degenerative disease of spine in adult Ankle fracture, left (05/11/18) Migraines History of seizures as a child Peripheral neuropathy Heart murmur Pre-diabetes H/O renal cell cancer (~1988) Surgical History Hx of parathyroidectomy Hx of cholecystectomy (~1987) History of tonsillectomy and adenoidectomy H/O right nephrectomy (~1988) Status post hysterectomy (~2011) Status post tonsillectomy and adenoidectomy Family History Father High cholesterol Mother Age: 100 Diabetes mellitus Sister Age: 75 Diabetes mellitus Social History household members: none Smoking Status: Never smoker alcohol intake: never Type(s) of exercise: walking Assessment & Plan Assessment & Plan narrative: 1. Acute blood loss anemia, due to GI bleeding. - Continue to trend h/h, previously known Hg of 14 many years ago. 9.1 on admit, down to 8.0 with syncopal episode. Repeat to 7.5, after 1U PRBC transfusion back to 8.0. - continue IV PPI BID - Hold on IV fludis given severe aortic stenosis - discussed with surgeon, colonoscopy with extensive clot burden but no active bleeding noted. EGD also negative. If h/h continues to fall will check CT angio to see if source can be located, consider transfer for enteroscopy with GI - differential does include diverticular bleeding. 2. Severe Aortic stenosis - no need for tele currently, has no prior arrythmia history and EKG is unremarkable. 3. DM2 - not on medications currently, glucose 164 on admit - currently on clear liquid diet - no current need for insulin and finger sticks, will monitor with BMP for now. Code: Full, surrogate is patient's daughter DVT: SCDs I have utilized all available immediate resources to obtain, update, or review the patient's current medications. Dispo: Change to inpatient. Likely home depending on trend in h/h. Also possible transfer as noted above. Additional history obtained via discussions with the surgeon. These discussions contributed to the creation of the above assessment and plan. I have reviewed patient's presenting documentation, labs, and imaging personally. Time-Based Coding :: [TOTAL MINUTES] spent with patient and on the chart (including review of chart, obtaining history, exam, reviewing outside data, placing orders, documenting exam and treatment plan, and counseling patient) on [DATE].
[2024-02-10 16:21] LABS: Hematocrit 23.4 % (36-46); Hemoglobin 7.9 g/dL (12.0-16.0)
[2024-02-10] MEDS: POTASSIUM CHLORIDE 20 MEQ TAB PO (17:12)
--- NOTE | 2024-02-10 18:55 | PC.NURSE ---
pt NPO, vitals stable, pt very pleasant, around 1100 pt left the floor for colonoscopy and returned around 1500. liquid diet progressed to gen diet, no nausea, no complaints of pain
[2024-02-11] VITALS (13 sets, daily range): BP systolic 101–153; BP diastolic 38–88; PULSE 83–100; RESP 16–18; TEMP 35.7–36.2; O2SAT 95–99
--- NOTE | 2024-02-11 | DI.CT.S_ITS ---
PROCEDURE: CT ANGIO ABD/PEL GI BLEED INDICATIONS: melena, negative EGD and colonoscopy TECHNIQUE: After the administration of intravenous contrast, 2.5 mm thick sections acquired from the diaphragm to the symphysis. 10 mm maximum-intensity projection (MIP) reformats were then acquired. For radiation dose reduction, the following was used: automated exposure control. COMPARISON: None. FINDINGS: Image Quality: Diagnostic. Abdominal aorta: No aortic aneurysm or evidence of acute aortic syndrome. Mild atherosclerotic calcifications. Included portions of the iliac and femoral arterial systems are patent bilaterally. Mesenteric arteries: Patent without hemodynamically significant stenosis. Incidental note of a replaced right hepatic artery, a normal anatomic variant. Renal arteries: Left renal artery is patent without hemodynamically significant stenosis. OTHER: Lower Chest: No significant findings. Liver: No solid mass. Liver is hypoattenuating, consistent with diffuse fatty infiltration. Gallbladder: Status post cholecystectomy. Biliary ducts: No biliary dilation. Pancreas: No ductal dilation. Spleen: Size is within normal limits. Adrenal Glands: No adrenal nodules. Kidneys and Ureters: Status post right nephrectomy. No mass is seen in the renal bed. No hydronephrosis. No solid mass. No complex renal cystic lesion which requires follow up. Stomach and Bowel: Multiple diverticula are seen in the colon without signs of acute diverticulitis. Multiple small bowel diverticula are also seen most prominent in the left upper quadrant, without surrounding inflammatory changes. No extravasated contrast material is seen in the bowel lumen. No signs of small bowel obstruction. Liquid stool material is seen throughout the colon. Peritoneum: No abnormal intraperitoneal fluid. No free air. Ventral Wall: Small fat containing periumbilical hernia. Abdominal Nodes: No retroperitoneal or mesenteric adenopathy by size criteria. Vessels: Aorta and inferior vena cava are normal in size. PELVIS: Pelvic Organs: Status post hysterectomy. Bladder: Unremarkable. Pelvic Nodes: No enlarged lymph nodes. Miscellaneous: No inguinal hernias are seen. Bones: No aggressive osseous abnormality. Multilevel degenerative changes in the included spine with suspected high-grade spinal canal narrowing at the L2-3 and L3-4 levels. IMPRESSION: 1. No active contrast extravasation into the bowel lumen. No significant arterial abnormality in the abdomen or pelvis. 2. Colonic and small bowel diverticulosis without acute diverticulitis. 3. Diffuse hepatic steatosis. 4. Status post right nephrectomy. 5. Severe degenerative changes in the included spine. Approved by: Arnoldo Correia M.D. on 02/11/2024 at 8:53
[2024-02-11 05:20] LABS: Add Manual Diff / Slide Review NO; Basophils Absolute Auto 0 /uL (0-100); Basophils Percent Auto 0.3 % (0-2); Eosinophils Absolute Auto 200 /uL (0-450); Eosinophils Percent Auto 1.8 % (2-4); Lymphocytes Absolute Auto 1800 /uL (1100-4500); Lymphocytes Percent Auto 19.6 % (25-40); Mean Corpuscular HGB Conc 34.4 % (30-36); Mean Corpuscular Hemoglobin 30.2 PG (26-34); Mean Corpuscular Volume 87.6 fL (80-100); Monocytes Absolute Auto 700 /uL (0-900); Monocytes Percent Auto 7.7 % (3-14); Neutrophils Absolute Auto 6600 /uL (1500-7000); Neutrophils Percent Auto 70.6 % (50-75); Platelet Count 211 X10^3/uL (150-400); Red Blood Cell Count 2.31 X10^6/uL (4.0-5.2); Red Cell Distribution Width 14.2 % (11.6-14.8); White Blood Cell Count 9.4 X10^3/uL (4.5-11.0)
[2024-02-11 05:43] LABS: BUN Creatinine Ratio 25.6 (6-22); Blood Urea Nitrogen 21 mg/dL (7-17); Calcium 8.4 mg/dL (8.4-10.2); Carbon Dioxide 24 mmol/L (22-32); Chloride 108 mmol/L (98-107); Estimated Glomerular Filt Rate > 60 mL/min (>60); Glucose 114 mg/dL (80-110); HEMOLYSIS < 15 (0-50); Potassium 3.7 mmol/L (3.4-5.1); Sodium 138 mmol/L (137-145)
[2024-02-11 05:49] LABS: Hematocrit 20.2 % (36-46)
[2024-02-11] MEDS: PANTOPRAZOLE 40 MG VIAL IV ×2 (08:31→21:19)
[2024-02-11] MEDS: SODIUM CHLORIDE 0.9% FLUSH 10 ML IV ×2 (08:31→21:19)
--- NOTE | 2024-02-11 15:59 | P.PN_ITS ---
Subjective Subjective Interval history: 78 F admitted with melena, acute anemia. Hg has downtrended. EGD was unremarkable, colonoscopy yesterday showed extensive clot burden starting at the cecum but no active bleed. Hg 7.0 given 1U PRBC again today (2nd this admit). Trying to transfer for push enteroscopy or further evaluation. ProvJoselo Gutierrez GI recommended transfer to [place] for the above, not available there. GI provider at [facility] recommended re-scope, am waiting to discuss with other hospitals including or [facility] for their opinion. Exam Vital Signs (past 8 hours): - 02/11/24 08:00 02/11/24 09:00 02/11/24 10:05 Temperature 97.1 F L 96.6 F L Pulse Rate 98 H 89 Respiratory Rate 16 16 Blood Pressure 126/51 L 101/48 L Pulse Oximetry 99 95 Oxygen Delivery Method Room Air Oxygen Flow Rate 0 02/11/24 10:24 02/11/24 13:00 02/11/24 13:30 Temperature 96.4 F L 96.9 F L Pulse Rate 90 87 Respiratory Rate 16 16 Blood Pressure 104/40 L 138/49 L Pulse Oximetry 97 Oxygen Delivery Method Room Air Oxygen Flow Rate 0 02/11/24 13:49 Temperature 96.9 F L Pulse Rate 87 Respiratory Rate 16 Blood Pressure 138/49 L Pulse Oximetry 97 Oxygen Delivery Method Oxygen Flow Rate 0 Oxygen Delivery Method Room Air Oxygen Flow Rate 0 Narrative Exam Narrative: General:? Patient is well developed and well nourished, in no distress at this time. Chest:? Normal AP diameter and contour without kyphoscoliosis, no tachypnea, equal chest rise bilaterally. Lungs:? CTA b/l no wheezing rhonchi or rales. Cardio:?RRR, 3-4/6 systolic crescendo decrescendo murmur Abdomen: S NT ND. Musculoskeletal:? Muscle strength and tone are equal within normal limits, no deformity. Extremities: No edema or joint effusions. No cyanosis or clubbing. Skin:? Pale,? Warm to touch,dry and intact without rashes, ulcerations or petechiae.? Neuro:? Alert and orientated x3,? sensation to touch intact in all extremities, no gross deficits noted of cranial nerves. Psych:? Patient has a well-kept appearance, appropriate affect, mental status attitude thought context and judgment are appropriate for age. Objective Labs 02/11/24 04:45 02/11/24 04:45 Labs: Laboratory Results - last 24 hr 02/08/24 02/10/24 02/11/24 11:40 15:55 04:45 WBC 9.4 RBC 2.31 L Hgb 7.9 L 7.0 L Hct 23.4 L 20.2 L* MCV 87.6 MCH 30.2 MCHC 34.4 RDW 14.2 Plt Count 211 Neut % (Auto) 70.6 Lymph % (Auto) 19.6 L [place] % (Auto) 7.7 Eos % (Auto) 1.8 L Baso % (Auto) 0.3 Neut # (Auto) 6600 Lymph # (Auto) 1800 [place] # (Auto) 700 Eos # (Auto) 200 Baso # (Auto) 0 Sodium 138 Potassium 3.7 Chloride 108 H Carbon Dioxide 24 BUN 21 H Creatinine 0.82 Estimated GFR > 60 BUN/Creatinine Ratio 25.6 H Glucose 114 H Calcium 8.4 Blood Type O Positive Antibody Screen Negative Crossmatch See Detail [facility] Medical History Osteopenia determined by x-ray Hyperlipidemia associated with type 2 diabetes mellitus Scoliosis Post-menopausal Screening for malignant neoplasm of colon Allergy to multiple antibiotics Drug allergy, antibiotic Facet arthropathy, lumbar Gait instability Herniated nucleus pulposus, L2-3 Scoliosis of cervical region due to degenerative disease of spine in adult Ankle fracture, left (05/11/18) Migraines History of seizures as a child Peripheral neuropathy Heart murmur Pre-diabetes H/O renal cell cancer (~1988) Surgical History Hx of parathyroidectomy Hx of cholecystectomy (~1987) History of tonsillectomy and adenoidectomy H/O right nephrectomy (~1988) Status post hysterectomy (~2011) Status post tonsillectomy and adenoidectomy Family History Father High cholesterol Mother Age: 100 Diabetes mellitus Sister Age: 75 Diabetes mellitus Social History household members: none Smoking Status: Never smoker alcohol intake: never Type(s) of exercise: walking Assessment & Plan Assessment & Plan narrative: 1. Acute blood loss anemia, due to GI bleeding. - Continue to trend h/h, previously known Hg of 14 many years ago. 9.1 on admit, down to 8.0 with syncopal episode. Repeat to 7.5, after 1U PRBC transfusion back to 8.0 but then 7.0 again today. - continue IV PPI BID - Hold on IV fludis given severe aortic stenosis - discussed with surgeon, colonoscopy with extensive clot burden but no active bleeding noted. EGD also negative. Attempting to transfer for deep enteroscopy after negative CT angio today. - differential does include diverticular bleeding. 2. Severe Aortic stenosis - no need for tele currently, has no prior arrythmia history and EKG is unremarkable. 3. DM2 - not on medications currently, glucose 164 on admit - currently on clear liquid diet - no current need for insulin and finger sticks, will monitor with BMP for now. Code: Full, surrogate is patient's daughter DVT: SCDs I have utilized all available immediate resources to obtain, update, or review the patient's current medications. Dispo: Changed to inpatient. Likely transfer Additional history obtained via discussions with the surgeon. These discussions contributed to the creation of the above assessment and plan. I have reviewed patient's presenting documentation, labs, and imaging personally. Time-Based Coding :: [TOTAL MINUTES] spent with patient and on the chart (including review of chart, obtaining history, exam, reviewing outside data, placing orders, documenting exam and treatment plan, and counseling patient) on [DATE].
[2024-02-11 18:04] LABS: Hematocrit 23.1 % (36-46); Hemoglobin 7.9 g/dL (12.0-16.0)
--- NOTE | 2024-02-11 22:09 | PM.DS.1 ---
History of Present Illness History of Present Illness Chief complaint: Dizzy, Doesn't feel quite right,Blackish stool Narrative: 78 F admitted with melena, acute anemia. Hg has downtrended. EGD was unremarkable, colonoscopy yesterday showed extensive clot burden starting at the cecum but no active bleed. Hg 7.0 given 1U PRBC again today (2nd this admit). Trying to transfer for push enteroscopy or further evaluation from today's rounding. Accepted at [facility]. Discharge Providers Provider Date of admission: 02/10/24 10:07 Discharge Date: 02/11/24 Primary care physician: MALCOM Cedeno Discharge provider: Graham Mckeon MD Summary Hospital Course Discharge Diagnosis: GI bleed acute posthemorrhagic anemia Hospital Course: 78 y/o hospitalized for melena. EGD, colonoscopy and CTA non-revealing. Required 2 units of PRBCs - Hb ~8. Transferred for push enteroscopy, NPO, on PPI IV and IVFs. Status at Discharge Cognitive/behavioral status at discharge: oriented Exam Vital Signs (past 8 hours): - 02/11/24 17:00 02/11/24 17:00 02/11/24 20:00 Temperature 96.6 F L 96.6 F L Pulse Rate 83 83 Respiratory Rate 17 Blood Pressure 153/48 H 108/88 Pulse Oximetry 97 97 97 Oxygen Delivery Method Room Air Oxygen Flow Rate 0 0 Oxygen Delivery Method Room Air Oxygen Flow Rate 0 Objective Labs 02/11/24 17:49 02/11/24 04:45 Labs: Laboratory Results - last 24 hr 02/08/24 02/11/24 02/11/24 11:40 04:45 17:49 WBC 9.4 RBC 2.31 L Hgb 7.0 L 7.9 L Hct 20.2 L* 23.1 L MCV 87.6 MCH 30.2 MCHC 34.4 RDW 14.2 Plt Count 211 Neut % (Auto) 70.6 Lymph % (Auto) 19.6 L [place] % (Auto) 7.7 Eos % (Auto) 1.8 L Baso % (Auto) 0.3 Neut # (Auto) 6600 Lymph # (Auto) 1800 [place] # (Auto) 700 Eos # (Auto) 200 Baso # (Auto) 0 Sodium 138 Potassium 3.7 Chloride 108 H Carbon Dioxide 24 BUN 21 H Creatinine 0.82 Estimated GFR > 60 BUN/Creatinine Ratio 25.6 H Glucose 114 H Calcium 8.4 Blood Type O Positive Antibody Screen Negative Crossmatch See Detail [facility] Medical History Osteopenia determined by x-ray Hyperlipidemia associated with type 2 diabetes mellitus Scoliosis Post-menopausal Screening for malignant neoplasm of colon Allergy to multiple antibiotics Drug allergy, antibiotic Facet arthropathy, lumbar Gait instability Herniated nucleus pulposus, L2-3 Scoliosis of cervical region due to degenerative disease of spine in adult Ankle fracture, left (05/11/18) Migraines History of seizures as a child Peripheral neuropathy Heart murmur Pre-diabetes H/O renal cell cancer (~1988) Surgical History Hx of parathyroidectomy Hx of cholecystectomy (~1987) History of tonsillectomy and adenoidectomy H/O right nephrectomy (~1988) Status post hysterectomy (~2011) Status post tonsillectomy and adenoidectomy Family History Father High cholesterol Mother Age: 100 Diabetes mellitus Sister Age: 75 Diabetes mellitus Social History household members: none Smoking Status: Never smoker alcohol intake: never Type(s) of exercise: walking Discharge Plan Discharge Plan [facility] Disposition[facility] Provider Discharge Comment: discharged for push enteroscopy Discharge orders & Medications Prescriptions: No Action No Known Home Medications Follow up/Referrals: Kylie Gonsalez ARNP [Primary Care Provider] - Discharge Data Primary Care Provider: Kylie Gonsalez
--- NOTE | 2024-02-11 22:17 | PM.DS.1 ---
History of Present Illness History of Present Illness Date Patient Seen: 02/11/24 Chief complaint: Dizzy, Doesn't feel quite right,Blackish stool Narrative: This is a 78 M with PMH of DM2 (not on medications), severe Aortic stenosis who presented with lightheaded, dizziness since Thursday particularly with exertion. For the last two days she has noted black stools which started shortly after she noticed lack of energy and that she was more short of breath than usual. She recently had colonoscopy earlier this year with removal of a benign polyp and diverticulosis was noted. She denies fever, chills, LE edema, orthopnea, chest pain. She denies stomach/abdominal pain, nausea, vomiting, diarrhea. In the ER, Hg was 9.1, last in 2020 was 14 no recent labs since that I can find in our EMR and CareEverywhere. Surgery plans on EGD tomorrow. She was admitted for further management of possible upper GI bleed and acute blood loss anemia. Discharge Providers Provider Date of admission: 02/10/24 10:07 Discharge Date: 02/11/24 Primary care physician: MALCOM Cedeno Discharge provider: Sarbjit Quinonez DO Summary Hospital Course Discharge Diagnosis: Please see hospital course by problem list noted below: Hospital Course: 1. Acute blood loss anemia, due to GI bleeding. - Admitted 07/08 with 2 days of melena. known Hg of 14 a few years ago. 9.1 on admit, down to 8.0 with syncopal episode that happened after negative EGD (02/09/24). Low Hg was 7.5 taken just after syncopal episode. She was given 1U PRBC transfusion back to 8.0 but then 7.0 again today, 02/10 with ongoing melena. Ordered for 1U PRBC transfusion again 02/10 with improvement to 7.9 this afternoon. - continued IV PPI BID since admission. - Held on IV fludis given severe aortic stenosis, she did tolerate a diet today. - discussed with surgeon, colonoscopy 02/09 with extensive clot burden but no active bleeding noted. EGD also negative as noted above. Attempting to transfer for push / deeper enteroscopy after negative CT angio abdomen pelvis today (02/10) done to see if source amenable for IR interventions, 02/10. - Patient was accepted for transfer by medicine service attending Dr. Michael at [facility]. 2. Severe Aortic stenosis - did not monitor on tele, as she had no prior arrythmia history and EKG was unremarkable and admission. 3. history of controlled DM2 - not on medications currently, glucose 164 on admit, 114 today. - monitored glucose with morning BMP. - A1c 6.4% in 04/2023. Code: Full, surrogate is patient's daughter DVT: SCDs I have utilized all available immediate resources to obtain, update, or review the patient's current medications. Dispo: Changed to inpatient. Transferred to [facility] ([facility]). Additional history obtained via discussions with the surgeon and transfer centers from [facility] and the [facility]. These discussions contributed to the creation of the above assessment and plan. I have reviewed patient's presenting documentation, labs, and imaging personally. Time Spent with Patient Time spent: Greater than 30 minutes Exam Vital Signs (past 8 hours): - 02/11/24 17:00 02/11/24 17:00 02/11/24 20:00 Temperature 96.6 F L 96.6 F L Pulse Rate 83 83 Respiratory Rate 17 Blood Pressure 153/48 H 108/88 Pulse Oximetry 97 97 97 Oxygen Delivery Method Room Air Oxygen Flow Rate 0 0 Oxygen Delivery Method Room Air Oxygen Flow Rate 0 Narrative Exam Narrative: General:? Patient is well developed and well nourished, in no distress at this time. Chest:? Normal AP diameter and contour without kyphoscoliosis, no tachypnea, equal chest rise bilaterally. Lungs:? CTA b/l no wheezing rhonchi or rales. Cardio:?RRR, 3-4/6 systolic crescendo decrescendo murmur Abdomen: S NT ND. Musculoskeletal:? Muscle strength and tone are equal within normal limits, no deformity. Extremities: No edema or joint effusions. No cyanosis or clubbing. Skin:? Pale,? Warm to touch,dry and intact without rashes, ulcerations or petechiae.? Neuro:? Alert and orientated x3,? sensation to touch intact in all extremities, no gross deficits noted of cranial nerves. Psych:? Patient has a well-kept appearance, appropriate affect, mental status attitude thought context and judgment are appropriate for age. Objective Labs 02/11/24 17:49 02/11/24 04:45 Labs: Laboratory Results - last 24 hr 02/08/24 02/11/24 02/11/24 11:40 04:45 17:49 WBC 9.4 RBC 2.31 L Hgb 7.0 L 7.9 L Hct 20.2 L* 23.1 L MCV 87.6 MCH 30.2 MCHC 34.4 RDW 14.2 Plt Count 211 Neut % (Auto) 70.6 Lymph % (Auto) 19.6 L [place] % (Auto) 7.7 Eos % (Auto) 1.8 L Baso % (Auto) 0.3 Neut # (Auto) 6600 Lymph # (Auto) 1800 [place] # (Auto) 700 Eos # (Auto) 200 Baso # (Auto) 0 Sodium 138 Potassium 3.7 Chloride 108 H Carbon Dioxide 24 BUN 21 H Creatinine 0.82 Estimated GFR > 60 BUN/Creatinine Ratio 25.6 H Glucose 114 H Calcium 8.4 Blood Type O Positive Antibody Screen Negative Crossmatch See Detail [facility] Medical History Osteopenia determined by x-ray Hyperlipidemia associated with type 2 diabetes mellitus Scoliosis Post-menopausal Screening for malignant neoplasm of colon Allergy to multiple antibiotics Drug allergy, antibiotic Facet arthropathy, lumbar Gait instability Herniated nucleus pulposus, L2-3 Scoliosis of cervical region due to degenerative disease of spine in adult Ankle fracture, left (05/11/18) Migraines History of seizures as a child Peripheral neuropathy Heart murmur Pre-diabetes H/O renal cell cancer (~1988) Surgical History Hx of parathyroidectomy Hx of cholecystectomy (~1987) History of tonsillectomy and adenoidectomy H/O right nephrectomy (~1988) Status post hysterectomy (~2011) Status post tonsillectomy and adenoidectomy Family History Father High cholesterol Mother Age: 100 Diabetes mellitus Sister Age: 75 Diabetes mellitus Social History household members: none Smoking Status: Never smoker alcohol intake: never Type(s) of exercise: walking Discharge Plan Discharge Plan Patient Disposition: [facility] Other facility: [facility] Provider Discharge Comment: discharged for push enteroscopy Discharge Data Primary Care Provider: Kylie Gonsalez
== END 2024-02-11 22:55 | disposition short-term general hospital (02) | DRG 378 ==
LOC: ED 14:04 → AC 15:16
PROVIDERS: Surgery; Admitting Provider Internal Medicine; Emergency Provider Emergency Medicine; Family Provider Nurse Practitioner; PCP Nurse Practitioner; Visit Provider Internal Medicine
PROC: 0DJ08ZZ Inspection of Upper Intestinal Tract, Via Natural or Artificial Opening Endoscopic (ICD-10-PCS; principal; 2024-02-09 11:00)
PROC: 0DJD8ZZ Inspection of Lower Intestinal Tract, Via Natural or Artificial Opening Endoscopic (ICD-10-PCS; CPT 45378; principal; 2024-02-10 12:00)
DX: K92.1 Melena (principal); D62 Acute posthemorrhagic anemia; E11.9 Type 2 diabetes mellitus without complications; I35.0 Nonrheumatic aortic (valve) stenosis; R55 Syncope and collapse
CPT/HCPCS: 36415; 36430; 74174; 80048; 80053; 81001; 81003; 82272; 85014; 85018; 85025; 85610; 85730; 86850; 86900; 86901; 87086; 93005; 93010; 96374; 96375; 99284; 99285; G0378; P9016; J0330; J2405; J2470; J2704; J3010; Q9967

== ENCOUNTER → 2024-04-20 09:28 | Outpatient (CLI) | payer MEDICARE, SELFPAY ==
[2024-02-08 15:27] VITALS: BMI 18.5
[2024-04-20 10:04] LABS: Add Manual Diff / Slide Review NO; Basophils Absolute Auto 100 /uL (0-100); Eosinophils Absolute Auto 300 /uL (0-450); Eosinophils Percent Auto 4.2 % (2-4); Hematocrit 33.4 % (36-46); Hemoglobin 10.5 g/dL (12.0-16.0); Lymphocytes Absolute Auto 2000 /uL (1100-4500); Lymphocytes Percent Auto 30.6 % (25-40); Mean Corpuscular HGB Conc 31.6 % (30-36); Mean Corpuscular Hemoglobin 24.4 PG (26-34); Mean Corpuscular Volume 77.3 fL (80-100); Monocytes Absolute Auto 500 /uL (0-900); Neutrophils Absolute Auto 3600 /uL (1500-7000); Neutrophils Percent Auto 56.2 % (50-75); Platelet Count 333 X10^3/uL (150-400); Red Blood Cell Count 4.32 X10^6/uL (4.0-5.2); White Blood Cell Count 6.5 X10^3/uL (4.5-11.0)
[2024-04-20 10:16] LABS: HEMOLYSIS < 15 (0-50); Iron 21 ug/dL (37-170)
[2024-04-20 10:20] LABS: Alanine Aminotransferase 12 IU/L (<35); Albumin 3.8 g/dL (3.5-5.0); Albumin Globulin Ratio 1.5 (1.0-2.8); Alkaline Phosphatase 127 U/L (38-126); Aspartate Aminotransferase 20 IU/L (14-36); BUN Creatinine Ratio 28.7 (6-22); Bilirubin Total 0.2 mg/dL (0.2-1.3); Blood Urea Nitrogen 25 mg/dL (7-17); Calcium 8.9 mg/dL (8.4-10.2); Carbon Dioxide 28 mmol/L (22-32); Chloride 107 mmol/L (98-107); Estimated Glomerular Filt Rate > 60 mL/min (>60); Globulin 2.5 g/dL (1.7-4.1); Glucose 106 mg/dL (80-110); HEMOLYSIS < 15 (0-50); Potassium 4.2 mmol/L (3.4-5.1); Sodium 140 mmol/L (137-145); Total Protein 6.3 g/dL (6.3-8.2)
[2024-04-20 10:28] LABS: Percent Iron Saturation 5 % (15-50); Total Iron Binding Capacity 382 ug/dL (265-497); Transferrin 356 mg/dL (206-381)
[2024-04-20 11:05] LABS: Vitamin B12 696 pg/mL (239-931)
== END ==
LOC: LAB 09:29
PROVIDERS: Family Provider Nurse Practitioner; PCP Family Medicine; Referring Provider Family Medicine; Visit Provider Family Medicine
DX: E53.8 Deficiency of other specified B group vitamins (principal); D50.9 Iron deficiency anemia, unspecified; R73.9 Hyperglycemia, unspecified; K92.2 Gastrointestinal hemorrhage, unspecified
CPT/HCPCS: 36415; 80053; 82607; 83540; 83550; 85025

== ENCOUNTER → 2024-05-04 16:05 | Outpatient (CLI) | payer MEDICARE, SELFPAY ==
[2024-02-08 15:27] VITALS: BMI 18.5
--- NOTE | 2024-05-04 16:06 | DI.MG.S_ITS ---
BILATERAL DIGITAL SCREENING MAMMOGRAM 3D/2D WITH CAD: 05/04/2024 CLINICAL: Routine screening. Family history of breast cancer. Comparison is made to exams dated: 03/04/2023 mammogram, 03/03/2022 mammogram, and 02/08/2021 mammogram - [facility]. The breasts are heterogeneously dense, which may obscure small masses (category c / 51-75% glandular tissue). Current study was also evaluated with a Computer Aided Detection (CAD) system. There are benign calcifications in the left breast. There also are benign vascular calcifications in both breasts. No significant masses, calcifications, or other findings are seen in either breast. There has been no significant interval change. IMPRESSION: BENIGN There is no mammographic evidence of malignancy. A 1 year screening mammogram is recommended. Based on the Tyrer Cuzick model (a risk assessment model) the patient's lifetime risk is 10.2% and her 10 year risk is 0.0%. According to the ACR, ACS, and NCCN guidelines, an annual breast MRI exam along with mammogram is recommended if the patient's lifetime risk is 20% or greater. This exam was interpreted at Station ID: [id number]. NOTE: For mammograms, a report in lay terms will be sent to the patient. Approximately 15% of breast malignancies will not be visualized mammographically. In the management of a palpable breast mass, a negative mammogram must not discourage biopsy of a clinically suspicious lesion. Electronically Signed By: Jus mansfield/abi:05/06/2024 16:14:39 letter sent: Normal Exam ACR BI-RADS Category 2: Benign
== END ==
PROVIDERS: Family Provider Nurse Practitioner; PCP Family Medicine; Referring Provider Family Medicine; Visit Provider Family Medicine
DX: Z12.31 Encounter for screening mammogram for malignant neoplasm of breast (principal); Z80.3 Family history of malignant neoplasm of breast; R92.333 Mammographic heterogeneous density, bilateral breasts
CPT/HCPCS: 77063; 77067

== ENCOUNTER → 2024-05-27 08:19 | Outpatient (CLI) | payer MEDICARE, SELFPAY ==
[2024-02-08 15:27] VITALS: BMI 18.5
[2024-05-27 10:17] LABS: Add Manual Diff / Slide Review NO; Basophils Absolute Auto 100 /uL (0-100); Eosinophils Absolute Auto 200 /uL (0-450); Eosinophils Percent Auto 2.9 % (2-4); Hematocrit 39.3 % (36-46); Hemoglobin 12.6 g/dL (12.0-16.0); Lymphocytes Absolute Auto 1000 /uL (1100-4500); Lymphocytes Percent Auto 13.5 % (25-40); Mean Corpuscular Hemoglobin 25.2 PG (26-34); Mean Corpuscular Volume 78.7 fL (80-100); Monocytes Absolute Auto 500 /uL (0-900); Monocytes Percent Auto 7.2 % (3-14); Neutrophils Absolute Auto 5300 /uL (1500-7000); Neutrophils Percent Auto 75.4 % (50-75); Platelet Count 298 X10^3/uL (150-400); Red Blood Cell Count 4.99 X10^6/uL (4.0-5.2); Red Cell Distribution Width 20.9 % (11.6-14.8); White Blood Cell Count 7.1 X10^3/uL (4.5-11.0)
[2024-05-27 10:30] LABS: Anisocytosis 1+
[2024-05-27 10:50] LABS: HEMOLYSIS < 15 (0-50); Iron 38 ug/dL (37-170)
[2024-05-27 11:01] LABS: Percent Iron Saturation 11 % (15-50); Total Iron Binding Capacity 353 ug/dL (265-497); Transferrin 318 mg/dL (206-381)
[2024-05-27 11:20] LABS: Ferritin 16 ng/mL (11-264)
== END ==
PROVIDERS: Family Provider Nurse Practitioner; PCP Family Medicine; Referring Provider Family Medicine; Visit Provider Family Medicine
DX: D50.8 Other iron deficiency anemias (principal)
CPT/HCPCS: 36415; 82728; 83540; 83550; 85025

== ENCOUNTER → 2024-05-30 10:24 | Outpatient (CLI) | payer MEDICARE, SELFPAY ==
[2024-02-08 15:27] VITALS: BMI 18.5
[2024-05-30 10:38] LABS: Appearance Urine UA CLEAR; Bilirubin Urine UA NEGATIVE (NEGATIVE); Color Urine UA YELLOW; Glucose Urine UA NEGATIVE (Negative); Ketones Urine UA NEGATIVE (NEGATIVE); Leukocyte Esterase Urine UA 2+ (NEGATIVE); Nitrite Urine UA NEGATIVE (Negative); Occult Blood Urine UA NEGATIVE (Negative); Protein Urine UA NEGATIVE (Negative); Urobilinogen Urine UA 0.2 E.U./dL (0.2)
[2024-05-30 10:43] LABS: Urine Volume 10mL (spun)
[2024-05-30 10:44] LABS: Bacteria Urine Few (2-10); Culture Indicated Urine Specimen Cultured; RBC Urine None Seen (0-5/HPF); Squamous Epithelial Cell Urine None Seen (0-5/HPF); WBC Urine 5-10/HPF (0-5/HPF)
== END ==
PROVIDERS: Family Provider Nurse Practitioner; PCP Family Medicine; Referring Provider Family Medicine; Visit Provider Family Medicine
DX: R30.0 Dysuria (principal)
CPT/HCPCS: 81001; 87077; 87086; 87186

== ENCOUNTER → 2024-10-06 12:42 | Outpatient (CLI) | payer MEDICARE, SELFPAY ==
[2024-02-08 15:27] VITALS: BMI 18.5
--- NOTE | 2024-10-06 12:44 | DI.ECHO.S_ITS ---
[place] +---------+ Hospital : : [address] : [place] : : [id number] : : Phone: [phone] Echocardiogram Report + + :Name: STORM REZA Study Date: 10/06/2024 Height: 68 in : :[facility] ReadingLocation: Weight: 220 lb : : Gender: Female BSA: 2.1 m2 : :: 1945 Age: 79 yrs BP: 124/76 mmHg: :Reason For Study: NONRHEUMATIC AORTIC VALVE STENOSIS : :Ordering Physician: BIJU, : :DAISHA Performed By: Anila Holder : :Referring: DAISHA GONZALEZ : + + Interpretation Summary 1) Mildly increased left ventricular thickness (concentric) with normal size, normal wall motion, and normal systolic function (EF 60-65%). 2) Upper normal right ventricle with normal function. 3) There is severe aortic stenosis (valve area 0.9cm2, mean gradient 49.5mmHg). 4) Compared to the Echo done 05/15/2023, aortic stenosis has progressed from moderate-severe to severe on this study. Procedure: A two-dimensional transthoracic echocardiogram with color flow and Doppler was performed. The study quality was technically adequate. Comparison is made with the echocardiogram of 05/15/2023. The patient was in sinus bradycardia with heart rates between 54-64 bpm during the exam. Left Ventricle: The left ventricle is normal in size. Left ventricular wall thickness is mildly increased. The ejection fraction is estimated to be 60- 65%. Left ventricular systolic function appears normal without focal wall motion abnormalities. Diastolic function could not be accurately assessed due to contradictory data. Right Ventricle: The right ventricle is at the upper limits of normal in size. The right ventricular systolic function is normal. Atria: The left atrial size is normal. Right atrial size is normal. There is no Doppler evidence for an interatrial shunt. Mitral Valve: The mitral valve leaflets appear mildly thickened, but open well. There is moderate mitral annular calcification. There is trace mitral regurgitation. Aortic Valve: The aortic valve is severely calcified. There is moderate to severely reduced leaflet mobility. A bicuspid aortic valve cannot be excluded. The peak aortic velocity is 4.37 m/sec. The aortic valve mean gradient is 49.5 mmHg. The calculated aortic valve area is 0.86 cm2. Aortic velocity ratio of 0.29. There is severe aortic stenosis. There is mild aortic regurgitation. Tricuspid Valve: The tricuspid valve leaflets are thin and pliable. There is mild tricuspid regurgitation. Pulmonary artery pressures cannot be estimated because of the lack of a measurable TR jet velocity but the IVC suggests a CVP of around 3 mmHg. Pulmonic Valve: The pulmonic valve is not well seen, but is grossly normal. There is mild pulmonic regurgitation. Great Vessels: The aortic root is normal size. The ascending aorta is at the upper limits of normal in size. The IVC is of normal diameter and collapses greater than 50% with a sniff. This suggests a low right atrial pressure of 3 mm Hg. Pericardium/ Pleura There is no pericardial effusion. There is no pleural effusion. MMode/2D Measurements & Calculations LVIDd: 4.6 cm LVOT diam: 2.0 cm LVIDs: 2.9 cm Ao root diam: 3.2 cm FS: 37.7 % asc Aorta Diam: 3.9 cm EPSS: 0.64 cm Ao Arch Diam (Prox Trans): 3.5 cm IVSd: 1.1 cm LVPWd: 1.0 cm LV franklin. diameter/BSA (cm/m^2): 2.2 LV sys. diameter/BSA (cm/m^2): 1.4 LA A2 area: 19.4 cm2 RA long axis: 6.0 cm LA A4 area: 26.2 cm2 RA area: 20.1 cm2 LA length (vol): 6.1 cm RA vol: 57.5 ml LA vol: 70.5 ml RA : 27.0 ml/m2 LA vol index: 33.1 ml/m2 IVC diam: 1.8 cm RVD1 (basal): 3.9 cm RVD2 (mid): 3.6 cm TAPSE: 2.5 cm Doppler Measurements & Calculations Ao V2 max: 437.0 cm/sec LVOT Max Gonzalez: 116.3 cm/sec Ao V2 mean: 341.2 cm/sec LV V1 max P.4 mmHg Ao max P.3 mmHg LV V1 VTI: 28.3 cm Ao mean P.5 mmHg JASEN(I,D): 0.92 cm2 Ao V2 VTI: 98.4 cm JASEN(V,D): 0.86 cm2 sev ratio: 0.29 JASEN indexed to BSA (cm^2/m^2): 0.43 AI P1/2t: 818.3 msec AI dec slope: 160.1 cm/sec2 MV E max gonzalez: 78.4 cm/sec PA V2 max: 89.7 cm/sec MV A max gonzalez: 95.1 cm/sec PA V2 mean: 60.4 cm/sec MV E/A: 0.82 PA mean P.7 mmHg Med Peak E' Gonzalez: 8.1 cm/sec PA pr(Accel): 34.7 mmHg E/E' med: 9.7 Lat Peak E' Gonzalez: 4.7 cm/sec E/E' lat: 16.8 E/e' average: 13.2 MV dec time: 0.24 sec SV(LVOT): 91.1 ml Reading Physician:05:03 PM
== END ==
PROVIDERS: Family Provider Nurse Practitioner; PCP Family Medicine; Referring Provider Internal Medicine Cardiovascular Disease; Visit Provider Internal Medicine Cardiovascular Disease
DX: I08.2 Rheumatic disorders of both aortic and tricuspid valves (principal)
CPT/HCPCS: 93306

== ENCOUNTER → 2024-10-17 09:30 | Outpatient (CLI) | payer MEDICARE, SELFPAY ==
[2024-02-08 15:27] VITALS: BMI 18.5
[2024-10-17 11:08] LABS: Hematocrit 41.0 % (36-46); Hemoglobin 13.9 g/dL (12.0-16.0); Mean Corpuscular HGB Conc 33.8 % (30-36); Mean Corpuscular Hemoglobin 29.0 PG (26-34); Mean Corpuscular Volume 85.9 fL (80-100); Platelet Count 248 X10^3/uL (150-400)
[2024-10-17 11:25] LABS: Blood Urea Nitrogen 18 mg/dL (7-17); Calcium 9.4 mg/dL (8.4-10.2); Carbon Dioxide 27 mmol/L (22-32); Chloride 104 mmol/L (98-107); Cholesterol 144 mg/dL (140-199); Estimated Glomerular Filt Rate > 60 mL/min (>60); Glucose 113 mg/dL (70-99); HDL Cholesterol 67 mg/dL (40-60); HEMOLYSIS < 15 (0-50); Potassium 5.1 mmol/L (3.4-5.1); Sodium 138 mmol/L (137-145); Triglycerides 86 mg/dL (35-150)
== END ==
PROVIDERS: Family Provider Nurse Practitioner; PCP Family Medicine; Referring Provider Internal Medicine Cardiovascular Disease; Visit Provider Internal Medicine Cardiovascular Disease
DX: E11.9 Type 2 diabetes mellitus without complications (principal); Z90.5 Acquired absence of kidney
CPT/HCPCS: 36415; 80048; 80061; 85027

== ENCOUNTER → 2025-01-23 07:09 | Outpatient (CLI) | payer MEDICARE, SELFPAY ==
[2024-02-08 15:27] VITALS: BMI 18.5
[2025-01-23 07:49] LABS: Add Manual Diff / Slide Review NO; Hematocrit 40.9 % (36-46); Hemoglobin 13.9 g/dL (12.0-16.0); Lymphocytes Absolute Auto 1500 /uL (1100-4500); Mean Corpuscular HGB Conc 34.0 % (30-36); Mean Corpuscular Hemoglobin 29.1 PG (26-34); Mean Corpuscular Volume 85.6 fL (80-100); Platelet Count 238 X10^3/uL (150-400)
[2025-01-23 08:08] LABS: Blood Urea Nitrogen 15 mg/dL (7-17); Calcium 9.3 mg/dL (8.4-10.2); Carbon Dioxide 25 mmol/L (22-32); Chloride 106 mmol/L (98-107); Estimated Glomerular Filt Rate > 60 mL/min (>60); Glucose 122 mg/dL (70-99); HEMOLYSIS < 15 (0-50); Potassium 4.4 mmol/L (3.4-5.1); Sodium 139 mmol/L (137-145)
== END ==
PROVIDERS: PCP Family Medicine; Referring Provider Family Medicine; Visit Provider Internal Medicine Interventional Cardiology
DX: I35.0 Nonrheumatic aortic (valve) stenosis (principal)
CPT/HCPCS: 36415; 80048; 85025

== ENCOUNTER → 2025-02-24 07:50 | Outpatient (CLI) | payer MEDICARE, SELFPAY ==
[2024-02-08 15:27] VITALS: BMI 18.5
--- NOTE | 2025-02-24 07:54 | DI.ECHO.S_ITS ---
[place] +---------+ Hospital : : [address] : [place] : : [id number] : : Phone: [phone] Echocardiogram Report + + :Name: STORM REZA Study Date: 02/24/2025 Height: 68 in : :[facility] ReadingLocation: Weight: 215 lb : : Gender: Female BSA: 2.1 m2 : :: 1945 Age: 79 yrs BP: 161/82 mmHg: :Reason For Study: S/P TAVR : :Ordering Physician: BIJU, : :DAISHA Performed By: David Odonnell : :Referring: DAISHA GONZALEZ : + + Interpretation Summary 1) Mildly increased left ventricular thickness (concentric) with normal size, normal wall motion, and normal systolic function (EF 65-70%). 2) Normal right ventricular size and function. 3) Grade II diastolic dysfunction with elevated left atrial pressure. 4) There is a bioprosthetic aortic valve that is well seated and opens well (mean gradient 24mmHg). No intra-valvular or kj-valvular leaks visualized. 5) Hypertension present during the study (BP 161/82mmHg). 6) Compared to the Echo done 10/06/2024, severely stenotic aortic valve has been replaced by a well functioning bioprosthetic aortic valve. Procedure: A two-dimensional transthoracic echocardiogram with color flow and Doppler was performed. The study quality was technically adequate. Comparison is made with the echocardiogram of 10/06/2024. The patient was in normal sinus rhythm during the exam. Left Ventricle: The left ventricle is normal in size. Left ventricular wall thickness is mildly increased. Left ventricular systolic function is normal. The ejection fraction is estimated to be 65-70%. There are no focal wall motion abnormalities. Grade II diastolic dysfunction with elevated left atrial pressure. Right Ventricle: The right ventricle is normal in size and function. Atria: The left atrium is moderately dilated. Right atrial size is normal. There is no Doppler evidence for a significant interatrial shunt. Mitral Valve: There is moderate mitral annular calcification. The mitral valve leaflets appear mildly thickened, but open well. There is no mitral valve stenosis. There is trace mitral regurgitation. Aortic Valve: S/P TAVR. There is a bioprosthetic aortic valve. The prosthetic aortic valve is well-seated. The peak aortic velocity is 3.2 m/sec. The aortic valve mean gradient is 24 mmHg. sev ratio: 0.34. No intra- valvular or kj-valvular leaks visualized. Tricuspid Valve: The tricuspid valve leaflets are thin and pliable. There is trace tricuspid regurgitation. The right ventricular systolic pressure is estimated to be at least 36 mmHg based on an estimated right atrial pressure of 3 mm Hg. Pulmonic Valve: The pulmonic valve is not well seen, but is grossly normal. There is trace pulmonic regurgitation. Great Vessels: The aortic root is normal size. Ascending aorta was not well visualized. The aortic arch could not be visualized. The pulmonary is not well visualized. The IVC is of normal diameter and collapses greater than 50% with a sniff. This suggests a low right atrial pressure of 3 mm Hg. Pericardium/ Pleura There is no pericardial effusion. MMode/2D Measurements & Calculations LVIDd: 4.9 cm LVOT diam: 2.1 cm LVIDs: 3.0 cm Ao root diam: 2.7 cm FS: 38.3 % IVSd: 1.1 cm LVPWd: 1.2 cm LV franklin. diameter/BSA (cm/m^2): 2.3 LV sys. diameter/BSA (cm/m^2): 1.4 LA A2 area: 24.6 cm2 RA long axis: 4.8 cm LA A4 area: 30.0 cm2 RA area: 13.9 cm2 LA length (vol): 6.6 cm RA vol: 33.9 ml LA vol: 95.1 ml RA : 16.1 ml/m2 LA vol index: 45.1 ml/m2 IVC diam: 1.6 cm RVD1 (basal): 3.3 cm RVD2 (mid): 2.7 cm TAPSE: 2.4 cm Doppler Measurements & Calculations Ao V2 max: 323.7 cm/sec LVOT Max Gonzalez: 102.1 cm/sec Ao V2 mean: 231.6 cm/sec LV V1 max P.2 mmHg Ao max P.9 mmHg LV V1 VTI: 23.3 cm Ao mean P.1 mmHg JASEN(I,D): 1.2 cm2 Ao V2 VTI: 68.1 cm JASEN(V,D): 1.1 cm2 sev ratio: 0.34 JASEN indexed to BSA (cm^2/m^2): 0.57 MV E max gonzalez: 118.9 cm/sec TR max gonzalez: 287.2 cm/sec MV A max gonzalez: 106.0 cm/sec TR max P.0 mmHg MV E/A: 1.1 PA V2 max: 80.5 cm/sec Med Peak E' Gonzalez: 7.8 cm/sec PA V2 mean: 59.4 cm/sec E/E' med: 15.2 PA mean P.5 mmHg Lat Peak E' Gonzalez: 4.0 cm/sec PA pr(Accel): 27.6 mmHg E/E' lat: 30.0 E/e' average: 22.6 MV dec time: 0.24 sec SV(LVOT): 82.0 ml Reading Physician:03:02 PM
[2025-02-24 08:38] LABS: Hematocrit 40.7 % (36-46); Hemoglobin 13.8 g/dL (12.0-16.0); Mean Corpuscular HGB Conc 33.9 % (30-36); Mean Corpuscular Hemoglobin 29.0 PG (26-34); Mean Corpuscular Volume 85.6 fL (80-100); Platelet Count 159 X10^3/uL (150-400)
[2025-02-24 09:05] LABS: Blood Urea Nitrogen 20 mg/dL (7-17); Calcium 9.4 mg/dL (8.4-10.2); Carbon Dioxide 27 mmol/L (22-32); Chloride 106 mmol/L (98-107); Estimated Glomerular Filt Rate > 60 mL/min (>60); Glucose 129 mg/dL (70-99); HEMOLYSIS < 15 (0-50); Potassium 4.4 mmol/L (3.4-5.1); Sodium 140 mmol/L (137-145)
== END ==
LOC: ECHO 07:51
PROVIDERS: PCP Family Medicine; Referring Provider Family Medicine; Visit Provider Internal Medicine Cardiovascular Disease
DX: I34.81 Nonrheumatic mitral (valve) annulus calcification (principal); Z95.2 Presence of prosthetic heart valve
CPT/HCPCS: 36415; 80048; 85027; 93306